=== PATIENT | male | born 1965 | race African-American/Black ===

== ENCOUNTER 2016-06-08 13:14 | Emergency (ER) | payer MEDICARE, MEDICAID ==
[~2016-06-08] VITALS: Ht 172.7 cm; Wt 59.1 kg
[~2016-06-08 13:14] MED LIST: EQL400TA PO; HYDR10SO PO; LEVA500T PO; LISI5 PO
[2016-06-08 13:35] VITALS: BP 148/72; PULSE 86; RESP 20; TEMP 97.8; O2SAT 96
[2016-06-08 14:09] VITALS: BP 171/87; PULSE 83; RESP 16; O2SAT 98
[2016-06-08] MEDS ORDERED: SODIUM CHLOR 0.9% 1000 ML INJ 1,000 ML IV SCH (14:12)
--- NOTE | 2016-06-08 14:14 | PD ---
HPI Chief Complaint: Dizziness Time Seen by Provider: 14:14 Travel History International Travel<30 days: No Contact w/Intl Traveler<30days: No Traveled to known affect area: No History of Present Illness HPI 50-year-old male with a history of sickle cell anemia and hypertension presents to the emergency department for evaluation of lightheadedness for 2 days. Patient states that he feels lightheaded and weak and this is been worsening since yesterday. States it is aggravated with standing up and trying to walk. Denies any alleviating factors. Denies dizziness, states he doesn't feel as though the room is spinning, feels as though he is lightheaded. He denies any fever, chills, nausea, vomiting, chest pain, shortness of breath, abdominal pain , numbness or tingling, one-sided weakness, headache, blurred vision. States that he has had a mild cough recently. States he has never had these symptoms before. No other complaints. Oncologist is Dr. Quintana. [facility] Past Medical History Arthritis: Yes Asthma: No Blood Disorders: Yes (SICKLE CELL) Cardiovascular Problems: No COPD: No Diminished Hearing: No Endocrine: No Gastrointestinal Disorders: Yes Genitourinary: No Implanted Vascular Access Dvce: Yes Musculoskeletal: Yes Neurologic: No Psychiatric: No Reproductive: No Respiratory: Yes Resp. Syncytial Virus (RSV): Yes Integumentary: Yes Immunizations Current: Yes Sickle Cell Disease: Yes Ulcer: Yes Past Surgical History Cholecystectomy: Yes Joint Replacement: Yes (RT HIP SURG FEB 2013) Thoracic Surgery: Yes (INFUSAPORT REMOVED) Other Surgery: Yes (port removed) Social History Alcohol Use: No Tobacco Use: Yes (1PPD) Substance Use: No Allergies-Medications (Allergen,Severity, Reaction): Coded Allergies: Lorazepam (Verified Allergy, Severe, Shortness of Breath, 06/08/16) Reported Meds & Prescriptions Reported Meds & Active Scripts Active Reported Hydrocodone-Acetaminophen 10-325 mg Tab 1 Tab PO Q4H PRN Folic Acid 400 Mcg Tab 400 Mcg PO DAILY Review of Systems Except as stated in HPI: all other systems reviewed are Neg Physical Exam Narrative GENERAL: Well-nourished and well-developed pleasant male patient in no acute distress who is nontoxic appearing. SKIN: Warm and dry. HEAD: Normocephalic and atraumatic. EYES: No injection, drainage, or hyphema noted. PERRLA. EOMI. ENT: No nasal drainage noted. Oropharynx is clear. NECK: Supple and the trachea is midline. CARDIOVASCULAR: Regular rate and rhythm. RESPIRATORY: Breath sounds are equal bilaterally with no accessory muscle use, wheezing, rhonchi, or crackles. GASTROINTESTINAL: Abdomen is soft, non-tender, and nondistended. MUSCULOSKELETAL: No obvious deformities, swelling, cyanosis, or ecchymosis is present throughout the upper and lower extremities. Patient has full range of motion without any signs of neurovascular compromise. Right hip flexor is slightly weaker than the left, patient reporting this has been ongoing since his right hip replacement 2 months ago. NEUROLOGICAL: Awake, alert, and oriented. Normal speech and gait. Cranial nerves are grossly intact. Data Data Last Documented VS Vital Signs Date Time Temp Pulse Resp B/P Pulse Ox O2 Delivery O2 Flow Rate FiO2 06/08/16 15:41 87 16 173/77 98 Room Air 06/08/16 13:35 97.8 Orders Electrocardiogram (06/08/16 14:12) Complete Blood Count With Diff (06/08/16 14:12) Comprehensive Metabolic Panel (06/08/16 14:12) Chest, Single Ap (06/08/16 14:12) Ecg Monitoring (06/08/16 14:12) Iv Access Insert/Monitor (06/08/16 14:12) Oximetry (06/08/16 14:12) Sodium Chloride 0.9% Flush (Ns Flush) (06/08/16 14:15) Retic Count (06/08/16 14:12) Sodium Chlor 0.9% 1000 Ml Inj (Ns 1000 M (06/08/16 14:12) Ua Includes Microscopic (06/08/16 14:50) Labs Laboratory Tests Test 06/08/16 06/08/16 14:50 15:00 White Blood Count 7.7 TH/MM3 Red Blood Count 2.55 MIL/MM3 Hemoglobin 9.9 GM/DL Hematocrit 28.5 % Mean Corpuscular Volume 111.8 FL Mean Corpuscular Hemoglobin 38.7 PG Mean Corpuscular Hemoglobin 34.7 % Concent Red Cell Distribution Width 30.8 % Platelet Count 413 TH/MM3 Mean Platelet Volume 7.8 FL Neutrophils (%) (Auto) 59.2 % Lymphocytes (%) (Auto) 30.9 % Monocytes (%) (Auto) 9.3 % Eosinophils (%) (Auto) 0.1 % Basophils (%) (Auto) 0.5 % Neutrophils # (Auto) 4.6 TH/MM3 Lymphocytes # (Auto) 2.4 TH/MM3 Monocytes # (Auto) 0.7 TH/MM3 Eosinophils # (Auto) 0.0 TH/MM3 Basophils # (Auto) 0.0 TH/MM3 CBC Comment AUTO DIFF Differential Total Cells 100 Counted Neutrophils % (Manual) 65 % Band Neutrophils % 1 % Lymphocytes % 25 % Monocytes % 9 % Neutrophils # (Manual) 5.1 TH/MM3 Nucleated Red Blood Cells 2 /100 WBC Differential Comment FINAL DIFF MANUAL Platelet Estimate HIGH Platelet Morphology Comment NORMAL Sickle Cells 1+ Target Cells 2+ Ovalocytes Reticulocyte Count 5.5 % Absolute Reticulocyte Count 139.5 MIL/L Sodium Level 141 MEQ/L Potassium Level 3.9 MEQ/L Chloride Level 112 MEQ/L Carbon Dioxide Level 20.3 MEQ/L Anion Gap 9 MEQ/L Blood Urea Nitrogen 17 MG/DL Creatinine 1.72 MG/DL Estimat Glomerular Filtration 51 ML/MIN Rate Random Glucose 101 MG/DL Calcium Level 8.8 MG/DL Total Bilirubin 1.4 MG/DL Aspartate Amino Transf 41 U/L (AST/SGOT) Alanine Aminotransferase 33 U/L (ALT/SGPT) Alkaline Phosphatase 206 U/L Total Protein 7.5 GM/DL Albumin 3.4 GM/DL Urine Color YELLOW Urine Turbidity CLEAR Urine pH 6.0 Urine Specific [place] 1.008 Urine Protein 100 mg/dL Urine Glucose (UA) NEG mg/dL Urine Ketones NEG mg/dL Urine Occult Blood TRACE Urine Nitrite NEG Urine Bilirubin NEG Urine Urobilinogen LESS THAN 2.0 MG/DL Urine Leukocyte Esterase NEG Urine RBC LESS THAN 1 /hpf Urine WBC LESS THAN 1 /hpf Urine Squamous Epithelial <1 /hpf Cells MDM Medical Decision Making Medical Screen Exam Complete: Yes Emergency Medical Condition: Yes Differential Diagnosis Anemia versus dehydration versus pneumonia versus orthostatic hypotension Narrative Course 50-year-old male presents to the emergency department for evaluation of lightheadedness for 2 days. Patient is afebrile, vital signs are stable. Physical examination is unremarkable. A focal neurologic deficits. IV access is obtained, labs have been drawn and sent. Patient is administered a liter of fluid. EKG shows sinus rhythm with no acute ST elevations or depressions. CBC shows anemia with a hemoglobin of 9.9, hematocrit 28.5, this is consistent with the patient's previous lab values. CMP shows mild renal insufficiency with a creatinine of 1.72, GFR 51. This consistent with previous lab values. Urinalysis shows 100 protein and trace occult blood. Chest x-ray is negative for any acute abnormalities. Patient has remained stable while here in the emergency department. Likely secondary to mild dehydration. Advised increase oral fluids. Stable for discharge. I discussed the case with my attending physician Dr. Galicia who is aware of the patients history, physical examination findings, and treatment plan. Diagnosis Primary Impression: Lightheadedness Referrals: Primary Care Physician Patient Instructions: General Instructions, Lightheadedness (ED) Additional Instructions: Drink plenty of fluids. Follow-up with your Primary Care Physician. Return to the ED for any acute worsening of symptoms. Med/Other Pt SpecificInfo: No Change to Meds Disposition: 01 DISCHARGE HOME Condition: Stable Katina Cabrera Jun 08, 2016 14:14
[2016-06-08] MEDS ORDERED: SODIUM CHLORIDE 0.9% FLUSH 5 ML FLUSH IVF PRN (14:15)
--- NOTE | 2016-06-08 14:47 | RADRPT ---
EXAM DATE/TIME: 06/08/2016 14:14 [facility] COMPARISON: CHEST SINGLE AP, December 01, 2015, 13:36. INDICATIONS : Cough, dizzy MEDICAL HISTORY : None. SURGICAL HISTORY : None. ENCOUNTER: Initial ACUITY: 1 day PAIN SCORE: 0/10 LOCATION: Bilateral chest FINDINGS: A single view of the chest demonstrates the lungs to be symmetrically aerated without evidence of mas s, infiltrate or effusion. The cardiomediastinal contours are unremarkable. Heterotopic ossification of the humeral head on the left suggesting avascular necrosis. Humeral head prosthesis on the right. CONCLUSION: 1. No acute cardio pulmonary disease. 2. 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 Nomi Sexton Jr., MD on June 08, 2016 at 14:43 Board Certified Radiologist. This report was verified electronically.
[2016-06-08 15:12] LABS: AUTOMATED NEUTROPHIL # 4.6 TH/MM3 (1.8-7.7); BASOPHIL % 0.5 % (0.0-2.0); EOSINOPHIL % 0.1 % (0.0-4.0); HEMATOCRIT 28.5 % (39.0-51.0); LYMPH % 30.9 % (9.0-44.0); LYMPHOCYTE # 2.4 TH/MM3 (1.0-4.8); MEAN CELL VOLUME 111.8 FL (80.0-100.0); MEAN CORPUSCULAR HEMOGLOBIN 38.7 PG (27.0-34.0); MEAN CORPUSCULAR HGB CONC 34.7 % (32.0-36.0); MONO % 9.3 % (0.0-8.0); NEUT % 59.2 % (16.0-70.0); PLATELET COUNT 413 TH/MM3 (150-450); RED BLOOD COUNT 2.55 MIL/MM3 (4.50-5.90); RED CELL DISTRIBUTION WIDTH 30.8 % (11.6-17.2); RETIC % 5.5 % (0.4-3.0); WHITE BLOOD COUNT 7.7 TH/MM3 (4.0-11.0)
[2016-06-08 15:17] LABS: HEMO FLAGS AUTO DIFF; REVIEW FLAG AUTO DIFF
[2016-06-08 15:28] LABS: ALT (GPT) 33 U/L (12-78); ANION GAP 9 MEQ/L (5-15); AST (GOT) 41 U/L (15-37); BICARBONATE 20.3 MEQ/L (21.0-32.0); BLOOD UREA NITROGEN 17 MG/DL (7-18); CHLORIDE 112 MEQ/L (98-107); GLOMERULAR FILTRATION RATE 51 ML/MIN (>89); POTASSIUM 3.9 MEQ/L (3.5-5.1); SODIUM (NA) 141 MEQ/L (136-145)
[2016-06-08 15:30] LABS: ALKALINE PHOSPHATASE 206 U/L (45-117); TOTAL BILIRUBIN ADULT 1.4 MG/DL (0.2-1.0)
[2016-06-08 15:41] VITALS: BP 173/77; PULSE 87; RESP 16; O2SAT 98
[2016-06-08] MEDS ORDERED: FOLI400T PO (15:41)
[2016-06-08] MEDS ORDERED: HYDR-3583 PO (15:41)
[2016-06-08 15:59] LABS: BLOOD, URINE TRACE (NEG); GLUCOSE,URINE NEG (NEG); KETONE, URINE NEG (NEG); NITRITE,URINE NEG (NEG); SQUAMOUS EPITHELIAL CELL URINE <1 /hpf (0-5); URINE COLOR YELLOW (YELLW/STRAW)
[2016-06-08 16:04] LABS: BANDS 1 % (0-6); CORRECTED NUCLEATED RBC 2 /100 WBC (0-0); NEUTROPHIL # MANUAL DIFF 5.1 TH/MM3 (1.8-7.7); POLYS (SEG NEUTROPHILS) 65 % (16-70); WBC DIFF SAMPLE 100
[2016-06-08 16:05] LABS: TARGET CELLS 2+ (NORMAL)
[2016-06-08 16:06] LABS: PLATELET ESTIMATE SMEAR HIGH (NORMAL); SICKLE CELLS 1+ (NORMAL)
[2016-06-08 16:07] LABS: PLATELET MORPHOLOGY NORMAL (NORMAL); SCAN/DIFF FINAL DIFF MANUAL
--- NOTE | 2016-06-08 16:30 | PD ---
Data Data Last Documented VS Vital Signs Date Time Temp Pulse Resp B/P Pulse Ox O2 Delivery O2 Flow Rate FiO2 06/08/16 15:41 87 16 173/77 98 Room Air 06/08/16 13:35 97.8 Orders Electrocardiogram (06/08/16 14:12) Complete Blood Count With Diff (06/08/16 14:12) Comprehensive Metabolic Panel (06/08/16 14:12) Chest, Single Ap (06/08/16 14:12) Ecg Monitoring (06/08/16 14:12) Iv Access Insert/Monitor (06/08/16 14:12) Oximetry (06/08/16 14:12) Sodium Chloride 0.9% Flush (Ns Flush) (06/08/16 14:15) Retic Count (06/08/16 14:12) Sodium Chlor 0.9% 1000 Ml Inj (Ns 1000 M (06/08/16 14:12) Ua Includes Microscopic (06/08/16 14:50) Labs Laboratory Tests Test 06/08/16 06/08/16 14:50 15:00 White Blood Count 7.7 TH/MM3 Red Blood Count 2.55 MIL/MM3 Hemoglobin 9.9 GM/DL Hematocrit 28.5 % Mean Corpuscular Volume 111.8 FL Mean Corpuscular Hemoglobin 38.7 PG Mean Corpuscular Hemoglobin 34.7 % Concent Red Cell Distribution Width 30.8 % Platelet Count 413 TH/MM3 Mean Platelet Volume 7.8 FL Neutrophils (%) (Auto) 59.2 % Lymphocytes (%) (Auto) 30.9 % Monocytes (%) (Auto) 9.3 % Eosinophils (%) (Auto) 0.1 % Basophils (%) (Auto) 0.5 % Neutrophils # (Auto) 4.6 TH/MM3 Lymphocytes # (Auto) 2.4 TH/MM3 Monocytes # (Auto) 0.7 TH/MM3 Eosinophils # (Auto) 0.0 TH/MM3 Basophils # (Auto) 0.0 TH/MM3 CBC Comment AUTO DIFF Differential Total Cells 100 Counted Neutrophils % (Manual) 65 % Band Neutrophils % 1 % Lymphocytes % 25 % Monocytes % 9 % Neutrophils # (Manual) 5.1 TH/MM3 Nucleated Red Blood Cells 2 /100 WBC Differential Comment FINAL DIFF MANUAL Platelet Estimate HIGH Platelet Morphology Comment NORMAL Sickle Cells 1+ Target Cells 2+ Ovalocytes Reticulocyte Count 5.5 % Absolute Reticulocyte Count 139.5 MIL/L Sodium Level 141 MEQ/L Potassium Level 3.9 MEQ/L Chloride Level 112 MEQ/L Carbon Dioxide Level 20.3 MEQ/L Anion Gap 9 MEQ/L Blood Urea Nitrogen 17 MG/DL Creatinine 1.72 MG/DL Estimat Glomerular Filtration 51 ML/MIN Rate Random Glucose 101 MG/DL Calcium Level 8.8 MG/DL Total Bilirubin 1.4 MG/DL Aspartate Amino Transf 41 U/L (AST/SGOT) Alanine Aminotransferase 33 U/L (ALT/SGPT) Alkaline Phosphatase 206 U/L Total Protein 7.5 GM/DL Albumin 3.4 GM/DL Urine Color YELLOW Urine Turbidity CLEAR Urine pH 6.0 Urine Specific [place] 1.008 Urine Protein 100 mg/dL Urine Glucose (UA) NEG mg/dL Urine Ketones NEG mg/dL Urine Occult Blood TRACE Urine Nitrite NEG Urine Bilirubin NEG Urine Urobilinogen LESS THAN 2.0 MG/DL Urine Leukocyte Esterase NEG Urine RBC LESS THAN 1 /hpf Urine WBC LESS THAN 1 /hpf Urine Squamous Epithelial <1 /hpf Cells MDM Supervised Visit with JOSEPHINE: Yes Narrative Course The history, exam, and medical decision-making in the associated mid-level provider note were completed with my assistance. I reviewed and agree with the findings presented. I attest that I had a [id number] encounter with the patient on the same day, and personally performed and documented my assessment and findings in the medical record. *My assessment and Findings: 50-year-old man, sickle cell disease, presents with lightheadedness and dizziness with standing, and presyncope type symptoms. Looks well. Labs are unremarkable. No clear etiology is identified. Recommend outpatient follow-up , drink plenty of fluids. Diagnosis Primary Impression: Lightheadedness Referrals: Primary Care Physician Patient Instructions: General Instructions, Lightheadedness (ED) Additional Instruction: Drink plenty of fluids. Follow-up with your Primary Care Physician. Return to the ED for any acute worsening of symptoms. Disposition: 01 DISCHARGE HOME Condition: Stable Jose Galicia MD Jun 08, 2016 16:29
--- NOTE | 2016-06-08 22:53 | EKG ---
Date Performed: 06/08/2016 Time Performed: 15:42:12 PTAGE: 50 years EKG: Sinus rhythm POSSIBLE LEFT ATRIAL ENLARGEMENT POSSIBLE LEFT VENTRICULAR HYPERTROPHY POSSIBLE SEPTAL MYOCARDIAL IN FARCTION ABNORMAL ECG PREVIOUS TRACING : 09/28/2015 18.30 Compared to prior tracing no significant change DOCTOR: Ld Enriquez Interpretating Date/Time 06/08/2016 22:51:32
== END 2016-06-08 18:27 | disposition home or self-care (01) ==
LOC: NEPC 13:14
DX: R42 Dizziness and giddiness (principal); R05 Cough
CPT/HCPCS: 71010; 80053; 81001; 85007; 85027; 85044; 93005; 99284; J7030

== ENCOUNTER 2016-10-06 10:49 | Inpatient (IN) | payer MEDICARE, OTHER ==
[~2016-10-06] VITALS: Ht 172.7 cm; Wt 56.2 kg
[2016-10-06] VITALS (9 sets, daily range): BP systolic 141–180; BP diastolic 67–82; PULSE 58–67; RESP 13–20; TEMP 96.8–98.5; O2SAT 97–100
[~2016-10-06 10:49] MED LIST changes: -EQL400TA PO; +FOLI400T PO; +HYDR-3583 PO; -HYDR10SO PO; -LEVA500T PO; -LISI5 PO
[2016-10-06] MEDS ORDERED: SODIUM CHLOR 0.9% 1000 ML INJ 1,000 ML IV ONE (11:13)
[2016-10-06] MEDS ORDERED: FENT12DI T-DERMAL (11:14)
[2016-10-06] MEDS ORDERED: blood pressure med (11:14)
[2016-10-06] MEDS ORDERED: MECLIZINE HCL 25 MG TAB PO ONE (11:15)
[2016-10-06] MEDS ORDERED: SODIUM CHLORIDE 0.9% FLUSH 10 ML FLUSH IVF PRN (11:15)
--- NOTE | 2016-10-06 11:17 | PD ---
HPI Chief Complaint: Sickle Cell Time Seen by Provider: 11:17 Travel History International Travel<30 days: No Contact w/Intl Traveler<30days: No Traveled to known affect area: No History of Present Illness HPI 50-year-old male with a history of hypertension, sickle cell anemia, chronic lower back pain presents to the emergency department for evaluation of low back pain and dizziness. Patient states when he woke up this morning and lower back pain. He admits that he has lower back pain every day but some days it is worse than others. States that today he is also feeling dizzy like he might fall over. He denies any headache, nausea, vomiting, chest pain, abdominal pain , diarrhea, numbness or tingling, weakness, vision changes, fever, chills, cough or cold symptoms. States that he does have some slight shortness of breath. He has been smoking cigarettes for many years. The patient has a fentanyl patch and takes Lortab 80226 milligrams for his chronic pain. No other complaints. PFSH Past Medical History Arthritis: Yes Asthma: No Blood Disorders: Yes (SICKLE CELL) Cardiovascular Problems: Yes (HTN) COPD: No Diminished Hearing: No Endocrine: No Gastrointestinal Disorders: Yes Genitourinary: No Implanted Vascular Access Dvce: Yes Musculoskeletal: Yes Neurologic: No Psychiatric: No Reproductive: No Respiratory: Yes (SOB ) Resp. Syncytial Virus (RSV): Yes Integumentary: Yes Immunizations Current: Yes Sickle Cell Disease: Yes Ulcer: Yes Past Surgical History Cholecystectomy: Yes Joint Replacement: Yes (bilateral hip) Thoracic Surgery: Yes (INFUSAPORT REMOVED) Other Surgery: Yes (port removed) Social History Alcohol Use: No Tobacco Use: Yes (1PPD) Substance Use: No Allergies-Medications (Allergen,Severity, Reaction): Coded Allergies: Lorazepam (Verified Allergy, Severe, Shortness of Breath, 10/06/16) Reported Meds & Prescriptions Reported Meds & Active Scripts Active Reported [blood pressure med] Fentanyl Patch 72 HR (Fentanyl) 12 Mcg/Hr Patch 1 Patch T-DERMAL Q72H Remove old patch when new one placed. Hydrocodone-Acetaminophen 10-325 mg Tab 1 Tab PO Q4H PRN Folic Acid 400 Mcg Tab 400 Mcg PO DAILY Review of Systems Except as stated in HPI: all other systems reviewed are Neg Physical Exam Narrative GENERAL: Well-nourished and well-developed male patient in no acute distress who is nontoxic appearing. SKIN: Warm and dry. HEAD: Normocephalic and atraumatic. EYES: No injection, drainage, or hyphema noted. PERRLA. EOMI. ENT: No nasal drainage noted. Oropharynx is clear. NECK: Supple and the trachea is midline. CARDIOVASCULAR: Regular rate and rhythm. RESPIRATORY: Breath sounds are equal bilaterally with no accessory muscle use, wheezing, rhonchi, or crackles. GASTROINTESTINAL: Abdomen is soft, non-tender, and nondistended. MUSCULOSKELETAL: No obvious deformities, swelling, cyanosis, or ecchymosis is present throughout the upper and lower extremities. Patient has full range of motion without any signs of neurovascular compromise. Strength 5/5 upper and lower extremities and equal bilaterally. BACK: Nontender without any obvious deformities, bony point tenderness, or crepitus noted throughout the thoracic and lumbar vertebrae. NEUROLOGICAL: Awake, alert, and oriented. Normal speech and gait. Cranial nerves are grossly intact. Data Data Last Documented VS Vital Signs Date Time Temp Pulse Resp B/P Pulse Ox O2 Delivery O2 Flow Rate FiO2 10/06/16 13:33 58 17 160/71 10/06/16 13:13 98 Nasal Cannula 1.5 10/06/16 10:51 98.5 Orders Electrocardiogram (10/06/16 11:13) Complete Blood Count With Diff (10/06/16 11:13) Comprehensive Metabolic Panel (10/06/16 11:13) Urinalysis - C+S If Indicated (10/06/16 11:13) Chest, Single Ap (10/06/16 11:13) Ecg Monitoring (10/06/16 11:13) Iv Access Insert/Monitor (10/06/16 11:13) Oximetry (10/06/16 11:13) Meclizine (Antivert) (10/06/16 11:15) Sodium Chloride 0.9% Flush (Ns Flush) (10/06/16 11:15) Sodium Chlor 0.9% 1000 Ml Inj (Ns 1000 M (10/06/16 11:13) Retic Count (10/06/16 11:13) Ckmb (Isoenzyme) Profile (10/06/16 11:28) Troponin I (10/06/16 11:28) Sodium Chlor 0.9% 1000 Ml Inj (Ns 1000 M (10/06/16 12:42) Acetamin-Hydrocod 325-10 Mg (Spreckels 10-32 (10/06/16 13:15) Vital Signs (Adult) Q4H (10/06/16 13:34) Activity Oob With Assistance (10/06/16 13:34) Intake + Output BETH.QSHIFT (10/06/16 13:34) Diet Heart Healthy (10/06/16 Lunch) Sodium Chlor 0.9% 1000 Ml Inj (Ns 1000 M (10/06/16 13:34) Sodium Chloride 0.9% Flush (Ns Flush) (10/06/16 13:45) Sodium Chloride 0.9% Flush (Ns Flush) (10/06/16 21:00) Acetaminophen (Tylenol) (10/06/16 13:45) Ondansetron Inj (Zofran Inj) (10/06/16 13:45) Basic Metabolic Panel (Bmp) (10/07/16 06:00) Complete Blood Count With Diff (10/07/16 06:00) Resp Oxygen Bola C Titrat 1-4 L (10/06/16 ) Pt Request For Service (10/06/16 13:34) Case Management Consult (10/06/16 13:34) Enoxaparin Inj (Lovenox Inj) (10/06/16 13:45) Scd Bilateral/Knee High BETH.BID (10/06/16 13:34) David Bilateral/Knee High BETH.QSHIFT (10/06/16 13:34) Docusate Sodium-Senna (Clara-Colace) (10/06/16 21:00) Magnesium Hydroxide Liq (Milk Of Magnesi (10/06/16 13:45) Sennosides (Senokot) (10/06/16 13:45) Bisacodyl Supp (Dulcolax Supp) (10/06/16 13:45) Lactulose Liq (Lactulose Liq) (10/06/16 13:45) Sodium Chlor 0.9% 1000 Ml Inj (Ns 1000 M (10/06/16 13:45) Admit Order (Ed Use Only) (10/06/16 13:34) Folic Acid (Folate) (10/07/16 09:00) Acetamin-Hydrocod 325-10 Mg (Spreckels 10-32 (10/06/16 13:45) (Nf) Fentanyl Patch 72 Hr (10/06/16 13:45) Labs Laboratory Tests Test 10/06/16 10/06/16 12:00 12:16 White Blood Count 6.7 TH/MM3 Red Blood Count 2.23 MIL/MM3 Hemoglobin 9.6 GM/DL Hematocrit 27.1 % Mean Corpuscular Volume 121.3 FL Mean Corpuscular Hemoglobin 42.8 PG Mean Corpuscular Hemoglobin 35.3 % Concent Red Cell Distribution Width 16.8 % Platelet Count 325 TH/MM3 Mean Platelet Volume 8.1 FL Neutrophils (%) (Auto) 73.0 % Lymphocytes (%) (Auto) 18.6 % Monocytes (%) (Auto) 7.8 % Eosinophils (%) (Auto) 0.2 % Basophils (%) (Auto) 0.4 % Neutrophils # (Auto) 4.9 TH/MM3 Lymphocytes # (Auto) 1.2 TH/MM3 Monocytes # (Auto) 0.5 TH/MM3 Eosinophils # (Auto) 0.0 TH/MM3 Basophils # (Auto) 0.0 TH/MM3 CBC Comment AUTO DIFF Differential Total Cells 100 Counted Neutrophils % (Manual) 75 % Lymphocytes % 16 % Monocytes % 8 % Basophils % 1 % Neutrophils # (Manual) 5.0 TH/MM3 Nucleated Red Blood Cells 2 /100 WBC Differential Comment FINAL DIFF MANUAL Atypical Lymphocytes % Platelet Estimate NORMAL Platelet Morphology Comment ENLARGED Polychromasia 2.2 % Sickle Cells 1+ [place]-K[place]va Bodies PRESENT Red Cell Morphology Comment Reticulocyte Count 8.0 % Absolute Reticulocyte Count 179.5 MIL/L Sodium Level 138 MEQ/L Potassium Level 4.9 MEQ/L Chloride Level 109 MEQ/L Carbon Dioxide Level 20.0 MEQ/L Anion Gap 9 MEQ/L Blood Urea Nitrogen 44 MG/DL Creatinine 2.06 MG/DL Estimat Glomerular Filtration 41 ML/MIN Rate Random Glucose 122 MG/DL Calcium Level 9.4 MG/DL Total Bilirubin 1.7 MG/DL Aspartate Amino Transf 45 U/L (AST/SGOT) Alanine Aminotransferase 39 U/L (ALT/SGPT) Alkaline Phosphatase 218 U/L Total Creatine Kinase 45 U/L Troponin I LESS THAN 0.02 NG/ML Total Protein 7.7 GM/DL Albumin 3.2 GM/DL Urine Color YELLOW Urine Turbidity CLEAR Urine pH 5.5 Urine Specific [place] 1.010 Urine Protein 100 mg/dL Urine Glucose (UA) NEG mg/dL Urine Ketones NEG mg/dL Urine Occult Blood SMALL Urine Nitrite NEG Urine Bilirubin NEG Urine Urobilinogen LESS THAN 2.0 MG/DL Urine Leukocyte Esterase NEG Urine RBC LESS THAN 1 /hpf Urine WBC LESS THAN 1 /hpf Urine Hyaline Casts 1 /lpf Microscopic Urinalysis Comment CULT NOT INDICATED MDM Medical Decision Making Medical Screen Exam Complete: Yes Emergency Medical Condition: Yes Differential Diagnosis Sickle cell crisis versus acute kidney injury versus dehydration versus electrolyte abnormality Narrative Course 50-year-old male with a history of sickle cell anemia presents to the emergency department for evaluation of dizziness and low back pain. Patient is afebrile, vital signs are stable. Physical examination is unremarkable. IV access is obtained, labs have been drawn and sent. Patient is placed on cardiac telemetry and pulse oximetry monitoring. EKG shows nonspecific ST elevation in V2 not noted on previous EKGs. Patient is not experiencing any chest pain. We' ll do cardiac enzymes to rule out cardiac etiology. CBC shows anemia with hemoglobin 9.6, hematocrit 27.1. Consistent with previous lab values. Reticulocyte count is 8 and absolute reticulocyte count is 179.5. CMP shows acute on chronic kidney injury with a creatinine of 2.06, BUN 44, GFR 41. Troponin is less than 0.02. Creatinine kinase is 45. Urinalysis shows 100 protein and small occult blood. Chest x-ray is unremarkable. I discussed the case with my attending physician Dr. rOellana and we agree the patient should be kept in observation for gentle hydration for acute on chronic kidney injury. Physician Communication Physician Communication I spoke with Andrade Royal PA-C and Dr. Hassan [facility] who agree to admit the patient to their service under observation. Diagnosis Primary Impression: [id number] kidney injury Qualified Code: N17.9 - Acute renal failure superimposed on stage 3 chronic kidney disease, unspecified acute renal failure type Additional Impression: Sickle cell anemia Qualified Code: D57.00 - Hb-SS disease with crisis Admitting Information Admitting Physician Requests: Observation Katina Cabrera Oct 06, 2016 11:17
[2016-10-06 12:19] LABS: AUTOMATED NEUTROPHIL # 4.9 TH/MM3 (1.8-7.7); BASOPHIL % 0.4 % (0.0-2.0); EOSINOPHIL % 0.2 % (0.0-4.0); HEMATOCRIT 27.1 % (39.0-51.0); LYMPH % 18.6 % (9.0-44.0); LYMPHOCYTE # 1.2 TH/MM3 (1.0-4.8); MEAN CELL VOLUME 121.3 FL (80.0-100.0); MEAN CORPUSCULAR HEMOGLOBIN 42.8 PG (27.0-34.0); MEAN CORPUSCULAR HGB CONC 35.3 % (32.0-36.0); MONO % 7.8 % (0.0-8.0); PLATELET COUNT 325 TH/MM3 (150-450); RED BLOOD COUNT 2.23 MIL/MM3 (4.50-5.90); RED CELL DISTRIBUTION WIDTH 16.8 % (11.6-17.2); WHITE BLOOD COUNT 6.7 TH/MM3 (4.0-11.0)
[2016-10-06 12:21] LABS: HEMO FLAGS AUTO DIFF; REVIEW FLAG FINAL
[2016-10-06 12:39] LABS: ALT (GPT) 39 U/L (12-78); ANION GAP 9 MEQ/L (5-15); AST (GOT) 45 U/L (15-37); BLOOD UREA NITROGEN 44 MG/DL (7-18); CHLORIDE 109 MEQ/L (98-107); GLOMERULAR FILTRATION RATE 41 ML/MIN (>89); POTASSIUM 4.9 MEQ/L (3.5-5.1); SODIUM (NA) 138 MEQ/L (136-145)
[2016-10-06 12:41] LABS: ALKALINE PHOSPHATASE 218 U/L (45-117); TOTAL BILIRUBIN ADULT 1.7 MG/DL (0.2-1.0)
[2016-10-06] MEDS ORDERED: SODIUM CHLOR 0.9% 1000 ML INJ 1,000 ML IV SCH ×2 (12:42→13:34)
[2016-10-06 12:47] LABS: CREATINE KINASE 45 U/L (39-308)
[2016-10-06 12:50] LABS: BLOOD, URINE SMALL (NEG); GLUCOSE,URINE NEG (NEG); HYALINE CAST, URINE 1 /lpf (RARE); KETONE, URINE NEG (NEG); NITRITE,URINE NEG (NEG); PH, URINE 5.5 (5.0-8.5); URINE COLOR YELLOW (YELLW/STRAW)
[2016-10-06 12:52] LABS: COMMENT (UR) CULT NOT INDICATED; CULTURE IF INDICATED CULT NOT INDICATED
[2016-10-06 12:56] LABS: BASOPHILS 1 % (0-2); CORRECTED NUCLEATED RBC 2 /100 WBC (0-0); HOWELL-JOLLY BODIES PRESENT (NONE SEEN); POLYS (SEG NEUTROPHILS) 75 % (16-70); WBC DIFF SAMPLE 100
[2016-10-06 12:57] LABS: POLYCHROMASIA 2.2 % (0.0-1.9); SICKLE CELLS 1+ (NORMAL)
[2016-10-06 12:58] LABS: PLATELET ESTIMATE SMEAR NORMAL (NORMAL); PLATELET MORPHOLOGY ENLARGED (NORMAL); SCAN/DIFF FINAL DIFF MANUAL
--- NOTE | 2016-10-06 13:04 | RADRPT ---
EXAM DATE/TIME: 10/06/2016 12:14 [facility] COMPARISON: CHEST SINGLE AP, June 08, 2016, 14:14. INDICATIONS : Short of breath, body aches from Sickle cell. MEDICAL HISTORY : Sickle Cell disease. SURGICAL HISTORY : None. ENCOUNTER: Initial ACUITY: 1 day PAIN SCORE: 7/10 LOCATION: Bilateral chest FINDINGS: A single view of the chest demonstrates the lungs to be symmetrically aerated without evidence of mas s, infiltrate or effusion. The cardiomediastinal contours are unremarkable. Stable right shoulder a rthroplasty. Heterotopic ossification again partially imaged in the left humeral head. Osseous struct ures are intact. CONCLUSION: 1. No acute cardio pulmonary disease Frederick Calle MD on October 06, 2016 at 13:00 Board Certified Radiologist. This report was verified electronically.
[2016-10-06] MEDS ORDERED: ACETAMINOPHEN/HYDROcodone 325 MG/10 MG TAB PO ONE (13:15)
[2016-10-06] MEDS ORDERED: SODIUM CHLORIDE 0.9% FLUSH 10 ML FLUSH IV FLUSH PRN (13:45)
[2016-10-06] MEDS ORDERED: LACTULOSE SYRUP 20 GM/30 ML CUP PO PRN (13:45)
[2016-10-06] MEDS ORDERED: BISACODYL 10 MG SUPP RECTAL PRN (13:45)
[2016-10-06] MEDS ORDERED: SENNOSIDES 8.6 MG TAB PO PRN (13:45)
[2016-10-06] MEDS ORDERED: NON-FORMULARY DRUG (Fentanyl Patch 72 HR 1 PATCH) T-DERMAL SCH (13:45)
[2016-10-06] MEDS ORDERED: ACETAMINOPHEN 325 MG TAB PO PRN (13:45)
[2016-10-06] MEDS ORDERED: MAGNESIUM HYDROXIDE SUSP 30 ML CUP PO PRN (13:45)
[2016-10-06] MEDS ORDERED: ONDANSETRON HCL 4 MG/2 ML VIAL IVP PRN (13:45)
[2016-10-06] MEDS: SODIUM CHLOR 0.9% 1000 ML INJ 1,000 ML IV SCH ×2 (14:18→21:49)
[2016-10-06] MEDS: ENOXAPARIN SODIUM 40 MG/0.4 ML SYRINGE SQ SCH (14:18)
--- NOTE | 2016-10-06 14:37 | HHI.HP ---
[facility] Angel Quintana DO Admission Diagnosis Acute on Chronic Kidney Injury, Dizziness, Sickle Cell Anemia Diagnoses: Chief Complaint: Dizziness and back pain Travel History International Travel<30 Days: No Contact w/Intl Traveler <30 Da: No Traveled to Known Affected Are: No History of Present Illness Written by Andrade Royal, acting as scribe for Dr. Hassan on 10/06/16 at 14:12. This note was transcribed by scribSkylar RUFFIN. I, Dr. Perla Hassan personally performed the history, physical exam, and medical decision making; and confirmed the accuracy of the information in the transcribed note. Authenticated by Dr. Perla Hassan on 10/06/16 at 14:12. 50-year-old male with a past medical history of sickle cell, COPD, chronic back pain who presents with dizziness and back pain. The patient states that he woke up this morning with dizziness and back pain. He denies any injury to his back. He normally takes [place] as needed for his back pain. He states he is not taking fentanyl patch. He states he normally gets back pain with sickle cell crisis. He does state that the dizziness is new and unusual for him. He describes the dizziness as feeling like he is going to pass out. He reports the dizziness is worse when he sits or stands up. He reports normal intake lately. He does report he is able to ambulate with no difficulties. He is on oxygen for COPD, but he continues to smoke. He does feel like his shortness of breath is a little worse than his baseline. He denies any chest pain, diarrhea , vomiting, cough, fever, chills. Review of Systems Except as stated in HPI: all other systems reviewed are Neg Past Family Social History Past Medical History Sickle cell disease Chronic back pain COPD on home oxygen Chronic kidney disease Past Surgical History Cholecystectomy Right hip replacement Right shoulder replacement Port placement and removal Reported Medications [blood pressure med] Hydrocodone-Acetaminophen 10-325 mg Tab 1 Tab PO Q4H PRN Folic Acid 400 Mcg Tab 400 Mcg PO DAILY Allergies: Coded Allergies: Lorazepam (Verified Allergy, Severe, Shortness of Breath, 10/06/16) Active Ordered Medications Current Medications Medications (Trade) Dose Ordered Sig/Adrien Route Start Time Stop Time Status Last Admin (NS Flush) 2 ml UNSCH PRN IV FLUSH 10/06/16 13:45 (NS Flush) 2 ml BID IV FLUSH 10/06/16 21:00 (Tylenol) 650 mg Q4H PRN PO 10/06/16 13:45 (Zofran Inj) 4 mg Q6H PRN IVP 10/06/16 13:45 (Lovenox Inj) 40 mg Q24H SQ 10/06/16 15:00 10/06/16 14:18 (Clara-Colace) 1 tab BID PO 10/06/16 21:00 (Milk Of Magnesia Liq) 30 ml Q12H PRN PO 10/06/16 13:45 (Senokot) 17.2 mg Q12H PRN PO 10/06/16 13:45 (Dulcolax Supp) 10 mg DAILY PRN RECTAL 10/06/16 13:45 Lactulose 30 ml 30 ml DAILY PRN PO 10/06/16 13:45 (NS 1000 ml Inj) 1,000 ml @ 100 mls/hr Q10H IV 10/06/16 13:45 10/06/16 14:18 (Folate) 1 mg DAILY PO 10/07/16 09:00 ([place] 10-325 Mg) 1 tab Q4H PRN PO 10/06/16 13:45 (Morphine Inj) 2 mg Q4HR PRN IV PUSH 10/06/16 13:45 Family History Smokes 1 pack per day Denies any alcohol or drug use Social History Brother had sickle cell Physical Exam Vital Signs Vital Signs Date Time Temp Pulse Resp B/P Pulse Ox O2 Delivery O2 Flow Rate FiO2 10/06/16 13:33 58 17 160/71 10/06/16 13:13 65 17 180/77 98 Nasal Cannula 1.5 10/06/16 11:18 97 Nasal Cannula 2 10/06/16 11:03 57 98 Room Air 10/06/16 10:51 98.5 58 18 141/67 97 Physical Exam GENERAL: Well-developed well-nourished thin patient. In no acute distress. SKIN: Warm and dry. No lesions noted. HEENT: Normocephalic. Pupils equal and round. EOMs intact. Mucous membranes dry. CARDIOVASCULAR: Regular rate and rhythm. No murmur appreciated. RESPIRATORY: No accessory muscle use. Clear to auscultation. Breath sounds equal bilaterally. GASTROINTESTINAL: Abdomen soft, non-tender, nondistended. Bowel sounds x4. MUSCULOSKELETAL: No obvious deformities. No clubbing or cyanosis. No edema. NEUROLOGICAL: Awake and alert. No focal neurological deficits. Moves upper and lower extremities spontaneously. Normal speech. Strength 5/5. PSYCHIATRIC: Appropriate mood and affect; insight and judgment normal. Laboratory Laboratory Tests Test 10/06/16 10/06/16 12:00 12:16 White Blood Count 6.7 Red Blood Count 2.23 Hemoglobin 9.6 Hematocrit 27.1 Mean Corpuscular Volume 121.3 Mean Corpuscular Hemoglobin 42.8 Mean Corpuscular Hemoglobin 35.3 Concent Red Cell Distribution Width 16.8 Platelet Count 325 Mean Platelet Volume 8.1 Neutrophils (%) (Auto) 73.0 Lymphocytes (%) (Auto) 18.6 Monocytes (%) (Auto) 7.8 Eosinophils (%) (Auto) 0.2 Basophils (%) (Auto) 0.4 Neutrophils # (Auto) 4.9 Lymphocytes # (Auto) 1.2 Monocytes # (Auto) 0.5 Eosinophils # (Auto) 0.0 Basophils # (Auto) 0.0 CBC Comment AUTO DIFF Differential Total Cells 100 Counted Neutrophils % (Manual) 75 Lymphocytes % 16 Monocytes % 8 Basophils % 1 Neutrophils # (Manual) 5.0 Nucleated Red Blood Cells 2 Differential Comment FINAL DIFF MANUAL Atypical Lymphocytes Platelet Estimate NORMAL Platelet Morphology Comment ENLARGED Polychromasia 2.2 Sickle Cells 1+ [place] Bodies PRESENT Red Cell Morphology Comment Reticulocyte Count 8.0 Absolute Reticulocyte Count 179.5 Sodium Level 138 Potassium Level 4.9 Chloride Level 109 Carbon Dioxide Level 20.0 Anion Gap 9 Blood Urea Nitrogen 44 Creatinine 2.06 Estimat Glomerular Filtration 41 Rate Random Glucose 122 Calcium Level 9.4 Total Bilirubin 1.7 Aspartate Amino Transf 45 (AST/SGOT) Alanine Aminotransferase 39 (ALT/SGPT) Alkaline Phosphatase 218 Total Creatine Kinase 45 Troponin I LESS THAN 0.02 Total Protein 7.7 Albumin 3.2 Urine Color YELLOW Urine Turbidity CLEAR Urine pH 5.5 Urine Specific [place] 1.010 Urine Protein 100 Urine Glucose (UA) NEG Urine Ketones NEG Urine Occult Blood SMALL Urine Nitrite NEG Urine Bilirubin NEG Urine Urobilinogen LESS THAN 2.0 Urine Leukocyte Esterase NEG Urine RBC LESS THAN 1 Urine WBC LESS THAN 1 Urine Hyaline Casts 1 Microscopic Urinalysis Comment CULT NOT INDICATED Result Diagram: 10/06/16 1200 10/06/16 1200 Imaging Last Impressions Chest X-Ray 10/06/16 1113 Signed Impressions: Service Date/Time: September 12:14 - CONCLUSION: 1. No acute cardio pulmonary disease Frederick Calle MD Assessment and Plan Assessment and Plan 50-year-old male with a past medical history of sickle cell, COPD, chronic back pain who presents with dizziness and back pain Acute kidney injury on chronic kidney disease stage III: Creatinine 2.06, previously 1.72 on 06/08/16. IVF. Follow up BMP. Possible sickle cell pain crisis: Patient presented with acute worsening of chronic back pain, which he states is typical of his sickle cell pain. Hemoglobin 9.6, previously 9.9 on 06/08/16. Reticulocyte count elevated at 179.5 , previously 139.5 on 06/08/16. IVF. Continue home [place]. IV morphine for breakthrough pain. Continue folic acid. Follow-up CBC. Dizziness: Suspect secondary to dehydration and acute kidney injury as above. IVF. Check orthostatics. PT eval. COPD with chronic respiratory failure: On home oxygen. No clinical signs of exacerbation. Chest x-ray reviewed with no acute process. O2 as needed. DVT prophylaxis: Lovenox. SCDs. Discussed Condition With Patient, nurse, ED Andrade Mason Oct 06, 2016 14:37 Perla Hassan MD Oct 06, 2016 17:10
[2016-10-06] MEDS: ACETAMINOPHEN/HYDROcodone 325 MG/10 MG TAB PO PRN (17:54)
[2016-10-06] MEDS: SODIUM CHLORIDE 0.9% FLUSH 10 ML FLUSH IV FLUSH SCH (21:00)
[2016-10-06] MEDS: MORPHINE SULFATE 4 MG/ML INJ IV PUSH PRN (21:49)
[2016-10-06] MEDS: DOCUSATE SODIUM 50 MG/SENNA 8.6 MG TAB PO SCH (21:49)
[2016-10-07] VITALS (9 sets, daily range): BP systolic 116–153; BP diastolic 64–79; PULSE 59–68; RESP 16–18; TEMP 96–98.9; O2SAT 96–100
[2016-10-07] MEDS: ACETAMINOPHEN/HYDROcodone 325 MG/10 MG TAB PO PRN ×4 (06:24→20:56)
[2016-10-07] MEDS: SODIUM CHLORIDE 0.9% FLUSH 10 ML FLUSH IV FLUSH SCH ×2 (07:59→20:58)
[2016-10-07] MEDS: DOCUSATE SODIUM 50 MG/SENNA 8.6 MG TAB PO SCH ×2 (07:59→20:56)
[2016-10-07] MEDS: FOLIC ACID 1 MG TAB PO SCH (07:59)
[2016-10-07 09:28] LABS: AUTOMATED NEUTROPHIL # 5.5 TH/MM3 (1.8-7.7); BASOPHIL % 0.4 % (0.0-2.0); EOSINOPHIL % 0.2 % (0.0-4.0); HEMATOCRIT 28.7 % (39.0-51.0); HEMO FLAGS DIFF FINAL; LYMPH % 26.7 % (9.0-44.0); LYMPHOCYTE # 2.4 TH/MM3 (1.0-4.8); MEAN CELL VOLUME 121.8 FL (80.0-100.0); MEAN CORPUSCULAR HGB CONC 34.5 % (32.0-36.0); MONO % 10.5 % (0.0-8.0); NEUT % 62.2 % (16.0-70.0); PLATELET COUNT 334 TH/MM3 (150-450); RED BLOOD COUNT 2.36 MIL/MM3 (4.50-5.90); RED CELL DISTRIBUTION WIDTH 16.6 % (11.6-17.2); WHITE BLOOD COUNT 8.8 TH/MM3 (4.0-11.0)
[2016-10-07] MEDS: SODIUM CHLOR 0.9% 1000 ML INJ 1,000 ML IV SCH ×2 (09:45→18:22)
[2016-10-07] MEDS ORDERED: INFLUENZA VIRUS VACCINE (QUADRIVALENT) 0.5 ML SYR IM ONE (10:00)
[2016-10-07] MEDS ORDERED: PNEUMOCOCCAL POLYVALENT INJ 25 MCG/0.5 ML SYR IM ONE (10:00)
[2016-10-07 10:19] LABS: BICARBONATE 20.8 MEQ/L (21.0-32.0); POTASSIUM 4.4 MEQ/L (3.5-5.1)
--- NOTE | 2016-10-07 12:17 | HHI.PR ---
Subjective Remarks In bed, appear chronically ill patient. Feels weak. Says she was able to eat some no nausea at this time. Back pain fairly controlled with meds. No fever or chills. No fever or chills./ No n/v/d/c. Objective Vitals Vital Signs Date Time Temp Pulse Resp B/P Pulse Ox O2 Delivery O2 Flow Rate FiO2 10/07/16 11:44 97.7 67 18 145/ 10/07/16 10:05 98 Nasal Cannula 2.00 10/07/16 07:50 96.3 59 18 153/78 99 10/07/16 04:00 96.0 62 18 124/75 99 10/07/16 00:00 96.2 64 16 134/71 99 10/06/16 21:29 99 Nasal Cannula 2.00 10/06/16 20:00 97.3 67 18 148/72 100 10/06/16 18:14 96.8 63 20 165/79 99 10/06/16 15:03 57 13 160/78 58 18 152/82 69 20 176/81 10/06/16 15:00 64 16 160/78 99 Nasal Cannula 2.0 10/06/16 14:12 17 10/06/16 13:33 58 17 160/71 10/06/16 13:13 65 17 180/77 98 Nasal Cannula 1.5 I/O 10/06/16 10/06/16 10/06/16 10/07/16 10/07/16 10/07/16 07:00 15:00 23:00 07:00 15:00 23:00 Intake Total 1000 ml 1120 ml 480 ml Output Total 300 ml 300 ml Balance 700 ml 820 ml 480 ml Intake Oral 120 ml 480 ml IV Total 1000 ml 1000 ml Output Urine Total 300 ml 300 ml # Voids 1 1 3 Result Diagram: 10/07/16 0906 10/07/16 0906 Imaging Last Impressions Chest X-Ray 10/06/16 1113 Signed Impressions: Service Date/Time: September 12:14 - CONCLUSION: 1. No acute cardio pulmonary disease Frederick Calle MD Objective Remarks GENERAL: Skinny, chronically ill patient AA middle age male, well-developed well-nourished thin patient. In no acute distress. SKIN: Warm and dry. No lesions noted. HEENT: Normocephalic. Pupils equal and round. EOMs intact. Mucous membranes dry. Hard of hearing. No drainage form ears. CARDIOVASCULAR: Regular rate and rhythm. No murmur appreciated. RESPIRATORY: No accessory muscle use. Clear to auscultation. Breath sounds equal bilaterally. GASTROINTESTINAL: Abdomen soft, non-tender, nondistended. Bowel sounds x4. MUSCULOSKELETAL: No obvious deformities. No clubbing or cyanosis. No edema. NEUROLOGICAL: Awake and alert. No focal neurological deficits. Moves upper and lower extremities spontaneously. Normal speech. Strength 5/5. PSYCHIATRIC: Appropriate mood and affect; insight and judgment normal. A/P Assessment and Plan 50-year-old male with a past medical history of sickle cell, COPD, chronic back pain who presents with dizziness and back pain Acute kidney injury on chronic kidney disease stage III: Creatinine 2.06, previously 1.72 on 06/08/16. IVF. Follow up BMP. Possible sickle cell pain crisis: Patient presented with acute worsening of chronic back pain, which he states is typical of his sickle cell pain. Hemoglobin 9.6, previously 9.9 on 06/08/16. Reticulocyte count elevated at 179.5 , previously 139.5 on 06/08/16. IVF. Continue home [place]. IV morphine for breakthrough pain. Continue folic acid. Follow-up CBC. Dizziness: Suspect secondary to dehydration and acute kidney injury as above. IVF. Check orthostatics. PT eval. COPD with chronic respiratory failure: On home oxygen. No clinical signs of exacerbation. Chest x-ray reviewed with no acute process. O2 as needed. DVT prophylaxis: Lovenox. SCDs. Discussed Condition With Patient, nurse DC plan: Pending improvement. Poss DC tomorrow if improve. Perla Hassan MD Oct 07, 2016 12:17
[2016-10-07] MEDS: MORPHINE SULFATE 4 MG/ML INJ IV PUSH PRN (14:03)
[2016-10-07] MEDS: ENOXAPARIN SODIUM 40 MG/0.4 ML SYRINGE SQ SCH (14:03)
--- NOTE | 2016-10-07 16:44 | EKG ---
Date Performed: 10/06/2016 Time Performed: 11:27:11 PTAGE: 50 years EKG: SINUS BRADYCARDIA POSSIBLE LEFT VENTRICULAR HYPERTROPHY POSSIBLE SEPTAL MYOCARDIAL INFARCTI ON ACUTE [place] PREVIOUS TRACING : 06/08/2016 15.42 Compared to prior tracing no significant change DOCTOR: Ash Sagastume Interpretating Date/Time 10/07/2016 16:43:10
[2016-10-08] VITALS (7 sets, daily range): BP systolic 121–159; BP diastolic 66–89; PULSE 58–64; RESP 16–20; TEMP 96–98.5; O2SAT 98–100
[2016-10-08] MEDS: MORPHINE SULFATE 4 MG/ML INJ IV PUSH PRN ×4 (02:08→19:28)
[2016-10-08] MEDS: SODIUM CHLOR 0.9% 1000 ML INJ 1,000 ML IV SCH ×3 (06:12→17:25)
[2016-10-08] MEDS: FOLIC ACID 1 MG TAB PO SCH (08:01)
[2016-10-08] MEDS: ACETAMINOPHEN/HYDROcodone 325 MG/10 MG TAB PO PRN ×4 (08:01→20:53)
[2016-10-08] MEDS: DOCUSATE SODIUM 50 MG/SENNA 8.6 MG TAB PO SCH ×2 (08:01→20:50)
[2016-10-08] MEDS: SODIUM CHLORIDE 0.9% FLUSH 10 ML FLUSH IV FLUSH SCH ×2 (08:02→20:50)
--- NOTE | 2016-10-08 08:45 | HHI.PR ---
Subjective Remarks Still with back pain, doesn't feel comfortable to go home. Says he is eating better. No problems with urination .No n/v/d/c. No cp or sob .Feels tired. Objective Vitals Vital Signs Date Time Temp Pulse Resp B/P Pulse Ox O2 Delivery O2 Flow Rate FiO2 10/08/16 08:10 96.0 58 16 143/76 100 10/08/16 04:00 145/89 10/08/16 04:00 96.6 62 18 147/71 100 10/08/16 04:00 159/85 10/08/16 00:00 96.2 63 18 142/72 99 10/07/16 20:00 96.4 59 18 149/73 99 10/07/16 19:54 99 21 10/07/16 16:03 116/64 10/07/16 16:03 128/66 10/07/16 16:02 98.9 68 18 128/72 96 10/07/16 11:44 97.7 67 18 145/79 100 10/07/16 10:05 98 Nasal Cannula 2.00 I/O 10/07/16 10/07/16 10/07/16 10/08/16 10/08/16 10/08/16 07:00 15:00 23:00 07:00 15:00 23:00 Intake Total 480 ml 240 ml 725 ml Output Total 575 ml 575 ml Balance 480 ml 240 ml -575 ml 150 ml Intake Oral 480 ml 240 ml IV Total 725 ml Output Urine Total 575 ml 575 ml # Voids 3 2 4 Result Diagram: 10/07/16 0906 10/07/16 0906 Imaging Last Impressions Chest X-Ray 10/06/16 1113 Signed Impressions: Service Date/Time: September 12:14 - CONCLUSION: 1. No acute cardio pulmonary disease Frederick Calle MD Objective Remarks GENERAL: Skinny, chronically ill patient AA middle age male, well-developed well-nourished thin patient, appears tired but no in acute distress. SKIN: Warm and dry. No lesions noted. HEENT: Normocephalic. Pupils equal and round. EOMs intact. Mucous membranes dry. Hard of hearing. No drainage form ears. CARDIOVASCULAR: Regular rate and rhythm. No murmur appreciated. RESPIRATORY: No accessory muscle use. Clear to auscultation. Breath sounds equal bilaterally. GASTROINTESTINAL: Abdomen soft, non-tender, nondistended. Bowel sounds x4. MUSCULOSKELETAL: No obvious deformities. No clubbing or cyanosis. No edema. NEUROLOGICAL: Awake and alert. No focal neurological deficits. Moves upper and lower extremities spontaneously. Normal speech. Strength 5/5. PSYCHIATRIC: Appropriate mood and affect; insight and judgment normal. A/P Assessment and Plan 50-year-old male with a past medical history of sickle cell, COPD, chronic back pain who presents with dizziness and back pain Acute kidney injury on chronic kidney disease stage III: Creatinine 2.06, previously 1.72 on 06/08/16. IVF. Follow up BMP. Possible sickle cell pain crisis: Patient presented with acute worsening of chronic back pain, which he states is typical of his sickle cell pain. Hemoglobin 9.6, previously 9.9 on 06/08/16. Reticulocyte count elevated at 179.5 , previously 139.5 on 06/08/16. IVF. Continue home [place]. IV morphine for breakthrough pain. Continue folic acid. Follow-up CBC. Dizziness: Suspect secondary to dehydration and acute kidney injury as above. IVF. Check orthostatics. PT eval. COPD with chronic respiratory failure: On home oxygen. No clinical signs of exacerbation. Chest x-ray reviewed with no acute process. O2 as needed. DVT prophylaxis: Lovenox. SCDs. Discussed Condition With Patient, nurse DC plan: Pending improvement. Likely DC tomorrow. Perla Hassan MD Oct 08, 2016 08:45
[2016-10-08 09:28] LABS: BASOPHIL % 0.4 % (0.0-2.0); EOSINOPHIL # 0.2 TH/MM3 (0-0.4); EOSINOPHIL % 2.3 % (0.0-4.0); HEMATOCRIT 26.8 % (39.0-51.0); LYMPHOCYTE # 2.6 TH/MM3 (1.0-4.8); MEAN CELL VOLUME 123.3 FL (80.0-100.0); MEAN CORPUSCULAR HEMOGLOBIN 43.6 PG (27.0-34.0); MEAN CORPUSCULAR HGB CONC 35.4 % (32.0-36.0); NEUT % 55.3 % (16.0-70.0); PLATELET COUNT 278 TH/MM3 (150-450); RED BLOOD COUNT 2.17 MIL/MM3 (4.50-5.90); RED CELL DISTRIBUTION WIDTH 16.4 % (11.6-17.2); WHITE BLOOD COUNT 9.1 TH/MM3 (4.0-11.0)
[2016-10-08 09:29] LABS: HEMO FLAGS AUTO DIFF; RETIC % 6.7 % (0.4-3.0); REVIEW FLAG FINAL
[2016-10-08 09:48] LABS: ALKALINE PHOSPHATASE 174 U/L (45-117); ALT (GPT) 36 U/L (12-78); ANION GAP 9 MEQ/L (5-15); AST (GOT) 50 U/L (15-37); BICARBONATE 17.5 MEQ/L (21.0-32.0); BLOOD UREA NITROGEN 33 MG/DL (7-18); CHLORIDE 116 MEQ/L (98-107); GLOMERULAR FILTRATION RATE 53 ML/MIN (>89); LDH SERUM 321 U/L (87-241); POTASSIUM 4.9 MEQ/L (3.5-5.1); SODIUM (NA) 142 MEQ/L (136-145); TOTAL BILIRUBIN ADULT 1.8 MG/DL (0.2-1.0)
[2016-10-08 11:28] LABS: HOWELL-JOLLY BODIES PRESENT (NONE SEEN)
[2016-10-08 11:29] LABS: PLATELET ESTIMATE SMEAR NORMAL (NORMAL); PLATELET MORPHOLOGY ENLARGED (NORMAL)
[2016-10-08 11:34] LABS: SCAN/DIFF AUTO DIFF CONFIRMED
[2016-10-08] MEDS: ENOXAPARIN SODIUM 40 MG/0.4 ML SYRINGE SQ SCH (13:29)
[2016-10-09] VITALS (8 sets, daily range): BP systolic 143–169; BP diastolic 63–88; PULSE 55–70; RESP 18–20; TEMP 96.3–98.3; O2SAT 97–100
[2016-10-09] MEDS: MORPHINE SULFATE 4 MG/ML INJ IV PUSH PRN ×3 (00:22→17:04)
[2016-10-09] MEDS: SODIUM CHLOR 0.9% 1000 ML INJ 1,000 ML IV SCH ×3 (02:25→13:11)
[2016-10-09] MEDS: ACETAMINOPHEN/HYDROcodone 325 MG/10 MG TAB PO PRN ×3 (07:44→23:12)
[2016-10-09 08:10] LABS: AUTOMATED NEUTROPHIL # 5.6 TH/MM3 (1.8-7.7); BASOPHIL % 0.5 % (0.0-2.0); EOSINOPHIL # 0.2 TH/MM3 (0-0.4); EOSINOPHIL % 2.4 % (0.0-4.0); HEMATOCRIT 29.9 % (39.0-51.0); HEMO FLAGS DIFF FINAL; LYMPH % 16.7 % (9.0-44.0); LYMPHOCYTE # 1.4 TH/MM3 (1.0-4.8); MEAN CELL VOLUME 123.1 FL (80.0-100.0); MEAN CORPUSCULAR HGB CONC 34.9 % (32.0-36.0); MONO % 13.2 % (0.0-8.0); NEUT % 67.2 % (16.0-70.0); PLATELET COUNT 299 TH/MM3 (150-450); RED BLOOD COUNT 2.42 MIL/MM3 (4.50-5.90); RED CELL DISTRIBUTION WIDTH 16.5 % (11.6-17.2); WHITE BLOOD COUNT 8.4 TH/MM3 (4.0-11.0)
[2016-10-09 08:33] LABS: BICARBONATE 19.4 MEQ/L (21.0-32.0)
[2016-10-09 08:37] LABS: POTASSIUM 5.1 MEQ/L (3.5-5.1)
[2016-10-09] MEDS: DOCUSATE SODIUM 50 MG/SENNA 8.6 MG TAB PO SCH ×2 (09:10→21:26)
[2016-10-09] MEDS: FOLIC ACID 1 MG TAB PO SCH (09:10)
[2016-10-09] MEDS: SODIUM CHLORIDE 0.9% FLUSH 10 ML FLUSH IV FLUSH SCH ×2 (09:11→21:00)
--- NOTE | 2016-10-09 11:59 | HHI.DS ---
Discharge Summary Admission Date Oct 06, 2016 at 14:02 Discharge Date: Oct 10, 2016 Admitting Diagnosis Acute on Chronic Kidney Injury, Dizziness, Sickle Cell Anemia (1) Sickle cell anemia ICD Code: D57.1 Diagnosis: Principal (2) [id number] kidney injury ICD Code: N17.9 Diagnosis: Principal (3) Lightheadedness ICD Code: R42 Diagnosis: Secondary Procedures none Brief History - From Admission 50-year-old male with a past medical history of sickle cell, COPD, chronic back pain who presents with dizziness and back pain. The patient states that he woke up this morning with dizziness and back pain. He denies any injury to his back. He normally takes [place] as needed for his back pain. He states he is not taking fentanyl patch. He states he normally gets back pain with sickle cell crisis. He does state that the dizziness is new and unusual for him. He describes the dizziness as feeling like he is going to pass out. He reports the dizziness is worse when he sits or stands up. He reports normal intake lately. He does report he is able to ambulate with no difficulties. He is on oxygen for COPD, but he continues to smoke. He does feel like his shortness of breath is a little worse than his baseline. He denies any chest pain, diarrhea , vomiting, cough, fever, chills. CBC/BMP: 10/09/16 0716 10/09/16 0716 Significant Findings Laboratory Tests Test 10/06/16 10/06/16 10/07/16 10/08/16 12:00 12:16 09:06 08:26 Red Blood Count 2.23 MIL/MM3 2.36 MIL/MM3 2.17 MIL/MM3 (4.50-5.90) (4.50-5.90) (4.50-5.90) Hemoglobin 9.6 GM/DL 9.9 GM/DL 9.5 GM/DL (13.0-17.0) (13.0-17.0) (13.0-17.0) Hematocrit 27.1 % 28.7 % 26.8 % (39.0-51.0) (39.0-51.0) (39.0-51.0) Mean Corpuscular Volume 121.3 FL 121.8 FL 123.3 FL (80.0-100.0) (80.0-100.0) (80.0-100.0) Mean Corpuscular Hemoglobin 42.8 PG 42.0 PG 43.6 PG (27.0-34.0) (27.0-34.0) (27.0-34.0) Neutrophils (%) (Auto) 73.0 % (16.0-70.0) Neutrophils % (Manual) 75 % (16-70) Nucleated Red Blood Cells 2 /100 WBC (0-0) Platelet Morphology Comment ENLARGED ENLARGED (NORMAL) (NORMAL) Polychromasia 2.2 % (0.0-1.9) 2.0 % (0.0-1.9) Sickle Cells 1+ (NORMAL) Reticulocyte Count 8.0 % (0.4-3.0) 6.7 % (0.4-3.0) Absolute Reticulocyte Count 179.5 MIL/L (20.0-150.0) Chloride Level 109 MEQ/L 111 MEQ/L 116 MEQ/L (98-107) (98-107) (98-107) Carbon Dioxide Level 20.0 MEQ/L 20.8 MEQ/L 17.5 MEQ/L (21.0-32.0) (21.0-32.0) (21.0-32.0) Blood Urea Nitrogen 44 MG/DL (7-18) 37 MG/DL (7-18) 33 MG/DL (7-18) Creatinine 2.06 MG/DL 2.04 MG/DL 1.66 MG/DL (0.60-1.30) (0.60-1.30) (0.60-1.30) Estimat Glomerular Filtration 41 ML/MIN (>89) 42 ML/MIN (>89) 53 ML/MIN (>89) Rate Random Glucose 122 MG/DL 161 MG/DL (74-106) (74-106) Total Bilirubin 1.7 MG/DL 1.8 MG/DL (0.2-1.0) (0.2-1.0) Aspartate Amino Transf 45 U/L (15-37) 50 U/L (15-37) (AST/SGOT) Alkaline Phosphatase 218 U/L 174 U/L (45-117) (45-117) Troponin I LESS THAN 0.02 NG/ML (0.02-0.05) Albumin 3.2 GM/DL 2.6 GM/DL (3.4-5.0) (3.4-5.0) Urine Protein 100 mg/dL (NEG-TRACE) Urine Occult Blood SMALL (NEG) Monocytes (%) (Auto) 10.5 % 13.0 % (0.0-8.0) (0.0-8.0) Calcium Level 8.4 MG/DL (8.5-10.1) Monocytes # (Auto) 1.2 TH/MM3 (0-0.9) Basophilic Stippling FAINT (NORMAL) Lactate Dehydrogenase 321 U/L (87-241) Total Protein 6.3 GM/DL (6.4-8.2) Test 10/09/16 07:16 Red Blood Count 2.42 MIL/MM3 (4.50-5.90) Hemoglobin 10.4 GM/DL (13.0-17.0) Hematocrit 29.9 % (39.0-51.0) Mean Corpuscular Volume 123.1 FL (80.0-100.0) Mean Corpuscular Hemoglobin 43.0 PG (27.0-34.0) Monocytes (%) (Auto) 13.2 % (0.0-8.0) Monocytes # (Auto) 1.1 TH/MM3 (0-0.9) Chloride Level 116 MEQ/L (98-107) Carbon Dioxide Level 19.4 MEQ/L (21.0-32.0) Blood Urea Nitrogen 31 MG/DL (7-18) Creatinine 1.51 MG/DL (0.60-1.30) Estimat Glomerular Filtration 59 ML/MIN (>89) Rate Imaging Last Impressions Chest X-Ray 10/06/16 1113 Signed Impressions: Service Date/Time: September 12:14 - CONCLUSION: 1. No acute cardio pulmonary disease Frederick Calle MD PE at Discharge GENERAL: Skinny, chronically ill patient AA middle age male, well-developed well-nourished thin patient, appears tired but no in acute distress. SKIN: Warm and dry. No lesions noted. HEENT: Normocephalic. Pupils equal and round. EOMs intact. Mucous membranes dry. Hard of hearing. No drainage form ears. CARDIOVASCULAR: Regular rate and rhythm. No murmur appreciated. RESPIRATORY: No accessory muscle use. Clear to auscultation. Breath sounds equal bilaterally. GASTROINTESTINAL: Abdomen soft, non-tender, nondistended. Bowel sounds x4. MUSCULOSKELETAL: No obvious deformities. No clubbing or cyanosis. No edema. NEUROLOGICAL: Awake and alert. No focal neurological deficits. Moves upper and lower extremities spontaneously. Normal speech. Strength 5/5. PSYCHIATRIC: Appropriate mood and affect; insight and judgment normal. Hospital Course 50-year-old male with a past medical history of sickle cell, COPD, chronic back pain who presents with dizziness and back pain Acute kidney injury on chronic kidney disease stage III: Creatinine 2.06, previously 1.72 on 06/08/16. IVF. Follow up BMP. Possible sickle cell pain crisis: Patient presented with acute worsening of chronic back pain, which he states is typical of his sickle cell pain. Hemoglobin 9.6, previously 9.9 on 06/08/16. Reticulocyte count elevated at 179.5 , previously 139.5 on 06/08/16. IVF. Continue home [place]. IV morphine for breakthrough pain. Continue folic acid. Follow-up CBC. Dizziness: Suspect secondary to dehydration and acute kidney injury as above. IVF. Check orthostatics. PT eval. COPD with chronic respiratory failure: On home oxygen. No clinical signs of exacerbation. Chest x-ray reviewed with no acute process. O2 as needed. DVT prophylaxis: Lovenox. SCDs. Discussed Condition With Patient, nurse DC plan: Improved, DC in stable condition. to follow up as OP with PCP and consultants. Pt Condition on Discharge: Stable Discharge Disposition: Discharge to SNF Discharge Time: > 30 minutes Discharge Instructions DIET: Follow Instructions for: As Tolerated, No Restrictions Activities you can perform: Regular-No Restrictions Follow up Referrals: PCP Follow-up - 3-5 Days Continued Medications: Folic Acid (Folic Acid) 400 Mcg Tab 400 MCG PO DAILY Nutritional Supplement #30 Ref 0 TAB (This prescription has been renewed) Hydrocodone-Acetaminophen (Hydrocodone-Acetaminophen) 10-325 mg Tab 1 TAB PO Q4H PRN PAIN #30 Ref 0 TAB (This prescription has been renewed) Discontinued Medications: Fentanyl Patch 72 HR (Fentanyl Patch 72 HR) 12 Mcg/Hr Patch 1 PATCH T-DERMAL Q72H Remove old patch when new one placed. Pain Management #10 Ref 0 PATCH ([blood pressure med]) Perla Hassan MD Oct 09, 2016 11:59
--- NOTE | 2016-10-09 12:03 | HHI.PR ---
Subjective Remarks Feels improved today. Feels weak. No sob. Pain is better controlled. No n/v/d/c. Denies chest pain . No fever or chills. Objective Vitals Vital Signs Date Time Temp Pulse Resp B/P Pulse Ox O2 Delivery O2 Flow Rate FiO2 10/09/16 08:00 96.7 57 20 156/80 100 10/09/16 04:00 97.1 56 20 151/78 100 10/09/16 00:00 96.5 55 20 147/75 100 10/08/16 20:00 97.7 64 20 144/82 98 10/08/16 16:00 98.5 63 16 142/73 98 10/08/16 12:31 97.6 61 18 133/67 100 133/66 121/69 10/08/16 12:20 16 I/O 10/08/16 10/08/16 10/08/16 10/09/16 10/09/16 10/09/16 07:00 15:00 23:00 07:00 15:00 23:00 Intake Total 1445 ml 1704 ml Output Total 575 ml 1650 ml 1275 ml Balance 870 ml 54 ml -1275 ml Intake Oral 720 ml 480 ml IV Total 725 ml 1224 ml Output Urine Total 575 ml 1650 ml 1275 ml # Voids 4 Result Diagram: 10/09/16 0716 10/09/16 0716 Imaging Last Impressions Chest X-Ray 10/06/16 1113 Signed Impressions: Service Date/Time: September 12:14 - CONCLUSION: 1. No acute cardio pulmonary disease Frederick Calle MD Objective Remarks GENERAL: Skinny, chronically ill patient AA middle age male, well-developed well-nourished thin patient, appears tired but no in acute distress. SKIN: Warm and dry. No lesions noted. HEENT: Normocephalic. Pupils equal and round. EOMs intact. Mucous membranes dry. Hard of hearing. No drainage form ears. CARDIOVASCULAR: Regular rate and rhythm. No murmur appreciated. RESPIRATORY: No accessory muscle use. Clear to auscultation. Breath sounds equal bilaterally. GASTROINTESTINAL: Abdomen soft, non-tender, nondistended. Bowel sounds x4. MUSCULOSKELETAL: No obvious deformities. No clubbing or cyanosis. No edema. NEUROLOGICAL: Awake and alert. No focal neurological deficits. Moves upper and lower extremities spontaneously. Normal speech. Strength 5/5. PSYCHIATRIC: Appropriate mood and affect; insight and judgment normal. A/P Assessment and Plan 50-year-old male with a past medical history of sickle cell, COPD, chronic back pain who presents with dizziness and back pain Acute kidney injury on chronic kidney disease stage III: Creatinine 2.06, previously 1.72 on 06/08/16. IVF. Follow up BMP. Possible sickle cell pain crisis: Patient presented with acute worsening of chronic back pain, which he states is typical of his sickle cell pain. Hemoglobin 9.6, previously 9.9 on 06/08/16. Reticulocyte count elevated at 179.5 , previously 139.5 on 06/08/16. IVF. Continue home [place]. IV morphine for breakthrough pain. Continue folic acid. Follow-up CBC. Dizziness: Suspect secondary to dehydration and acute kidney injury as above. IVF. Check orthostatics. PT eval. COPD with chronic respiratory failure: On home oxygen. No clinical signs of exacerbation. Chest x-ray reviewed with no acute process. O2 as needed. DVT prophylaxis: Lovenox. SCDs. Discussed Condition With Patient, nurse DC plan: Improved, plan to DC to SNF,. CM following for DC Perla Hassan MD Oct 09, 2016 12:03
[2016-10-09] MEDS ORDERED: FOLI400T PO (12:05)
[2016-10-09] MEDS ORDERED: HYDR-3583 PO (12:05)
--- NOTE | 2016-10-09 12:06 | HHI.FF ---
Face to Face Verification Diagnosis: (1) [id number] kidney injury (2) Sickle cell anemia (3) Dehydration Physical Therapy Order: Evaluate and Treat Home Health Nursing Order: Medical education Signs/symptoms of disease process Medication education-adverse effect Nursing assessment with vital signs I have seen patient Claudio Higgins on 10/09/16. My clinical findings support the need for the requested home health care services because: Ltd mobility - disease progression Patient has SOB I certify that my clinical findings support that this patient is homebound because: Post-op weakness Unsteady gait/balance Perla Hassan MD Oct 09, 2016 12:06
[2016-10-09] MEDS: ENOXAPARIN SODIUM 40 MG/0.4 ML SYRINGE SQ SCH (15:17)
[2016-10-10] VITALS: BP 141/78; PULSE 58; RESP 18; TEMP 96; O2SAT 99
[2016-10-10] MEDS: SODIUM CHLOR 0.9% 1000 ML INJ 1,000 ML IV SCH ×2 (02:25→10:25)
[2016-10-10 04:00] VITALS: BP 131/69; PULSE 56; RESP 18; TEMP 96.8; O2SAT 98
[2016-10-10] MEDS: ACETAMINOPHEN/HYDROcodone 325 MG/10 MG TAB PO PRN ×2 (04:52→14:58)
[2016-10-10 08:00] VITALS: BP 123/66; PULSE 72; RESP 18; TEMP 97.1; O2SAT 96
[2016-10-10] MEDS: DOCUSATE SODIUM 50 MG/SENNA 8.6 MG TAB PO SCH (08:06)
[2016-10-10] MEDS: MORPHINE SULFATE 4 MG/ML INJ IV PUSH PRN (08:06)
[2016-10-10] MEDS: FOLIC ACID 1 MG TAB PO SCH (08:06)
[2016-10-10] MEDS: SODIUM CHLORIDE 0.9% FLUSH 10 ML FLUSH IV FLUSH SCH (08:08)
[2016-10-10 12:00] VITALS: BP 149/73; PULSE 65; RESP 20; TEMP 98; O2SAT 97
[2016-10-10] MEDS ORDERED: MAGNESIUM HYDROXIDE SUSP 30 ML CUP PO PRN (12:00)
--- NOTE | 2016-10-10 13:09 | HHI.PR ---
Subjective Remarks Patient doing well today. No motor deficits. No weakness. Discharge to home. Objective Vital Signs Date Time Temp Pulse Resp B/P Pulse Ox O2 Delivery O2 Flow Rate FiO2 10/10/16 08:00 97.1 72 18 123/66 96 10/10/16 04:00 96.8 56 18 131/69 98 10/10/16 00:00 96.0 58 18 141/78 99 10/09/16 20:00 98.3 70 18 150/63 99 10/09/16 18:17 97 21 10/09/16 17:39 152/80 10/09/16 16:00 97.2 62 20 169/88 100 I/O 10/09/16 10/09/16 10/09/16 10/10/16 10/10/16 10/10/16 07:00 15:00 23:00 07:00 15:00 23:00 Intake Total 1436 ml 1443 ml Output Total 1275 ml Balance -1275 ml 1436 ml 1443 ml Intake Oral 600 ml IV Total 836 ml 1443 ml Output Urine Total 1275 ml # Voids 3 3 2 # Bowel Movements 0 Result Diagram: 10/09/16 0716 10/09/16 0716 Vipin Cabrera MD Oct 10, 2016 13:09
[2016-10-10] MEDS: ENOXAPARIN SODIUM 40 MG/0.4 ML SYRINGE SQ SCH (14:59)
== END 2016-10-10 15:46 | disposition home or self-care (01) | DRG 682 ==
LOC: NEPE 10:49 → NEDA 13:39 → OBSVTOIN 14:02 → N05B 16:44
PROVIDERS: ADMIT Hospitalist; ATTEND Hospitalist
DX: N17.9 Acute kidney failure, unspecified (principal); D57.00 Hb-SS disease with crisis, unspecified; J96.10 Chronic respiratory failure, unspecified whether with hypoxia or hypercapnia; Z99.81 Dependence on supplemental oxygen; J44.9 Chronic obstructive pulmonary disease, unspecified; I12.9 Hypertensive chronic kidney disease with stage 1 through stage 4 chronic kidney disease, or unspecified chronic kidney disease; N18.3 Chronic kidney disease, stage 3 (moderate); G89.29 Other chronic pain; M54.5 Low back pain; R42 Dizziness and giddiness; F17.210 Nicotine dependence, cigarettes, uncomplicated; M19.90 Unspecified osteoarthritis, unspecified site; Z96.611 Presence of right artificial shoulder joint; Z96.641 Presence of right artificial hip joint; E86.0 Dehydration; Z23 Encounter for immunization
CPT/HCPCS: 71010; 80048; 80053; 81001; 82550; 83615; 83735; 84484; 85007; 85025; 85027; 85044; 90686; 90732; 93005; 94620; J1650; J2270; J7030; Q2038

== ENCOUNTER 2016-12-21 01:49 | Emergency (ER) | payer MEDICAID, MEDICARE, OTHER ==
[~2016-12-21] VITALS: Ht 175.3 cm; Wt 65.0 kg
[2016-12-21 01:52] VITALS: BP 174/78; PULSE 68; RESP 16; TEMP 98.9; O2SAT 100
[2016-12-21] MEDS ORDERED: METO25TA3 PO (01:57)
[2016-12-21] MEDS ORDERED: FURO1TAB62 PO (01:57)
[2016-12-21] MEDS ORDERED: HYDR-3578 (01:57)
[2016-12-21] MEDS ORDERED: SODIUM CHLOR 0.9% 1000 ML INJ 1,000 ML IV ONE (03:01)
--- NOTE | 2016-12-21 03:06 | PD ---
HPI Chief Complaint: Sickle Cell Time Seen by Provider: 02:51 Travel History International Travel<30 days: No Contact w/Intl Traveler<30days: No Traveled to known affect area: No History of Present Illness HPI 51-year-old male complains of low back pain. Patient has history of sickle cell disease and states that the back pain is typical of his sickle cell crisis. Patient denies any headache. Patient denies any chest pain or shortness of breath. Patient denies any coughing congestion. Patient denies abdominal pain. Patient denies any dysuria or frequency. Patient denies any fever chills. Patient states the pain aching pain and sharp pain localized to low back area. Patient denies any pain radiation. On a scale of 1-10 the pain is a 9. Patient has been seen by Dr. Quintana for his sickle cell disease. PFSH Past Medical History Anemia: Yes (SICKLE CELL ANEMIA) Arthritis: Yes Asthma: No Autoimmune Disease: No Blood Disorders: Yes (SICKLE CELL) Heart Rhythm Problems: No Cancer: No Cardiovascular Problems: Yes (HTN) High Cholesterol: No Chemotherapy: No Congestive Heart Failure: No COPD: No Diabetes: No Diminished Hearing: No Endocrine: No Gastrointestinal Disorders: Yes GERD: No Genitourinary: No Hiatal Hernia: Yes Hypertension: Yes Immune Disorder: No Implanted Vascular Access Dvce: Yes Kidney Stones: No Musculoskeletal: Yes Neurologic: No Psychiatric: No Reproductive: No Respiratory: Yes (SOB ) Resp. Syncytial Virus (RSV): Yes Integumentary: Yes Immunizations Current: Yes Radiation Therapy: No Renal Failure: No Sickle Cell Disease: Yes Sleep Apnea: No Thyroid Disease: No Ulcer: Yes (peptic ulcer recuring ) Tetanus Vaccination: < 5 Years Influenza Vaccination: Yes Past Surgical History Abdominal Surgery: No AICD: No Arteriovenous Shunt: No Cardiac Surgery: No Cholecystectomy: Yes Ear Surgery: No Endocrine Surgery: No Eye Surgery: No Genitourinary Surgery: No Gynecologic Surgery: No Insulin Pump: No Joint Replacement: Yes (full hip replacement bilat) Oral Surgery: No Pacemaker: No Thoracic Surgery: No Other Surgery: Yes (port removed) Social History Alcohol Use: No Tobacco Use: Yes (1PPD) Substance Use: No Allergies-Medications (Allergen,Severity, Reaction): Coded Allergies: lorazepam (Verified Allergy, Severe, Shortness of Breath, 12/21/16) Reported Meds & Prescriptions Reported Meds & Active Scripts Active Folic Acid 400 Mcg Tab 400 Mcg PO DAILY Reported Lasix (Furosemide) 20 Mg Tab 20 Mg PO DAILY Metoprolol Tartrate 25 Mg Tab 25 Mg PO BID Lorcet Hd 10-325 mg (Hydrocodone-Acetaminophen) 10 Mg-325 Mg Tab Review of Systems General / Constitutional: No: Fever Eyes: No: Visual changes HENT: No: Headaches Cardiovascular: No: Chest Pain or Discomfort Respiratory: No: Shortness of Breath Gastrointestinal: No: Abdominal Pain Genitourinary: No: Dysuria Musculoskeletal: No: Pain Skin: No Rash Neurologic: No: Weakness Psychiatric: No: Depression Endocrine: No: Polydipsia Hematologic/Lymphatic: No: Easy Bruising Physical Exam Narrative GENERAL: Well-nourished, well-developed patient. SKIN: Focused skin assessment warm/dry. HEAD: Normocephalic. EYES: No scleral icterus. No injection or drainage. NECK: Supple, trachea midline. No JVD or lymphadenopathy. CARDIOVASCULAR: Regular rate and rhythm without murmurs, gallops, or rubs. RESPIRATORY: Breath sounds equal bilaterally. No accessory muscle use. GASTROINTESTINAL: Abdomen soft, non-tender, nondistended. MUSCULOSKELETAL: No cyanosis, or edema. BACK: Mild tenderness on palpation low lumbar area, without obvious deformity. No CVA tenderness. Neurologic exam normal. Data Data Last Documented VS Vital Signs Date Time Temp Pulse Resp B/P (MAP) Pulse Ox O2 Delivery O2 Flow Rate FiO2 12/21/16 01:54 64 16 100 Room Air 12/21/16 01:52 98.9 174/78 (110) Orders Orders Basic Metabolic Panel (Bmp) (12/21/16 03:01) Complete Blood Count With Diff (12/21/16 03:01) Retic Count (12/21/16 03:01) Ecg Monitoring (12/21/16 03:01) Iv Access Insert/Monitor (12/21/16 03:01) Oximetry (12/21/16 03:01) Ketorolac Inj (Toradol Inj) (12/21/16 03:15) Ondansetron Inj (Zofran Inj) (12/21/16 03:15) Sodium Chloride 0.9% Flush (Ns Flush) (12/21/16 03:15) Sodium Chlor 0.9% 1000 Ml Inj (Ns 1000 M (12/21/16 03:01) Morphine Inj (Morphine Inj) (12/21/16 03:15) Morphine Inj (Morphine Inj) (12/21/16 03:45) Ondansetron Odt (Zofran Odt) (12/21/16 03:45) Ketorolac Inj (Toradol Inj) (12/21/16 03:45) Labs Laboratory Tests Test 12/21/16 03:30 White Blood Count 8.8 TH/MM3 Red Blood Count 2.14 MIL/MM3 Hemoglobin 9.2 GM/DL Hematocrit 26.6 % Mean Corpuscular Volume 123.9 FL Mean Corpuscular Hemoglobin 43.0 PG Mean Corpuscular Hemoglobin Concent 34.7 % Red Cell Distribution Width 16.1 % Platelet Count 331 TH/MM3 Mean Platelet Volume 7.8 FL Neutrophils (%) (Auto) 61.5 % Lymphocytes (%) (Auto) 26.2 % Monocytes (%) (Auto) 11.2 % Eosinophils (%) (Auto) 0.8 % Basophils (%) (Auto) 0.3 % Neutrophils # (Auto) 5.4 TH/MM3 Lymphocytes # (Auto) 2.3 TH/MM3 Monocytes # (Auto) 1.0 TH/MM3 Eosinophils # (Auto) 0.1 TH/MM3 Basophils # (Auto) 0.0 TH/MM3 CBC Comment DIFF FINAL Differential Comment Reticulocyte Count 6.6 % Absolute Reticulocyte Count 140.5 MIL/L Blood Urea Nitrogen 33 MG/DL Creatinine 1.89 MG/DL Random Glucose 120 MG/DL Calcium Level 8.5 MG/DL Sodium Level 138 MEQ/L Potassium Level 4.3 MEQ/L Chloride Level 108 MEQ/L Carbon Dioxide Level 22.0 MEQ/L Anion Gap 8 MEQ/L Estimat Glomerular Filtration Rate 45 ML/MIN MDM Medical Decision Making Medical Screen Exam Complete: Yes Emergency Medical Condition: Yes Interpretation(s) 4:20 AM. CBC, reticulocyte count, BMP at baseline. Differential Diagnosis Differential diagnosis including sickle cell crisis, acute on chronic pain. Narrative Course 51-year-old male with low back pain. History of sickle cell disease. The pain is typical sickle cell crisis. Normal saline solution 1 L bolus. Morphine 4 mg IV. Zofran 4 mg IV. Toradol 30 mg IV. Diagnosis Primary Impression: Sickle cell pain crisis Patient Instructions: General Instructions Additional Instructions: Advised patient to follow-up with personal physician. Encouraged by mouth fluids. Continue with all medication. Med/Other Pt SpecificInfo: No Change to Meds Disposition: 01 DISCHARGE HOME Condition: Stable Ernie Stone MD Dec 21, 2016 03:06
[2016-12-21] MEDS ORDERED: SODIUM CHLORIDE 0.9% FLUSH 10 ML FLUSH IVF PRN (03:15)
[2016-12-21] MEDS ORDERED: ONDANSETRON HCL 4 MG/2 ML VIAL IVP ONE (03:15)
[2016-12-21] MEDS ORDERED: KETOROLAC TROMETHAMINE 30 MG/ML (IVP) VIAL IVP ONE (03:15)
[2016-12-21] MEDS ORDERED: MORPHINE SULFATE 8 MG/ML INJ IV PUSH ONE (03:15)
[2016-12-21 03:45] LABS: AUTOMATED NEUTROPHIL # 5.4 TH/MM3 (1.8-7.7); BASOPHIL % 0.3 % (0.0-2.0); EOSINOPHIL # 0.1 TH/MM3 (0-0.4); EOSINOPHIL % 0.8 % (0.0-4.0); HEMATOCRIT 26.6 % (39.0-51.0); HEMO FLAGS DIFF FINAL; LYMPH % 26.2 % (9.0-44.0); LYMPHOCYTE # 2.3 TH/MM3 (1.0-4.8); MEAN CELL VOLUME 123.9 FL (80.0-100.0); MEAN CORPUSCULAR HGB CONC 34.7 % (32.0-36.0); MONO % 11.2 % (0.0-8.0); NEUT % 61.5 % (16.0-70.0); PLATELET COUNT 331 TH/MM3 (150-450); RED BLOOD COUNT 2.14 MIL/MM3 (4.50-5.90); RED CELL DISTRIBUTION WIDTH 16.1 % (11.6-17.2); RETIC % 6.6 % (0.4-3.0); REVIEW FLAG FINAL; WHITE BLOOD COUNT 8.8 TH/MM3 (4.0-11.0)
[2016-12-21] MEDS ORDERED: KETOROLAC TROMETHAMINE 60 MG/2 ML (IM) VIAL IM ONE (03:45)
[2016-12-21] MEDS ORDERED: MORPHINE SULFATE 4 MG/ML INJ IM ONE (03:45)
[2016-12-21] MEDS ORDERED: ONDANSETRON ODT 4 MG TAB PO ONE (03:45)
[2016-12-21 04:06] LABS: POTASSIUM 4.3 MEQ/L (3.5-5.1)
[2016-12-21 04:44] VITALS: O2SAT 98
== END 2016-12-21 04:51 | disposition home or self-care (01) ==
LOC: NEPC 01:49
DX: D57.00 Hb-SS disease with crisis, unspecified (principal); M13.80 Other specified arthritis, unspecified site; I10 Essential (primary) hypertension; F17.200 Nicotine dependence, unspecified, uncomplicated; Z79.899 Other long term (current) drug therapy
CPT/HCPCS: 80048; 85025; 85044; 96372; 99284; J1885; J2270

== ENCOUNTER → 2017-02-10 | Outpatient (CLI) | payer OTHER ==
[~2017-02-10] MED LIST changes: +FURO1TAB62 PO; +HYDR-3578; -HYDR-3583 PO; +METO25TA3 PO
--- NOTE | 2017-02-10 19:03 | EKG ---
Date Performed: 02/10/2017 Time Performed: 10:00:17 PTAGE: 51 years EKG: Sinus rhythm POSSIBLE LEFT ATRIAL ENLARGEMENT POSSIBLE LEFT VENTRICULAR HYPERTROPHY POSSIBLE ANTEROSEPTAL MYOCARD IAL INFARCTION , OF INDETERMINATE AGE ABNORMAL ECG PREVIOUS TRACING : 10/06/2016 11.27 Compared to prior tracing no significant change DOCTOR: Ld Enriquez Interpretating Date/Time 02/10/2017 19:01:40
== END ==
LOC: HCAV 09:49
PROVIDERS: ATTEND Internal Medicine Hematology
DX: I49.8 Other specified cardiac arrhythmias (principal)
CPT/HCPCS: 93005

== ENCOUNTER 2017-02-14 13:31 | Emergency (ER) | payer MEDICARE, MEDICAID ==
[~2017-02-14] VITALS: Ht 172.7 cm; Wt 60.0 kg
[2017-02-14 13:32] VITALS: BP 168/76; PULSE 62; RESP 16; TEMP 98.6; O2SAT 97
--- NOTE | 2017-02-14 13:35 | PD ---
Physical Exam Date Seen by Provider: Feb 14, 2017 Time Seen by Provider: 13:34 Narrative 51-year-old black male presents to emergency department with complaints of dizziness and back pain today. History of sickle cell disease. Positive upper respiratory symptoms 2 days. Data Data Last Documented VS Vital Signs Date Time Temp Pulse Resp B/P (MAP) Pulse Ox O2 Delivery O2 Flow Rate FiO2 02/14/17 13:32 98.6 62 16 168/76 (106) 97 Room Air [facility] Medical Record Reviewed: No Supervised Visit with JOSEPHINE: Guillaume Emmanuel Feb 14, 2017 13:35
[2017-02-14] MEDS ORDERED: SODIUM CHLOR 0.9% 1000 ML INJ 1,000 ML IV ONE (14:20)
[2017-02-14] MEDS ORDERED: SODIUM CHLORIDE 0.9% FLUSH 10 ML FLUSH IVF PRN (14:30)
[2017-02-14 14:36] VITALS: RESP 18; O2SAT 99
[2017-02-14] MEDS ORDERED: MORPHINE SULFATE 4 MG/ML INJ IV PUSH ONE (14:45)
[2017-02-14] MEDS ORDERED: KETOROLAC TROMETHAMINE 30 MG/ML (IVP) VIAL IV PUSH ONE (14:45)
--- NOTE | 2017-02-14 14:58 | PD ---
HPI Chief Complaint: Sickle Cell Time Seen by Provider: 14:20 Travel History International Travel<30 days: No Contact w/Intl Traveler<30days: No Traveled to known affect area: No History of Present Illness HPI Patient is a 51-year-old male with history of sickle cell disease, presents to the emergency room with complaints of sickle cell crisis. He reports that for the past 2 days, he has had increased low back pain. Reports that he has chronic back pain to his consistent with his sickle cell crisis. Reports pain to his low back with no radiation. He does follow up with Dr. Quintana for his sickle cell disease. Denies any chest pain or shortness of breath. Denies any abdominal pain. Denies any dysuria/urinary urgency/frequency. Reports that he has been feeling a little dizzy today. Denies vision changes, denies gait changes, denies ataxia. Denies fever/chills. NO other complaints at this time. Patient also reports that he has run out of his lortabs today PFS Past Medical History Anemia: Yes (SICKLE CELL ANEMIA) Arthritis: Yes Asthma: No Autoimmune Disease: No Blood Disorders: Yes (SICKLE CELL) Heart Rhythm Problems: No Cancer: No Cardiovascular Problems: Yes (HTN) High Cholesterol: No Chemotherapy: No Congestive Heart Failure: No COPD: No Diabetes: No Diminished Hearing: No Endocrine: No Gastrointestinal Disorders: Yes GERD: No Genitourinary: No Hiatal Hernia: Yes Hypertension: Yes Immune Disorder: No Implanted Vascular Access Dvce: Yes Kidney Stones: No Musculoskeletal: Yes Neurologic: No Psychiatric: No Reproductive: No Respiratory: Yes (SOB ) Resp. Syncytial Virus (RSV): Yes Integumentary: Yes Immunizations Current: Yes Radiation Therapy: No Renal Failure: No Sickle Cell Disease: Yes Sleep Apnea: No Thyroid Disease: No Ulcer: Yes (peptic ulcer recuring ) Tetanus Vaccination: > 5 Years Influenza Vaccination: Yes Past Surgical History Abdominal Surgery: No AICD: No Arteriovenous Shunt: No Cardiac Surgery: No Cholecystectomy: Yes Ear Surgery: No Endocrine Surgery: No Eye Surgery: No Genitourinary Surgery: No Gynecologic Surgery: No Insulin Pump: No Joint Replacement: Yes (full hip replacement bilat) Oral Surgery: No Pacemaker: No Thoracic Surgery: No Other Surgery: Yes (port removed) Social History Alcohol Use: No Tobacco Use: Yes (1PPD) Substance Use: No Allergies-Medications (Allergen,Severity, Reaction): Coded Allergies: lorazepam (Verified Allergy, Severe, Shortness of Breath, 02/14/17) Reported Meds & Prescriptions Reported Meds & Active Scripts Active Folic Acid 400 Mcg Tab 400 Mcg PO DAILY Reported Lasix (Furosemide) 20 Mg Tab 20 Mg PO DAILY Metoprolol Tartrate 25 Mg Tab 25 Mg PO BID Lorcet Hd 10-325 mg (Hydrocodone-Acetaminophen) 10 Mg-325 Mg Tab Review of Systems General / Constitutional: No: Fever Eyes: No: Visual changes HENT: Positive: Lightheadedness, No: Headaches Cardiovascular: No: Chest Pain or Discomfort Respiratory: No: Shortness of Breath Gastrointestinal: No: Abdominal Pain Genitourinary: No: Dysuria Musculoskeletal: Positive: Pain (low back pain) Skin: No Rash Neurologic: Positive: Dizziness, No: Weakness Psychiatric: No: Depression Endocrine: No: Polydipsia Hematologic/Lymphatic: No: Easy Bruising Physical Exam Narrative GENERAL: Mild distress SKIN: Focused skin assessment warm/dry. HEAD: Atraumatic. Normocephalic. EYES: Pupils equal and round. No scleral icterus. No injection or drainage. ENT: No nasal bleeding or discharge. Mucous membranes pink and moist. NECK: Trachea midline. No JVD. CARDIOVASCULAR: Regular rate and rhythm. No murmur appreciated. RESPIRATORY: No accessory muscle use. Clear to auscultation. Breath sounds equal bilaterally. GASTROINTESTINAL: Abdomen soft, non-tender, nondistended. Hepatic and splenic margins not palpable. MUSCULOSKELETAL: No obvious deformities. No clubbing. No cyanosis. No edema. Patient with lumbar paraspinal tenderness NEUROLOGICAL: Awake and alert. No obvious cranial nerve deficits. Motor grossly within normal limits. Normal speech. PSYCHIATRIC: Appropriate mood and affect; insight and judgment normal. Data Data Last Documented VS Vital Signs Date Time Temp Pulse Resp B/P (MAP) Pulse Ox O2 Delivery O2 Flow Rate FiO2 02/14/17 14:36 18 99 Room Air 02/14/17 14:22 65 02/14/17 13:32 98.6 Orders Orders Complete Blood Count With Diff (02/14/17 14:20) Comprehensive Metabolic Panel (02/14/17 14:20) Retic Count (02/14/17 14:20) Urinalysis - C+S If Indicated (02/14/17 14:20) Ecg Monitoring (02/14/17 14:20) Iv Access Insert/Monitor (02/14/17 14:20) Oximetry (02/14/17 14:20) Sodium Chloride 0.9% Flush (Ns Flush) (02/14/17 14:30) Sodium Chlor 0.9% 1000 Ml Inj (Ns 1000 M (02/14/17 14:20) Morphine Inj (Morphine Inj) (02/14/17 14:45) Ketorolac Inj (Toradol Inj) (02/14/17 14:45) Chest, Single Ap (02/14/17 14:45) Hydromorphone Pf Inj (Dilaudid Pf Inj) (02/14/17 16:30) Labs Laboratory Tests Test 02/14/17 14:30 White Blood Count 8.2 TH/MM3 Red Blood Count 2.14 MIL/MM3 Hemoglobin 9.5 GM/DL Hematocrit 27.4 % Mean Corpuscular Volume 127.8 FL Mean Corpuscular Hemoglobin 44.5 PG Mean Corpuscular Hemoglobin Concent 34.8 % Red Cell Distribution Width 17.4 % Platelet Count 304 TH/MM3 Mean Platelet Volume 7.9 FL Neutrophils (%) (Auto) 76.0 % Lymphocytes (%) (Auto) 16.1 % Monocytes (%) (Auto) 7.4 % Eosinophils (%) (Auto) 0.0 % Basophils (%) (Auto) 0.5 % Neutrophils # (Auto) 6.2 TH/MM3 Lymphocytes # (Auto) 1.3 TH/MM3 Monocytes # (Auto) 0.6 TH/MM3 Eosinophils # (Auto) 0.0 TH/MM3 Basophils # (Auto) 0.0 TH/MM3 CBC Comment AUTO DIFF Differential Total Cells Counted 100 Neutrophils % (Manual) 83 % Band Neutrophils % 2 % Lymphocytes % 12 % Monocytes % 3 % Neutrophils # (Manual) 7.0 TH/MM3 Nucleated Red Blood Cells 5 /100 WBC Differential Comment FINAL DIFF MANUAL Platelet Estimate NORMAL Platelet Morphology Comment NORMAL Polychromasia 4.1 % Spherocytes OCC Sickle Cells 1+ Target Cells 1+ Ovalocytes 1+ Reticulocyte Count 9.4 % Absolute Reticulocyte Count 201.6 MIL/L Blood Urea Nitrogen 28 MG/DL Creatinine 1.99 MG/DL Random Glucose 133 MG/DL Total Protein 7.3 GM/DL Albumin 3.2 GM/DL Calcium Level 9.0 MG/DL Alkaline Phosphatase 180 U/L Aspartate Amino Transf (AST/SGOT) 60 U/L Alanine Aminotransferase (ALT/SGPT) 43 U/L Total Bilirubin 2.0 MG/DL Sodium Level 140 MEQ/L Potassium Level 4.6 MEQ/L Chloride Level 110 MEQ/L Carbon Dioxide Level 20.8 MEQ/L Anion Gap 9 MEQ/L Estimat Glomerular Filtration Rate 43 ML/MIN MDM Medical Decision Making Medical Screen Exam Complete: Yes Emergency Medical Condition: Yes Medical Record Reviewed: Yes Interpretation(s) Vital Signs Date Time Temp Pulse Resp B/P (MAP) Pulse Ox O2 Delivery O2 Flow Rate FiO2 02/14/17 14:36 18 99 Room Air 02/14/17 14:22 65 20 99 Room Air 02/14/17 13:32 98.6 62 16 168/76 (106) 97 Room Air Differential Diagnosis Electrolyte abnormality, sickle cell crisis, acute on chronic pain Narrative Course 51 year old male with complaints of sickle cell crisis with dizziness. Patient with CN 2-12 grossly normal with no neurologic deficits. Patient reports acute on chronic low back pain During the course of the patients emergency department visit, the patients history, examination, and differential diagnosis were reviewed with the patient. The patient was placed on a home energy consultant supervisor with oximetry and frequent blood pressure monitoring. The patient had 20 gauge IV access obtained and blood work sent for analysis. The patient was initially provided IVF, IV morphine and IV toradol The patients laboratory studies were reviewed and remarkable for CBC & BMP Diagram 02/14/17 14:30 Total Protein 7.3, Albumin 3.2 L, Calcium Level 9.0, Alkaline Phosphatase 180 H , Aspartate Amino Transf (AST/SGOT) 60 H, Alanine Aminotransferase (ALT/SGPT) 43 , Total Bilirubin 2.0 H xray of chest: CONCLUSION: 1. Cardiomegaly. 2. No acute focal pulmonary infiltrate or pulmonary vascular congestion. 3. Degenerative changes and scoliosis of the thoracic spine. 4. Stable sclerosis involving the left humeral head. Patient feeling much better at this time, patient will follow up with epic cad[facility] specialists and will return to ER as needed. Diagnosis Primary Impression: Sickle cell anemia Qualified Codes: D57.00 - Hb-SS disease with crisis, unspecified Additional Impression: Lightheadedness Patient Instructions: General Instructions, Narcotic given in the ED, Sickle Cell Crisis (ED) Additional Instructions: Please provide patient with a copy of their lab work and studies at discharge* * Please follow up with your primary care doctor in 2-3 days Return to the ER if symptoms worsen or progress Return to the ER as needed Please follow up with your [facility] specialists and return to ER as needed Disposition: 01 DISCHARGE HOME Condition: Stable Dominique Valero DO Feb 14, 2017 14:58
[2017-02-14 15:00] LABS: AUTOMATED NEUTROPHIL # 6.2 TH/MM3 (1.8-7.7); BASOPHIL % 0.5 % (0.0-2.0); HEMATOCRIT 27.4 % (39.0-51.0); LYMPH % 16.1 % (9.0-44.0); LYMPHOCYTE # 1.3 TH/MM3 (1.0-4.8); MEAN CELL VOLUME 127.8 FL (80.0-100.0); MEAN CORPUSCULAR HEMOGLOBIN 44.5 PG (27.0-34.0); MEAN CORPUSCULAR HGB CONC 34.8 % (32.0-36.0); MONO % 7.4 % (0.0-8.0); PLATELET COUNT 304 TH/MM3 (150-450); RED BLOOD COUNT 2.14 MIL/MM3 (4.50-5.90); RED CELL DISTRIBUTION WIDTH 17.4 % (11.6-17.2); RETIC % 9.4 % (0.4-3.0); WHITE BLOOD COUNT 8.2 TH/MM3 (4.0-11.0)
[2017-02-14 15:01] LABS: HEMO FLAGS AUTO DIFF; REVIEW FLAG FINAL
--- NOTE | 2017-02-14 15:26 | RADRPT ---
EXAM DATE/TIME: 02/14/2017 14:50 [facility] COMPARISON: CHEST SINGLE AP, October 06, 2016, 12:14. INDICATIONS : Short of breath, pain and body aches MEDICAL HISTORY : Sickle Cell disease. SURGICAL HISTORY : right shoulder replaced ENCOUNTER: Initial ACUITY: 1 day PAIN SCORE: 10/10 LOCATION: Bilateral chest FINDINGS: The heart is mildly prominent. The pulmonary vascular pattern is normal. The lungs are clear. Degen erative changes and scoliosis of the thoracolumbar spine are noted. Sclerosis involving the left hum eral head is stable. Right shoulder prosthesis is again noted. CONCLUSION: 1. Cardiomegaly. 2. No acute focal pulmonary infiltrate or pulmonary vascular congestion. 3. Degenerative changes and scoliosis of the thoracic spine. 4. Stable sclerosis involving the left humeral head. Loyd Zhang MD on February 14, 2017 at 15:20 Board Certified Radiologist. This report was verified electronically.
[2017-02-14 15:30] LABS: ALT (GPT) 43 U/L (12-78); ANION GAP 9 MEQ/L (5-15); BICARBONATE 20.8 MEQ/L (21.0-32.0); BLOOD UREA NITROGEN 28 MG/DL (7-18); CHLORIDE 110 MEQ/L (98-107); GLOMERULAR FILTRATION RATE 43 ML/MIN (>89); POTASSIUM 4.6 MEQ/L (3.5-5.1); SODIUM (NA) 140 MEQ/L (136-145)
[2017-02-14 15:33] LABS: ALKALINE PHOSPHATASE 180 U/L (45-117); AST (GOT) 60 U/L (15-37)
[2017-02-14 15:40] LABS: BANDS 2 % (0-6); CORRECTED NUCLEATED RBC 5 /100 WBC (0-0); POLYS (SEG NEUTROPHILS) 83 % (16-70); WBC DIFF SAMPLE 100
[2017-02-14 15:43] LABS: PLATELET ESTIMATE SMEAR NORMAL (NORMAL); PLATELET MORPHOLOGY NORMAL (NORMAL); SCAN/DIFF FINAL DIFF MANUAL
[2017-02-14 15:47] LABS: OVALOCYTES 1+ (NORMAL); POLYCHROMASIA 4.1 % (0.0-1.9); SICKLE CELLS 1+ (NORMAL); TARGET CELLS 1+ (NORMAL)
[2017-02-14 15:50] LABS: SPHEROCYTES OCC (NORMAL)
[2017-02-14] MEDS ORDERED: HYDROmorphone HCL PF 1 MG/ML VIAL IVS ONE (16:30)
== END 2017-02-14 19:10 | disposition home or self-care (01) ==
LOC: NEPD 13:31
DX: D57.00 Hb-SS disease with crisis, unspecified (principal); R42 Dizziness and giddiness; M54.5 Low back pain; I10 Essential (primary) hypertension; Z72.0 Tobacco use
CPT/HCPCS: 71010; 80053; 85007; 85027; 85044; 96361; 96374; 96375; 99284; J1170; J1885; J2270; J7030

== ENCOUNTER 2017-03-29 09:02 | Emergency (ER) | payer MEDICARE, MEDICAID ==
[~2017-03-29] VITALS: Ht 172.7 cm; Wt 57.0 kg
[2017-03-29 09:05] VITALS: BP 175/85; PULSE 91; RESP 14; TEMP 97.6; O2SAT 98
[2017-03-29 09:30] VITALS: BP 181/99; PULSE 81; RESP 20; O2SAT 99
[2017-03-29] MEDS ORDERED: SODIUM CHLOR 0.9% 1000 ML INJ 1,000 ML IV ONE (09:46)
--- NOTE | 2017-03-29 09:49 | PD ---
HPI Chief Complaint: Sickle Cell Time Seen by Provider: 09:39 Travel History International Travel<30 days: No Contact w/Intl Traveler<30days: No History of Present Illness HPI 51yo M with PMH of sickle cell disease presents to the ED with c/o back pain for a day. Said it feels like his sickle cell flare up. Said he has had this all his life and follows with aerial photographer Dr. Quintana. Denies any fever, chest pain, sob, n/v, abdominal pain, focal weakness or numbness, trauma, or urinary complaints. PFSH Past Medical History Anemia: Yes (SICKLE CELL ANEMIA) Arthritis: Yes Asthma: No Autoimmune Disease: No Blood Disorders: Yes (SICKLE CELL) Heart Rhythm Problems: No Cancer: No Cardiovascular Problems: Yes (HTN) High Cholesterol: No Chemotherapy: No Congestive Heart Failure: No COPD: No Diabetes: No Diminished Hearing: No Endocrine: No Gastrointestinal Disorders: Yes GERD: No Genitourinary: No Hiatal Hernia: Yes Hypertension: Yes Immune Disorder: No Implanted Vascular Access Dvce: Yes Kidney Stones: No Musculoskeletal: Yes Neurologic: No Psychiatric: No Reproductive: No Respiratory: Yes (SOB ) Resp. Syncytial Virus (RSV): Yes Integumentary: Yes Immunizations Current: Yes Radiation Therapy: No Renal Failure: No Sickle Cell Disease: Yes Sleep Apnea: No Thyroid Disease: No Ulcer: Yes (peptic ulcer recuring ) Past Surgical History Abdominal Surgery: No AICD: No Arteriovenous Shunt: No Cardiac Surgery: No Cholecystectomy: Yes Ear Surgery: No Endocrine Surgery: No Eye Surgery: No Genitourinary Surgery: No Gynecologic Surgery: No Insulin Pump: No Joint Replacement: Yes (full hip replacement bilat) Oral Surgery: No Pacemaker: No Thoracic Surgery: No Other Surgery: Yes (port removed) Social History Alcohol Use: No Tobacco Use: Yes (1PPD) Substance Use: No Allergies-Medications (Allergen,Severity, Reaction): Coded Allergies: lorazepam (Verified Allergy, Severe, Shortness of Breath, 03/29/17) Reported Meds & Prescriptions Reported Meds & Active Scripts Active Folic Acid 400 Mcg Tab 400 Mcg PO DAILY Reported Lasix (Furosemide) 20 Mg Tab 20 Mg PO DAILY Metoprolol Tartrate 25 Mg Tab 25 Mg PO BID Lorcet Hd 10-325 mg (Hydrocodone-Acetaminophen) 10 Mg-325 Mg Tab Review of Systems Except as stated in HPI: all other systems reviewed are Neg Physical Exam Narrative GENERAL: 51yo M in mild distress. SKIN: Focused skin assessment warm/dry. HEAD: Atraumatic. Normocephalic. EYES: Pupils equal and round. No scleral icterus. No injection or drainage. ENT: No nasal bleeding or discharge. Mucous membranes pink and moist. NECK: Trachea midline. No JVD. CARDIOVASCULAR: Regular rate and rhythm. No murmur appreciated. RESPIRATORY: No accessory muscle use. Clear to auscultation. Breath sounds equal bilaterally. GASTROINTESTINAL: Abdomen soft, non-tender, nondistended. MUSCULOSKELETAL: No obvious deformities. No clubbing. No cyanosis. No edema. NEUROLOGICAL: Awake and alert. No obvious cranial nerve deficits. Motor grossly within normal limits. Normal speech. Sensation equal bilaterally. PSYCHIATRIC: Appropriate mood and affect; insight and judgment normal. Data Data Last Documented VS Vital Signs Date Time Temp Pulse Resp B/P (MAP) Pulse Ox O2 Delivery O2 Flow Rate FiO2 03/29/17 09:30 81 20 99 Room Air 03/29/17 09:30 181/99 (126) 03/29/17 09:05 97.6 Orders Orders Basic Metabolic Panel (Bmp) (03/29/17 09:46) Complete Blood Count With Diff (03/29/17 09:46) Retic Count (03/29/17 09:46) Urinalysis - C+S If Indicated (03/29/17 09:46) Sodium Chlor 0.9% 1000 Ml Inj (Ns 1000 M (03/29/17 09:46) Morphine Inj (Morphine Inj) (03/29/17 10:00) Vascular Access Team Consult/P PRN (03/29/17 11:05) Vascular Poc Ultrasound (03/29/17 ) Labs Laboratory Tests Test 03/29/17 11:00 03/29/17 12:20 03/29/17 12:45 Blood Urea Nitrogen 31 MG/DL Creatinine 2.25 MG/DL Random Glucose 124 MG/DL Calcium Level 9.3 MG/DL Sodium Level 135 MEQ/L Potassium Level 4.2 MEQ/L Chloride Level 107 MEQ/L Carbon Dioxide Level 18.1 MEQ/L Anion Gap 10 MEQ/L Estimat Glomerular Filtration Rate 37 ML/MIN White Blood Count 11.6 TH/MM3 Red Blood Count 2.14 MIL/MM3 Hemoglobin 8.9 GM/DL Hematocrit 25.9 % Mean Corpuscular Volume 121.3 FL Mean Corpuscular Hemoglobin 41.5 PG Mean Corpuscular Hemoglobin Concent 34.2 % Red Cell Distribution Width 15.8 % Platelet Count 504 TH/MM3 Mean Platelet Volume 7.5 FL Neutrophils (%) (Auto) 76.1 % Lymphocytes (%) (Auto) 12.8 % Monocytes (%) (Auto) 10.6 % Eosinophils (%) (Auto) 0.1 % Basophils (%) (Auto) 0.4 % Neutrophils # (Auto) 8.8 TH/MM3 Lymphocytes # (Auto) 1.5 TH/MM3 Monocytes # (Auto) 1.2 TH/MM3 Eosinophils # (Auto) 0.0 TH/MM3 Basophils # (Auto) 0.1 TH/MM3 CBC Comment DIFF FINAL Differential Comment Reticulocyte Count 5.5 % Absolute Reticulocyte Count 118.1 MIL/L Urine Color YELLOW Urine Turbidity CLEAR Urine pH 6.0 Urine Specific [place] 1.008 Urine Protein 100 mg/dL Urine Glucose (UA) NEG mg/dL Urine Ketones NEG mg/dL Urine Occult Blood SMALL Urine Nitrite NEG Urine Bilirubin NEG Urine Urobilinogen LESS THAN 2.0 MG/DL Urine Leukocyte Esterase NEG Urine WBC LESS THAN 1 /hpf Urine Squamous Epithelial Cells <1 /hpf Microscopic Urinalysis Comment CULT NOT INDICATED MDM Medical Decision Making Medical Screen Exam Complete: Yes Emergency Medical Condition: Yes Differential Diagnosis Vasoocclusive crisis vs. chronic pain Narrative Course 51yo M with sickle cell disease here with lower back pain. No red flags. No focal neurologic deficits. Feels like his crisis. Labs reviewed, WBC 11.6. H/ H low at 8.9/25.9. Retic count mildly increased at 5.5. Creatinine elevated at 2.25, last creatinine was 1.99 so this is a mild increase. Pt given NS IVF and morphine IV. Said pain has resolved. Will have pt follow up with primary care physician regarding elevated creatinine. UA showed small blood. No leukocyte. Culture not indicated. Pt is well appearing and tolerating PO. Return precautions given. Diagnosis Primary Impression: Vasoocclusive sickle cell crisis Patient Instructions: General Instructions Departure Forms: Tests/Procedures Additional Instructions: Please follow up with your primary care physician regarding your worsening kidney function. Creatinine is 2.25 today. Return to the ED if symptoms worsen. Med/Other Pt SpecificInfo: Prescription(s) given Scripts Acetaminophen (Tylenol) 325 Mg Tab 650 MG PO Q6H Y for PAIN SCALE 1 TO 4, #20 TAB 0 Refills Prov: Adelaide Renner DO 03/29/17 Disposition: 01 DISCHARGE HOME Condition: Stable Adelaide Renner DO Mar 29, 2017 09:49
[2017-03-29] MEDS ORDERED: MORPHINE SULFATE 8 MG/ML INJ IV PUSH ONE (10:00)
[2017-03-29 11:38] LABS: BICARBONATE 18.1 MEQ/L (21.0-32.0); POTASSIUM 4.2 MEQ/L (3.5-5.1)
[2017-03-29 12:37] LABS: AUTOMATED NEUTROPHIL # 8.8 TH/MM3 (1.8-7.7); BASOPHIL # 0.1 TH/MM3 (0-0.2); BASOPHIL % 0.4 % (0.0-2.0); EOSINOPHIL % 0.1 % (0.0-4.0); HEMATOCRIT 25.9 % (39.0-51.0); HEMO FLAGS DIFF FINAL; LYMPH % 12.8 % (9.0-44.0); LYMPHOCYTE # 1.5 TH/MM3 (1.0-4.8); MEAN CELL VOLUME 121.3 FL (80.0-100.0); MEAN CORPUSCULAR HEMOGLOBIN 41.5 PG (27.0-34.0); MEAN CORPUSCULAR HGB CONC 34.2 % (32.0-36.0); MONO % 10.6 % (0.0-8.0); NEUT % 76.1 % (16.0-70.0); PLATELET COUNT 504 TH/MM3 (150-450); RED BLOOD COUNT 2.14 MIL/MM3 (4.50-5.90); RED CELL DISTRIBUTION WIDTH 15.8 % (11.6-17.2); RETIC % 5.5 % (0.4-3.0); REVIEW FLAG FINAL; WHITE BLOOD COUNT 11.6 TH/MM3 (4.0-11.0)
[2017-03-29 13:15] LABS: BLOOD, URINE SMALL (NEG); COMMENT (UR) CULT NOT INDICATED; CULTURE IF INDICATED CULT NOT INDICATED; GLUCOSE,URINE NEG (NEG); KETONE, URINE NEG (NEG); NITRITE,URINE NEG (NEG); SQUAMOUS EPITHELIAL CELL URINE <1 /hpf (0-5); URINE COLOR YELLOW (YELLW/STRAW)
[2017-03-29] MEDS ORDERED: TYLE325T PO (15:21)
[2017-03-29 16:35] VITALS: BP 167/88
== END 2017-03-29 16:46 | disposition home or self-care (01) ==
LOC: NEPE 09:02
DX: D57.819 Other sickle-cell disorders with crisis, unspecified (principal); M54.5 Low back pain; F17.200 Nicotine dependence, unspecified, uncomplicated; M19.90 Unspecified osteoarthritis, unspecified site; I10 Essential (primary) hypertension; Z79.899 Other long term (current) drug therapy
CPT/HCPCS: 80048; 81001; 85025; 85044; 96361; 96374; 99284; J2270; J7030

== ENCOUNTER 2017-04-26 15:47 | Inpatient (IN) | payer MEDICARE, MEDICAID ==
[~2017-04-26] VITALS: Ht 172.7 cm; Wt 49.5 kg
[2017-04-26] VITALS (7 sets, daily range): BP systolic 148–198; BP diastolic 86–100; PULSE 62–72; RESP 16–20; TEMP 97.3–98.7; O2SAT 98–100
[~2017-04-26 15:47] MED LIST changes: +TYLE325T PO
--- NOTE | 2017-04-26 16:53 | PD ---
HPI Chief Complaint: Sickle Cell Time Seen by Provider: 16:34 Travel History International Travel<30 days: No Contact w/Intl Traveler<30days: No Traveled to known affect area: No History of Present Illness HPI This patient complains of sickle cell pains. Duration one day. Severity is moderate. He is pains in his back and abdomen and he says this is his usual sickle attack. He denies fever or injury. No alleviating factors. No exacerbating factors. PFSH Past Medical History Hx Anticoagulant Therapy: No Anemia: Yes (SICKLE CELL ANEMIA) Arthritis: Yes Asthma: No Autoimmune Disease: No Blood Disorders: Yes (SICKLE CELL) Depression: No Heart Rhythm Problems: No Cancer: No Cardiovascular Problems: Yes (htn on meds) High Cholesterol: No Chemotherapy: No Congestive Heart Failure: No COPD: No Diabetes: Yes Patient Takes Glucophage: Yes Diminished Hearing: No Endocrine: No Gastrointestinal Disorders: Yes GERD: Yes Genitourinary: No Hiatal Hernia: Yes Hypertension: Yes Immune Disorder: No Implanted Vascular Access Dvce: Yes Kidney Stones: No Musculoskeletal: Yes Neurologic: No Psychiatric: No Reproductive: No Respiratory: Yes (SOB ) Resp. Syncytial Virus (RSV): Yes Integumentary: Yes Immunizations Current: Yes Radiation Therapy: No Renal Failure: No Sickle Cell Disease: Yes Sleep Apnea: No Thyroid Disease: No Ulcer: Yes (peptic ulcer recuring ) Tetanus Vaccination: < 5 Years Influenza Vaccination: Yes Past Surgical History Abdominal Surgery: No AICD: No Arteriovenous Shunt: No Cardiac Surgery: No Cholecystectomy: Yes Ear Surgery: No Endocrine Surgery: No Eye Surgery: No Genitourinary Surgery: No Gynecologic Surgery: No Insulin Pump: No Joint Replacement: Yes (full hip replacement bilat) Oral Surgery: No Pacemaker: No Thoracic Surgery: No Other Surgery: Yes (port removed) Social History Alcohol Use: No Tobacco Use: Yes (1PPD) Substance Use: No Allergies-Medications (Allergen,Severity, Reaction): Coded Allergies: lorazepam (Verified Allergy, Severe, Shortness of Breath, 04/26/17) Reported Meds & Prescriptions Reported Meds & Active Scripts Active Tylenol (Acetaminophen) 325 Mg Tab 650 Mg PO Q6H PRN Folic Acid 400 Mcg Tab 400 Mcg PO DAILY Reported Fellows (Hydrocodone-Acetaminophen) 10-325 Mg Tab 1 Tab PO Q4H PRN Metoprolol Tartrate 25 Mg Tab 25 Mg PO BID Review of Systems General / Constitutional: No: Fever Eyes: No: Visual changes HENT: No: Headaches Cardiovascular: No: Chest Pain or Discomfort Respiratory: No: Shortness of Breath Gastrointestinal: No: Abdominal Pain Genitourinary: No: Dysuria Musculoskeletal: Positive: Pain Skin: No Rash Neurologic: No: Weakness Psychiatric: No: Depression Endocrine: No: Polydipsia Hematologic/Lymphatic: No: Easy Bruising Physical Exam Narrative GENERAL: Well-nourished, well-developed patient in no apparent distress. SKIN: Focused skin assessment reveals no rash and nodules. Skin is Warm and dry. HEAD: Atraumatic. Normocephalic. EYES: Pupils equal and round. No scleral icterus. No injection or drainage. ENT: No nasal bleeding or discharge. Mucous membranes pink and moist. NECK: Trachea midline. No JVD. CARDIOVASCULAR: Regular rate and rhythm. No murmur appreciated. RESPIRATORY: No accessory muscle use. Clear to auscultation. Breath sounds equal bilaterally. GASTROINTESTINAL: Abdomen soft, non-tender, nondistended. Hepatic and splenic margins not palpable. MUSCULOSKELETAL: No obvious deformities. No clubbing. No cyanosis. No edema. NEUROLOGICAL: Awake and alert. No obvious cranial nerve deficits. Motor grossly within normal limits. Normal speech. PSYCHIATRIC: Appropriate mood and affect; insight and judgment normal. Data Data Last Documented VS Vital Signs Date Time Temp Pulse Resp B/P (MAP) Pulse Ox O2 Delivery O2 Flow Rate FiO2 04/26/17 16:25 74 16 100 Room Air 04/26/17 16:00 98.7 177/90 (119) Orders Orders Iv Access Insert/Monitor (04/26/17 16:47) Complete Blood Count With Diff (04/26/17 16:47) Ondansetron Inj (Zofran Inj) (04/26/17 17:00) Sodium Chlor 0.9% 1000 Ml Inj (Ns 1000 M (04/26/17 17:00) Morphine Inj (Morphine Inj) (04/26/17 17:00) Morphine Inj (Morphine Inj) (04/26/17 17:00) Morphine Inj (Morphine Inj) (04/26/17 17:00) Red Blood Cells (Rbc) (04/26/17 18:14) Blood Product Administration (04/26/17 18:14) Sodium Chlor 0.9% 250 Ml Inj (Ns 250 Ml (04/26/17 18:15) Admit Order (Ed Use Only) (04/26/17 18:14) Labs Laboratory Tests Test 04/26/17 16:55 White Blood Count 14.7 TH/MM3 Red Blood Count 1.62 MIL/MM3 Hemoglobin 6.3 GM/DL Hematocrit 19.1 % Mean Corpuscular Volume 117.6 FL Mean Corpuscular Hemoglobin 39.0 PG Mean Corpuscular Hemoglobin Concent 33.1 % Red Cell Distribution Width 20.9 % Platelet Count 488 TH/MM3 Mean Platelet Volume 7.4 FL CBC Comment AUTO DIFF MDM Medical Decision Making Medical Screen Exam Complete: Yes Emergency Medical Condition: Yes Medical Record Reviewed: Yes Differential Diagnosis Sickle pains, narcotic seeking behavior, malingering, sickle cell crisis Narrative Course I have reviewed the patient's electronic medical record. I reviewed his last several hemoglobins to get a sense of his baseline Patient has poor IV access I placed a right external jugular IV 20-gauge I gave him 4 mg IV morphine and IV Zofran and 1 L normal saline IV bolus CBC is hemoglobin of 6.3, significantly lower than prior Patient's examination is normal He doesn't look like he is in any pain but I feel he should get some blood at this level I reviewed with hospitalist who agrees. Patient signed consent and I am ordering 2 units of packed red cells Diagnosis Primary Impression: Sickle cell anemia with crisis Admitting Information Admitting Physician Requests: Admit Ger Dawson MD Apr 26, 2017 16:53
[2017-04-26] MEDS ORDERED: MORPHINE SULFATE 2 MG/ML INJ IV PUSH ONE ×2 (17:00)
[2017-04-26] MEDS ORDERED: MORPHINE SULFATE 4 MG/ML INJ IV PUSH ONE (17:00)
[2017-04-26] MEDS ORDERED: SODIUM CHLOR 0.9% 1000 ML INJ 1,000 ML IV ONE (17:00)
[2017-04-26] MEDS ORDERED: ONDANSETRON HCL 4 MG/2 ML VIAL IVP ONE (17:00)
[2017-04-26 17:07] LABS: MEAN CELL VOLUME 117.6 FL (80.0-100.0); MEAN CORPUSCULAR HGB CONC 33.1 % (32.0-36.0); MEAN PLATELET VOLUME 7.4 FL (7.0-11.0); PLATELET COUNT 488 TH/MM3 (150-450); RED BLOOD COUNT 1.62 MIL/MM3 (4.50-5.90); RED CELL DISTRIBUTION WIDTH 20.9 % (11.6-17.2); WHITE BLOOD COUNT 14.7 TH/MM3 (4.0-11.0)
[2017-04-26] MEDS ORDERED: HYDR-3366 PO (17:12)
[2017-04-26 17:16] LABS: HEMOGLOBIN 6.3 GM/DL (13.0-17.0)
[2017-04-26 17:17] LABS: HEMATOCRIT 19.1 % (39.0-51.0)
[2017-04-26] MEDS ORDERED: SODIUM CHLOR 0.9% 250 ML INJ 250 ML IV ONE (18:15)
[2017-04-26 18:38] LABS: BANDS 1 % (0-6); CORRECTED NUCLEATED RBC 4 /100 WBC (0-0); LYMPHOCYTES 14 % (9-44); MONOCYTES 12 % (0-8); NEUTROPHIL # MANUAL DIFF 10.9 TH/MM3 (1.8-7.7); NUCLEATED RED BLOOD CELL 4 (0-0); OVALOCYTES 1+ (NORMAL); POLYS (SEG NEUTROPHILS) 73 % (16-70); SICKLE CELLS 1+ (NORMAL); TARGET CELLS 1+ (NORMAL); TEARDROP RBCS 1+ (NORMAL)
--- NOTE | 2017-04-26 18:49 | HHI.HP ---
[facility] No Primary Care Physician Admission Diagnosis sickle cell pain with anemia Diagnoses: Chief Complaint: Belly pain and back pain Travel History International Travel<30 Days: No Contact w/Intl Traveler <30 Da: No Traveled to Known Affected Are: No History of Present Illness 51-year-old white male being admitted for sickle cell crisis with acute anemia. Patient was in his usual state of health until about a few days ago when he began experiencing what he describes is his classic pain for sickle cell crisis namely in his abdomen and his back. Says pain was not controlled by his home norco. He denies having any nausea vomiting fevers or chills. Denies any diarrhea. Came to the emergency department. In the ER his hb was around 6, 2 units lower than his baseline. Blood was ordered. Review of Systems Except as stated in HPI: all other systems reviewed are Neg Past Family Social History Past Medical History Sickle cell disease Allergies: Coded Allergies: lorazepam (Verified Allergy, Severe, Shortness of Breath, 04/26/17) Family History sickle cell Social History Does currently smoke Physical Exam Vital Signs Vital Signs Date Time Temp Pulse Resp B/P (MAP) Pulse Ox O2 Delivery O2 Flow Rate FiO2 04/26/17 18:35 72 16 99 Room Air 04/26/17 18:00 70 16 189/98 (128) 100 Room Air 04/26/17 17:00 69 16 184/98 (126) 100 Room Air 04/26/17 16:25 74 16 100 Room Air 04/26/17 16:00 98.7 69 16 177/90 (119) 98 Physical Exam VS: afebrile GENERAL: Middle-aged thin black male, lying in bed, awake, no acute distress SKIN: Warm and dry. EYES: No scleral icterus. No injection or drainage. ENT: No nasal bleeding or discharge. Mucous membranes pink and moist. CARDIOVASCULAR: Regular rate and rhythm. no murmurs RESPIRATORY: No accessory muscle use. Clear to auscultation. Breath sounds equal bilaterally. GASTROINTESTINAL: Abdomen soft, non-tender, nondistended. Extremities: No clubbing, cyanosis, or edema. No obvious deformities. MUSCULOSKELETAL: adequate muscle bulk and tone for age and habitus NEUROLOGICAL: Awake and alert. No obvious cranial nerve deficits. No facial droop nor slurred speech noted. PSYCHIATRIC: Appropriate mood and affect; insight and judgment normal. Laboratory Laboratory Tests Test 04/26/17 16:55 White Blood Count 14.7 Red Blood Count 1.62 Hemoglobin 6.3 Hematocrit 19.1 Mean Corpuscular Volume 117.6 Mean Corpuscular Hemoglobin 39.0 Mean Corpuscular Hemoglobin Concent 33.1 Red Cell Distribution Width 20.9 Platelet Count 488 Mean Platelet Volume 7.4 CBC Comment AUTO DIFF Differential Total Cells Counted 100 Neutrophils % (Manual) 73 Band Neutrophils % 1 Lymphocytes % 14 Monocytes % 12 Neutrophils # (Manual) 10.9 Nucleated Red Blood Cells 4 Differential Comment FINAL DIFF MANUAL Platelet Estimate HIGH Platelet Morphology Comment NORMAL Sickle Cells 1+ Target Cells 1+ Tear Drop Cells 1+ Ovalocytes 1+ Result Diagram: 04/26/17 9261 Caprini VTE Risk Assessment Caprini VTE Risk Assessment: No/Low Risk (score <= 1) Caprini Risk Assessment Model Point Value = 1 Point Value = 2 Point Value = 3 Point Value = 5 Age 41-60 Minor surgery BMI > 25 kg/m2 Swollen legs Varicose veins or History of unexplained or recurrent spontaneous Oral contraceptives or hormone replacement Sepsis (< 1 month) Serious lung disease, including pneumonia (< 1 month) Abnormal pulmonary function Acute myocardial infarction Congestive heart failure (< 1 month) History of inflammatory bowel disease Medical patient at bed rest Age 61-74 Arthroscopic surgery Major open surgery (> 45 min) Laparoscopic surgery (> 45 min) Malignancy Confined to bed (> 72 hours) Immobilizing plaster cast Central venous access Age >= 75 History of VTE Family history of VTE Factor V Leiden Prothrombin [id number] Lupus anticoagulant Anticardiolipin antibodies Elevated serum homocysteine Heparin-induced thrombocytopenia Other congenital or acquired thrombophilia Stroke (< 1 month) Elective arthroplasty Hip, pelvis, or leg fracture Acute spinal cord injury (< 1 month) Prophylaxis Regimen Total Risk Factor Score Risk Level Prophylaxis Regimen 0-1 Low Early ambulation 2 Moderate Order ONE of the following: *Sequential Compression Device (SCD) *Heparin 5000 units SQ BID 3-4 Higher Order ONE of the following medications: *Heparin 5000 units SQ TID *Enoxaparin/Lovenox 40 mg SQ daily (WT < 150 kg, CrCl > 30 mL/min) *Enoxaparin/Lovenox 30 mg SQ daily (WT < 150 kg, CrCl > 10-29 mL/min) *Enoxaparin/Lovenox 30 mg SQ BID (WT < 150 kg, CrCl > 30 mL/min) AND/OR *Sequential Compression Device (SCD) 5 or more Highest Order ONE of the following medications: *Heparin 5000 units SQ TID (Preferred with Epidurals) *Enoxaparin/Lovenox 40 mg SQ daily (WT < 150 kg, CrCl > 30 mL/min) *Enoxaparin/Lovenox 30 mg SQ daily (WT < 150 kg, CrCl > 10-29 mL/min) *Enoxaparin/Lovenox 30 mg SQ BID (WT < 150 kg, CrCl > 30 mL/min) AND *Sequential Compression Device (SCD) Assessment and Plan Assessment and Plan 51-year-old black male being admitted for acute anemia secondary to sickle cell crisis Acutely anemic at 6.4 likely from his sickle cell Ordered to be transfused 2 units, f/u CBC continue home norco, breakthrough Pain control with IV pain medicines, monitor respiratory status By mouth diet as tolerated Physician Certification 2 Midnight Certification Type: Admission for Inpatient Services Order for Inpatient Services The services are ordered in accordance with Medicare regulations or non- Medicare payer requirements, as applicable. In the case of services not specified as inpatient-only, they are appropriately provided as inpatient services in accordance with the 2-midnight benchmark. Estimated LOS (days): 2 2 days is the estimated time the patient will need to remain in the hospital, assuming treatment plan goals are met and no additional complications. Post-Hospital Plan: Home Cayetano Vasquez MD Apr 26, 2017 18:49
[2017-04-26] MEDS ORDERED: ENALAPRILAT 1.25 MG/ML VIAL IV PUSH PRN (19:00)
[2017-04-26] MEDS ORDERED: ACETAMINOPHEN 325 MG TAB PO PRN (19:00)
[2017-04-26] MEDS ORDERED: MORPHINE SULFATE 2 MG/ML INJ IV PUSH PRN (19:15)
[2017-04-26 19:23] LABS: BICARBONATE 19.1 MEQ/L (21.0-32.0); CALCIUM 8.4 MG/DL (8.5-10.1)
[2017-04-26] MEDS: ACETAMINOPHEN/HYDROcodone 325 MG/10 MG TAB PO PRN (19:48)
[2017-04-26] MEDS: METOPROLOL TARTRATE 25 MG TAB PO SCH (20:55)
[2017-04-27] VITALS (8 sets, daily range): BP systolic 109–186; BP diastolic 75–95; PULSE 54–75; RESP 18–20; TEMP 97.5–98.2; O2SAT 96–100
[2017-04-27] MEDS: ACETAMINOPHEN/HYDROcodone 325 MG/10 MG TAB PO PRN ×2 (00:50→11:55)
[2017-04-27] MEDS ORDERED: MORPHINE SULFATE 2 MG/ML INJ IV PUSH ONE (02:45)
[2017-04-27 06:37] LABS: WHITE BLOOD COUNT 11.8 TH/MM3 (4.0-11.0)
[2017-04-27 06:38] LABS: AUTOMATED NEUTROPHIL # 7.3 TH/MM3 (1.8-7.7); BASOPHIL % 0.4 % (0.0-2.0); EOSINOPHIL # 0.1 TH/MM3 (0-0.4); EOSINOPHIL % 0.6 % (0.0-4.0); HEMATOCRIT 27.5 % (39.0-51.0); HEMOGLOBIN 8.9 GM/DL (13.0-17.0); LYMPH % 20.9 % (9.0-44.0); LYMPHOCYTE # 2.5 TH/MM3 (1.0-4.8); MEAN CELL VOLUME 106.7 FL (80.0-100.0); MEAN CORPUSCULAR HEMOGLOBIN 34.5 PG (27.0-34.0); MEAN CORPUSCULAR HGB CONC 32.3 % (32.0-36.0); MEAN PLATELET VOLUME 7.4 FL (7.0-11.0); MONO % 16.2 % (0.0-8.0); MONOCYTE # 1.9 TH/MM3 (0-0.9); NEUT % 61.9 % (16.0-70.0); PLATELET COUNT 429 TH/MM3 (150-450); RED BLOOD COUNT 2.58 MIL/MM3 (4.50-5.90); RED CELL DISTRIBUTION WIDTH 27.7 % (11.6-17.2)
[2017-04-27 08:28] LABS: CORRECTED NUCLEATED RBC 6 /100 WBC (0-0); CORRECTED WBC 11.1 TH/MM3 (4.0-11.0); LYMPHOCYTES 33 % (9-44); MONOCYTES 8 % (0-8); NEUTROPHIL # MANUAL DIFF 6.5 TH/MM3 (1.8-7.7); NUCLEATED RED BLOOD CELL 6 (0-0); POLYS (SEG NEUTROPHILS) 59 % (16-70)
[2017-04-27] MEDS ORDERED: FOLIC ACID 1 MG TAB PO SCH (09:00)
[2017-04-27] MEDS: METOPROLOL TARTRATE 25 MG TAB PO SCH (09:05)
[2017-04-27] MEDS: NIFEdipine 10 MG CAP PO SCH ×2 (09:32→15:07)
[2017-04-27] MEDS ORDERED: INFLUENZA VIRUS VACCINE (QUADRIVALENT) 0.5 ML SYR IM ONE ×2 (10:00→17:45)
--- NOTE | 2017-04-27 11:28 | HHI.PR ---
Subjective Remarks Nursing denies any deterioration since last night. Patient states he ate without issue. States he takes Lortab tens at home. Objective Vital Signs Date Time Temp Pulse Resp B/P (MAP) Pulse Ox O2 Delivery O2 Flow Rate FiO2 04/27/17 10:52 109/75 (86) 04/27/17 09:20 99 21 04/27/17 08:00 97.8 54 18 186/95 (125) 96 04/27/17 04:00 97.5 59 20 156/86 (109) 97 04/27/17 04:00 97.5 59 20 156/86 (109) 97 04/27/17 03:10 99 Nasal Cannula 1.50 04/27/17 00:33 98.2 60 18 160/92 100 04/26/17 22:10 97.7 62 20 156/94 (114) 100 04/26/17 21:50 98.1 67 16 148/87 100 04/26/17 20:22 73 20 100 Nasal Cannula 2.00 04/26/17 20:20 97.3 73 20 176/86 (116) 100 Nasal Cannula 2.00 04/26/17 19:00 72 20 198/100 (132) 99 Nasal Cannula 2.00 04/26/17 18:35 72 16 99 Room Air 04/26/17 18:00 70 16 189/98 (128) 100 Room Air 04/26/17 17:00 69 16 184/98 (126) 100 Room Air 04/26/17 16:25 74 16 100 Room Air 04/26/17 16:00 98.7 69 16 177/90 (119) 98 I/O 04/26/17 04/26/17 04/26/17 04/27/17 04/27/17 04/27/17 07:00 15:00 23:00 07:00 15:00 23:00 Intake Total 1280 ml Output Total 400 ml Balance 880 ml Intake Oral 480 ml Packed Cells 800 ml Output Urine Total 400 ml # Bowel Movements 0 Result Diagram: 04/27/17 0613 04/26/17 1650 Objective Remarks Lying in bed, no acute distress Lung sounds are clear bilaterally Heart sounds RRR A/P Assessment and Plan Patient with improved and stable H&H posttransfusion - Has no new complaints. - Anticipate discharge today. - CKD stable Patient's pain is better controlled now with home Lortab. Patient has met maximum benefit from hospitalization and is clinically stable for discharge. Discharging today. Cayetano Vasquez MD Apr 27, 2017 11:28
--- NOTE | 2017-04-27 11:28 | HHI.DCPOC ---
Discharge Care Plan Diagnosis: (1) Sickle cell anemia with pain Goals to Promote Your Health * To prevent worsening of your condition and complications * To maintain your health at the optimal level Directions to Meet Your Goals Take your medications as prescribed Follow your dietary instruction Follow activity as directed Keep your appointments as scheduled Take your immunizations and boosters as scheduled If your symptoms worsen call your PCP, if no PCP go to Urgent Care Center or Emergency Room Smoking is Dangerous to Your Health. Avoid second hand smoke Call the 24-hour hour crisis hotline for domestic abuse at Cayetano Vasquez MD Apr 27, 2017 11:28
[2017-04-27] MEDS ORDERED: SODIUM CHLOR 0.9% 1000 ML INJ 1,000 ML IV ONE (13:15)
[2017-04-27] MEDS ORDERED: PNEUMOCOCCAL POLYVALENT INJ 25 MCG/0.5 ML SYR IM ONE (17:45)
== END 2017-04-27 18:28 | disposition home or self-care (01) | DRG 812 ==
LOC: PHED 15:47 → PHEDA 18:15 → PH3A 20:06
PROVIDERS: ADMIT Hospitalist; ATTEND Hospitalist
PROC: 30233N1 Transfusion of Nonautologous Red Blood Cells into Peripheral Vein, Percutaneous Approach (ICD-10-PCS; principal; 2017-04-26)
DX: D57.00 Hb-SS disease with crisis, unspecified (principal); I12.9 Hypertensive chronic kidney disease with stage 1 through stage 4 chronic kidney disease, or unspecified chronic kidney disease; N18.9 Chronic kidney disease, unspecified; F17.210 Nicotine dependence, cigarettes, uncomplicated; Z96.643 Presence of artificial hip joint, bilateral; Z23 Encounter for immunization
CPT/HCPCS: 36430; 80048; 85007; 85027; 86850; 86900; 86901; 86920; 90471; 90686; 90732; 94150; 96361; 96374; 96375; G0008; G0009; J2270; J2405; J7030; J7050; P9016; Q2038

== ENCOUNTER 2017-07-11 09:45 | Emergency (ER) | payer MEDICARE, MEDICAID ==
[~2017-07-11 09:45] MED LIST changes: -FURO1TAB62 PO; +HYDR-3366 PO; -HYDR-3578
[2017-07-11 09:57] VITALS: BP 147/67; PULSE 54; RESP 14; TEMP 98.1; O2SAT 100
--- NOTE | 2017-07-11 10:48 | RADRPT ---
EXAM DATE/TIME: 07/11/2017 10:29 [place] COMPARISON: No previous studies available for comparison. INDICATIONS : Chest pain and dizziness. MEDICAL HISTORY : Hypertension. Sickle Cell disease. SURGICAL HISTORY : Right shoulder replaced. ENCOUNTER: Initial ACUITY: 1 day PAIN SCORE: 0/10 LOCATION: Bilateral chest FINDINGS: PA and lateral views of the chest demonstrate no focal consolidation or effusion. Heart size upper li mits normal. Bony changes characteristic of reported history of sickle cell anemia. Previous right sh oulder joint replacement. CONCLUSION: 1. No active disease. 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 Guillaume Fraga MD on July 11, 2017 at 10:45 Board Certified Radiologist. This report was verified electronically.
--- NOTE | 2017-07-11 11:01 | PD ---
HPI Chief Complaint: Sickle Cell Time Seen by Provider: 10:50 Travel History International Travel<30 days: No Contact w/Intl Traveler<30days: No Traveled to known affect area: No History of Present Illness HPI 51-year-old male with history of sickle cell disease, presents to the emergency department with complaint of mid back pain that started this morning. Denies injury. Says this is normal pain for when he has sickle cell crisis. Denies chest pain, shortness of breath, vomiting, fevers. Denies IV drug use or cancer. Denies encopresis, incontinence, saddle anesthesias. Denies change in urine or stool. Denies dysuria. Has tried taking Loricet with some relief of pain. Pain is 8/10. It describes as shooting. Says it gets better with Dilaudid. Denies aggravating symptoms and denies that the pain is worse with movement. Primary care provider is Mariano Murguia. Allergies to Ativan. History of sickle cell, chronic kidney disease, and hypertension. Has no other medical complaints. No other modifying factors or associated signs and symptoms. PFSH Past Medical History Hx Anticoagulant Therapy: No Anemia: Yes (SICKLE CELL ANEMIA) Arthritis: Yes Asthma: No Autoimmune Disease: No Blood Disorders: Yes (SICKLE CELL) Anxiety: No Depression: No Heart Rhythm Problems: No Cancer: No Cardiovascular Problems: Yes (htn on meds) High Cholesterol: No Chemotherapy: No Chest Pain: No Congestive Heart Failure: No COPD: No Cerebrovascular Accident: No Diabetes: Yes Diminished Hearing: No Endocrine: No Gastrointestinal Disorders: Yes GERD: Yes Genitourinary: No Hiatal Hernia: Yes Hypertension: Yes Immune Disorder: No Implanted Vascular Access Dvce: Yes Kidney Stones: No Musculoskeletal: Yes Neurologic: No Psychiatric: No Reproductive: No Respiratory: Yes (SOB at rest occasionally) Resp. Syncytial Virus (RSV): Yes Integumentary: Yes Immunizations Current: Yes Migraines: No Radiation Therapy: No Renal Failure: No Seizures: No Sickle Cell Disease: Yes Sleep Apnea: No Thyroid Disease: No Ulcer: Yes (peptic ulcer recuring ) Past Surgical History Abdominal Surgery: No AICD: No Arteriovenous Shunt: No Cardiac Surgery: No Cholecystectomy: Yes Ear Surgery: No Endocrine Surgery: No Eye Surgery: No Genitourinary Surgery: No Gynecologic Surgery: No Insulin Pump: No Joint Replacement: Yes (full hip replacement bilat) Oral Surgery: No Pacemaker: No Thoracic Surgery: No Other Surgery: Yes (port removed) Social History Alcohol Use: No Tobacco Use: Yes (1PPD) Substance Use: No Allergies-Medications (Allergen,Severity, Reaction): Coded Allergies: lorazepam (Verified Allergy, Severe, Shortness of Breath, 07/11/17) Reported Meds & Prescriptions Reported Meds & Active Scripts Active Sodium Bicarbonate 650 Mg Tab 650 Mg PO BIDPC Tylenol (Acetaminophen) 325 Mg Tab 650 Mg PO Q6H PRN Folic Acid 400 Mcg Tab 400 Mcg PO DAILY Reported Metoprolol Tartrate 25 Mg Tab 25 Mg PO BID Review of Systems Except as stated in HPI: all other systems reviewed are Neg Physical Exam Narrative GENERAL: Thin black male patient, in no acute distress; afebrile, nontoxic- appearing; afebrile, nontoxic-appearing SKIN: Warm and dry. HEAD: Atraumatic. Normocephalic. EYES: Pupils equal and round. No scleral icterus. No injection or drainage. ENT: Mucosa pink and moist. Airway patent. NECK: Trachea midline. CARDIOVASCULAR: Regular rate and rhythm. No murmur appreciated. RESPIRATORY: No accessory muscle use. Breath sounds clear and equal bilaterally. No retractions or tachypnea. GASTROINTESTINAL: Abdomen soft, non-tender, nondistended. Positive bowel sounds. No hepato-splenomegaly, or palpable masses. No guarding. MUSCULOSKELETAL: Bilateral lower extremities supple and non-tense with 2+ pedal pulses and sensory intact; with full range of motion and 5/5 strength. Active dorsiflexion and extension of bilateral feet. [-] straight leg raise is [-] for low back pain. Ambulatory in room with normal gait. Sitting up in bed at 90. No obvious deformities. No clubbing. No cyanosis. No edema. BACK: No midline point tenderness on palpation of the lumbar or thoracic spine. Tenderness on palpation of bilateral thoracic musculature area of the back. No obvious deformities. NEUROLOGICAL: Awake and alert. Oriented 3. No obvious cranial nerve deficits. Motor grossly within normal limits. Normal speech. Moves all extremities. 5/5 strength to all extremities. Sensory intact. PSYCHIATRIC: Appropriate mood and affect; insight and judgment normal. Data Data Last Documented VS Vital Signs Date Time Temp Pulse Resp B/P (MAP) Pulse Ox O2 Delivery O2 Flow Rate FiO2 07/11/17 15:35 07/11/17 15:06 58 18 100 Room Air 07/11/17 09:57 98.1 Orders Orders Complete Blood Count With Diff (07/11/17 10:13) Basic Metabolic Panel (Bmp) (07/11/17 10:13) Retic Count (07/11/17 10:13) Chest, Pa & Lat (07/11/17 ) Urinalysis - C+S If Indicated (07/11/17 10:13) Hydromorphone Pf Inj (Dilaudid Pf Inj) (07/11/17 11:30) Ondansetron Inj (Zofran Inj) (07/11/17 11:30) Iv Access Insert/Monitor (07/11/17 11:25) Sodium Chlor 0.9% 1000 Ml Inj (Ns 1000 M (07/11/17 11:25) Hydromorphone Pf Inj (Dilaudid Pf Inj) (07/11/17 12:00) Arterial Blood Gas (Abg) (07/11/17 ) Sodium Chlor 0.9% 1000 Ml Inj (Ns 1000 M (07/11/17 13:15) Sodium Bicarbonate 8.4% Inj (Sodium Bica (07/11/17 15:00) Ed Discharge Order (07/11/17 14:56) Labs Laboratory Tests Test 07/11/17 11:15 07/11/17 13:30 07/11/17 13:35 White Blood Count 9.4 TH/MM3 Red Blood Count 2.36 MIL/MM3 Hemoglobin 10.2 GM/DL Hematocrit 27.8 % Mean Corpuscular Volume 117.8 FL Mean Corpuscular Hemoglobin 43.4 PG Mean Corpuscular Hemoglobin Concent 36.9 % Red Cell Distribution Width 24.7 % Platelet Count 370 TH/MM3 Mean Platelet Volume 7.1 FL Neutrophils (%) (Auto) 72.1 % Lymphocytes (%) (Auto) 20.2 % Monocytes (%) (Auto) 6.9 % Eosinophils (%) (Auto) 0.1 % Basophils (%) (Auto) 0.7 % Neutrophils # (Auto) 6.8 TH/MM3 Lymphocytes # (Auto) 1.9 TH/MM3 Monocytes # (Auto) 0.6 TH/MM3 Eosinophils # (Auto) 0.0 TH/MM3 Basophils # (Auto) 0.1 TH/MM3 CBC Comment AUTO DIFF Differential Comment AUTO DIFF CONFIRMED Platelet Estimate NORMAL Platelet Morphology Comment NORMAL Polychromasia 3.0 % Sickle Cells 1+ Target Cells 1+ Ovalocytes 1+ Reticulocyte Count 7.2 % Absolute Reticulocyte Count 180.8 MIL/L Blood Urea Nitrogen 57 MG/DL Creatinine 2.27 MG/DL Random Glucose 115 MG/DL Calcium Level 9.1 MG/DL Sodium Level 138 MEQ/L Potassium Level 4.5 MEQ/L Chloride Level 114 MEQ/L Carbon Dioxide Level 14.7 MEQ/L Anion Gap 9 MEQ/L Estimat Glomerular Filtration Rate 37 ML/MIN Urine Color YELLOW Urine Turbidity CLEAR Urine pH 6.0 Urine Specific [place] 1.008 Urine Protein 100 mg/dL Urine Glucose (UA) NEG mg/dL Urine Ketones NEG mg/dL Urine Occult Blood SMALL Urine Nitrite NEG Urine Bilirubin NEG Urine Urobilinogen LESS THAN 2.0 MG/DL Urine Leukocyte Esterase NEG Urine WBC LESS THAN 1 /hpf Microscopic Urinalysis Comment CULT NOT INDICATED Blood Gas Puncture Site RT RADIAL Blood Gas Patient Temperature 98.6 Blood Gas HCO3 12 mmol/L Blood Gas Base Excess -13.8 mmol/L Blood Gas Oxygen Saturation 93 % Arterial Blood pH 7.28 Arterial Blood Partial Pressure CO2 26 mmHg Arterial Blood Partial Pressure O2 99 mmHG Arterial Blood Oxygen Content 16.9 Vol % Arterial Blood Carboxyhemoglobin 2.8 % Arterial Blood Methemoglobin 1.3 % Blood Gas Hemoglobin 12.8 G/DL Blood Gas Inspired Oxygen 21 % MDM Medical Decision Making Medical Screen Exam Complete: Yes Emergency Medical Condition: Yes Medical Record Reviewed: Yes Differential Diagnosis Sickle cell crisis, chronic back pain, sickle cell anemia Narrative Course 51-year-old male with history of sickle cell disease complaining of mid back pain that is consistent with past sickle cell crisis pain. IV, normal saline bolus, Dilaudid, CBC, CMP, [place], Zofran, urinalysis, chest x-ray ordered. 1054: Chest x-ray concluded: no active disease. 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 1140: Hemoglobin 10.2. Otherwise CBC unremarkable and suggestive of anemia. CO2 14.7. BUN 57. Creatinine 2.27. GFR 37. BUN and creatinine are elevated when compared to past levels. Patient has history of chronic kidney disease. 1448: I spoke with Dr. Hannah and he recommended 1 ampule of IV bicarb and 650 mg sodium bicarb twice daily p.o. outpatient. Patient can follow-up with his anesthesiology medical doctor outpatient. Instructed patient to follow-up with his anesthesiology medical doctor and to call and make an appointment within 1 day. Patient verbalized understanding and agreement. Sodium bicarbonate prescribed for home. Instructed patient to follow up with primary care provider. 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 Patient verbalizes understanding and agreement with treatment plan. Patient is medically cleared and stable for discharge. Discussed reasons to return to the emergency department. Patient agrees with treatment plan. The patients vital signs are stable and the patient is stable for outpatient follow-up and treatment. Patient discharged home, stable and in no acute distress. Diagnosis Primary Impression: Sickle cell anemia with pain Additional Impressions: CKD (chronic kidney disease) stage 3, GFR 30-59 ml/min Metabolic acidosis Referrals: [facility] Technical Specialist Primary Care Physician Patient Instructions: Chronic Kidney Disease (ED), General Instructions, Metabolic Acidosis (GEN), Sickle Cell Crisis (ED), Sickle Cell Disease (DC) Additional Instructions: Sodium bicarb as prescribed Follow-up with anesthesiology medical doctor; call and make an earlier appointment to follow-up with your anesthesiology medical doctor within the next week Follow-up with primary care provider Return to the emergency department immediately with worsening of symptoms Med/Other Pt SpecificInfo: Prescription(s) given Scripts Sodium Bicarbonate (Sodium Bicarbonate) 650 Mg Tab 650 MG PO BIDPC, #60 TAB 0 Refills Prov: Katina Edward 07/11/17 Disposition: 01 DISCHARGE HOME Condition: Stable Katina Edward Jul 11, 2017 11:01
[2017-07-11] MEDS ORDERED: SODIUM CHLOR 0.9% 1000 ML INJ 1,000 ML IV SCH (11:25)
[2017-07-11 11:27] LABS: AUTOMATED NEUTROPHIL # 6.8 TH/MM3 (1.8-7.7); BASOPHIL # 0.1 TH/MM3 (0-0.2); BASOPHIL % 0.7 % (0.0-2.0); EOSINOPHIL % 0.1 % (0.0-4.0); HEMATOCRIT 27.8 % (39.0-51.0); HEMOGLOBIN 10.2 GM/DL (13.0-17.0); LYMPH % 20.2 % (9.0-44.0); LYMPHOCYTE # 1.9 TH/MM3 (1.0-4.8); MEAN CELL VOLUME 117.8 FL (80.0-100.0); MEAN CORPUSCULAR HEMOGLOBIN 43.4 PG (27.0-34.0); MEAN CORPUSCULAR HGB CONC 36.9 % (32.0-36.0); MEAN PLATELET VOLUME 7.1 FL (7.0-11.0); MONO % 6.9 % (0.0-8.0); MONOCYTE # 0.6 TH/MM3 (0-0.9); NEUT % 72.1 % (16.0-70.0); PLATELET COUNT 370 TH/MM3 (150-450); RED BLOOD COUNT 2.36 MIL/MM3 (4.50-5.90); RED CELL DISTRIBUTION WIDTH 24.7 % (11.6-17.2); WHITE BLOOD COUNT 9.4 TH/MM3 (4.0-11.0)
[2017-07-11] MEDS ORDERED: HYDROmorphone HCL PF 1 MG/ML VIAL IV PUSH ONE (11:30)
[2017-07-11] MEDS ORDERED: ONDANSETRON HCL 4 MG/2 ML VIAL IV PUSH ONE (11:30)
[2017-07-11 11:42] LABS: BICARBONATE 14.7 MEQ/L (21.0-32.0); CALCIUM 9.1 MG/DL (8.5-10.1); CREATININE 2.27 MG/DL (0.60-1.30)
[2017-07-11] MEDS ORDERED: HYDROmorphone HCL PF 2 MG/ML VIAL IV PUSH ONE (12:00)
[2017-07-11 12:03] VITALS: BP 210/93; PULSE 59; RESP 18; O2SAT 100
[2017-07-11 12:06] LABS: TARGET CELLS 1+ (NORMAL)
[2017-07-11 12:07] LABS: OVALOCYTES 1+ (NORMAL); SICKLE CELLS 1+ (NORMAL)
[2017-07-11 12:56] LABS: RETIC # 180.8 MIL/L (20.0-150.0); RETIC % 7.2 % (0.4-3.0)
[2017-07-11] MEDS ORDERED: SODIUM CHLOR 0.9% 1000 ML INJ 1,000 ML IV ONE (13:15)
[2017-07-11 13:36] VITALS: BP 165/72; PULSE 59; RESP 18; O2SAT 100
[2017-07-11 13:48] LABS: BILIRUBIN, URINE NEG (NEG); BLOOD, URINE SMALL (NEG); GLUCOSE,URINE NEG (NEG); KETONE, URINE NEG (NEG); NITRITE,URINE NEG (NEG); URINE COLOR YELLOW (YELLW/STRAW); URINE LEUKOCYTE ESTERASE NEG (NEG)
[2017-07-11] MEDS ORDERED: SODI650T PO (14:56)
[2017-07-11] MEDS ORDERED: SODIUM BICARBONATE 8.4% INJ 50 MEQ/50 ML SYR IV PUSH ONE (15:00)
[2017-07-11 15:06] VITALS: BP 190/104; PULSE 58; RESP 18; O2SAT 100
== END 2017-07-11 15:38 | disposition home or self-care (01) ==
LOC: NEPD 09:45
DX: D57.1 Sickle-cell disease without crisis (principal); E11.22 Type 2 diabetes mellitus with diabetic chronic kidney disease; I12.9 Hypertensive chronic kidney disease with stage 1 through stage 4 chronic kidney disease, or unspecified chronic kidney disease; N18.3 Chronic kidney disease, stage 3 (moderate); E87.2 Acidosis; M19.90 Unspecified osteoarthritis, unspecified site; K21.9 Gastro-esophageal reflux disease without esophagitis; F17.200 Nicotine dependence, unspecified, uncomplicated; Z79.899 Other long term (current) drug therapy
CPT/HCPCS: 36600; 71046; 80048; 81001; 82805; 85025; 85044; 96361; 96374; 96375; 99284; J1170; J2405; J7030

== ENCOUNTER 2017-08-08 18:07 | Emergency (ER) | payer MEDICARE, MEDICAID ==
[~2017-08-08 18:07] MED LIST changes: -HYDR-3366 PO; +SODI650T PO
[2017-08-08 18:13] VITALS: BP 165/80; PULSE 66; RESP 18; TEMP 97.8; O2SAT 96
--- NOTE | 2017-08-08 19:18 | PD ---
HPI Chief Complaint: Sickle Cell Time Seen by Provider: 19:03 Travel History International Travel<30 days: No Contact w/Intl Traveler<30days: No Traveled to known affect area: No History of Present Illness HPI 51yo M with PMH of sickle cell disease and CKD presents to the ED with c/o lower back pain for 1 day. Said it feels like his usual sickle cell disease. Denies any fever, fall, IVDA, chest pain, sob, n/v, abdominal pain, focal weakness or numbness. When I ask about the dizziness mentioned in triage note, he said he is always dizzy and not the reason he came in today. Said he has had that for months and his doctors said it is because of his high blood pressure. PFSH Past Medical History Hx Anticoagulant Therapy: No Anemia: Yes (SICKLE CELL ANEMIA) Arthritis: Yes Asthma: No Autoimmune Disease: No Blood Disorders: Yes (SICKLE CELL) Anxiety: No Depression: No Heart Rhythm Problems: No Cancer: No Cardiovascular Problems: Yes (htn on meds) High Cholesterol: No Chemotherapy: No Chest Pain: No Congestive Heart Failure: No COPD: No Cerebrovascular Accident: No Diabetes: Yes Diminished Hearing: No Endocrine: No Gastrointestinal Disorders: Yes GERD: Yes Glaucoma: No Genitourinary: No Headaches: No Hepatitis: No Hiatal Hernia: Yes Heparin Induced Thrombocytopen: No Hypertension: Yes Immune Disorder: No Implanted Vascular Access Dvce: Yes Kidney Stones: No Musculoskeletal: Yes Neurologic: No Psychiatric: No Reproductive: No Respiratory: Yes (SOB at rest occasionally) Resp. Syncytial Virus (RSV): Yes Integumentary: Yes Immunizations Current: Yes Migraines: No Myocardial Infarction: No Radiation Therapy: No Renal Failure: No Seizures: No Sickle Cell Disease: Yes Sleep Apnea: No Thyroid Disease: No Ulcer: Yes (peptic ulcer recuring ) Past Surgical History Abdominal Surgery: No AICD: No Appendectomy: No Arteriovenous Shunt: No Cardiac Surgery: No Cholecystectomy: Yes Ear Surgery: No Endocrine Surgery: No Eye Surgery: No Genitourinary Surgery: No Gynecologic Surgery: No Insulin Pump: No Joint Replacement: Yes (full hip replacement bilat) Oral Surgery: No Pacemaker: No Thoracic Surgery: No Other Surgery: Yes (port removed) Social History Alcohol Use: No Tobacco Use: Yes (1PPD) Substance Use: No Allergies-Medications (Allergen,Severity, Reaction): Coded Allergies: lorazepam (Verified Allergy, Severe, Shortness of Breath, 07/11/17) Reported Meds & Prescriptions Reported Meds & Active Scripts Active Tylenol (Acetaminophen) 325 Mg Tab 650 Mg PO Q6H PRN Folic Acid 400 Mcg Tab 400 Mcg PO DAILY Reported [place] (Hydrocodone-Acetaminophen) 10-325 Mg Tab 1 Tab PO Q6H PRN Metoprolol Tartrate 25 Mg Tab 25 Mg PO BID Review of Systems Except as stated in HPI: all other systems reviewed are Neg Physical Exam Narrative GENERAL: 51yo M in mild distress. SKIN: Focused skin assessment warm/dry. HEAD: Atraumatic. Normocephalic. EYES: Pupils equal and round. No scleral icterus. No injection or drainage. ENT: No nasal bleeding or discharge. Mucous membranes pink and moist. NECK: Trachea midline. No JVD. CARDIOVASCULAR: Regular rate and rhythm. No murmur appreciated. RESPIRATORY: No accessory muscle use. Clear to auscultation. Breath sounds equal bilaterally. GASTROINTESTINAL: Abdomen soft, non-tender, nondistended. BACK: No midline ttp thoracic or lumbar spine. MUSCULOSKELETAL: No obvious deformities. No clubbing. No cyanosis. +Bilateral lower extremity edema. NEUROLOGICAL: Awake and alert. No obvious cranial nerve deficits. Motor grossly within normal limits in all extremities. Sensation intact. Normal speech. PSYCHIATRIC: Appropriate mood and affect; insight and judgment normal. Data Data Last Documented VS Vital Signs Date Time Temp Pulse Resp B/P (MAP) Pulse Ox O2 Delivery O2 Flow Rate FiO2 08/08/17 21:19 55 13 165/88 (113) 100 Room Air 08/08/17 18:13 97.8 Orders Orders Complete Blood Count With Diff (08/08/17 18:17) Comprehensive Metabolic Panel (08/08/17 18:17) Retic Count (08/08/17 18:17) Urinalysis - C+S If Indicated (08/08/17 18:17) Hydromorphone Pf Inj (Dilaudid Pf Inj) (08/08/17 19:30) Electrocardiogram (08/08/17 ) Hydromorphone Pf Inj (Dilaudid Pf Inj) (08/08/17 19:45) Labs Laboratory Tests Test 08/08/17 18:40 White Blood Count 7.5 TH/MM3 Red Blood Count 2.98 MIL/MM3 Hemoglobin 11.0 GM/DL Hematocrit 32.9 % Mean Corpuscular Volume 110.1 FL Mean Corpuscular Hemoglobin 36.9 PG Mean Corpuscular Hemoglobin Concent 33.5 % Red Cell Distribution Width 28.6 % Platelet Count 385 TH/MM3 Mean Platelet Volume 8.1 FL Neutrophils (%) (Auto) 64.5 % Lymphocytes (%) (Auto) 21.5 % Monocytes (%) (Auto) 12.3 % Eosinophils (%) (Auto) 1.2 % Basophils (%) (Auto) 0.5 % Neutrophils # (Auto) 4.8 TH/MM3 Lymphocytes # (Auto) 1.6 TH/MM3 Monocytes # (Auto) 0.9 TH/MM3 Eosinophils # (Auto) 0.1 TH/MM3 Basophils # (Auto) 0.0 TH/MM3 CBC Comment AUTO DIFF Differential Comment AUTO DIFF CONFIRMED Platelet Estimate NORMAL Platelet Morphology Comment NORMAL Basophilic [place] Spherocytes OCC Sickle Cells 1+ Ovalocytes 1+ [place] Bodies Reticulocyte Count 3.8 % Absolute Reticulocyte Count 113.6 MIL/L Urine Color LIGHT-YELLOW Urine Turbidity CLEAR Urine pH 6.0 Urine Specific [place] 1.010 Urine Protein 100 mg/dL Urine Glucose (UA) NEG mg/dL Urine Ketones NEG mg/dL Urine Occult Blood TRACE Urine Nitrite NEG Urine Bilirubin NEG Urine Urobilinogen LESS THAN 2.0 MG/DL Urine Leukocyte Esterase NEG Urine WBC LESS THAN 1 /hpf Urine Bacteria RARE /hpf Urine Mucus FEW /lpf Microscopic Urinalysis Comment CULT NOT INDICATED Blood Urea Nitrogen 43 MG/DL Creatinine 2.50 MG/DL Random Glucose 146 MG/DL Total Protein 7.5 GM/DL Albumin 3.0 GM/DL Calcium Level 9.1 MG/DL Alkaline Phosphatase 198 U/L Aspartate Amino Transf (AST/SGOT) 35 U/L Alanine Aminotransferase (ALT/SGPT) 35 U/L Total Bilirubin 1.5 MG/DL Sodium Level 136 MEQ/L Potassium Level 4.4 MEQ/L Chloride Level 111 MEQ/L Carbon Dioxide Level 14.3 MEQ/L Anion Gap 11 MEQ/L Estimat Glomerular Filtration Rate 33 ML/MIN [facility] Medical Decision Making Medical Screen Exam Complete: Yes Emergency Medical Condition: Yes Interpretation(s) EKG: Sinus bradycardia at 50bpm. Normal axis. Q wave V2 that is not new. Biphasic T wave V4-V6. TWI III. Differential Diagnosis Vasoocclusive crisis vs. UTI Narrative Course 51yo M with lower back pain today that feels like his usual sickle cell crisis. Pt has no red flags for back pain. Labs reviewed, no leukocytosis. H/H 11/ 32.9 which is better than baseline. Retic count mildly elevated at 3.8. BUN/ creatinine 43/2.50 which is at baseline. UA showed negative leukocyte. Total bilirubin mildly elevated which is lower than last bilirubin. Alk phos is also at baseline. Pt given dilaudid and pain has improved. Pt has no focal neurologic deficits and wants to go home. Diagnosis Primary Impression: Back pain Qualified Codes: M54.5 - Low back pain Patient Instructions: General Instructions Departure Forms: Tests/Procedures Additional Instructions: Please follow up with your primary care physician in 2-3 days. Return to the ED if symptoms. Med/Other Pt SpecificInfo: No Change to Meds Disposition: 01 DISCHARGE HOME Condition: Stable Adelaide Renner DO Aug 08, 2017 19:18
[2017-08-08] MEDS ORDERED: HYDROmorphone HCL PF 1 MG/ML VIAL IV PUSH ONE (19:30)
[2017-08-08] MEDS ORDERED: HYDROmorphone HCL PF 2 MG/ML VIAL IV PUSH ONE (19:45)
[2017-08-08 19:46] LABS: AUTOMATED NEUTROPHIL # 4.8 TH/MM3 (1.8-7.7); BASOPHIL % 0.5 % (0.0-2.0); EOSINOPHIL # 0.1 TH/MM3 (0-0.4); EOSINOPHIL % 1.2 % (0.0-4.0); HEMATOCRIT 32.9 % (39.0-51.0); LYMPH % 21.5 % (9.0-44.0); LYMPHOCYTE # 1.6 TH/MM3 (1.0-4.8); MEAN CELL VOLUME 110.1 FL (80.0-100.0); MEAN CORPUSCULAR HEMOGLOBIN 36.9 PG (27.0-34.0); MEAN CORPUSCULAR HGB CONC 33.5 % (32.0-36.0); MEAN PLATELET VOLUME 8.1 FL (7.0-11.0); MONO % 12.3 % (0.0-8.0); MONOCYTE # 0.9 TH/MM3 (0-0.9); NEUT % 64.5 % (16.0-70.0); PLATELET COUNT 385 TH/MM3 (150-450); RED BLOOD COUNT 2.98 MIL/MM3 (4.50-5.90); RED CELL DISTRIBUTION WIDTH 28.6 % (11.6-17.2); RETIC # 113.6 MIL/L (20.0-150.0); RETIC % 3.8 % (0.4-3.0); WHITE BLOOD COUNT 7.5 TH/MM3 (4.0-11.0)
[2017-08-08 19:50] VITALS: BP 222/92; PULSE 62; RESP 20; O2SAT 100
[2017-08-08 19:50] LABS: BACTERIA, URINE RARE /hpf; BILIRUBIN, URINE NEG (NEG); BLOOD, URINE TRACE (NEG); GLUCOSE,URINE NEG (NEG); KETONE, URINE NEG (NEG); MUCUS URINE FEW /lpf (OCC); NITRITE,URINE NEG (NEG); URINE COLOR LIGHT-YELLOW (YELLW/STRAW); URINE LEUKOCYTE ESTERASE NEG (NEG)
[2017-08-08] MEDS ORDERED: HYDR-3366 PO (19:56)
[2017-08-08 20:04] LABS: AST (GOT) 35 U/L (15-37); BICARBONATE 14.3 MEQ/L (21.0-32.0); BLOOD UREA NITROGEN 43 MG/DL (7-18); CALCIUM 9.1 MG/DL (8.5-10.1); CHLORIDE 111 MEQ/L (98-107); GLOMERULAR FILTRATION RATE 33 ML/MIN (>89); GLUCOSE,RANDOM 146 MG/DL (74-106); SODIUM (NA) 136 MEQ/L (136-145)
[2017-08-08 20:05] LABS: ALT (GPT) 35 U/L (12-78)
[2017-08-08 20:16] LABS: ALKALINE PHOSPHATASE 198 U/L (45-117); TOTAL BILIRUBIN ADULT 1.5 MG/DL (0.2-1.0); TOTAL PROTEIN 7.5 GM/DL (6.4-8.2)
[2017-08-08 20:25] LABS: OVALOCYTES 1+ (NORMAL)
[2017-08-08 20:29] LABS: SICKLE CELLS 1+ (NORMAL)
[2017-08-08 20:31] LABS: SPHEROCYTES OCC (NORMAL)
[2017-08-08 21:19] VITALS: BP 165/88; PULSE 55; RESP 13; O2SAT 100
[2017-08-08 21:52] VITALS: BP 180/88
--- NOTE | 2017-08-09 09:02 | EKG ---
Date Performed: 08/08/2017 Time Performed: 19:33:17 PTAGE: 51 years EKG: SINUS BRADYCARDIA WITH SINUS ARRHYTHMIA SEPTAL MYOCARDIAL INFARCTION ABNORMAL ECG PREVIOUS TRACING : 02/10/2017 10.00 DOCTOR: Jose De La Rosa Interpretating Date/Time 08/09/2017 09:02:08
== END 2017-08-08 21:55 | disposition home or self-care (01) ==
LOC: NEPC 18:07
DX: M54.5 Low back pain (principal); F17.200 Nicotine dependence, unspecified, uncomplicated; I12.9 Hypertensive chronic kidney disease with stage 1 through stage 4 chronic kidney disease, or unspecified chronic kidney disease; N18.9 Chronic kidney disease, unspecified; D57.1 Sickle-cell disease without crisis
CPT/HCPCS: 80053; 81001; 85025; 85044; 93005; 96374; 99284; J1170

== ENCOUNTER 2017-10-04 14:47 | Emergency (ER) | payer MEDICARE, MEDICAID ==
[~2017-10-04] VITALS: Ht 170.2 cm; Wt 48.0 kg
[~2017-10-04 14:47] MED LIST changes: +HYDR-3366 PO; -SODI650T PO
[2017-10-04 14:55] VITALS: BP 138/90; PULSE 75; RESP 16; TEMP 98; O2SAT 98
--- NOTE | 2017-10-04 17:06 | PD ---
HPI Chief Complaint: Altered Mental Status Time Seen by Provider: 16:56 Travel History International Travel<30 days: No Contact w/Intl Traveler<30days: No Traveled to known affect area: No History of Present Illness HPI 51-year-old male presents emergency department with altered mental status. Patient is unable to tell me why he is here, where he lives, where he is coming from, or if he has any medical issues. Patient denies any pain, shortness of breath, fevers, chills. He denies any falls or head trauma. He actually has no complaints today. PFSH Past Medical History Hx Anticoagulant Therapy: No Anemia: Yes (SICKLE CELL ANEMIA) Arthritis: Yes Asthma: No Autoimmune Disease: No Blood Disorders: Yes (SICKLE CELL) Anxiety: No Depression: No Heart Rhythm Problems: No Cancer: No Cardiovascular Problems: Yes (htn on meds) High Cholesterol: No Chemotherapy: No Chest Pain: No Congestive Heart Failure: No COPD: No Cerebrovascular Accident: No Diabetes: Yes Diminished Hearing: No Endocrine: No Gastrointestinal Disorders: Yes GERD: Yes Glaucoma: No Genitourinary: No Headaches: No Hepatitis: No Hiatal Hernia: Yes Heparin Induced Thrombocytopen: No Hypertension: Yes Immune Disorder: No Implanted Vascular Access Dvce: Yes Kidney Stones: No Musculoskeletal: Yes Neurologic: No Psychiatric: No Reproductive: No Respiratory: Yes (SOB at rest occasionally) Resp. Syncytial Virus (RSV): Yes Integumentary: Yes Immunizations Current: Yes Migraines: No Myocardial Infarction: No Radiation Therapy: No Renal Failure: No Seizures: No Sickle Cell Disease: Yes Sleep Apnea: No Thyroid Disease: No Ulcer: Yes (peptic ulcer recuring ) Past Surgical History Abdominal Surgery: No AICD: No Appendectomy: No Arteriovenous Shunt: No Cardiac Surgery: No Cholecystectomy: Yes Ear Surgery: No Endocrine Surgery: No Eye Surgery: No Genitourinary Surgery: No Gynecologic Surgery: No Insulin Pump: No Joint Replacement: Yes (full hip replacement bilat) Oral Surgery: No Pacemaker: No Thoracic Surgery: No Other Surgery: Yes (port removed) Social History Alcohol Use: No Tobacco Use: Yes (1PPD) Substance Use: No Allergies-Medications (Allergen,Severity, Reaction): Coded Allergies: lorazepam (Verified Allergy, Severe, Shortness of Breath, 10/04/17) Reported Meds & Prescriptions Reported Meds & Active Scripts Active Tylenol (Acetaminophen) 325 Mg Tab 650 Mg PO Q6H PRN Folic Acid 400 Mcg Tab 400 Mcg PO DAILY Reported [place] (Hydrocodone-Acetaminophen) 10-325 Mg Tab 1 Tab PO Q6H PRN Metoprolol Tartrate 25 Mg Tab 25 Mg PO BID Review of Systems Except as stated in HPI: all other systems reviewed are Neg Physical Exam Narrative GENERAL: Well-developed, well-nourished in no apparent distress, alert to person SKIN: Focused skin assessment warm/dry. HEAD: Atraumatic. Normocephalic. EYES: Pupils equal and round. No scleral icterus. No injection or drainage. ENT: No nasal bleeding or discharge. Mucous membranes pink and moist. NECK: Trachea midline. No JVD. No lymphadenopathy. No midline tenderness CARDIOVASCULAR: Regular rate and rhythm. No murmur appreciated. RESPIRATORY: No accessory muscle use. Clear to auscultation. Breath sounds equal bilaterally. GASTROINTESTINAL: Abdomen soft, non-tender, nondistended. Hepatic and splenic margins not palpable. MUSCULOSKELETAL: No obvious deformities. No clubbing. No cyanosis. No edema. BACK: No CVA tenderness. No rash. No point tenderness on palpation of the spine. NEUROLOGICAL: Awake and alert. No obvious cranial nerve deficits. Motor grossly within normal limits. Normal speech. No focal neuro deficits PSYCHIATRIC: Appropriate mood and affect; insight and judgment normal. Data Data Last Documented VS Vital Signs Date Time Temp Pulse Resp B/P (MAP) Pulse Ox O2 Delivery O2 Flow Rate FiO2 10/04/17 21:14 178/89 (118) 10/04/17 20:00 70 10/04/17 14:55 98.0 16 98 Orders Orders Electrocardiogram (10/04/17 17:07) Ammonia (10/04/17 17:07) Complete Blood Count With Diff (10/04/17 17:07) Comprehensive Metabolic Panel (10/04/17 17:07) Prothrombin Time / Inr (Pt) (10/04/17 17:07) Act Partial Throm Time (Ptt) (10/04/17 17:07) Thyroid Stimulating Hormone (10/04/17 17:07) Urinalysis - C+S If Indicated (10/04/17 17:07) Blood Glucose (10/04/17 17:07) Ecg Monitoring (10/04/17 17:07) Iv Access Insert/Monitor (10/04/17 17:07) Oximetry (10/04/17 17:07) Sodium Chlor 0.9% 1000 Ml Inj (Ns 1000 M (10/04/17 17:07) Drug Screen, Random Urine (10/04/17 17:07) Ct Brain W/O Iv Contrast(Rout) (10/04/17 ) Clonidine (Catapres) (10/04/17 19:30) Ed Discharge Order (10/04/17 20:50) Labs Laboratory Tests Test 10/04/17 17:15 10/04/17 17:20 Urine Color YELLOW Urine Turbidity CLEAR Urine pH 6.0 Urine Specific [place] 1.009 Urine Protein 100 mg/dL Urine Glucose (UA) NEG mg/dL Urine Ketones NEG mg/dL Urine Occult Blood SMALL Urine Nitrite NEG Urine Bilirubin NEG Urine Urobilinogen LESS THAN 2 mg/dL Urine Leukocyte Esterase NEG Urine RBC LESS THAN 1 /hpf Urine WBC LESS THAN 1 /hpf Urine Squamous Epithelial Cells <1 /hpf Urine Hyaline Casts 1 /lpf Microscopic Urinalysis Comment CATH-CULT NOT IND White Blood Count 7.2 TH/MM3 Red Blood Count 2.46 MIL/MM3 Hemoglobin 9.9 GM/DL Hematocrit 28.6 % Mean Corpuscular Volume 116.4 FL Mean Corpuscular Hemoglobin 40.2 PG Mean Corpuscular Hemoglobin Concent 34.5 % Red Cell Distribution Width 27.0 % Platelet Count 334 TH/MM3 Mean Platelet Volume 7.9 FL Neutrophils (%) (Auto) 60.1 % Lymphocytes (%) (Auto) 26.5 % Monocytes (%) (Auto) 12.2 % Eosinophils (%) (Auto) 0.1 % Basophils (%) (Auto) 1.1 % Neutrophils # (Auto) 4.3 TH/MM3 Lymphocytes # (Auto) 1.9 TH/MM3 Monocytes # (Auto) 0.9 TH/MM3 Eosinophils # (Auto) 0.0 TH/MM3 Basophils # (Auto) 0.1 TH/MM3 CBC Comment AUTO DIFF Differential Comment AUTO DIFF CONFIRMED Platelet Estimate NORMAL Platelet Morphology Comment NORMAL Sickle Cells 1+ Target Cells 1+ [place] Bodies PRESENT [place] Cells Prothrombin Time 10.9 SEC Prothromb Time International Ratio 1.1 RATIO Activated Partial Thromboplast Time 26.1 SEC Blood Urea Nitrogen 26 MG/DL Creatinine 2.15 MG/DL Random Glucose 103 MG/DL Total Protein 7.1 GM/DL Albumin 3.1 GM/DL Calcium Level 8.6 MG/DL Alkaline Phosphatase 198 U/L Aspartate Amino Transf (AST/SGOT) 56 U/L Alanine Aminotransferase (ALT/SGPT) 41 U/L Total Bilirubin 1.5 MG/DL Sodium Level 139 MEQ/L Potassium Level 4.6 MEQ/L Chloride Level 108 MEQ/L Carbon Dioxide Level 20.7 MEQ/L Anion Gap 10 MEQ/L Estimat Glomerular Filtration Rate 39 ML/MIN Ammonia 18 MCMOL/L Thyroid Stimulating Hormone 3rd Gen 1.080 uIU/ML Urine Opiates Screen NEG Urine Barbiturates Screen NEG Urine Amphetamines Screen NEG Urine Benzodiazepines Screen NEG Urine Cocaine Screen NEG Urine Cannabinoids Screen NEG MDM Medical Decision Making Medical Screen Exam Complete: Yes Emergency Medical Condition: Yes Differential Diagnosis ICH, head trauma, metabolic acidosis, dementia, delirium Narrative Course His vital signs are stable other than elevated blood pressure. After review the EMR, it appears that patient has sickle cell anemia, chronic dizziness, chronic back pain, and CKD 3. He was last in the emergency department August 08, 2017 for low back pain and presumed to be a sickle cell crisis. Patient has been in this emergency department multiple times this year for sickle cell crisis and back pain secondary to sickle cell disease. I attempted to call "Josefa" at [phone] upon patients arrival, however, there was no answer and I was unable to leave a message. This information paper was in his right pocket of his shorts. I attempted to call 2 more times but was on successful. Labs appear stable based off of previous visits. Ammonia 18, TSH 1.080, UA noncontributory. UDS negative. NS 1L administered. Clonidine 0.2mg for elevated blood pressure. Pt normally takes metoprolol however, his HR has been 50-60 throughout his visit. Blood pressure prior to departure 178/89. I reevaluate this patient at 1900. Patient says that he came to the emergency department via his brother for low back pain. He denies significant pain or changes from his norm. He says that the number and his pocket is his friend named Josefa. He admits to having a history of low back pain and this is similar to previous episodes and is actually unchanged. Patient seems to be alert and oriented to himself, place and time. Pt requests a phone to call his brother regarding his visit today. Patient appears to be back at baseline and is alert and oriented 3. I am unsure if there was a malingering component to his visit today vs delirium. However, he has no neuro focal deficits and able to converse with me fully. He would like to go home. According to the nurse, patient was able to get a hold of Josefa. Patient will be discharged home with family in stable condition. Diagnosis Primary Impression: Dehydration Additional Impression: Elevated blood pressure reading Referrals: Primary Care Physician Additional Instructions: Follow up with your primary care physician within 2-3 days. If your symptoms persist or worsen, return to the emergency department. Ensure adequate fluid intake and proper nutrition. Take all medications as prescribed. Disposition: 01 DISCHARGE HOME Condition: Stable Anaya Singh Oct 04, 2017 17:06
[2017-10-04] MEDS ORDERED: SODIUM CHLOR 0.9% 1000 ML INJ 1,000 ML IV SCH (17:07)
[2017-10-04 17:28] LABS: AUTOMATED NEUTROPHIL # 4.3 TH/MM3 (1.8-7.7); BASOPHIL # 0.1 TH/MM3 (0-0.2); BASOPHIL % 1.1 % (0.0-2.0); EOSINOPHIL % 0.1 % (0.0-4.0); HEMATOCRIT 28.6 % (39.0-51.0); HEMOGLOBIN 9.9 GM/DL (13.0-17.0); LYMPH % 26.5 % (9.0-44.0); LYMPHOCYTE # 1.9 TH/MM3 (1.0-4.8); MEAN CELL VOLUME 116.4 FL (80.0-100.0); MEAN CORPUSCULAR HEMOGLOBIN 40.2 PG (27.0-34.0); MEAN CORPUSCULAR HGB CONC 34.5 % (32.0-36.0); MEAN PLATELET VOLUME 7.9 FL (7.0-11.0); MONO % 12.2 % (0.0-8.0); MONOCYTE # 0.9 TH/MM3 (0-0.9); NEUT % 60.1 % (16.0-70.0); PLATELET COUNT 334 TH/MM3 (150-450); RED BLOOD COUNT 2.46 MIL/MM3 (4.50-5.90); WHITE BLOOD COUNT 7.2 TH/MM3 (4.0-11.0)
[2017-10-04 17:34] VITALS: BP 188/89; PULSE 83
[2017-10-04 17:35] LABS: INTERNATIONAL NORMALIZED RATIO 1.1 RATIO; PROTHROMBIN TIME - PATIENT 10.9 SEC (9.8-11.6)
[2017-10-04 17:37] LABS: BILIRUBIN, URINE NEG (NEG); BLOOD, URINE SMALL (NEG); GLUCOSE,URINE NEG (NEG); HYALINE CAST, URINE 1 /lpf (RARE); KETONE, URINE NEG (NEG); NITRITE,URINE NEG (NEG); SQUAMOUS EPITHELIAL CELL URINE <1 /hpf (0-5); URINE COLOR YELLOW (YELLW/STRAW); URINE LEUKOCYTE ESTERASE NEG (NEG)
[2017-10-04 17:57] LABS: ALBUMIN 3.1 GM/DL (3.4-5.0); ALT (GPT) 41 U/L (12-78); AST (GOT) 56 U/L (15-37); BICARBONATE 20.7 MEQ/L (21.0-32.0); BLOOD UREA NITROGEN 26 MG/DL (7-18); CALCIUM 8.6 MG/DL (8.5-10.1); CHLORIDE 108 MEQ/L (98-107); CREATININE 2.15 MG/DL (0.60-1.30); GLOMERULAR FILTRATION RATE 39 ML/MIN (>89); GLUCOSE,RANDOM 103 MG/DL (74-106); SODIUM (NA) 139 MEQ/L (136-145)
[2017-10-04 18:06] LABS: HOWELL-JOLLY BODIES PRESENT (NONE SEEN); SICKLE CELLS 1+ (NORMAL)
[2017-10-04 18:07] LABS: ALKALINE PHOSPHATASE 198 U/L (45-117); TARGET CELLS 1+ (NORMAL); TOTAL BILIRUBIN ADULT 1.5 MG/DL (0.2-1.0); TOTAL PROTEIN 7.1 GM/DL (6.4-8.2)
--- NOTE | 2017-10-04 18:59 | RADRPT ---
EXAM DATE: 10/04/2017 6:55 PM EDT AGE/SEX: 51 years / Male INDICATIONS: Altered mental status. CLINICAL DATA: This is the patient's initial encounter. Patient reports that signs and symptoms have been present for 1 day and indicates a pain score of 0/10. MEDICAL/SURGICAL HISTORY: Sickle Cell disease. Hypertension. None. RADIATION DOSE: 56.35 CTDI (mGy) [place] [facility] [place]. . TECHNIQUE: CT of the head without contrast. Using automated exposure control and adjustment of the mA and/or kV according to patient size, radiation dose was kept as low as reasonably achievable to ob tain optimal diagnostic quality images. DICOM format image data is available electronically for revi ew and comparison. FINDINGS: Cerebrum: The ventricles are normal for age. No evidence of midline shift, mass lesion, hemorrhage or acute infarction. No extraaxial fluid collections are seen. Posterior Fossa: The cerebellum and brainstem are intact. The 4th ventricle is midline. The cerebe llopontine angle is unremarkable. Extracranial: The visualized portion of the orbits is intact. Skull: The calvaria is intact. No evidence of skull fracture. CONCLUSION: 1. No acute intracranial abnormality Electronically signed by: Porter Tena MD 10/04/2017 6:57 PM EDT
[2017-10-04] MEDS ORDERED: cloNIDine HCL 0.2 MG TAB PO ONE (19:30)
[2017-10-04 20:00] VITALS: BP 198/102; PULSE 70
[2017-10-04 21:14] VITALS: BP 178/89
--- NOTE | 2017-10-05 18:27 | EKG ---
Date Performed: 10/04/2017 Time Performed: 17:22:41 PTAGE: 51 years EKG: SINUS BRADYCARDIA LEFT ATRIAL ENLARGEMENT POSSIBLE LEFT VENTRICULAR HYPERTROPHY POSSIBLE SE PTAL MYOCARDIAL INFARCTION ABNORMAL ECG Since the PREVIOUS TRACING , no significant change noted PREVIOUS TRACIN08/08/2017 19.33 DOCTOR: Margot Sidhu Interpretating Date/Time 10/05/2017 18:25:00
== END 2017-10-04 21:30 | disposition home or self-care (01) ==
LOC: NEPC 14:47
DX: E86.0 Dehydration (principal); E11.9 Type 2 diabetes mellitus without complications; I12.9 Hypertensive chronic kidney disease with stage 1 through stage 4 chronic kidney disease, or unspecified chronic kidney disease; E11.22 Type 2 diabetes mellitus with diabetic chronic kidney disease; N18.3 Chronic kidney disease, stage 3 (moderate); R94.31 Abnormal electrocardiogram [ECG] [EKG]; D57.1 Sickle-cell disease without crisis; K21.9 Gastro-esophageal reflux disease without esophagitis; M54.5 Low back pain; F17.200 Nicotine dependence, unspecified, uncomplicated
CPT/HCPCS: 70450; 80053; 80307; 81001; 82140; 84443; 85025; 85610; 85730; 93005; 96360; 99285; J7030

== ENCOUNTER 2018-01-22 09:47 | Observation (INO) ==
--- NOTE | 2018-01-22 13:54 | ED ---
HPI General Chief complaint: Sickle Cell Stated complaint: sickle cell pain complaint Time Seen by Provider: 01/22/18 13:31 Source: patient Mode of arrival: ambulatory Limitations: no limitations History of Present Illness HPI narrative: 52-year-old male with history of sickle cell anemia presents to the emergency department for evaluation of low back pain. Upon initial evaluation, patient is alert to himself and date of however, does not know where he is in and who the president is. Patient appears actually altered as he states that he has low back pain but cannot tell me when it started or why he decided to come in today for evaluation as this is chronic. He denies worsening of back pain and points to the lower left portion of his lumbar spine. Patient denies numbness or tingling. Denies fevers, loss of bowel or bladder function, saddle anesthesia, IV drug use, direct trauma. Patient says he does feel confused as he is only able to tell me his name and date of . Patient denies medical history or medication use although quick review of the EMR shows that he has history of sickle cell anemia and CKD 3. He is unable to tell me anything else about his back pain but does state this is similar to his previous episodes. He denies fever, chills, chest pain, shortness of breath, abdominal pain, leg pain. Onset (ago): unknown Radiation: non-radiation Severity: mild Pain Consistency: constant Related Data Home Medications Medication Instructions Recorded Confirmed hydrocodone-acetaminophen 1 tab PO Q4H PRN 01/25/18 01/25/18 hydrocodone-acetaminophen 2 tab PO Q4HR PRN 01/25/18 01/25/18 lisinopril 20 mg PO DAILY 01/25/18 01/25/18 Allergies Allergy/AdvReac Type Severity Reaction Status Date / Time lorazepam Allergy Severe Shortness Verified 01/08/18 21:31 of Breath Review of Systems ROS: all other systems reviewed are negative PMFSH History History Provided By: Patient Medical History Medical History Diabetes (Acute) Sickle cell anemia (Acute) Family History Family History Other Family history unknown Social History Social History Substance History: No History of Abuse Second Hand Smoke Exposure: No Smoking Status: Cognitive impairment Tobacco Type: Cigarettes Cigarettes Per Day: 10 How Often Do You Have a Drink Containing Alcohol: Never Recent Travel in [place] within the Last 8 Weeks: No Recent Out of Country Travel within the Last 8 Weeks: No Exam Narrative Exam Narrative: GENERAL: Well-developed, cachectic appearing 52-year-old male in no acute distress. Patient is alert and oriented to self but not place or time. Difficulty following instructions. SKIN: Focused skin assessment warm/dry. HEAD: Atraumatic. Normocephalic. EYES: Pupils equal and round. No scleral icterus. No injection or drainage. ENT: No nasal bleeding or discharge. Mucous membranes pink and moist. NECK: Trachea midline. No JVD. CARDIOVASCULAR: Regular rate and rhythm. No murmur appreciated. RESPIRATORY: No accessory muscle use. Clear to auscultation. Breath sounds equal bilaterally. GASTROINTESTINAL: Abdomen soft, non-tender, nondistended. Hepatic and splenic margins not palpable. MUSCULOSKELETAL: No obvious deformities. No clubbing. No cyanosis. No edema. BACK: No CVA tenderness. No rash. No point tenderness on palpation of the spine. NEUROLOGICAL: Awake and alert. Cranial nerves II through XII intact. Motor and sensory grossly within normal limits. Five out of 5 muscle strength in all muscle groups. Normal speech. No obvious pronator drift PSYCHIATRIC: Appropriate mood and affect; insight and judgment normal. Course Initial Documented Vital Signs Temperature 98.2 F 01/22/18 10:15 Pulse Rate 84 01/22/18 10:15 Respiratory Rate 18 01/22/18 10:15 Blood Pressure 188/95 H 01/22/18 10:15 Pulse Oximetry 98 01/22/18 10:15 Last Documented Vital Signs Temperature 98.2 F 01/25/18 12:00 Pulse Rate 66 01/25/18 12:00 Respiratory Rate 17 01/25/18 12:00 Blood Pressure 138/64 01/25/18 12:00 Pulse Oximetry 96 01/25/18 12:00 Medical Decision Making JOSEPHINE Attestation JOSEPHINE supervised visit: Yes Attestation: I, Dr. Enriquez, have reviewed the advance practice practitioner's documentation and am in agreement, met with the patient face to face, made the diagnosis, and the medical decision making was done by me. *My assessment and Findings: The patient is 52 years old and has a history of sickle cell disease as well as diabetes. He arrives to the ED with a complaint primarily of low back pain, patient's typical sickle cell crisis complaint. Unusual for today's presentation is altered mental status more than is considered typical or I have seen on prior records. 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 Quintana). Patient states he lives with his family however is not sure of his street address or the names of the family members that he lives with. Patient is unsure what month it is. Workup thus far reveals no obvious cause for altered mental status. Patient is not in severe distress. He is not suffering from acute on chronic anemia at the moment however we do see sickle cells on the smear. Stable chronic renal sufficiency is observed. There is no fever. Call the hospitalist service was made at 8 PM. MDM Narrative Medical decision making narrative: 52-year-old male presents to the emergency department for evaluation of low back pain. Upon initial evaluation, patient states that he has low back pain but cannot give me any other meaningful information. Patient actually appears altered but is able to tell me that his back pain is the same as it always been for the last several years. He denies trauma to the head, neck or back. His vital signs demonstrate blood pressure 188/95, heart rate 84. I spoke with registration briefly and he did not appear altered to her but did not ask the same questions as me. I briefly review the EMR. Patient has been to this emergency department approximately 5 times this year for similar back pain. I saw him 10/04/2017 and at that time, patient was more altered than he is currently however, we will work this patient up for altered mental status. @1800 Reevaluated patient. Pt appears more alert but still unable to give me date or who the president is. This is different than when I saw him earlier this year. UA pending. Labs pending as of transfer of care to Dr. Enriquez. Medical Screen Exam Complete: Yes Emergency Medical Condition: Yes Differential Diagnosis Differential Diagnosis: Dehydration, altered mental status, metabolic encephalopathy Medical Records Medical records reviewed: Yes I reviewed the patient's medical records. Lab Data Lab results reviewed: Yes I reviewed the patient's lab results. Result diagrams: 01/23/18 14:45 01/23/18 14:45 Lab Results 01/22/18 01/22/18 01/22/18 Range/Units 15:35 15:35 15:35 CBC w Diff WBC 6.6 (4.0-11.0) th/mm3 RBC 2.32 L (4.50-5.90) mil/mm3 Hgb 10.5 L (13.0-17.0) gm/dL Hct 29.2 L (39.0-51.0) % MCV 125.6 H (80.0-100.0) fL MCH 45.1 H (27.0-34.0) pg MCHC 35.9 (32.0-36.0) % RDW 17.8 H (11.6-17.2) % Plt Count 317 D (150-450) th/mm3 MPV 7.5 (7.0-11.0) fL Prelim Diff (Auto) Manual diff required Neut % (Auto) (16.0-70.0) % Lymph % (Auto) (9.0-44.0) % [place] % (Auto) (0.0-8.0) % Eos % (Auto) (0.0-4.0) % Baso % (Auto) (0.0-2.0) % Neut # (Auto) (1.8-7.7) th/mm3 Lymph # (Auto) (1.0-4.8) th/mm3 [place] # (Auto) (0.0-0.9) th/mm3 Eos # (Auto) (0.0-0.4) th/mm3 Baso # (Auto) (0.0-0.2) th/mm3 WBC Differential . Diff Scan Auto diff confirmed Differential Comment . Platelet Estimate Normal (Normal) Platelet Morphology Normal (Normal) Spherocytes 1+ H (None) Sickle Cells 1+ H (None) Target Cells (None) Ovalocytes 1+ H (None) Keratocytes Occ H (None) ESR (0-20) mm/hr PT 10.5 (9.8-11.6) sec INR 1.0 Ratio APTT 24.7 (24.3-30.1) sec Sodium 142 (136-145) meq/L Potassium 4.7 (3.5-5.1) meq/L Chloride 107 (98-107) meq/L Carbon Dioxide 24.1 (21.0-32.0) meq/L Anion Gap 11 (5-15) meq/L BUN 43 H (7-18) mg/dL Creatinine 2.79 H (0.60-1.30) mg/dL Estimated GFR 29 L (>89) mL/min POC Glucose (68-110) mg/dl Random Glucose 122 H (74-106) mg/dL Calcium 9.0 (8.5-10.1) mg/dL Total Bilirubin 1.6 H (0.2-1.0) mg/dL AST 59 H (15-37) U/L ALT 56 (12-78) U/L Alkaline Phosphatase 195 H (45-117) U/L Ammonia (11-32) mcmol/L Total Creatine Kinase (39-308) U/L Troponin I Less than 0.02 L (0.02-0.05) ng/mL Total Protein 7.4 (6.4-8.2) g/dL Albumin 2.9 L (3.4-5.0) g/dL Vitamin B12 (193-986) pg/mL Folate (3.1-17.5) ng/mL TSH 0.675 (0.358-3.740) uIU/mL Urine Color (Yellw/Straw) Urine Clarity (Clear) Urine pH (5.0-8.5) Ur Specific [place] (1.002-1.035) Urine Protein (Neg-Trace) mg/dL Urine Glucose (UA) (Negative) mg/dL Urine Ketones (Negative) mg/dL Urine Occult Blood (Negative) Urine Nitrate (Negative) Urine Bilirubin (Negative) Urine Urobilinogen (Less than 2) mg/dL Ur Leukocyte Esterase (Negative) Urine RBC (0-3) /hpf Urine WBC (0-5) /hpf Ur Squamous Epith Cells (0-5) /hpf Urine Bacteria (None) /hpf Micro UA Comment Ur Microscopic Review Urine Culture Comments Urine Opiates Screen (Neg) Ur Barbiturates Screen (Neg) Ur Amphetamines Screen (Neg) U Benzodiazepines Scrn (Neg) Urine Cocaine Screen (Neg) U Cannabinoids Screen (Neg) RPR (Nonreactive) 01/22/18 01/22/18 01/22/18 Range/Units 15:35 15:35 18:50 CBC w Diff WBC (4.0-11.0) th/mm3 RBC (4.50-5.90) mil/mm3 Hgb (13.0-17.0) gm/dL Hct (39.0-51.0) % MCV (80.0-100.0) fL MCH (27.0-34.0) pg MCHC (32.0-36.0) % RDW (11.6-17.2) % Plt Count (150-450) th/mm3 MPV (7.0-11.0) fL Prelim Diff (Auto) Neut % (Auto) (16.0-70.0) % Lymph % (Auto) (9.0-44.0) % [place] % (Auto) (0.0-8.0) % Eos % (Auto) (0.0-4.0) % Baso % (Auto) (0.0-2.0) % Neut # (Auto) (1.8-7.7) th/mm3 Lymph # (Auto) (1.0-4.8) th/mm3 [place] # (Auto) (0.0-0.9) th/mm3 Eos # (Auto) (0.0-0.4) th/mm3 Baso # (Auto) (0.0-0.2) th/mm3 WBC Differential Diff Scan Differential Comment Platelet Estimate (Normal) Platelet Morphology (Normal) Spherocytes (None) Sickle Cells (None) Target Cells (None) Ovalocytes (None) Keratocytes (None) ESR (0-20) mm/hr PT (9.8-11.6) sec INR Ratio APTT (24.3-30.1) sec Sodium (136-145) meq/L Potassium (3.5-5.1) meq/L Chloride (98-107) meq/L Carbon Dioxide (21.0-32.0) meq/L Anion Gap (5-15) meq/L BUN (7-18) mg/dL Creatinine (0.60-1.30) mg/dL Estimated GFR (>89) mL/min POC Glucose (68-110) mg/dl Random Glucose (74-106) mg/dL Calcium (8.5-10.1) mg/dL Total Bilirubin (0.2-1.0) mg/dL AST (15-37) U/L ALT (12-78) U/L Alkaline Phosphatase (45-117) U/L Ammonia 15 (11-32) mcmol/L Total Creatine Kinase 66 (39-308) U/L Troponin I (0.02-0.05) ng/mL Total Protein (6.4-8.2) g/dL Albumin (3.4-5.0) g/dL Vitamin B12 (193-986) pg/mL Folate (3.1-17.5) ng/mL TSH (0.358-3.740) uIU/mL Urine Color (Yellw/Straw) Urine Clarity (Clear) Urine pH (5.0-8.5) Ur Specific [place] (1.002-1.035) Urine Protein (Neg-Trace) mg/dL Urine Glucose (UA) (Negative) mg/dL Urine Ketones (Negative) mg/dL Urine Occult Blood (Negative) Urine Nitrate (Negative) Urine Bilirubin (Negative) Urine Urobilinogen (Less than 2) mg/dL Ur Leukocyte Esterase (Negative) Urine RBC (0-3) /hpf Urine WBC (0-5) /hpf Ur Squamous Epith Cells (0-5) /hpf Urine Bacteria (None) /hpf Micro UA Comment Ur Microscopic Review Urine Culture Comments Urine Opiates Screen Neg (Neg) Ur Barbiturates Screen Neg (Neg) Ur Amphetamines Screen Neg (Neg) U Benzodiazepines Scrn Neg (Neg) Urine Cocaine Screen Neg (Neg) U Cannabinoids Screen Neg (Neg) RPR (Nonreactive) 01/22/18 01/23/18 01/23/18 Range/Units 18:50 03:30 14:45 CBC w Diff Slide review pending WBC 6.9 (4.0-11.0) th/mm3 RBC 2.16 L (4.50-5.90) mil/mm3 Hgb 9.5 L (13.0-17.0) gm/dL Hct 27.2 L (39.0-51.0) % MCV 125.8 H (80.0-100.0) fL MCH 44.0 H (27.0-34.0) pg MCHC 35.0 (32.0-36.0) % RDW 19.3 H (11.6-17.2) % Plt Count 327 (150-450) th/mm3 MPV 7.8 (7.0-11.0) fL Prelim Diff (Auto) Neut % (Auto) 62.9 (16.0-70.0) % Lymph % (Auto) 22.1 (9.0-44.0) % [place] % (Auto) 13.1 H (0.0-8.0) % Eos % (Auto) 0.1 (0.0-4.0) % Baso % (Auto) 1.8 (0.0-2.0) % Neut # (Auto) 4.4 (1.8-7.7) th/mm3 Lymph # (Auto) 1.5 (1.0-4.8) th/mm3 [place] # (Auto) 0.9 (0.0-0.9) th/mm3 Eos # (Auto) 0.0 (0.0-0.4) th/mm3 Baso # (Auto) 0.1 (0.0-0.2) th/mm3 WBC Differential . Diff Scan Auto diff confirmed Differential Comment . Platelet Estimate (Normal) Platelet Morphology (Normal) Spherocytes (None) Sickle Cells (None) Target Cells 1+ H (None) Ovalocytes 1+ H (None) Keratocytes (None) ESR (0-20) mm/hr PT (9.8-11.6) sec INR Ratio APTT (24.3-30.1) sec Sodium (136-145) meq/L Potassium (3.5-5.1) meq/L Chloride (98-107) meq/L Carbon Dioxide (21.0-32.0) meq/L Anion Gap (5-15) meq/L BUN (7-18) mg/dL Creatinine (0.60-1.30) mg/dL Estimated GFR (>89) mL/min POC Glucose 118 H (68-110) mg/dl Random Glucose (74-106) mg/dL Calcium (8.5-10.1) mg/dL Total Bilirubin (0.2-1.0) mg/dL AST (15-37) U/L ALT (12-78) U/L Alkaline Phosphatase (45-117) U/L Ammonia (11-32) mcmol/L Total Creatine Kinase (39-308) U/L Troponin I (0.02-0.05) ng/mL Total Protein (6.4-8.2) g/dL Albumin (3.4-5.0) g/dL Vitamin B12 (193-986) pg/mL Folate (3.1-17.5) ng/mL TSH (0.358-3.740) uIU/mL Urine Color Yellow (Yellw/Straw) Urine Clarity Clear (Clear) Urine pH 6.0 (5.0-8.5) Ur Specific [place] 1.009 (1.002-1.035) Urine Protein 100 H (Neg-Trace) mg/dL Urine Glucose (UA) 50 (Negative) mg/dL Urine Ketones Negative (Negative) mg/dL Urine Occult Blood Moderate H (Negative) Urine Nitrate Negative (Negative) Urine Bilirubin Negative (Negative) Urine Urobilinogen Less than 2 (Less than 2) mg/dL Ur Leukocyte Esterase Negative (Negative) Urine RBC Less than 1 (0-3) /hpf Urine WBC Less than 1 (0-5) /hpf Ur Squamous Epith Cells <1 (0-5) /hpf Urine Bacteria Rare H (None) /hpf Micro UA Comment Culture not ind Ur Microscopic Review Not Reportable Urine Culture Comments Culture not ind Urine Opiates Screen (Neg) Ur Barbiturates Screen (Neg) Ur Amphetamines Screen (Neg) U Benzodiazepines Scrn (Neg) Urine Cocaine Screen (Neg) U Cannabinoids Screen (Neg) RPR (Nonreactive) 01/23/18 01/23/18 01/23/18 Range/Units 14:45 16:25 21:09 CBC w Diff WBC (4.0-11.0) th/mm3 RBC (4.50-5.90) mil/mm3 Hgb (13.0-17.0) gm/dL Hct (39.0-51.0) % MCV (80.0-100.0) fL MCH (27.0-34.0) pg MCHC (32.0-36.0) % RDW (11.6-17.2) % Plt Count (150-450) th/mm3 MPV (7.0-11.0) fL Prelim Diff (Auto) Neut % (Auto) (16.0-70.0) % Lymph % (Auto) (9.0-44.0) % [place] % (Auto) (0.0-8.0) % Eos % (Auto) (0.0-4.0) % Baso % (Auto) (0.0-2.0) % Neut # (Auto) (1.8-7.7) th/mm3 Lymph # (Auto) (1.0-4.8) th/mm3 [place] # (Auto) (0.0-0.9) th/mm3 Eos # (Auto) (0.0-0.4) th/mm3 Baso # (Auto) (0.0-0.2) th/mm3 WBC Differential Diff Scan Differential Comment Platelet Estimate (Normal) Platelet Morphology (Normal) Spherocytes (None) Sickle Cells (None) Target Cells (None) Ovalocytes (None) Keratocytes (None) ESR (0-20) mm/hr PT (9.8-11.6) sec INR Ratio APTT (24.3-30.1) sec Sodium 144 (136-145) meq/L Potassium 3.9 D (3.5-5.1) meq/L Chloride 112 H (98-107) meq/L Carbon Dioxide 19.3 L (21.0-32.0) meq/L Anion Gap 13 (5-15) meq/L BUN 36 H (7-18) mg/dL Creatinine 2.30 H (0.60-1.30) mg/dL Estimated GFR 36 L (>89) mL/min POC Glucose 98 85 (68-110) mg/dl Random Glucose 76 (74-106) mg/dL Calcium 8.3 L (8.5-10.1) mg/dL Total Bilirubin 1.6 H (0.2-1.0) mg/dL AST 58 H (15-37) U/L ALT 53 (12-78) U/L Alkaline Phosphatase 179 H (45-117) U/L Ammonia (11-32) mcmol/L Total Creatine Kinase (39-308) U/L Troponin I (0.02-0.05) ng/mL Total Protein 7.0 (6.4-8.2) g/dL Albumin 2.8 L (3.4-5.0) g/dL Vitamin B12 (193-986) pg/mL Folate (3.1-17.5) ng/mL TSH (0.358-3.740) uIU/mL Urine Color ([place]/Straw) Urine Clarity (Clear) Urine pH (5.0-8.5) Ur Specific [place] (1.002-1.035) Urine Protein (Neg-Trace) mg/dL Urine Glucose (UA) (Negative) mg/dL Urine Ketones (Negative) mg/dL Urine Occult Blood (Negative) Urine Nitrate (Negative) Urine Bilirubin (Negative) Urine Urobilinogen (Less than 2) mg/dL Ur Leukocyte Esterase (Negative) Urine RBC (0-3) /hpf Urine WBC (0-5) /hpf Ur Squamous Epith Cells (0-5) /hpf Urine Bacteria (None) /hpf Micro UA Comment Ur Microscopic Review Urine Culture Comments Urine Opiates Screen (Neg) Ur Barbiturates Screen (Neg) Ur Amphetamines Screen (Neg) U Benzodiazepines Scrn (Neg) Urine Cocaine Screen (Neg) U Cannabinoids Screen (Neg) RPR (Nonreactive) 01/24/18 01/24/18 01/24/18 Range/Units 05:37 11:34 15:20 CBC w Diff WBC (4.0-11.0) th/mm3 RBC (4.50-5.90) mil/mm3 Hgb (13.0-17.0) gm/dL Hct (39.0-51.0) % MCV (80.0-100.0) fL MCH (27.0-34.0) pg MCHC (32.0-36.0) % RDW (11.6-17.2) % Plt Count (150-450) th/mm3 MPV (7.0-11.0) fL Prelim Diff (Auto) Neut % (Auto) (16.0-70.0) % Lymph % (Auto) (9.0-44.0) % [place] % (Auto) (0.0-8.0) % Eos % (Auto) (0.0-4.0) % Baso % (Auto) (0.0-2.0) % Neut # (Auto) (1.8-7.7) th/mm3 Lymph # (Auto) (1.0-4.8) th/mm3 [place] # (Auto) (0.0-0.9) th/mm3 Eos # (Auto) (0.0-0.4) th/mm3 Baso # (Auto) (0.0-0.2) th/mm3 WBC Differential Diff Scan Differential Comment Platelet Estimate (Normal) Platelet Morphology (Normal) Spherocytes (None) Sickle Cells (None) Target Cells (None) Ovalocytes (None) Keratocytes (None) ESR 7 (0-20) mm/hr PT (9.8-11.6) sec INR Ratio APTT (24.3-30.1) sec Sodium (136-145) meq/L Potassium (3.5-5.1) meq/L Chloride (98-107) meq/L Carbon Dioxide (21.0-32.0) meq/L Anion Gap (5-15) meq/L BUN (7-18) mg/dL Creatinine (0.60-1.30) mg/dL Estimated GFR (>89) mL/min POC Glucose 105 121 H (68-110) mg/dl Random Glucose (74-106) mg/dL Calcium (8.5-10.1) mg/dL Total Bilirubin (0.2-1.0) mg/dL AST (15-37) U/L ALT (12-78) U/L Alkaline Phosphatase (45-117) U/L Ammonia (11-32) mcmol/L Total Creatine Kinase (39-308) U/L Troponin I (0.02-0.05) ng/mL Total Protein (6.4-8.2) g/dL Albumin (3.4-5.0) g/dL Vitamin B12 (193-986) pg/mL Folate (3.1-17.5) ng/mL TSH (0.358-3.740) uIU/mL Urine Color ([place]/Straw) Urine Clarity (Clear) Urine pH (5.0-8.5) Ur Specific [place] (1.002-1.035) Urine Protein (Neg-Trace) mg/dL Urine Glucose (UA) (Negative) mg/dL Urine Ketones (Negative) mg/dL Urine Occult Blood (Negative) Urine Nitrate (Negative) Urine Bilirubin (Negative) Urine Urobilinogen (Less than 2) mg/dL Ur Leukocyte Esterase (Negative) Urine RBC (0-3) /hpf Urine WBC (0-5) /hpf Ur Squamous Epith Cells (0-5) /hpf Urine Bacteria (None) /hpf Micro UA Comment Ur Microscopic Review Urine Culture Comments Urine Opiates Screen (Neg) Ur Barbiturates Screen (Neg) Ur Amphetamines Screen (Neg) U Benzodiazepines Scrn (Neg) Urine Cocaine Screen (Neg) U Cannabinoids Screen (Neg) RPR (Nonreactive) 01/24/18 01/24/18 01/24/18 Range/Units 15:20 15:20 15:48 CBC w Diff WBC (4.0-11.0) th/mm3 RBC (4.50-5.90) mil/mm3 Hgb (13.0-17.0) gm/dL Hct (39.0-51.0) % MCV (80.0-100.0) fL MCH (27.0-34.0) pg MCHC (32.0-36.0) % RDW (11.6-17.2) % Plt Count (150-450) th/mm3 MPV (7.0-11.0) fL Prelim Diff (Auto) Neut % (Auto) (16.0-70.0) % Lymph % (Auto) (9.0-44.0) % [place] % (Auto) (0.0-8.0) % Eos % (Auto) (0.0-4.0) % Baso % (Auto) (0.0-2.0) % Neut # (Auto) (1.8-7.7) th/mm3 Lymph # (Auto) (1.0-4.8) th/mm3 [place] # (Auto) (0.0-0.9) th/mm3 Eos # (Auto) (0.0-0.4) th/mm3 Baso # (Auto) (0.0-0.2) th/mm3 WBC Differential Diff Scan Differential Comment Platelet Estimate (Normal) Platelet Morphology (Normal) Spherocytes (None) Sickle Cells (None) Target Cells (None) Ovalocytes (None) Keratocytes (None) ESR (0-20) mm/hr PT (9.8-11.6) sec INR Ratio APTT (24.3-30.1) sec Sodium (136-145) meq/L Potassium (3.5-5.1) meq/L Chloride (98-107) meq/L Carbon Dioxide (21.0-32.0) meq/L Anion Gap (5-15) meq/L BUN (7-18) mg/dL Creatinine (0.60-1.30) mg/dL Estimated GFR (>89) mL/min POC Glucose 104 (68-110) mg/dl Random Glucose (74-106) mg/dL Calcium (8.5-10.1) mg/dL Total Bilirubin (0.2-1.0) mg/dL AST (15-37) U/L ALT (12-78) U/L Alkaline Phosphatase (45-117) U/L Ammonia (11-32) mcmol/L Total Creatine Kinase (39-308) U/L Troponin I (0.02-0.05) ng/mL Total Protein (6.4-8.2) g/dL Albumin (3.4-5.0) g/dL Vitamin B12 1837 H (193-986) pg/mL Folate 14.8 (3.1-17.5) ng/mL TSH (0.358-3.740) uIU/mL Urine Color ([place]/Straw) Urine Clarity (Clear) Urine pH (5.0-8.5) Ur Specific [place] (1.002-1.035) Urine Protein (Neg-Trace) mg/dL Urine Glucose (UA) (Negative) mg/dL Urine Ketones (Negative) mg/dL Urine Occult Blood (Negative) Urine Nitrate (Negative) Urine Bilirubin (Negative) Urine Urobilinogen (Less than 2) mg/dL Ur Leukocyte Esterase (Negative) Urine RBC (0-3) /hpf Urine WBC (0-5) /hpf Ur Squamous Epith Cells (0-5) /hpf Urine Bacteria (None) /hpf Micro UA Comment Ur Microscopic Review Urine Culture Comments Urine Opiates Screen (Neg) Ur Barbiturates Screen (Neg) Ur Amphetamines Screen (Neg) U Benzodiazepines Scrn (Neg) Urine Cocaine Screen (Neg) U Cannabinoids Screen (Neg) RPR Nonreactive (Nonreactive) 01/24/18 01/25/18 01/25/18 Range/Units 19:46 02:09 07:48 CBC w Diff WBC (4.0-11.0) th/mm3 RBC (4.50-5.90) mil/mm3 Hgb (13.0-17.0) gm/dL Hct (39.0-51.0) % MCV (80.0-100.0) fL MCH (27.0-34.0) pg MCHC (32.0-36.0) % RDW (11.6-17.2) % Plt Count (150-450) th/mm3 MPV (7.0-11.0) fL Prelim Diff (Auto) Neut % (Auto) (16.0-70.0) % Lymph % (Auto) (9.0-44.0) % [place] % (Auto) (0.0-8.0) % Eos % (Auto) (0.0-4.0) % Baso % (Auto) (0.0-2.0) % Neut # (Auto) (1.8-7.7) th/mm3 Lymph # (Auto) (1.0-4.8) th/mm3 [place] # (Auto) (0.0-0.9) th/mm3 Eos # (Auto) (0.0-0.4) th/mm3 Baso # (Auto) (0.0-0.2) th/mm3 WBC Differential Diff Scan Differential Comment Platelet Estimate (Normal) Platelet Morphology (Normal) Spherocytes (None) Sickle Cells (None) Target Cells (None) Ovalocytes (None) Keratocytes (None) ESR (0-20) mm/hr PT (9.8-11.6) sec INR Ratio APTT (24.3-30.1) sec Sodium (136-145) meq/L Potassium (3.5-5.1) meq/L Chloride (98-107) meq/L Carbon Dioxide (21.0-32.0) meq/L Anion Gap (5-15) meq/L BUN (7-18) mg/dL Creatinine (0.60-1.30) mg/dL Estimated GFR (>89) mL/min POC Glucose 103 175 H 109 (68-110) mg/dl Random Glucose (74-106) mg/dL Calcium (8.5-10.1) mg/dL Total Bilirubin (0.2-1.0) mg/dL AST (15-37) U/L ALT (12-78) U/L Alkaline Phosphatase (45-117) U/L Ammonia (11-32) mcmol/L Total Creatine Kinase (39-308) U/L Troponin I (0.02-0.05) ng/mL Total Protein (6.4-8.2) g/dL Albumin (3.4-5.0) g/dL Vitamin B12 (193-986) pg/mL Folate (3.1-17.5) ng/mL TSH (0.358-3.740) uIU/mL Urine Color (Yellw/Straw) Urine Clarity (Clear) Urine pH (5.0-8.5) Ur Specific [place] (1.002-1.035) Urine Protein (Neg-Trace) mg/dL Urine Glucose (UA) (Negative) mg/dL Urine Ketones (Negative) mg/dL Urine Occult Blood (Negative) Urine Nitrate (Negative) Urine Bilirubin (Negative) Urine Urobilinogen (Less than 2) mg/dL Ur Leukocyte Esterase (Negative) Urine RBC (0-3) /hpf Urine WBC (0-5) /hpf Ur Squamous Epith Cells (0-5) /hpf Urine Bacteria (None) /hpf Micro UA Comment Ur Microscopic Review Urine Culture Comments Urine Opiates Screen (Neg) Ur Barbiturates Screen (Neg) Ur Amphetamines Screen (Neg) U Benzodiazepines Scrn (Neg) Urine Cocaine Screen (Neg) U Cannabinoids Screen (Neg) RPR (Nonreactive) 01/25/18 Range/Units 12:14 CBC w Diff WBC (4.0-11.0) th/mm3 RBC (4.50-5.90) mil/mm3 Hgb (13.0-17.0) gm/dL Hct (39.0-51.0) % MCV (80.0-100.0) fL MCH (27.0-34.0) pg MCHC (32.0-36.0) % RDW (11.6-17.2) % Plt Count (150-450) th/mm3 MPV (7.0-11.0) fL Prelim Diff (Auto) Neut % (Auto) (16.0-70.0) % Lymph % (Auto) (9.0-44.0) % [place] % (Auto) (0.0-8.0) % Eos % (Auto) (0.0-4.0) % Baso % (Auto) (0.0-2.0) % Neut # (Auto) (1.8-7.7) th/mm3 Lymph # (Auto) (1.0-4.8) th/mm3 [place] # (Auto) (0.0-0.9) th/mm3 Eos # (Auto) (0.0-0.4) th/mm3 Baso # (Auto) (0.0-0.2) th/mm3 WBC Differential Diff Scan Differential Comment Platelet Estimate (Normal) Platelet Morphology (Normal) Spherocytes (None) Sickle Cells (None) Target Cells (None) Ovalocytes (None) Keratocytes (None) ESR (0-20) mm/hr PT (9.8-11.6) sec INR Ratio APTT (24.3-30.1) sec Sodium (136-145) meq/L Potassium (3.5-5.1) meq/L Chloride (98-107) meq/L Carbon Dioxide (21.0-32.0) meq/L Anion Gap (5-15) meq/L BUN (7-18) mg/dL Creatinine (0.60-1.30) mg/dL Estimated GFR (>89) mL/min POC Glucose 77 (68-110) mg/dl Random Glucose (74-106) mg/dL Calcium (8.5-10.1) mg/dL Total Bilirubin (0.2-1.0) mg/dL AST (15-37) U/L ALT (12-78) U/L Alkaline Phosphatase (45-117) U/L Ammonia (11-32) mcmol/L Total Creatine Kinase (39-308) U/L Troponin I (0.02-0.05) ng/mL Total Protein (6.4-8.2) g/dL Albumin (3.4-5.0) g/dL Vitamin B12 (193-986) pg/mL Folate (3.1-17.5) ng/mL TSH (0.358-3.740) uIU/mL Urine Color (Yellw/Straw) Urine Clarity (Clear) Urine pH (5.0-8.5) Ur Specific [place] (1.002-1.035) Urine Protein (Neg-Trace) mg/dL Urine Glucose (UA) (Negative) mg/dL Urine Ketones (Negative) mg/dL Urine Occult Blood (Negative) Urine Nitrate (Negative) Urine Bilirubin (Negative) Urine Urobilinogen (Less than 2) mg/dL Ur Leukocyte Esterase (Negative) Urine RBC (0-3) /hpf Urine WBC (0-5) /hpf Ur Squamous Epith Cells (0-5) /hpf Urine Bacteria (None) /hpf Micro UA Comment Ur Microscopic Review Urine Culture Comments Urine Opiates Screen (Neg) Ur Barbiturates Screen (Neg) Ur Amphetamines Screen (Neg) U Benzodiazepines Scrn (Neg) Urine Cocaine Screen (Neg) U Cannabinoids Screen (Neg) RPR (Nonreactive) Imaging Data Radiologist's impression: Head CT 01/22/18 13:42 CONCLUSION: 1. No acute intracranial abnormality Head MRI 01/23/18 07:04 CONCLUSION: 1. Unremarkable MRI of the brain for patient's age. Discharge Plan Discharge Disposition Patient Disposition: 30 Still Patient Discharge Condition Condition: Stable Discharge Details Diagnosis: Altered mental status Physicians Team ED Provider: Vipin Enriquez ED Midlevel Provider: Anaya Singh Primary Care Provider: Primary Care Mariely Romeo Attending Provider: Porter Julio Status ED Status: Left Department Discharge Information Discharge Date/Time: 01/23/18 12:55
--- NOTE | 2018-01-22 14:18 | CT ---
EXAM DATE: 01/22/2018 1:54 PM EDT AGE/SEX: 52 years / Male INDICATIONS: Altered mental status CLINICAL DATA: This is the patient's initial encounter. Patient reports that signs and symptoms have been present for 1 day and indicates a pain score of 6/10. MEDICAL/SURGICAL HISTORY: Diabetes. Sickle Cell disease. Cholecystectomy. RADIATION DOSE: 56.35 CTDI (mGy) COMPARISON: [facility] [place], CT BRAIN W/O CONTRAST, 10/04/2017. . TECHNIQUE: CT of the head without contrast. Using automated exposure control and adjustment of the mA and/or kV according to patient size, radiation dose was kept as low as reasonably achievable to ob tain optimal diagnostic quality images. DICOM format image data is available electronically for revi ew and comparison. FINDINGS: Cerebrum: The ventricles are normal for age. No evidence of midline shift, mass lesion, hemorrhage or acute infarction. No extraaxial fluid collections are seen. Posterior Fossa: The cerebellum and brainstem are intact. The 4th ventricle is midline. The cerebe llopontine angle is unremarkable. Extracranial: The visualized portion of the orbits is intact. Skull: The calvaria is intact. No evidence of skull fracture. CONCLUSION: 1. No acute intracranial abnormality Electronically signed by: Porter Tena MD 01/22/2018 2:17 PM EDT
[2018-01-22] MEDS ORDERED: Sod Chloride 0.9% Inj 1,000 ML IV.SIG SCH (16:00)
[2018-01-22 16:09] LABS: Hematocrit 29.2 % (39.0-51.0); Hemoglobin 10.5 gm/dL (13.0-17.0); Mean Corpuscular HGB Conc 35.9 % (32.0-36.0); Mean Corpuscular Hemoglobin 45.1 pg (27.0-34.0); Mean Corpuscular Volume 125.6 fL (80.0-100.0); Mean Platelet Volume 7.5 fL (7.0-11.0); Platelet Count 317 th/mm3 (150-450); Red Blood Count 2.32 mil/mm3 (4.50-5.90); Red Cell Distribution Width 17.8 % (11.6-17.2); White Blood Count 6.6 th/mm3 (4.0-11.0)
[2018-01-22 16:16] LABS: Activated Partial Thrombo Time 24.7 sec (24.3-30.1); Prothrombin Time 10.5 sec (9.8-11.6)
[2018-01-22 16:36] LABS: Alkaline Phosphatase 195 U/L (45-117); Thyroid Stimulating Hormone 0.675 uIU/mL (0.358-3.740); Total Protein 7.4 g/dL (6.4-8.2)
[2018-01-22 16:51] LABS: Alanine Aminotransferase 56 U/L (12-78); Albumin 2.9 g/dL (3.4-5.0); Anion Gap 11 meq/L (5-15); Aspartate Aminotransferase 59 U/L (15-37); Blood Urea Nitrogen 43 mg/dL (7-18); Carbon Dioxide 24.1 meq/L (21.0-32.0); Chloride 107 meq/L (98-107); Glomerular Filtration Rate 29 mL/min (>89); Glucose,Random 122 mg/dL (74-106); Potassium 4.7 meq/L (3.5-5.1); Sodium 142 meq/L (136-145)
[2018-01-22 17:00] LABS: Ovalocytes 1+; Sickle Cells 1+; Spherocytes 1+
[2018-01-22 17:01] LABS: Platelet Estimate Normal (Normal); Platelet Morphology Normal (Normal)
[2018-01-22 19:21] LABS: Bacteria,Urine Rare /hpf; Bilirubin,Urine Negative (Negative); Clarity,Urine Clear (Clear); Color,Urine Yellow (Yellw/Straw); Glucose,Urine (UA) 50 mg/dL (Negative); Leukocyte Esterase,Urine Negative (Negative); Nitrite,Urine Negative (Negative); Specific Gravity,Urine 1.009 (1.002-1.035); Squamous Epithelial Cell,Urine <1 /hpf (0-5)
[2018-01-22 19:26] LABS: Amphetamine Screen,Urine Neg (Neg); Barbiturate Screen,Urine Neg (Neg); Cannabinoid Screen,Urine Neg (Neg); Cocaine Screen,Urine Neg (Neg)
[2018-01-22 19:27] LABS: Opiate Screen,Urine Neg (Neg)
[2018-01-22] MEDS ORDERED: Bisacodyl 10 MG Supp RECTAL PRN (21:35)
[2018-01-22] MEDS ORDERED: Dextrose 50% in Water 50 ML Vial IV.PUSH PRN (21:38)
--- NOTE | 2018-01-22 21:43 | P.HP ---
History of Present Illness Service: [facility] Primary Care Physician: No Primary Care Physician History of Present Illness: 52-year-old male with a past medical history significant for sickle cell disease and diabetes mellitus presents to the emergency department for evaluation of lower back pain. Per emergency department documentation, the patient was alert to himself and date of however otherwise confused. He does not know the year, location or time. During our evaluation the patient was oriented only to himself and could not tell me why he was in the hospital. He did not know his birthday. He endorses a headache. Denies all other pain. Does not complain of low back pain. No chest pain or shortness of breath. No abdominal pain. No nausea/vomiting/diarrhea. No lateralizing signs/symptoms. No fever/chills. Review of Systems All other systems reviewed negative except as stated in HPI PMFSH - History History Provided By: Patient - Medical History Medical History: Medical History (Last Reviewed 01/22/18 @ 21:40 by Dominique Webb MD) Diabetes (Acute) Sickle cell anemia (Acute) - Surgical History Surgical History: Surgical History (Last Reviewed 01/22/18 @ 21:40 by Dominique Webb MD) H/O shoulder surgery (Acute) Hx of cholecystectomy (Acute) No history of previous surgery (Acute) - Family History Family History: Family History (Last Updated 01/22/18 @ 21:40 by Dominique Webb MD) Other Family history unknown - Tobacco History Second Hand Smoke Exposure: No Smoking Status: Never smoker Tobacco Type: Cigarettes Cigarettes Per Day: 10 - Alcohol History How Often Do You Have a Drink Containing Alcohol: Never - Substance Use History Substance History: No History of Abuse - Travel History Recent Travel in the [facility] Within the Last 8 Weeks: No Recent Travel Out of the Country Within the Last 8 Weeks: No - Immunization History Tetanus Immunization: <5 Years Medications and Allergies Active Medications: Active Medications Sodium Chloride (Ns Inj) 1,000 mls @ 0 mls/hr IV.SIG BOLUS [place] Last Infusion: 01/22/18 17:14 Dose: Infused Sodium Chloride (Ns Flush) 2 ml IV.FLUSH PRN PRN PRN Reason: FLUSH AFTER USING IV ACCESS Allergies Allergy/AdvReac Type Severity Reaction Status Date / Time lorazepam Allergy Severe Shortness Verified 01/08/18 21:31 of Breath Home Medications Medication Instructions Recorded Confirmed Type folic acid-B complex,C no.17 1 tab PO BID 10/24/17 01/08/18 History losartan 50 mg PO DAILY 12/19/17 01/08/18 History Exam Vital signs: Vital Signs 01/22/18 10:15 01/22/18 15:19 01/22/18 18:10 Temperature 98.2 F Pulse Rate 84 69 51 L Respiratory Rate 18 20 16 Blood Pressure 188/95 H 205/93 H 202/120 H Pulse Oximetry 98 99 100 01/22/18 19:15 Temperature Pulse Rate 52 L Respiratory Rate 17 Blood Pressure 182/96 H Pulse Oximetry Intake & Output 01/22/18 01/22/18 01/23/18 06:59 18:59 06:59 Intake Total 1000 / 1000 Balance 1000 / 1000 Weight 54.431 kg Intake: IV 1000 / 1000 NS Inj 1,000 ML @ Wide Open IV. 1000 / 1000 SIG BOLUS [place] Rx#:[id number] Narrative: Gen.: No acute distress Head: Normocephalic. Atraumatic. EENT: Pupils equal round and reactive to light. Nose without drainage. Airway intact. Throat without injection. Cardiovascular: Regular rate and rhythm. No murmurs, rubs or gallops. Respiratory: Lungs clear to auscultation bilaterally. No wheezes or rhonchi. Abdomen: Soft, nontender, nondistended. No peritoneal signs. Musculoskeletal: No gross deformities. No edema. Skin: No obvious rashes or erythema. Neuro: Sensory and motor grossly intact. Cranial nerves II through XII grossly intact. Alert only to self. Results - Labs CBC & Chem 7: 01/22/18 15:35 01/22/18 15:35 Labs: Laboratory Results - last 24 hr 01/22/18 01/22/18 01/22/18 15:35 15:35 15:35 WBC 6.6 RBC 2.32 L Hgb 10.5 L Hct 29.2 L MCV 125.6 H MCH 45.1 H MCHC 35.9 RDW 17.8 H Plt Count 317 D MPV 7.5 Prelim Diff (Auto) Manual diff required WBC Differential . Diff Scan Auto diff confirmed Differential Comment . Platelet Estimate Normal Platelet Morphology Normal Spherocytes 1+ H Sickle Cells 1+ H Ovalocytes 1+ H Keratocytes Occ H PT 10.5 INR 1.0 APTT 24.7 Sodium 142 Potassium 4.7 Chloride 107 Carbon Dioxide 24.1 Anion Gap 11 BUN 43 H Creatinine 2.79 H Estimated GFR 29 L Random Glucose 122 H Calcium 9.0 Total Bilirubin 1.6 H AST 59 H ALT 56 Alkaline Phosphatase 195 H Ammonia Total Creatine Kinase Troponin I Less than 0.02 L Total Protein 7.4 Albumin 2.9 L TSH 0.675 Urine Color Urine Clarity Urine pH Ur Specific [place] Urine Protein Urine Glucose (UA) Urine Ketones Urine Occult Blood Urine Nitrate Urine Bilirubin Urine Urobilinogen Ur Leukocyte Esterase Urine RBC Urine WBC Ur Squamous Epith Cells Urine Bacteria Micro UA Comment Ur Microscopic Review Urine Culture Comments Urine Opiates Screen Ur Barbiturates Screen Ur Amphetamines Screen U Benzodiazepines Scrn Urine Cocaine Screen U Cannabinoids Screen 01/22/18 01/22/18 01/22/18 15:35 15:35 18:50 WBC RBC Hgb Hct MCV MCH MCHC RDW Plt Count MPV Prelim Diff (Auto) WBC Differential Diff Scan Differential Comment Platelet Estimate Platelet Morphology Spherocytes Sickle Cells Ovalocytes Keratocytes PT INR APTT Sodium Potassium Chloride Carbon Dioxide Anion Gap BUN Creatinine Estimated GFR Random Glucose Calcium Total Bilirubin AST ALT Alkaline Phosphatase Ammonia 15 Total Creatine Kinase 66 Troponin I Total Protein Albumin TSH Urine Color Urine Clarity Urine pH Ur Specific [place] Urine Protein Urine Glucose (UA) Urine Ketones Urine Occult Blood Urine Nitrate Urine Bilirubin Urine Urobilinogen Ur Leukocyte Esterase Urine RBC Urine WBC Ur Squamous Epith Cells Urine Bacteria Micro UA Comment Ur Microscopic Review Urine Culture Comments Urine Opiates Screen Neg Ur Barbiturates Screen Neg Ur Amphetamines Screen Neg U Benzodiazepines Scrn Neg Urine Cocaine Screen Neg U Cannabinoids Screen Neg 01/22/18 18:50 WBC RBC Hgb Hct MCV MCH MCHC RDW Plt Count MPV Prelim Diff (Auto) WBC Differential Diff Scan Differential Comment Platelet Estimate Platelet Morphology Spherocytes Sickle Cells Ovalocytes Keratocytes PT INR APTT Sodium Potassium Chloride Carbon Dioxide Anion Gap BUN Creatinine Estimated GFR Random Glucose Calcium Total Bilirubin AST ALT Alkaline Phosphatase Ammonia Total Creatine Kinase Troponin I Total Protein Albumin TSH Urine Color Yellow Urine Clarity Clear Urine pH 6.0 Ur Specific [place] 1.009 Urine Protein 100 H Urine Glucose (UA) 50 Urine Ketones Negative Urine Occult Blood Moderate H Urine Nitrate Negative Urine Bilirubin Negative Urine Urobilinogen Less than 2 Ur Leukocyte Esterase Negative Urine RBC Less than 1 Urine WBC Less than 1 Ur Squamous Epith Cells <1 Urine Bacteria Rare H Micro UA Comment Culture not ind Ur Microscopic Review Not Reportable Urine Culture Comments Culture not ind Urine Opiates Screen Ur Barbiturates Screen Ur Amphetamines Screen U Benzodiazepines Scrn Urine Cocaine Screen U Cannabinoids Screen - Imaging Impressions Head CT 01/22/18 13:42 CONCLUSION: 1. No acute intracranial abnormality Caprini VTE Risk Assessment Caprini VTE Risk Assessment: No/Low Risk (score <= 1) Caprini Risk Assessment Model: Point Value = 1 Point Value = 2 Point Value = 3 Point Value = 5 Age 41-60 Minor surgery BMI > 25 kg/m2 Swollen legs Varicose veins or History of unexplained or recurrent spontaneous Oral contraceptives or hormone replacement Sepsis (< 1 month) Serious lung disease, including pneumonia (< 1 month) Abnormal pulmonary function Acute myocardial infarction Congestive heart failure (< 1 month) History of inflammatory bowel disease Medical patient at bed rest Age 61-74 Arthroscopic surgery Major open surgery (> 45 min) Laparoscopic surgery (> 45 min) Malignancy Confined to bed (> 72 hours) Immobilizing plaster cast Central venous access Age >= 75 History of VTE Family history of VTE Factor V Leiden Prothrombin [id number] Lupus anticoagulant Anticardiolipin antibodies Elevated serum homocysteine Heparin-induced thrombocytopenia Other congenital or acquired thrombophilia Stroke (< 1 month) Elective arthroplasty Hip, pelvis, or leg fracture Acute spinal cord injury (< 1 month) Prophylaxis Regimen: Total Risk Factor Score Risk Level Prophylaxis Regimen 0-1 Low Early ambulation 2 Moderate Order ONE of the following: *Sequential Compression Device (SCD) *Heparin 5000 units SQ BID 3-4 Higher Order ONE of the following medications: *Heparin 5000 units SQ TID *Enoxaparin/Lovenox 40 mg SQ daily (WT < 150 kg, CrCl > 30 mL/min) *Enoxaparin/Lovenox 30 mg SQ daily (WT < 150 kg, CrCl > 10-29 mL/min) *Enoxaparin/Lovenox 30 mg SQ BID (WT < 150 kg, CrCl > 30 mL/min) AND/OR *Sequential Compression Device (SCD) 5 or more Highest Order ONE of the following medications: *Heparin 5000 units SQ TID (Preferred with Epidurals) *Enoxaparin/Lovenox 40 mg SQ daily (WT < 150 kg, CrCl > 30 mL/min) *Enoxaparin/Lovenox 30 mg SQ daily (WT < 150 kg, CrCl > 10-29 mL/min) *Enoxaparin/Lovenox 30 mg SQ BID (WT < 150 kg, CrCl > 30 mL/min) AND *Sequential Compression Device (SCD) Assessment and Plan - Plan Assessment/plan: 1. Altered mental status Etiology unknown CT negative for acute process MRI pending Urine drug screen negative No significant electrolyte abnormalities 2. Chronic kidney disease Creatinine 2.79, mildly elevated from baseline IV fluid hydration Monitor renal function 3. Diabetes mellitus Sliding scale insulin Monitor blood glucose 4. Sickle cell disease Currently without pain crisis FEN Regular diet NS at 70 cc/hour Electrolytes: Monitor and replete as needed
[2018-01-22] MEDS: Sod Chloride 0.9% Inj 1,000 ML IV.CONT SCH (22:09)
[2018-01-22] MEDS ORDERED: hydrALAZINE HCl Inj 20 MG/ML Vial IV.PUSH ONE (22:19)
[2018-01-23] MEDS: Insulin NovoLOG Aspart Correctional Sugar Inj SQ SCH ×5 (03:33→21:11)
[2018-01-23] MEDS ORDERED: hydrALAZINE HCl Inj 20 MG/ML Vial IV.PUSH STA (06:56)
[2018-01-23] MEDS: Senna/Docusate Sodium 8.6/50 MG Tablet PO SCH ×2 (08:28→21:07)
--- NOTE | 2018-01-23 09:00 | P.PN ---
Subjective Interval history: Patient is seen sitting up on the end of the bed. He responds to his name but cannot tell me where he is or the date. He does not know where he lives and cannot tell me the names of any of his friends or family. Nursing reports no adverse events. Patient denies any pain or problems other than being cold. Physical Exam Vital signs: Vital Signs 01/22/18 10:15 01/22/18 15:19 01/22/18 18:10 Temperature 98.2 F Pulse Rate 84 69 51 L Respiratory Rate 18 20 16 Blood Pressure 188/95 H 205/93 H 202/120 H Pulse Oximetry 98 99 100 01/22/18 19:15 01/22/18 22:08 01/22/18 23:05 Temperature Pulse Rate 52 L 66 50 L Respiratory Rate 17 16 15 Blood Pressure 182/96 H 196/89 H 182/84 H Pulse Oximetry 99 99 01/22/18 23:15 01/23/18 00:00 01/23/18 03:16 Temperature Pulse Rate 50 L 61 80 Respiratory Rate 17 16 16 Blood Pressure 173/92 H 171/81 H 163/85 H Pulse Oximetry 99 100 100 01/23/18 06:19 01/23/18 07:35 Temperature Pulse Rate 50 L 68 Respiratory Rate 18 20 Blood Pressure 187/79 H 168/106 H Pulse Oximetry 99 99 Intake & Output 01/22/18 01/23/18 01/23/18 18:59 06:59 18:59 Intake Total 1000 / 1000 Balance 1000 / 1000 Weight 54.431 kg Intake: IV 1000 / 1000 NS Inj 1,000 ML @ Wide Open IV. 1000 / 1000 SIG [facility]US [facility] Rx#:[id number] Narrative: Gen.: Thin, well-developed adult male in no acute distress Head: Normocephalic. Atraumatic. EENT: Pupils equal round and reactive to light. Nose without drainage. Airway intact. Throat without injection. Cardiovascular: Regular rate and rhythm. Respiratory: Lungs clear to auscultation bilaterally. No wheezes or rhonchi. Abdomen: Soft, nontender, nondistended. No peritoneal signs. Musculoskeletal: No gross deformities. No edema. Skin: No obvious rashes or erythema. Neuro: Sensory and motor grossly intact. Cranial nerves II through XII grossly intact. Alert only to self. Results - Labs CBC & Chem 7: 01/22/18 15:35 01/22/18 15:35 Laboratory Results - last 24 hr 01/22/18 01/22/18 01/22/18 15:35 15:35 15:35 WBC 6.6 RBC 2.32 L Hgb 10.5 L Hct 29.2 L MCV 125.6 H MCH 45.1 H MCHC 35.9 RDW 17.8 H Plt Count 317 D MPV 7.5 Prelim Diff (Auto) Manual diff required WBC Differential . Diff Scan Auto diff confirmed Differential Comment . Platelet Estimate Normal Platelet Morphology Normal Spherocytes 1+ H Sickle Cells 1+ H Ovalocytes 1+ H Keratocytes Occ H PT 10.5 INR 1.0 APTT 24.7 Sodium 142 Potassium 4.7 Chloride 107 Carbon Dioxide 24.1 Anion Gap 11 BUN 43 H Creatinine 2.79 H Estimated GFR 29 L POC Glucose Random Glucose 122 H Calcium 9.0 Total Bilirubin 1.6 H AST 59 H ALT 56 Alkaline Phosphatase 195 H Ammonia Total Creatine Kinase Troponin I Less than 0.02 L Total Protein 7.4 Albumin 2.9 L TSH 0.675 Urine Color Urine Clarity Urine pH Ur Specific [place] Urine Protein Urine Glucose (UA) Urine Ketones Urine Occult Blood Urine Nitrate Urine Bilirubin Urine Urobilinogen Ur Leukocyte Esterase Urine RBC Urine WBC Ur Squamous Epith Cells Urine Bacteria Micro UA Comment Ur Microscopic Review Urine Culture Comments Urine Opiates Screen Ur Barbiturates Screen Ur Amphetamines Screen U Benzodiazepines Scrn Urine Cocaine Screen U Cannabinoids Screen 01/22/18 01/22/18 01/22/18 15:35 15:35 18:50 WBC RBC Hgb Hct MCV MCH MCHC RDW Plt Count MPV Prelim Diff (Auto) WBC Differential Diff Scan Differential Comment Platelet Estimate Platelet Morphology Spherocytes Sickle Cells Ovalocytes Keratocytes PT INR APTT Sodium Potassium Chloride Carbon Dioxide Anion Gap BUN Creatinine Estimated GFR POC Glucose Random Glucose Calcium Total Bilirubin AST ALT Alkaline Phosphatase Ammonia 15 Total Creatine Kinase 66 Troponin I Total Protein Albumin TSH Urine Color Urine Clarity Urine pH Ur Specific [place] Urine Protein Urine Glucose (UA) Urine Ketones Urine Occult Blood Urine Nitrate Urine Bilirubin Urine Urobilinogen Ur Leukocyte Esterase Urine RBC Urine WBC Ur Squamous Epith Cells Urine Bacteria Micro UA Comment Ur Microscopic Review Urine Culture Comments Urine Opiates Screen Neg Ur Barbiturates Screen Neg Ur Amphetamines Screen Neg U Benzodiazepines Scrn Neg Urine Cocaine Screen Neg U Cannabinoids Screen Neg 01/22/18 01/23/18 18:50 03:30 WBC RBC Hgb Hct MCV MCH MCHC RDW Plt Count MPV Prelim Diff (Auto) WBC Differential Diff Scan Differential Comment Platelet Estimate Platelet Morphology Spherocytes Sickle Cells Ovalocytes Keratocytes PT INR APTT Sodium Potassium Chloride Carbon Dioxide Anion Gap BUN Creatinine Estimated GFR POC Glucose 118 H Random Glucose Calcium Total Bilirubin AST ALT Alkaline Phosphatase Ammonia Total Creatine Kinase Troponin I Total Protein Albumin TSH Urine Color Yellow Urine Clarity Clear Urine pH 6.0 Ur Specific [place] 1.009 Urine Protein 100 H Urine Glucose (UA) 50 Urine Ketones Negative Urine Occult Blood Moderate H Urine Nitrate Negative Urine Bilirubin Negative Urine Urobilinogen Less than 2 Ur Leukocyte Esterase Negative Urine RBC Less than 1 Urine WBC Less than 1 Ur Squamous Epith Cells <1 Urine Bacteria Rare H Micro UA Comment Culture not ind Ur Microscopic Review Not Reportable Urine Culture Comments Culture not ind Urine Opiates Screen Ur Barbiturates Screen Ur Amphetamines Screen U Benzodiazepines Scrn Urine Cocaine Screen U Cannabinoids Screen - Imaging Impressions Head CT 01/22/18 13:42 CONCLUSION: 1. No acute intracranial abnormality Assessment and Plan - Plan Assessment/plan: 1. Altered mental status Etiology unknown CT negative for acute process MRI pending Urine drug screen negative No significant electrolyte abnormalities -Patient has had previous similar episodes per our records most recently being September 2017. 2. Chronic kidney disease Creatinine 2.79, mildly elevated from baseline IV fluid hydration Monitor renal function 3. Diabetes mellitus Sliding scale insulin Monitor blood glucose 4. Sickle cell disease Currently without pain crisis FEN Regular diet NS at 70 cc/hour Electrolytes: Monitor and replete as needed Discharge planning: Will be cleared for discharge once creatinine at baseline. We will need to identify competent caregiver prior to discharge as patient does not appear able to care for himself.
--- NOTE | 2018-01-23 11:36 | MR ---
EXAM DATE: 01/23/2018 7:04 AM EDT AGE/SEX: 52 years / Male INDICATIONS: CVA. CLINICAL DATA: This is the patient's initial encounter. Patient reports that signs and symptoms have been present for 1 day and indicates a pain score of 0/10. MEDICAL/SURGICAL HISTORY: Diabetes mellitus type II. Sickle Cell disease. None. COMPARISON: [facility] [place], CT HEAD W/O CONTRAST, 01/22/2018. . TECHNIQUE: Multiplanar, multisequence examination of the brain was performed without contrast. FINDINGS: Cerebrum: The ventricles are normal for age. No evidence of midline shift, mass lesion, hemorrhage or acute infarction. No extraaxial fluid collections are seen. The pituitary gland and suprasellar cistern are normal in configuration. White Matter: No significant signal abnormalities are seen in the white matter. There are some mild chronic white matter changes in the white matter tracts bilaterally characteristic for patient's age. Posterior Fossa: The cerebellum and brainstem are intact. The 4th ventricle is midline. The cerebel lopontine angle is unremarkable. The cerebellar tonsils are normal in position. Diffusion Imaging: No focal areas of restricted diffusion are seen. No evidence of acute infarction . Extracranial: The visualized portions of the orbits and paranasal sinuses are unremarkable. No significant change compared to the recent prior CT scan of the brain. CONCLUSION: 1. Unremarkable MRI of the brain for patient's age. Electronically signed by: Josue Friend MD 01/23/2018 11:35 AM EDT
[2018-01-23 15:04] LABS: Baso # (Auto) 0.1 th/mm3 (0.0-0.2); Baso % (Auto) 1.8 % (0.0-2.0); Eos % (Auto) 0.1 % (0.0-4.0); Hematocrit 27.2 % (39.0-51.0); Hemoglobin 9.5 gm/dL (13.0-17.0); Lymph # (Auto) 1.5 th/mm3 (1.0-4.8); Lymph % (Auto) 22.1 % (9.0-44.0); Mean Corpuscular Volume 125.8 fL (80.0-100.0); Mean Platelet Volume 7.8 fL (7.0-11.0); Mono # (Auto) 0.9 th/mm3 (0.0-0.9); Mono % (Auto) 13.1 % (0.0-8.0); Neut # (Auto) 4.4 th/mm3 (1.8-7.7); Neut % (Auto) 62.9 % (16.0-70.0); Platelet Count 327 th/mm3 (150-450); Red Blood Count 2.16 mil/mm3 (4.50-5.90); Red Cell Distribution Width 19.3 % (11.6-17.2); White Blood Count 6.9 th/mm3 (4.0-11.0)
--- NOTE | 2018-01-23 15:19 | ECG ---
Date Performed: 01/22/2018 Time Performed: 16:09:28 PTAGE: 52 years EKG: Sinus rhythm WITH OCCASIONAL VENTRICULAR PREMATURE COMPLEXES LEFT ATRIAL ENLARGEMENT POSSIBLE LEFT VENTRICULAR HY PERTROPHY POSSIBLE SEPTAL MYOCARDIAL INFARCTION ABNORMAL ECG PREVIOUS TRACING : 10/24/2017 06.02 Since the previous tracing, no significant change noted DOCTOR: Hernando Chamberlain Interpretating Date/Time 01/23/2018 15:17:54
[2018-01-23 15:28] LABS: Chloride 112 meq/L (98-107); Potassium 3.9 meq/L (3.5-5.1); Sodium 144 meq/L (136-145)
[2018-01-23 15:32] LABS: Calcium 8.3 mg/dL (8.5-10.1)
[2018-01-23 15:33] LABS: Albumin 2.8 g/dL (3.4-5.0); Anion Gap 13 meq/L (5-15); Blood Urea Nitrogen 36 mg/dL (7-18); Carbon Dioxide 19.3 meq/L (21.0-32.0); Glucose,Random 76 mg/dL (74-106)
[2018-01-23 15:35] LABS: Aspartate Aminotransferase 58 U/L (15-37); Ovalocytes 1+; Target Cells 1+
[2018-01-23 15:36] LABS: Alanine Aminotransferase 53 U/L (12-78); Glomerular Filtration Rate 36 mL/min (>89)
[2018-01-23 15:38] LABS: Alkaline Phosphatase 179 U/L (45-117)
[2018-01-23] MEDS: Sod Chloride 0.9% Inj 1,000 ML IV.CONT SCH (17:05)
[2018-01-24] MEDS: Sod Chloride 0.9% Inj 1,000 ML IV.CONT SCH ×3 (04:47→17:26)
[2018-01-24] MEDS: Insulin NovoLOG Aspart Correctional Sugar Inj SQ SCH ×5 (05:39→22:20)
[2018-01-24] MEDS: Senna/Docusate Sodium 8.6/50 MG Tablet PO SCH ×3 (08:08→22:20)
--- NOTE | 2018-01-24 12:39 | P.PN ---
Subjective Interval history: 52-year-old male who is seen and examined today for follow-up on altered mental status. Patient appears to be improving. He does know his name, date of , city, state. Does not know day of the week, month. Patient states that he does live at home by himself and needs. Vital signs appear to be stable. Patient is afebrile. Physical Exam Vital signs: Vital Signs 01/23/18 12:49 01/23/18 16:00 01/23/18 20:00 Temperature 98.2 F 98.7 F Pulse Rate 80 79 84 Respiratory Rate 21 16 20 Blood Pressure 155/76 H 160/81 H 180/83 H Pulse Oximetry 98 99 98 01/24/18 00:00 01/24/18 04:00 01/24/18 08:00 Temperature 98.1 F 97.5 F L 98.9 F Pulse Rate 72 62 60 Respiratory Rate 20 20 18 Blood Pressure 177/80 H 184/84 H 186/88 H Pulse Oximetry 99 98 99 01/24/18 12:00 Temperature 98.3 F Pulse Rate 72 Respiratory Rate 18 Blood Pressure 179/81 H Pulse Oximetry 99 Intake & Output 01/23/18 01/24/18 01/24/18 18:59 06:59 18:59 Intake Total 480 / 480 1240 / 1240 Balance 480 / 480 1240 / 1240 Weight 54 kg Intake: IV 1000 / 1000 NS Inj 1,000 ML @ 70 mls/hr IV. 1000 / 1000 CONT .[id number] [facility] Rx#:[id number] Oral 480 / 480 240 / 240 Other: # Voids 4 1 # Bowel Movements 0 Narrative: GENERAL: Well-developed, well-nourished, in no acute distress. alert and orientated to person, place not to time HEENT: Head is normocephalic without any lesions or masses noted. Facial features are symmetric. Eyes: Extraocular muscles are intact. Conjunctivae were clear. NECK: Supple without any masses. Trachea midline no deviation. No JVD, CARDIAC: Regular rhythm, regular rate. S1/S2 are heard. No murmurs gallops or rubs. LUNGS: Clear to auscultation bilaterally. No wheeze, rhonchi or rales. No use of accessory muscles on inspiration or expiration. ABDOMEN: Soft, nontender. Nondistended. Bowel sounds heard in all 4 quadrants. No organomegaly or masses. Negative rebound, negative guarding EXTREMITIES: No edema, pulses are equal bilaterally. No cyanosis or clubbing NEUROLOGY: Mood and affect appear appropriate. Cranial nerves II through XII grossly intact. Moving all extremities, speech is clear Results - Labs CBC & Chem 7: 01/23/18 14:45 01/23/18 14:45 Laboratory Results - last 24 hr 01/23/18 01/23/18 01/23/18 14:45 14:45 16:25 CBC w Diff Slide review pending WBC 6.9 RBC 2.16 L Hgb 9.5 L Hct 27.2 L MCV 125.8 H MCH 44.0 H MCHC 35.0 RDW 19.3 H Plt Count 327 MPV 7.8 Neut % (Auto) 62.9 Lymph % (Auto) 22.1 [place] % (Auto) 13.1 H Eos % (Auto) 0.1 Baso % (Auto) 1.8 Neut # (Auto) 4.4 Lymph # (Auto) 1.5 [place] # (Auto) 0.9 Eos # (Auto) 0.0 Baso # (Auto) 0.1 WBC Differential . Diff Scan Auto diff confirmed Differential Comment . Target Cells 1+ H Ovalocytes 1+ H Sodium 144 Potassium 3.9 D Chloride 112 H Carbon Dioxide 19.3 L Anion Gap 13 BUN 36 H Creatinine 2.30 H Estimated GFR 36 L POC Glucose 98 Random Glucose 76 Calcium 8.3 L Total Bilirubin 1.6 H AST 58 H ALT 53 Alkaline Phosphatase 179 H Total Protein 7.0 Albumin 2.8 L 01/23/18 01/24/18 01/24/18 21:09 05:37 11:34 CBC w Diff WBC RBC Hgb Hct MCV MCH MCHC RDW Plt Count MPV Neut % (Auto) Lymph % (Auto) [place] % (Auto) Eos % (Auto) Baso % (Auto) Neut # (Auto) Lymph # (Auto) [place] # (Auto) Eos # (Auto) Baso # (Auto) WBC Differential Diff Scan Differential Comment Target Cells Ovalocytes Sodium Potassium Chloride Carbon Dioxide Anion Gap BUN Creatinine Estimated GFR POC Glucose 85 105 121 H Random Glucose Calcium Total Bilirubin AST ALT Alkaline Phosphatase Total Protein Albumin Assessment and Plan - Plan Altered mental status -Etiology is unknown at this time -CT/MRI of the brain did not indicate any acute abnormality -Ammonia level was normal, urine drug screen was negative -Medical records to indicate that the patient has had similar episodes in the most recent being September 2017 -Speech therapy for cognition evaluation, Sickle cell anemia -Patient is not in crisis at this time -Hemoglobin appears to be stable Diabetes -Accu-Cheks with sliding scale insulin -Diabetic diet Acute renal failure superimposed on chronic kidney disease stage III -Continue monitor renal function -Avoid nephrotoxins DVT prevention -Sequential compression devices Discharge Planning: Discharge planning, speech therapy has been consulted for cognition evaluation. If patient is cognitively stable plan discharge home care
[2018-01-24 18:07] LABS: Folate 14.8 ng/mL (3.1-17.5)
[2018-01-25] MEDS: Insulin NovoLOG Aspart Correctional Sugar Inj SQ SCH ×5 (02:14→22:48)
[2018-01-25] MEDS: Sod Chloride 0.9% Inj 1,000 ML IV.CONT SCH (06:25)
[2018-01-25] MEDS: Senna/Docusate Sodium 8.6/50 MG Tablet PO SCH ×2 (09:28→22:43)
--- NOTE | 2018-01-25 09:58 | P.PN ---
Subjective Interval history: 52-year-old male who is seen and examined today for follow-up on altered mental status. Patient is improving rather significantly. He is orientated to person , date of , city, state, month, year. He does recall his primary doctor's name as well as his pharmacy. Patient still with elevated blood pressure. Awaiting home medication list in order to resume his home medications. Patient remains afebrile. Physical Exam Vital signs: Vital Signs 01/24/18 12:00 01/24/18 15:19 01/24/18 22:00 Temperature 98.3 F 98.2 F 98.3 F Pulse Rate 72 60 65 Respiratory Rate 18 18 18 Blood Pressure 179/81 H 169/77 H 164/79 H Pulse Oximetry 99 99 65 L 01/25/18 00:00 01/25/18 04:00 01/25/18 08:00 Temperature 97.3 F L 96.1 F L 98.2 F Pulse Rate 51 L 53 L 59 L Respiratory Rate 18 18 16 Blood Pressure 171/81 H 150/78 H 153/76 H Pulse Oximetry 99 94 L 94 L Intake & Output 01/24/18 01/25/18 01/25/18 18:59 06:59 18:59 Intake Total 1000 / 1000 0 / 0 Output Total 200 / 200 Balance 1000 / 1000 -200 / -200 Weight 59.1 kg Intake: IV 1000 / 1000 NS Inj 1,000 ML @ 70 mls/hr IV. 1000 / 1000 CONT .[id number] [facility] Rx#:[id number] Oral 0 / 0 Oral Supplement 0 / 0 Output: Urine 200 / 200 Other: Post Void Residual 200 # Voids 3 Narrative: GENERAL: Well-developed, well-nourished, in no acute distress. alert and orientated to person, date of , city, state, month, year HEENT: Head is normocephalic without any lesions or masses noted. Facial features are symmetric. Eyes: Extraocular muscles are intact. Conjunctivae were clear. NECK: Supple without any masses. Trachea midline no deviation. No JVD, CARDIAC: Regular rhythm, regular rate. S1/S2 are heard. No murmurs gallops or rubs. LUNGS: Clear to auscultation bilaterally. No wheeze, rhonchi or rales. No use of accessory muscles on inspiration or expiration. ABDOMEN: Soft, nontender. Nondistended. Bowel sounds heard in all 4 quadrants. No organomegaly or masses. Negative rebound, negative guarding EXTREMITIES: No edema, pulses are equal bilaterally. No cyanosis or clubbing NEUROLOGY: Mood and affect appear appropriate. Cranial nerves II through XII grossly intact. Moving all extremities, speech is clear Results - Labs CBC & Chem 7: 01/23/18 14:45 01/23/18 14:45 Laboratory Results - last 24 hr 01/24/18 01/24/18 01/24/18 11:34 15:20 15:20 ESR 7 POC Glucose 121 H Vitamin B12 1837 H Folate 14.8 RPR 01/24/18 01/24/18 01/24/18 15:20 15:48 19:46 ESR POC Glucose 104 103 Vitamin B12 Folate RPR Nonreactive 01/25/18 01/25/18 02:09 07:48 ESR POC Glucose 175 H 109 Vitamin B12 Folate RPR Assessment and Plan - Plan Altered mental status -Etiology is unknown at this time -CT/MRI of the brain did not indicate any acute abnormality -Ammonia level was normal, urine drug screen was negative -Medical records to indicate that the patient has had similar episodes in the most recent being September 2017 -Speech therapy for cognition evaluation, continue evaluation until approved for discharge Hypertension -Nursing staff to obtain patient's home medications and update medication reconciliation -Vasotec/clonidine as needed Sickle cell anemia -Patient is not in crisis at this time -Hemoglobin appears to be stable Diabetes -Accu-Cheks with sliding scale insulin -Diabetic diet Acute renal failure superimposed on chronic kidney disease stage III -Continue monitor renal function -Avoid nephrotoxins DVT prevention -Sequential compression devices Discharge Planning: Discharge planning when patient's cognition improved.
[2018-01-25] MEDS: Lisinopril 20 MG Tablet PO SCH (13:03)
[2018-01-26] MEDS: Insulin NovoLOG Aspart Correctional Sugar Inj SQ SCH ×4 (04:08→16:53)
[2018-01-26] MEDS: Senna/Docusate Sodium 8.6/50 MG Tablet PO SCH (08:09)
[2018-01-26] MEDS: Lisinopril 20 MG Tablet PO SCH (08:09)
[2018-01-26 09:02] VITALS: RESP 18
--- NOTE | 2018-01-26 11:09 | P.PN ---
Subjective Interval history: 52-year-old male who is seen and examined today for follow-up on altered mentation. Patient resting in bed comfortably. He is complaining of back pain today. Patient is improving on a daily basis, however speech therapy still indicating that he requires supervision upon discharge. Patient does live by his self and there is no one available 24 hours a day. Vital signs are stable. Patient remains afebrile. Physical Exam Vital signs: Vital Signs 01/25/18 12:00 01/25/18 16:00 01/25/18 20:00 Temperature 98.2 F 97.6 F 98.5 F Pulse Rate 66 68 63 Respiratory Rate 17 17 21 Blood Pressure 138/64 136/68 151/71 H Pulse Oximetry 96 96 99 01/26/18 00:00 01/26/18 08:00 Temperature 98.8 F 98.1 F Pulse Rate 76 68 Respiratory Rate 20 18 Blood Pressure 140/70 158/74 H Pulse Oximetry 99 99 Intake & Output 01/25/18 01/26/18 01/26/18 18:59 06:59 18:59 Intake Total 960 / 960 Balance 960 / 960 Weight 58.4 kg Intake: Oral 960 / 960 Other: # Voids 6 3 Date of Last Bowel Movement 01/24/18 01/24/18 # Bowel Movements 0 Narrative: GENERAL: Well-developed, well-nourished, in no acute distress. alert and orientated to person, date of , city, state, month, year, day of the week HEENT: Head is normocephalic without any lesions or masses noted. Facial features are symmetric. Eyes: Extraocular muscles are intact. Conjunctivae were clear. NECK: Supple without any masses. Trachea midline no deviation. No JVD, CARDIAC: Regular rhythm, regular rate. S1/S2 are heard. No murmurs gallops or rubs. LUNGS: Clear to auscultation bilaterally. No wheeze, rhonchi or rales. No use of accessory muscles on inspiration or expiration. ABDOMEN: Soft, nontender. Nondistended. Bowel sounds heard in all 4 quadrants. No organomegaly or masses. Negative rebound, negative guarding EXTREMITIES: No edema, pulses are equal bilaterally. No cyanosis or clubbing NEUROLOGY: Mood and affect appear appropriate. Cranial nerves II through XII grossly intact. Moving all extremities, speech is clear LUMBAR SPINE: No palpable tenderness noted, paraspinal muscle are pliable without any pain on palpation Results - Labs CBC & Chem 7: 01/23/18 14:45 01/23/18 14:45 Laboratory Results - last 24 hr 01/25/18 01/25/18 01/25/18 12:14 16:21 22:47 POC Glucose 77 81 140 H 01/26/18 07:33 POC Glucose 185 H Assessment and Plan - Plan Altered mental status, improving daily -Etiology is unknown at this time -CT/MRI of the brain did not indicate any acute abnormality -Ammonia level was normal, urine drug screen was negative -Medical records to indicate that the patient has had similar episodes in the most recent being September 2017 -Speech therapy for cognition evaluation, there indicating that the patient still requires supervision upon discharge. Continue evaluation until approved for discharge Hypertension -Lisinopril 20 mg daily, -Add Norvasc 5 mg daily -Vasotec/clonidine as needed Sickle cell anemia -Patient is not in crisis at this time -Hemoglobin appears to be stable Diabetes -Accu-Cheks with sliding scale insulin -Diabetic diet Acute renal failure superimposed on chronic kidney disease stage III -Continue monitor renal function -Avoid nephrotoxins DVT prevention -Sequential compression devices Discharge Planning: Discharge planning when patient's cognition improved, speech therapy indicating patient still requires supervision upon discharge. Patient may require fdc placement if he does not improve.
[2018-01-26] MEDS ORDERED: amLODIPine 5 MG Tablet PO SCH (12:00)
--- NOTE | 2018-01-26 15:25 | P.DS ---
Date of admission: 01/22/18 20:20 Primary care physician: No Primary Care Physician Attending physician on discharge: Porter Julio Anticipated date of discharge: 01/26/18 Brief History from admission: 52-year-old male with a past medical history significant for sickle cell disease and diabetes mellitus presents to the emergency department for evaluation of lower back pain. Per emergency department documentation, the patient was alert to himself and date of however otherwise confused. He does not know the year, location or time. During our evaluation the patient was oriented only to himself and could not tell me why he was in the hospital. He did not know his birthday. He endorses a headache. Denies all other pain. Does not complain of low back pain. No chest pain or shortness of breath. No abdominal pain. No nausea/vomiting/diarrhea. No lateralizing signs/symptoms. No fever/chills. DS: Medications - Discharge Medications Prescriptions: amlodipine [Norvasc] 5 mg PO DAILY #30 tab DS: Summary Hospital Course: 52-year-old male with known history of sickle retention who presented to the hospital for evaluation of low back pain. Patient apparently was unable to give any information is self on initial presentation due to significant confusion. It would appear as if the information was taken from medical records and ER documentation." Indicated the patient was only orientated to himself and cannot give any reason why he was at the hospital. Patient was admitted to the hospital for altered mentation. Full workup was ascertained with CT of the brain which was unremarkable, MRA of the brain which did not indicate any acute abnormality, metabolic abnormalities were ruled out with laboratory studies which were normal. There is no infection process that was noted. Patient does have history of chronic opiate use due to his sickle cell anemia. It was indicated that patient was on hospice in the past with pain control, however there is notified that patient no longer on hospice. Pharmacy was contacted to obtain home medication list and they indicate that he was only on one blood pressure medication but he did come in there approximately weekly to turkey picker pain medication. Patient's pain medication was held during his stay in the hospital and on a daily basis he progressively improved. Patient did have cognition evaluation performed which did indicate a [place] cognition assessment scoring of 7/30. Speech therapy did follow patient on a regular basis with improvement of his mentation. No follow-up [place] cognition assessment score was performed. Speech therapy indicated initially the patient needed total help and full supervision. I discussed with speech therapy today who performed another evaluation and at this time they are indicating that patient does not require any supervision upon discharge. Patient is clinically stable for discharge at this time. Would recommend that the patient discontinue any pain medication or sedating medication. - Time Spent with Patient Total time spent providing and/or coordinating discharge services: Greater than 30 minutes Exam Vital signs: Vital Signs 01/25/18 16:00 01/25/18 20:00 01/26/18 00:00 Temperature 97.6 F 98.5 F 98.8 F Pulse Rate 68 63 76 Respiratory Rate 17 21 20 Blood Pressure 136/68 151/71 H 140/70 Pulse Oximetry 96 99 99 01/26/18 08:00 01/26/18 12:00 Temperature 98.1 F 98.4 F Pulse Rate 68 62 Respiratory Rate 18 18 Blood Pressure 158/74 H 173/80 H Pulse Oximetry 99 96 Intake & Output 01/25/18 01/26/18 01/26/18 18:59 06:59 18:59 Intake Total 960 / 960 Balance 960 / 960 Weight 58.4 kg Intake: Oral 960 / 960 Other: # Voids 6 3 Date of Last Bowel Movement 01/24/18 01/24/18 # Bowel Movements 0 Narrative: GENERAL: Well-developed, well-nourished, in no acute distress. alert and orientated to person, date of , city, state, month, year, day of the week HEENT: Head is normocephalic without any lesions or masses noted. Facial features are symmetric. Eyes: Extraocular muscles are intact. Conjunctivae were clear. NECK: Supple without any masses. Trachea midline no deviation. No JVD, CARDIAC: Regular rhythm, regular rate. S1/S2 are heard. No murmurs gallops or rubs. LUNGS: Clear to auscultation bilaterally. No wheeze, rhonchi or rales. No use of accessory muscles on inspiration or expiration. ABDOMEN: Soft, nontender. Nondistended. Bowel sounds heard in all 4 quadrants. No organomegaly or masses. Negative rebound, negative guarding EXTREMITIES: No edema, pulses are equal bilaterally. No cyanosis or clubbing NEUROLOGY: Mood and affect appear appropriate. Cranial nerves II through XII grossly intact. Moving all extremities, speech is clear LUMBAR SPINE: No palpable tenderness noted, paraspinal muscle are pliable without any pain on palpation Results Procedures completed during hospitalization: None Labs on day of discharge: Labs from last 24 hours 01/26/18 01/26/18 01/25/18 11:36 07:33 22:47 POC Glucose 128 H 185 H 140 H 01/25/18 01/23/18 01/23/18 16:21 12:35 07:35 POC Glucose 81 188 H 128 H - Impressions ITS Impressions Head CT 01/22/18 13:42 CONCLUSION: 1. No acute intracranial abnormality Head MRI 01/23/18 07:04 CONCLUSION: 1. Unremarkable MRI of the brain for patient's age. Discharge Plan - Discharge Disposition Patient Disposition: 01 Discharge Home - Discharge Condition Condition: Stable - Discharge Order Discharge Orders: Discharge Order (Routine); Ordered 01/26/18 Ordered By: Ger Ferguson - Discharge Details Anticipated Discharge Date: 01/26/18 Discharge Comment: Discharge home if speech therapy indicates that cognition is improved enough to not require 24 hours of supervision - Physicians Team Primary Care Provider: Primary Care Agueda,Mariely Attending Provider: Porter Julio
[2018-01-26 16:00] VITALS: BP 178/87; PULSE 68; TEMP 98.1; O2SAT 98
== END 2018-01-26 17:00 | disposition home or self-care (01) ==
LOC: NEDA 09:47 → NEPD 09:47 → NEDH 01-23 02:03 → PH3 01-23 13:26
PROVIDERS: ADMIT Hospitalist; ATTEND Hospitalist

== ENCOUNTER 2018-04-17 20:32 | Inpatient (IN) ==
[2018-04-18] MEDS ORDERED: HYDROmorphone PF Inj 1 MG/ML Ampul IV.PUSH ONE (00:33)
--- NOTE | 2018-04-18 00:42 | ED ---
HPI General Chief Complaint: Sickle Cell Stated Complaint: Sickle cell episode Time Seen by Provider: 04/18/18 00:33 Source: patient Mode of arrival: ambulatory Limitations: no limitations History of Present Illness MD Complaint: Reports back pain; Denies back injury and fall Onset (ago): day(s) Duration: Reports constant Similar Symptoms Previously: Yes Location: Reports lumbar spine Severity: moderate Quality: Reports dull and aching; Denies tingling, spasming and throbbing Radiation: Reports none Severity scale (1-10): 7 Relieving factors: none Exacerbating factors: none and coughing/sneezing Context: Reports other (Typical of his sickle cell pain) Associated symptoms: Denies weakness, fatigue, syncope, numbness, difficulty walking, loss of sensation in lower extremities, increased urinary urgency, increased urinary frequency, urinary incontinence, fecal incontinence, a change in bowel habits, fever, chills, abdominal pain, dysuria, hematuria, parasthesias , arthralgias and myalgias Treatments prior to arrival: Reports prescription analgesics (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); Denies cold therapy, heat therapy, NSAIDS, acetaminophen, ASA and other medications Related Data Home Medications Medication Instructions Recorded Confirmed lisinopril 20 mg PO DAILY 01/25/18 04/17/18 Previous Rx's Medication Instructions Recorded amlodipine [Norvasc] 5 mg PO DAILY #30 tab 01/26/18 Allergies Allergy/AdvReac Type Severity Reaction Status Date / Time lorazepam Allergy Severe Shortness Verified 04/17/18 20:55 of Breath Review of Systems ROS: all other systems reviewed are negative [facility] Medical History Medical History Diabetes (Acute) Sickle cell anemia (Acute) Arthritis (Acute) Hypertension (Acute) Surgical History Surgical History H/O shoulder surgery (Acute) Hx of cholecystectomy (Acute) Family History Family History Other Family history unknown Social History Social History Substance History: No History of Abuse Second Hand Smoke Exposure: No Smoking Status: Current every day smoker Tobacco Type: Cigarettes Cigarettes Per Day: 10 How Often Do You Have a Drink Containing Alcohol: Never Recent Travel in [facility] within the Last 8 Weeks: No Recent Out of Country Travel within the Last 8 Weeks: No Immunization History Tetanus Immunization: Unsure Exam Narrative Exam Narrative: GENERAL: Well-nourished, well-developed patient. SKIN: Focused skin assessment warm/dry. HEAD: Normocephalic. EYES: No scleral icterus. No injection or drainage. NECK: Supple, trachea midline. No JVD or lymphadenopathy. CARDIOVASCULAR: Regular rate and rhythm without murmurs, gallops, or rubs. RESPIRATORY: Breath sounds equal bilaterally. No accessory muscle use. GASTROINTESTINAL: Abdomen soft, non-tender, nondistended. MUSCULOSKELETAL: No cyanosis, or edema. BACK: Nontender without obvious deformity. No CVA tenderness. Course Initial Documented Vital Signs Temperature 98.1 F 04/17/18 20:56 Pulse Rate 101 H 04/17/18 20:56 Respiratory Rate 18 04/17/18 20:56 Blood Pressure 138/61 04/17/18 20:56 Pulse Oximetry 100 04/17/18 20:56 Last Documented Vital Signs Temperature 98.1 F 04/17/18 20:56 Pulse Rate 96 H 04/18/18 00:00 Respiratory Rate 18 04/17/18 20:56 Blood Pressure 186/96 H 04/18/18 00:00 Pulse Oximetry 100 04/18/18 00:00 Medical Decision Making MDM Narrative Medical decision making narrative: Patient recently hospitalized as an observation for sickle cell exacerbation vaso-occlusive crisis.52-year-old male with history of sickle cell disease and diabetes presents for recurrent low back pain typical of his sickle cell disease. Patient also has nonproductive cough. No shortness of breath no chest pain no pleuritic chest pain no abdominal pain no nausea no vomiting no diarrhea; blood sugars have reportedly been well controlled; patient returns as ongoing recurrent pain. No injury. Patient placed on monitor IV access obtained specimens collections of resulting patient treated with IV fluids Dilaudid 1 mg IV along with Benadryl 25 mg and Zofran 4 mg IV Increase fluid hydration; patient will be admitted to the hospital for acutely worsening renal failure patient is currently continued on lisinopril bicarb has decreased to 15.6 with creatinine of 4.2 to this is acutely worsened since admission 04/02/18. Glucose controlled. Patient in mild sickle cell crisis with stable hemoglobin of 7.9. Patient's pain controlled after Dilaudid 1 mg and Benadryl 25 mg IV. Patient case discussed with [facility] for admission Medical Screen Exam Complete: Yes Emergency Medical Condition: Yes Differential Diagnosis Differential Diagnosis: Back pain, vaso-occlusive crisis, sickle cell anemia exacerbation, UTI, electrolyte disturbance, renal failure, dehydration Medical Records Medical records reviewed: Yes I reviewed the patient's medical records. Lab Data Lab results reviewed: Yes I reviewed the patient's lab results. Result diagrams: 04/18/18 00:55 04/18/18 00:55 Lab Results 04/18/18 04/18/18 04/18/18 Range/Units 00:55 00:55 02:15 WBC 10.8 (4.0-11.0) th/mm3 RBC 1.79 L (4.50-5.90) mil/mm3 Hgb 7.9 L (13.0-17.0) gm/dL Hct 21.8 L (39.0-51.0) % MCV 122.1 H (80.0-100.0) fL MCH 43.9 H (27.0-34.0) pg MCHC 36.0 (32.0-36.0) % RDW 18.6 H (11.6-17.2) % Plt Count 295 (150-450) th/mm3 MPV 7.6 (7.0-11.0) fL Prelim Diff (Auto) Manual diff required WBC Differential Manual diff final Seg Neuts % (Manual) 64 (16-70) % Lymphocytes % (Manual) 25 (9-44) % Monocytes % (Manual) 8 (0-8) % Eosinophils % (Manual) 3 (0-4) % Abs Neuts (Manual) 6.9 (1.8-7.7) th/mm3 Nucleated RBCs/100 WBC 2 H (0-0) /100 WBC Differential Comment . Platelet Estimate Normal (Normal) Platelet Morphology Normal (Normal) Polychromasia 4.4 H (0.0-1.9) % Pappenheimer Bodies Present H (None) Sickle Cells 1+ H (None) [place] Bodies Present H (None) Keratocytes Occ H (None) Retic Count 7.0 H (0.4-3.0) % Absolute Retic 125.0 (20.0-150.0) mil/L Sodium 141 (136-145) meq/L Potassium 4.0 (3.5-5.1) meq/L Chloride 115 H (98-107) meq/L Carbon Dioxide 15.6 L (21.0-32.0) meq/L Anion Gap 10 (5-15) meq/L BUN 72 H (7-18) mg/dL Creatinine 4.22 H (0.60-1.30) mg/dL Estimated GFR 18 L (>89) mL/min Random Glucose 119 H (74-106) mg/dL Calcium 8.7 (8.5-10.1) mg/dL Total Bilirubin 1.8 H (0.2-1.0) mg/dL AST 46 H (15-37) U/L ALT 52 (12-78) U/L Alkaline Phosphatase 199 H (45-117) U/L Total Protein 8.2 (6.4-8.2) g/dL Albumin 3.1 L (3.4-5.0) g/dL Urine Color Yellow (Yellw/Straw) Urine Clarity Clear (Clear) Urine pH 5.0 (5.0-8.5) Ur Specific [place] 1.010 (1.002-1.035) Urine Protein 500 or greater (Neg-Trace) mg/dL Urine Glucose (UA) Negative (Negative) mg/dL Urine Ketones Negative (Negative) mg/dL Urine Occult Blood Small H (Negative) Urine Nitrate Negative (Negative) Urine Bilirubin Negative (Negative) Urine Urobilinogen Less than 2 (Less than 2) mg/dL Ur Leukocyte Esterase Negative (Negative) Urine WBC Less than 1 (0-5) /hpf Urine Mucus Few H (Occasional) /lpf Micro UA Comment Culture not ind Ur Microscopic Review Not Reportable Urine Culture Comments Culture not ind Imaging Data Radiologist's impression: Chest X-Ray 04/18/18 00:33 CONCLUSION: No definite acute cardiopulmonary process. 2.7 cm metallic density projecting at the left upper quadrant. Discharge Plan Discharge Disposition Patient Disposition: ED Admit(ED Internal Use Only) Discharge Condition Condition: Stable Discharge Details Diagnosis: Acute renal failure (ARF), Sickle cell anemia with pain Physicians Team ED Provider: Ananya Boateng Primary Care Provider: Primary Care Physici,No Rxs /Orders / Referrals /Forms Prescriptions: No Action lisinopril 20 mg Tablet 20 mg PO DAILY RF: 0 amlodipine [Norvasc] 5 mg Tablet 5 mg PO DAILY Qty: 30 RF: 0 Discharge Interventions Interventions: Vital Signs Last Done: 04/18/18 00:00 Status ED Status: With Doctor
[2018-04-18] MEDS: Sod Chloride 0.9% Inj 1,000 ML IV.SIG SCH ×2 (00:59→02:12)
[2018-04-18 01:28] LABS: Hematocrit 21.8 % (39.0-51.0); Hemoglobin 7.9 gm/dL (13.0-17.0); Mean Corpuscular Hemoglobin 43.9 pg (27.0-34.0); Mean Corpuscular Volume 122.1 fL (80.0-100.0); Mean Platelet Volume 7.6 fL (7.0-11.0); Platelet Count 295 th/mm3 (150-450); Red Blood Count 1.79 mil/mm3 (4.50-5.90); Red Cell Distribution Width 18.6 % (11.6-17.2); White Blood Count 10.8 th/mm3 (4.0-11.0)
[2018-04-18 01:53] LABS: Alanine Aminotransferase 52 U/L (12-78); Albumin 3.1 g/dL (3.4-5.0); Anion Gap 10 meq/L (5-15); Aspartate Aminotransferase 46 U/L (15-37); Blood Urea Nitrogen 72 mg/dL (7-18); Calcium 8.7 mg/dL (8.5-10.1); Carbon Dioxide 15.6 meq/L (21.0-32.0); Chloride 115 meq/L (98-107); Glomerular Filtration Rate 18 mL/min (>89); Glucose,Random 119 mg/dL (74-106); Sodium 141 meq/L (136-145)
[2018-04-18 01:55] LABS: Alkaline Phosphatase 199 U/L (45-117); Total Protein 8.2 g/dL (6.4-8.2)
[2018-04-18 02:15] LABS: Eosinophils 3 % (0-4); Lymphocytes 25 % (9-44); Monocytes 8 % (0-8); Tallied Nucleated RBC 2 (0-0)
[2018-04-18 02:16] LABS: Platelet Estimate Normal (Normal); Platelet Morphology Normal (Normal)
[2018-04-18 02:17] LABS: Sickle Cells 1+
[2018-04-18 02:18] LABS: Howell-Jolly Bodies Present; Pappenheimer Bodies Present; Polychromasia 4.4 % (0.0-1.9)
[2018-04-18] MEDS ORDERED: Sod Chloride 0.9% Inj 1,000 ML IV.SIG SCH (02:30)
--- NOTE | 2018-04-18 02:42 | XR ---
EXAM DATE: 04/18/2018 1:14 AM EST AGE/SEX: 52 years / Male INDICATIONS: Cough. Patient states he is having a "sickle cell episode." CLINICAL DATA: This is the patient's initial encounter. Patient reports that signs and symptoms have been present for 1 day and indicates a pain score of 5/10. MEDICAL/SURGICAL HISTORY: . Diabetes. Sickle Cell disease. . Cholecystectomy. COMPARISON: [facility] [place]ST 1V SINGLE AP, 12/19/2017. . FINDINGS: The heart size is normal. The lungs are grossly clear. No effusion is seen. There is an oval 2.7 cm m etallic density seen in the left upper quadrant. This can be correlated to something on the patient w orked the patient swallowed a metallic density. There is sclerosis at the left proximal humerus. Ther e appears to be a possible right shoulder prosthesis seen on the edge of the image. CONCLUSION: No definite acute cardiopulmonary process. 2.7 cm metallic density projecting at the left upper quadrant. Electronically signed by: Saulo Curry MD Board Certified Radiologist 04/18/2018 2:40 AM EST
[2018-04-18 02:47] LABS: Bilirubin,Urine Negative (Negative); Clarity,Urine Clear (Clear); Color,Urine Yellow (Yellw/Straw); Glucose,Urine (UA) Negative (Negative); Leukocyte Esterase,Urine Negative (Negative); Mucus,Urine Few /lpf (Occasional); Nitrite,Urine Negative (Negative)
[2018-04-18] MEDS ORDERED: Acetaminophen 325 MG Tablet PO PRN (03:21)
[2018-04-18] MEDS ORDERED: Bisacodyl 10 MG Supp RECTAL PRN (03:21)
[2018-04-18] MEDS ORDERED: Dextrose 50% in Water 50 ML Vial IV.PUSH PRN (03:21)
--- NOTE | 2018-04-18 03:29 | P.HP ---
History of Present Illness Service: [facility] Primary Care Physician: No Primary Care Physician History of Present Illness: 52-year-old male with a past medical history significant for sickle cell disease , diabetes mellitus, chronic kidney disease and hypertension presents to the emergency department for evaluation of lower back pain. The patient reports that he started having lower back pain that is consistent with his typical sickle cell pain crisis and came to the emergency department for further evaluation. His pain is much improved with 1 dose of IV Dilaudid. Routine lab work in the emergency department showed acutely worsening renal function. The patient reports no decrease in p.o. intake and no urinary changes. He denies any chest pain or shortness of breath. No abdominal pain. No nausea/vomiting/ diarrhea. No focal neurologic deficits. No fever/chills. Inpatient Certification: I certify that the inpatient services were ordered in accordance with Medicare regulations governing the order. This includes certification that hospital inpatient services are reasonable and necessary and in the case of services not specified as inpatient-only under 42 CFR 419.22(n), that they are appropriately provided as inpatient services in accordance to with the 2-midnight benchmark under 43 CFR 412.3(e) Estimated Total Length of Stay (Days): 2 Plans for Post Hospital Care: Not yet determined Review of Systems All other systems reviewed negative except as stated in HPI [facility] - History History Provided By: Patient - Medical History Medical History: Medical History (Last Reviewed 04/18/18 @ 03:26 by Dominique Webb MD) Diabetes (Acute) Sickle cell anemia (Acute) Arthritis Hypertension - Surgical History Surgical History: Surgical History (Last Reviewed 04/18/18 @ 03:26 by Dominique Webb MD) H/O shoulder surgery (Acute) Hx of cholecystectomy (Acute) - Family History Family History: Family History (Last Reviewed 04/18/18 @ 03:26 by Dominique Webb MD) Other Family history unknown - Social History I have reviewed the patient's Social History: Yes - Tobacco History Second Hand Smoke Exposure: No Tobacco Use In Past 30 Days: Yes Smoking Status: Current every day smoker Tobacco Type: Cigarettes Cigarettes Per Day: 10 - Alcohol History How Often Do You Have a Drink Containing Alcohol: Never - Substance Use History Substance History: No History of Abuse - Travel History Recent Travel in the [place] Within the Last 8 Weeks: No Recent Travel Out of the Country Within the Last 8 Weeks: No - Immunization History Tetanus Immunization: Unsure Medications and Allergies Active Medications: Active Medications Acetaminophen (Tylenol) 650 mg PO Q4H PRN PRN Reason: Temp > 100.4 Al Hydroxide/Mg Hydroxide (Milk Of [place] Liq) 30 ml PO Q12H PRN PRN Reason: Mild Constipation Amlodipine Besylate (Norvasc) 5 mg PO DAILY [place] Bisacodyl (Dulcolax Supp) 10 mg RECTAL DAILY PRN PRN Reason: SEVERE CONSITIPATION Dextrose (D50w Vial) 50 ml IV.PUSH UNSCH PRN PRN Reason: PER HYPOGLYCEMIA PROTOCOL Glucagon (Glucagon Inj) 1 mg OTHER PRN PRN PRN Reason: for Hypoglycemia Protocol Hydromorphone HCl (Dilaudid Pf Inj) 1 mg IV.PUSH Q4H PRN PRN Reason: pain 6-10 Sodium Chloride (Ns Inj) 1,000 mls @ 1,000 mls/hr IV.SIG BOLUS NOLA Stop: 04/18/18 03:29 Sodium Chloride (Ns Inj) 1,000 mls @ 70 mls/hr IV.CONT .[id number] NOL[place] Insulin Aspart (Novolog Insulin Correctional Sugar Inj) 0 unit SQ ACHS AND 3AM NOLA; Protocol Ondansetron HCl (Zofran Inj) 4 mg IV.PUSH Q6H PRN PRN Reason: NAUSEA OR VOMITING Senna/Docusate Sodium (Clara-Colace) 1 tab PO BID NOLA Sodium Chloride (Ns Flush) 2 ml IV.FLUSH PRN PRN PRN Reason: FLUSH AFTER USING IV ACCESS Allergies Allergy/AdvReac Type Severity Reaction Status Date / Time lorazepam Allergy Severe Shortness Verified 04/17/18 20:55 of Breath Home Medications Medication Instructions Recorded Confirmed Type lisinopril 20 mg PO DAILY 01/25/18 04/17/18 History Exam Vital signs: Vital Signs 04/17/18 20:56 04/18/18 00:00 Temperature 98.1 F Pulse Rate 101 H 96 H Respiratory Rate 18 Blood Pressure 138/61 186/96 H Pulse Oximetry 100 100 Intake & Output 04/17/18 04/17/18 04/18/18 06:59 18:59 06:59 Intake Total 1000 / 1000 Balance 1000 / 1000 Weight 56.699 kg Intake: IV 1000 / 1000 NS Inj 1,000 ML @ 2000 mls/hr 1000 / 1000 IV.SIG Q30M [facility] Rx#:[id number] Narrative: Gen.: No acute distress Head: Normocephalic. Atraumatic. EENT: Pupils equal round and reactive to light. Nose without drainage. Airway intact. Throat without injection. Cardiovascular: Regular rate and rhythm. No murmurs, rubs or gallops. Respiratory: Lungs clear to auscultation bilaterally. No wheezes or rhonchi. Abdomen: Soft, nontender, nondistended. No peritoneal signs. Musculoskeletal: No gross deformities. No edema. Skin: No obvious rashes or erythema. Neuro: Sensory and motor grossly intact. Cranial nerves II through XII grossly intact. Results - Labs CBC & Chem 7: 04/18/18 00:55 04/18/18 00:55 Labs: Laboratory Results - last 24 hr 04/18/18 04/18/18 04/18/18 00:55 00:55 02:15 WBC 10.8 RBC 1.79 L Hgb 7.9 L Hct 21.8 L MCV 122.1 H MCH 43.9 H MCHC 36.0 RDW 18.6 H Plt Count 295 MPV 7.6 Prelim Diff (Auto) Manual diff required WBC Differential Manual diff final Seg Neuts % (Manual) 64 Lymphocytes % (Manual) 25 Monocytes % (Manual) 8 Eosinophils % (Manual) 3 Abs Neuts (Manual) 6.9 Nucleated RBCs/100 WBC 2 H Differential Comment . Platelet Estimate Normal Platelet Morphology Normal Polychromasia 4.4 H Pappenheimer Bodies Present H Sickle Cells 1+ H [place] Bodies Present H Keratocytes Occ H Retic Count 7.0 H Absolute Retic 125.0 Sodium 141 Potassium 4.0 Chloride 115 H Carbon Dioxide 15.6 L Anion Gap 10 BUN 72 H Creatinine 4.22 H Estimated GFR 18 L Random Glucose 119 H Calcium 8.7 Total Bilirubin 1.8 H AST 46 H ALT 52 Alkaline Phosphatase 199 H Total Protein 8.2 Albumin 3.1 L Urine Color Yellow Urine Clarity Clear Urine pH 5.0 Ur Specific [place] 1.010 Urine Protein 500 or greater Urine Glucose (UA) Negative Urine Ketones Negative Urine Occult Blood Small H Urine Nitrate Negative Urine Bilirubin Negative Urine Urobilinogen Less than 2 Ur Leukocyte Esterase Negative Urine WBC Less than 1 Urine Mucus Few H Micro UA Comment Culture not ind Ur Microscopic Review Not Reportable Urine Culture Comments Culture not ind - Imaging Impressions Chest X-Ray 04/18/18 00:33 CONCLUSION: No definite acute cardiopulmonary process. 2.7 cm metallic density projecting at the left upper quadrant. Caprini VTE Risk Assessment Caprini VTE Risk Assessment: No/Low Risk (score <= 1) Caprini Risk Assessment Model: Point Value = 1 Point Value = 2 Point Value = 3 Point Value = 5 Age 41-60 Minor surgery BMI > 25 kg/m2 Swollen legs Varicose veins or History of unexplained or recurrent spontaneous Oral contraceptives or hormone replacement Sepsis (< 1 month) Serious lung disease, including pneumonia (< 1 month) Abnormal pulmonary function Acute myocardial infarction Congestive heart failure (< 1 month) History of inflammatory bowel disease Medical patient at bed rest Age 61-74 Arthroscopic surgery Major open surgery (> 45 min) Laparoscopic surgery (> 45 min) Malignancy Confined to bed (> 72 hours) Immobilizing plaster cast Central venous access Age >= 75 History of VTE Family history of VTE Factor V Leiden Prothrombin [id number] Lupus anticoagulant Anticardiolipin antibodies Elevated serum homocysteine Heparin-induced thrombocytopenia Other congenital or acquired thrombophilia Stroke (< 1 month) Elective arthroplasty Hip, pelvis, or leg fracture Acute spinal cord injury (< 1 month) Prophylaxis Regimen: Total Risk Factor Score Risk Level Prophylaxis Regimen 0-1 Low Early ambulation 2 Moderate Order ONE of the following: *Sequential Compression Device (SCD) *Heparin 5000 units SQ BID 3-4 Higher Order ONE of the following medications: *Heparin 5000 units SQ TID *Enoxaparin/Lovenox 40 mg SQ daily (WT < 150 kg, CrCl > 30 mL/min) *Enoxaparin/Lovenox 30 mg SQ daily (WT < 150 kg, CrCl > 10-29 mL/min) *Enoxaparin/Lovenox 30 mg SQ BID (WT < 150 kg, CrCl > 30 mL/min) AND/OR *Sequential Compression Device (SCD) 5 or more Highest Order ONE of the following medications: *Heparin 5000 units SQ TID (Preferred with Epidurals) *Enoxaparin/Lovenox 40 mg SQ daily (WT < 150 kg, CrCl > 30 mL/min) *Enoxaparin/Lovenox 30 mg SQ daily (WT < 150 kg, CrCl > 10-29 mL/min) *Enoxaparin/Lovenox 30 mg SQ BID (WT < 150 kg, CrCl > 30 mL/min) AND *Sequential Compression Device (SCD) Assessment and Plan - Plan Assessment/plan: 1. Acute renal failure in the setting of chronic kidney disease BUN/creatinine 72/4.22, baseline approximately 2.5 Renal ultrasound pending Nephrology consulted, appreciate assistance IV fluid hydration 2. Sickle cell disease/pain crisis IV Dilaudid as needed IV fluid hydration 3. Hypertension Holding home lisinopril second renal failure Continue amlodipine 4. Diabetes mellitus Sliding scale insulin Monitor blood glucose FEN Renal diet Electrolytes: Monitor and replete as needed NS at 70 cc/hour
[2018-04-18 04:35] LABS: Amphetamine Screen,Urine Neg (Neg); Barbiturate Screen,Urine Neg (Neg); Cannabinoid Screen,Urine Neg (Neg); Cocaine Screen,Urine Neg (Neg)
[2018-04-18 04:36] LABS: Opiate Screen,Urine Neg (Neg)
[2018-04-18] MEDS: Sod Chloride 0.9% Inj 1,000 ML IV.CONT SCH ×2 (06:23→08:18)
[2018-04-18] MEDS: Senna/Docusate Sodium 8.6/50 MG Tablet PO SCH ×2 (08:19→22:01)
[2018-04-18] MEDS: amLODIPine 5 MG Tablet PO SCH (08:19)
--- NOTE | 2018-04-18 10:39 | P.CONNP ---
<Renea Resendez - Last Filed: 04/18/18 15:07> History of Present Illness Service: Nephrology Consult date: 04/18/18 Requesting Physician: Dominique Webb Reason for Consult: Acute on chronic kidney injury Primary Care Provider: No Primary Care Physician History of Present Illness: Patient is a 52-year-old male with a past medical history significant for sickle cell disease, diabetes mellitus, chronic kidney disease and hypertension. Presents to the emergency department for evaluation of lower back pain. The patient reports that he started having lower back pain that is consistent with his typical sickle cell pain crisis and came to the emergency department for further evaluation. Nephrology is consulted for acute kidney injury with a creatinine of 4.22, potassium level of 4.0, and HCO3 at 15.6. Good urinary output. Baseline creatinine in the 2's, not followed by [facility] outpatient. Large amount of protein noted in urine. Patient denies any shortness of breath, chest pain, nausea, or vomiting. Review of Systems All other systems reviewed negative except as stated in HPI PMFSH - History History Provided By: Patient - Medical History Medical History: Medical History (Last Reviewed 04/18/18 @ 03:26 by Dominique Webb MD) Diabetes (Acute) Sickle cell anemia (Acute) Arthritis Hypertension - Surgical History Surgical History: Surgical History (Last Reviewed 04/18/18 @ 03:26 by Dominique Webb MD) H/O shoulder surgery (Acute) Hx of cholecystectomy (Acute) - Family History Family History: Family History (Last Reviewed 04/18/18 @ 03:26 by Dominique Webb MD) Other Family history unknown - Tobacco History Second Hand Smoke Exposure: Yes Tobacco Use In Past 30 Days: Yes Smoking Status: Current every day smoker Tobacco Type: Cigarettes Cigarettes Per Day: 10 - Alcohol History How Often Do You Have a Drink Containing Alcohol: Never - Substance Use History Substance History: No History of Abuse - Travel History Recent Travel in the [place] Within the Last 8 Weeks: No Recent Travel Out of the Country Within the Last 8 Weeks: No - Immunization History Tetanus Immunization: Unsure Hx Influenza Vaccine This Season: No Medications and Allergies Allergies Allergy/AdvReac Type Severity Reaction Status Date / Time lorazepam Allergy Severe Shortness Verified 04/17/18 20:55 of Breath Home Medications Medication Instructions Recorded Confirmed Type lisinopril 20 mg PO DAILY 01/25/18 04/17/18 History Active Medications: Active Medications Acetaminophen (Tylenol) 650 mg PO Q4H PRN PRN Reason: Temp > 100.4 Al Hydroxide/Mg Hydroxide (Milk Of Magnesia Liq) 30 ml PO Q12H PRN PRN Reason: Mild Constipation Amlodipine Besylate (Norvasc) 5 mg PO DAILY [facility] Last Admin: 04/18/18 08:19 Dose: 5 mg Bisacodyl (Dulcolax Supp) 10 mg RECTAL DAILY PRN PRN Reason: SEVERE CONSITIPATION Dextrose (D50w Vial) 50 ml IV.PUSH UNSCH PRN PRN Reason: PER HYPOGLYCEMIA PROTOCOL Glucagon (Glucagon Inj) 1 mg OTHER PRN PRN PRN Reason: for Hypoglycemia Protocol Hydromorphone HCl (Dilaudid Pf Inj) 1 mg IV.PUSH Q4H PRN PRN Reason: pain 6-10 Sodium Chloride (Ns Inj) 1,000 mls @ 70 mls/hr IV.CONT .[id number] [facility] Last Admin: 04/18/18 08:18 Dose: 70 mls/hr Insulin Aspart (Novolog Insulin Correctional Sugar Inj) 0 unit SQ ACHS AND 3AM [facility]; Protocol Lactulose (Lactulose Liq) 30 ml PO DAILY PRN PRN Reason: SEVERE CONSITIPATION Ondansetron HCl (Zofran Inj) 4 mg IV.PUSH Q6H PRN PRN Reason: NAUSEA OR VOMITING Senna/Docusate Sodium (Clara-Colace) 1 tab PO BID [facility] Last Admin: 04/18/18 08:19 Dose: 1 tab Sennosides (Senokot) 17.2 mg PO Q12H PRN PRN Reason: Moderate Constipation Sodium Chloride (Ns Flush) 2 ml IV.FLUSH BID [facility] Last Admin: 04/18/18 08:19 Dose: 2 ml Sodium Chloride (Ns Flush) 2 ml IV.FLUSH PRN PRN PRN Reason: FLUSH AFTER USING IV ACCESS Exam Vital signs: Vital Signs 04/17/18 20:56 04/18/18 00:00 04/18/18 04:00 Temperature 98.1 F 97.9 F Pulse Rate 101 H 96 H 67 Respiratory Rate 18 16 Blood Pressure 138/61 186/96 H 166/77 H Pulse Oximetry 100 100 97 04/18/18 07:33 Temperature 98.8 F Pulse Rate 75 Respiratory Rate 19 Blood Pressure 140/71 Pulse Oximetry 99 Intake & Output 04/17/18 04/18/18 04/18/18 18:59 06:59 18:59 Intake Total 1000 / 1000 1000 / 1000 Balance 1000 / 1000 1000 / 1000 Weight 56.699 kg Intake: IV 1000 / 1000 1000 / 1000 NS Inj 1,000 ML @ 2000 mls/hr 1000 / 1000 1000 / 1000 IV.SIG Q30M [facility] Rx#:[id number] Other: Date of Last Bowel Movement 04/17/18 Results - Lab Results 04/18/18 00:55 04/18/18 00:55 Most recent lab results Calcium 8.7 mg/dL (8.5-10.1) 04/18/18 00:55 - Image Kidney/bladder ultrasound: pending Assessment and Plan - Assessment (1) Acute renal failure (ARF) Code(s): N17.9 - Acute kidney failure, unspecified Status: Resolved Plan: Acute kidney injury with a creatinine of 4.22, potassium level of 4.0, and HCO3 at 15.6. Good urinary output. Baseline creatinine approximately at 2.5, not followed by [facility] Room Att[facility] outpatient. Large amount of protein noted in urine. Chronic kidney disease possibly from Diabetes or HTN/ renovascular disease LESA under investigation possibly intrinsic with FeNA of 7.6% Renal ultrasound with complex mass above bladder, echogenic kidneys. Avoid nephrotoxins including NSAIDS and IV contrast. Recommend to continue IVF' s will add sodium bicarbonate with HCO3 at 15.6. Continue to maintain strict I+ O's. With large amount of protein in urine will order 24 hour urine for protein and serology. Continue to hold RUDI can be restarted at later date. Urology consulted for mass above bladder. Will monitor urinary output and BMP. (2) Diabetes Code(s): E11.9 - Type 2 diabetes mellitus without complications Status: Acute Plan: Maintain blood sugars between 140 mg/dl to 180 mg/dl. (3) Sickle cell anemia Code(s): D57.1 - Sickle-cell disease without crisis Status: Acute Plan: Pain medication as needed. IVF's/. (4) Hypertension Code(s): I10 - Essential (primary) hypertension Status: Acute Plan: Blood pressure elevated could partially be related to pain. On amlodipine, lisinopril on hold, will add hydralazine. <Fer Hannah Q - Last Filed: 04/18/18 20:40> History of Present Illness Primary Care Provider: No Primary Care Physician [facility] - Medical History Medical History: Medical History (Last Reviewed 04/18/18 @ 03:26 by Dominique Webb MD) Diabetes (Acute) Sickle cell anemia (Acute) Arthritis Hypertension - Surgical History Surgical History: Surgical History (Last Reviewed 04/18/18 @ 03:26 by Dominique Webb MD) H/O shoulder surgery (Acute) Hx of cholecystectomy (Acute) - Family History Family History: Family History (Last Reviewed 04/18/18 @ 03:26 by Dominique Webb MD) Other Family history unknown Medications and Allergies Active Medications: Active Medications Acetaminophen (Tylenol) 650 mg PO Q4H PRN PRN Reason: Temp > 100.4 Al Hydroxide/Mg Hydroxide (Milk Of Magnesia Liq) 30 ml PO Q12H PRN PRN Reason: Mild Constipation Amlodipine Besylate (Norvasc) 5 mg PO DAILY [facility] Last Admin: 04/18/18 08:19 Dose: 5 mg Bisacodyl (Dulcolax Supp) 10 mg RECTAL DAILY PRN PRN Reason: SEVERE CONSITIPATION Dextrose (D50w Vial) 50 ml IV.PUSH UNSCH PRN PRN Reason: PER HYPOGLYCEMIA PROTOCOL Glucagon (Glucagon Inj) 1 mg OTHER PRN PRN PRN Reason: for Hypoglycemia Protocol Heparin Sodium (Porcine) (Heparin Inj) 5,000 units SQ Q12HR [facility] Hydromorphone HCl (Dilaudid Pf Inj) 1 mg IV.PUSH Q4H PRN PRN Reason: pain 6-10 Sodium Bicarbonate 75 meq/ (Sodium Chloride) 1,000 mls @ 100 mls/hr IV.CONT .Q10H [facility] Last Admin: 04/18/18 17:19 Dose: 100 mls/hr Insulin Aspart (Novolog Insulin Correctional Sugar Inj) 0 unit SQ ACHS AND 3AM [facility]; Protocol Last Admin: 04/18/18 19:56 Dose: 1 unit Lactulose (Lactulose Liq) 30 ml PO DAILY PRN PRN Reason: SEVERE CONSITIPATION Ondansetron HCl (Zofran Inj) 4 mg IV.PUSH Q6H PRN PRN Reason: NAUSEA OR VOMITING Senna/Docusate Sodium (Clara-Colace) 1 tab PO BID [facility] Last Admin: 04/18/18 08:19 Dose: 1 tab Sennosides (Senokot) 17.2 mg PO Q12H PRN PRN Reason: Moderate Constipation Sodium Chloride (Ns Flush) 2 ml IV.FLUSH BID [facility] Last Admin: 04/18/18 08:19 Dose: 2 ml Sodium Chloride (Ns Flush) 2 ml IV.FLUSH PRN PRN PRN Reason: FLUSH AFTER USING IV ACCESS Exam Vital signs: Vital Signs 04/17/18 20:56 04/18/18 00:00 04/18/18 04:00 Temperature 98.1 F 97.9 F Pulse Rate 101 H 96 H 67 Respiratory Rate 18 16 Blood Pressure 138/61 186/96 H 166/77 H Pulse Oximetry 100 100 97 04/18/18 07:33 04/18/18 09:00 04/18/18 10:53 Temperature 98.8 F 97.6 F Pulse Rate 75 58 L 72 Respiratory Rate 19 16 Blood Pressure 140/71 162/73 H Pulse Oximetry 99 97 04/18/18 14:56 04/18/18 19:59 Temperature 98.5 F 98.8 F Pulse Rate 79 76 Respiratory Rate 17 20 Blood Pressure 167/79 H 157/84 H Pulse Oximetry 99 100 Intake & Output 04/18/18 04/18/18 04/19/18 06:59 18:59 06:59 Intake Total 1000 / 1000 2371 / 2371 Output Total 800 / 800 Balance 1000 / 1000 1571 / 1571 Weight 56.699 kg Intake: IV 1000 / 1000 1300 / 1300 NS Inj 1,000 ML @ 70 mls/hr IV. 300 / 300 CONT .[id number] [facility] Rx#:[id number] NS Inj 1,000 ML @ 2000 mls/hr 1000 / 1000 1000 / 1000 IV.SIG Q30M [facility] Rx#:[id number] Oral 1071 / 1071 Output: Urine 800 / 800 Other: Date of Last Bowel Movement 04/17/18 Results - Lab Results 04/18/18 00:55 04/18/18 00:55 Most recent lab results Calcium 8.7 mg/dL (8.5-10.1) 04/18/18 00:55 Assessment and Plan - Assessment (1) Acute renal failure (ARF) Code(s): N17.9 - Acute kidney failure, unspecified Status: Resolved Plan: Patient seen and examine, agree with above. Patient with chronic kidney disease and develop LESA. Urology consult noted, need CT of kidneys. Continue IVF and follow the BMP. (2) Diabetes Code(s): E11.9 - Type 2 diabetes mellitus without complications Status: Acute (3) Sickle cell anemia Code(s): D57.1 - Sickle-cell disease without crisis Status: Acute (4) Hypertension Code(s): I10 - Essential (primary) hypertension Status: Acute <Renea Resendez - Last Filed: 04/18/18 15:07> (3) Sickle cell anemia Qualifiers: Sickle-cell associated disorders: without crisis Qualified Code(s): D57.1 - Sickle-cell disease without crisis <Danielle Hannah - Last Filed: 04/18/18 20:40> (3) Sickle cell anemia Qualifiers: Sickle-cell associated disorders: without crisis Qualified Code(s): D57.1 - Sickle-cell disease without crisis
--- NOTE | 2018-04-18 10:43 | US ---
EXAM DATE: 04/18/2018 10:39 AM EST AGE/SEX: 52 years / Male INDICATIONS: Increased Bun and Creatinine. CLINICAL DATA: This is the patient's initial encounter. Patient reports that signs and symptoms have been present for 1 day and indicates a pain score of 0/10. MEDICAL/SURGICAL HISTORY: . Diabetes mellitus type II. Sickle Cell disease. None. COMPARISON: No prior exams available for comparison. Difficult exam because of body habitus. MEASUREMENTS: Right Kidney:__7.8 x 4.1 x 4.7 cm Left Kidney:__9.2 x 4.2 x 3.8 cm FINDINGS: Right Kidney: Increased echogenicity. No mass or hydronephrosis. Left Kidney: Increased echogenicity. No mass or hydronephrosis. Bladder: Complex mass sitting above the bladder of uncertain significance. CT without IV contrast sca n suggested CONCLUSION: 1. Complex mass sitting above the bladder pertinent significance. 2. Limited exam because of body habitus. Small echogenic kidneys without hydronephrosis Electronically signed by: Yunire Morris MD Board Certified Radiologist 04/18/2018 10:42 AM EST
--- NOTE | 2018-04-18 10:48 | P.PNIM ---
Subjective Interval history: Follow-up for lower back pain in a patient with sickle cell disease, acute kidney injury. Patient is currently doing well. Denies any chest pain, shortness of breath, fever or chills. Physical Exam Vital signs: Last Vital Signs Temp 98.8 F 04/18/18 07:33 Pulse 75 04/18/18 07:33 Resp 19 04/18/18 07:33 BP 140/71 04/18/18 07:33 Pulse Ox 99 04/18/18 07:33 Intake & Output 04/16/18 04/17/18 04/18/18 04/19/18 06:59 06:59 06:59 06:59 Intake Total 1000 / 1000 1000 / 1000 Balance 1000 / 1000 1000 / 1000 Weight 56.699 kg Narrative: GENERAL: Alert, NAD. SKIN: Warm and dry. HEAD: Normocephalic. EYES: No scleral icterus. No injection or drainage. NECK: Supple, trachea midline. No JVD or lymphadenopathy. CARDIOVASCULAR: Regular rate and rhythm without murmurs, gallops, or rubs. RESPIRATORY: Breath sounds equal bilaterally. No accessory muscle use. GASTROINTESTINAL: Abdomen soft, non-tender, nondistended. MUSCULOSKELETAL: No cyanosis, or edema. BACK: Nontender without obvious deformity. No CVA tenderness. Results Labs CBC & Chem 7: 04/18/18 00:55 04/18/18 00:55 Imaging Imaging: Impressions Abdomen/Bladder Ultrasound 04/18/18 00:00 CONCLUSION: 1. Complex mass sitting above the bladder pertinent significance. 2. Limited exam because of body habitus. Small echogenic kidneys without hydronephrosis Chest X-Ray 04/18/18 00:33 CONCLUSION: No definite acute cardiopulmonary process. 2.7 cm metallic density projecting at the left upper quadrant. Assessment and Plan Plan Mr. Higgins is a pleasant 52-year-old -[place] male with a history of sickle cell disease, diabetes mellitus, chronic kidney disease and hypertension who presented to the emergency department on 04/18/2018 due to lower back pain. He stated that his lower back pain is consistent with his typical sickle cell pain crisis. Lab work indicated on chronic kidney disease. His creatinine was 4.22 on 04/18/2018. Subsequently, nephrology was consulted. Acute kidney injury Chronic kidney disease Renal ultrasound shows, a complex mass sitting on top of the bladder. Discussed with artist woodblock. Will consult urology for an evaluation. Sickle cell pain crisis Continue IV hydration as well as IV Dilaudid as needed. Diabetes mellitus Hypertension Continue amlodipine 5 mg daily, sliding scale insulin. Goal blood glucose [id number]. Will use low dose Levemir 5 units QHS. Full code. Heparin SQ Progress Note: Quality VTE Deep Vein Thrombosis/Pulmonary Embolism Present on Admission: No
[2018-04-18 12:48] LABS: Creatinine,Urine Random 33 mg/dL (27-300); Sodium,Urine Random 79 meq/L
[2018-04-18] MEDS: Insulin NovoLOG Aspart Correctional Sugar Inj SQ SCH ×4 (15:06→22:05)
[2018-04-18] MEDS: Sodium Bicarbonate 8.4% Inj 75 MEQ in Sodium Chloride 0.45 % Inj 925 ML IV.CONT SCH ×2 (16:00→17:19)
--- NOTE | 2018-04-18 17:16 | P.CONURO ---
History of Present Illness Service: Tracey Consult date: 04/18/18 Requesting Physician: Dominique Webb Reason for Consult: Pelvic mass behind bladder Primary Care Provider: No Primary Care Physician Chief Complaint: back pain History of Present Illness: 52-year-old black male with sickle cell disease and abnormal renal function presented because of back pain He was seen by nephrology. Kidney and bladder ultrasound ordered. Ultrasound images reviewed and shows a significant sized round mass posterior to the bladder. This mass is unknown etiology. It appears to be a cavity with a small amount of fluid of some type inside. The fluid has a slight density to it in contrast to the urine in the bladder. In addition there appears to be small wisps of fluid originating from the posterior wall of the bladder adjacent to the mass. Again this is of undetermined etiology. Patient denies any voiding problems. He claims to have a good flow without restriction. He does have an occasional gross hematuria. He does not know why he has the hematuria and he does not know if it has been evaluated or not. A CT scan of the abdomen and pelvis will be required in order to visualize this pelvic mass better. Discussed with Nephrology, who will order. Review of Systems Constitutional: Reports lack of energy Genitourinary: Reports blood in urine (Occ. gross hematuria.), Reports other ( See HPI. Denies voiding problems.) Hematologic/Lymphatic: Reports other (Sickle cell disease.) PMFSH - History History Provided By: Patient - Medical History Medical History: Medical History (Last Reviewed 04/18/18 @ 03:26 by Dominique Webb MD) Diabetes (Acute) Sickle cell anemia (Acute) Arthritis Hypertension - Surgical History Surgical History: Surgical History (Last Reviewed 04/18/18 @ 03:26 by Dominique Webb MD) H/O shoulder surgery (Acute) Hx of cholecystectomy (Acute) - Family History Family History: Family History (Last Reviewed 04/18/18 @ 03:26 by Dominique Webb MD) Other Family history unknown - Tobacco History Second Hand Smoke Exposure: Yes Tobacco Use In Past 30 Days: Yes Smoking Status: Current every day smoker Tobacco Type: Cigarettes Cigarettes Per Day: 10 - Alcohol History How Often Do You Have a Drink Containing Alcohol: Never - Substance Use History Substance History: No History of Abuse - Travel History Recent Travel in the [facility] Within the Last 8 Weeks: No Recent Travel Out of the Country Within the Last 8 Weeks: No - Immunization History Tetanus Immunization: Unsure Hx Influenza Vaccine This Season: No Medications and Allergies Active Medications: Active Medications Acetaminophen (Tylenol) 650 mg PO Q4H PRN PRN Reason: Temp > 100.4 Al Hydroxide/Mg Hydroxide (Milk Of Magnesia Liq) 30 ml PO Q12H PRN PRN Reason: Mild Constipation Amlodipine Besylate (Norvasc) 5 mg PO DAILY [facility] Last Admin: 04/18/18 08:19 Dose: 5 mg Bisacodyl (Dulcolax Supp) 10 mg RECTAL DAILY PRN PRN Reason: SEVERE CONSITIPATION Dextrose (D50w Vial) 50 ml IV.PUSH UNSCH PRN PRN Reason: PER HYPOGLYCEMIA PROTOCOL Glucagon (Glucagon Inj) 1 mg OTHER PRN PRN PRN Reason: for Hypoglycemia Protocol Heparin Sodium (Porcine) (Heparin Inj) 5,000 units SQ Q12HR [facility] Hydromorphone HCl (Dilaudid Pf Inj) 1 mg IV.PUSH Q4H PRN PRN Reason: pain 6-10 Sodium Bicarbonate 75 meq/ (Sodium Chloride) 1,000 mls @ 100 mls/hr IV.CONT .Q10H [facility] Insulin Aspart (Novolog Insulin Correctional Sugar Inj) 0 unit SQ ACHS AND 3AM [facility]; Protocol Last Admin: 04/18/18 15:12 Dose: Not Given Lactulose (Lactulose Liq) 30 ml PO DAILY PRN PRN Reason: SEVERE CONSITIPATION Ondansetron HCl (Zofran Inj) 4 mg IV.PUSH Q6H PRN PRN Reason: NAUSEA OR VOMITING Senna/Docusate Sodium (Clara-Colace) 1 tab PO BID [facility] Last Admin: 04/18/18 08:19 Dose: 1 tab Sennosides (Senokot) 17.2 mg PO Q12H PRN PRN Reason: Moderate Constipation Sodium Chloride (Ns Flush) 2 ml IV.FLUSH BID [facility] Last Admin: 04/18/18 08:19 Dose: 2 ml Sodium Chloride (Ns Flush) 2 ml IV.FLUSH PRN PRN PRN Reason: FLUSH AFTER USING IV ACCESS Allergies Allergy/AdvReac Type Severity Reaction Status Date / Time lorazepam Allergy Severe Shortness Verified 04/17/18 20:55 of Breath Home Medications Medication Instructions Recorded Confirmed Type lisinopril 20 mg PO DAILY 10/11/18 01/01/19 History Physical Exam Vital Signs - 24 hr 04/17/18 20:56 04/18/18 00:00 04/18/18 04:00 Temperature 98.1 F 97.9 F Pulse Rate 101 H 96 H 67 Respiratory Rate 18 16 Blood Pressure 138/61 186/96 H 166/77 H Pulse Oximetry 100 100 97 04/18/18 07:33 04/18/18 10:53 04/18/18 14:56 Temperature 98.8 F 97.6 F 98.5 F Pulse Rate 75 72 79 Respiratory Rate 19 16 17 Blood Pressure 140/71 162/73 H 167/79 H Pulse Oximetry 99 97 99 Physical Exam: GENERAL: This is a well-nourished, well-developed patient, in no apparent distress. SKIN: No rashes, ecchymoses or lesions. Cool and dry. HEAD: Atraumatic. Normocephalic. No temporal or scalp tenderness. EYES: Pupils equal round and reactive. Extraocular motions intact. No scleral icterus. No injection or drainage. ENT: Nose without bleeding, purulent drainage or septal hematoma. Throat without erythema, tonsillar hypertrophy or exudate. Uvula midline. Airway patent. NECK: Trachea midline. No JVD or lymphadenopathy. Supple, nontender, no meningeal signs. CARDIOVASCULAR: Regular rate and rhythm without murmurs, gallops, or rubs. RESPIRATORY: Clear to auscultation. Breath sounds equal bilaterally. No wheezes , rales, or rhonchi. GASTROINTESTINAL: Abdomen soft, non-tender, nondistended. RUQ firm, non-tender, smooth mass presumably liver. No guarding. GENITOURINARY: BLADDER: Not palpable. RECTUM: NO masses felt. PROSTATE: normal size, shape, consistency, not enlarged, not-tender. MUSCULOSKELETAL: Extremities without clubbing, cyanosis, or edema. No joint tenderness, effusion, or edema noted. No calf tenderness. Negative Homans sign bilaterally. NEUROLOGICAL: Awake and alert. Cranial nerves II through XII intact. Motor and sensory grossly within normal limits. Five out of 5 muscle strength in all muscle groups. Normal speech. Laboratory Results - last 24 hr 04/18/18 04/18/18 04/18/18 00:55 00:55 02:15 WBC 10.8 RBC 1.79 L Hgb 7.9 L Hct 21.8 L MCV 122.1 H MCH 43.9 H MCHC 36.0 RDW 18.6 H Plt Count 295 MPV 7.6 Prelim Diff (Auto) Manual diff required WBC Differential Manual diff final Seg Neuts % (Manual) 64 Lymphocytes % (Manual) 25 Monocytes % (Manual) 8 Eosinophils % (Manual) 3 Abs Neuts (Manual) 6.9 Nucleated RBCs/100 WBC 2 H Differential Comment . Platelet Estimate Normal Platelet Morphology Normal Polychromasia 4.4 H Pappenheimer Bodies Present H Sickle Cells 1+ H [place] Bodies Present H Keratocytes Occ H Retic Count 7.0 H Absolute Retic 125.0 Sodium 141 Potassium 4.0 Chloride 115 H Carbon Dioxide 15.6 L Anion Gap 10 BUN 72 H Creatinine 4.22 H Estimated GFR 18 L POC Glucose Random Glucose 119 H Calcium 8.7 Total Bilirubin 1.8 H AST 46 H ALT 52 Alkaline Phosphatase 199 H Total Protein 8.2 Albumin 3.1 L Urine Color Yellow Urine Clarity Clear Urine pH 5.0 Ur Specific [place] 1.010 Urine Protein 500 or greater Urine Glucose (UA) Negative Urine Ketones Negative Urine Occult Blood Small H Urine Nitrate Negative Urine Bilirubin Negative Urine Urobilinogen Less than 2 Ur Leukocyte Esterase Negative Urine WBC Less than 1 Urine Mucus Few H Micro UA Comment Culture not ind Ur Microscopic Review Not Reportable Urine Culture Comments Culture not ind Urine Osmolality Ur Random Creatinine Ur Random Sodium Urine Opiates Screen Ur Barbiturates Screen Ur Amphetamines Screen U Benzodiazepines Scrn Urine Cocaine Screen U Cannabinoids Screen 04/18/18 04/18/18 04/18/18 02:15 08:29 11:49 WBC RBC Hgb Hct MCV MCH MCHC RDW Plt Count MPV Prelim Diff (Auto) WBC Differential Seg Neuts % (Manual) Lymphocytes % (Manual) Monocytes % (Manual) Eosinophils % (Manual) Abs Neuts (Manual) Nucleated RBCs/100 WBC Differential Comment Platelet Estimate Platelet Morphology Polychromasia Pappenheimer Bodies Sickle Cells [place] Bodies Keratocytes Retic Count Absolute Retic Sodium Potassium Chloride Carbon Dioxide Anion Gap BUN Creatinine Estimated GFR POC Glucose 179 H Random Glucose Calcium Total Bilirubin AST ALT Alkaline Phosphatase Total Protein Albumin Urine Color Urine Clarity Urine pH Ur Specific [place] Urine Protein Urine Glucose (UA) Urine Ketones Urine Occult Blood Urine Nitrate Urine Bilirubin Urine Urobilinogen Ur Leukocyte Esterase Urine WBC Urine Mucus Micro UA Comment Ur Microscopic Review Urine Culture Comments Urine Osmolality Ur Random Creatinine 33 Ur Random Sodium 79 Urine Opiates Screen Neg Ur Barbiturates Screen Neg Ur Amphetamines Screen Neg U Benzodiazepines Scrn Neg Urine Cocaine Screen Neg U Cannabinoids Screen Neg 04/18/18 11:49 WBC RBC Hgb Hct MCV MCH MCHC RDW Plt Count MPV Prelim Diff (Auto) WBC Differential Seg Neuts % (Manual) Lymphocytes % (Manual) Monocytes % (Manual) Eosinophils % (Manual) Abs Neuts (Manual) Nucleated RBCs/100 WBC Differential Comment Platelet Estimate Platelet Morphology Polychromasia Pappenheimer Bodies Sickle Cells [place] Bodies Keratocytes Retic Count Absolute Retic Sodium Potassium Chloride Carbon Dioxide Anion Gap BUN Creatinine Estimated GFR POC Glucose Random Glucose Calcium Total Bilirubin AST ALT Alkaline Phosphatase Total Protein Albumin Urine Color Urine Clarity Urine pH Ur Specific [place] Urine Protein Urine Glucose (UA) Urine Ketones Urine Occult Blood Urine Nitrate Urine Bilirubin Urine Urobilinogen Ur Leukocyte Esterase Urine WBC Urine Mucus Micro UA Comment Ur Microscopic Review Urine Culture Comments Urine Osmolality 307 Ur Random Creatinine Ur Random Sodium Urine Opiates Screen Ur Barbiturates Screen Ur Amphetamines Screen U Benzodiazepines Scrn Urine Cocaine Screen U Cannabinoids Screen Result Diagrams: 04/18/18 00:55 04/18/18 00:55 Imaging: ITS Impressions Abdomen/Bladder Ultrasound 04/18/18 00:00 CONCLUSION: 1. Complex mass sitting above the bladder pertinent significance. 2. Limited exam because of body habitus. Small echogenic kidneys without hydronephrosis Chest X-Ray 04/18/18 00:33 CONCLUSION: No definite acute cardiopulmonary process. 2.7 cm metallic density projecting at the left upper quadrant. Assessment and Plan - Assessment (1) Pelvic mass in male Code(s): R19.00 - Intra-abdominal and pelvic swelling, mass and lump, unspecified site Status: Acute - Plan Rec: CT scan of abd/pelvis. Discussed with Nephrology, who will order. Discussed Condition With: Patient, Nephrology,nurse.
[2018-04-18] MEDS: Heparin - SQ 10,000 UNITS/ML Vial SQ SCH (21:52)
[2018-04-18] MEDS: HYDROmorphone PF Inj 2 MG/ML Vial IV.PUSH PRN (21:53)
[2018-04-19] MEDS: Sodium Bicarbonate 8.4% Inj 75 MEQ in Sodium Chloride 0.45 % Inj 925 ML IV.CONT SCH ×4 (01:45→21:10)
[2018-04-19] MEDS: Insulin NovoLOG Aspart Correctional Sugar Inj SQ SCH ×5 (03:25→21:47)
[2018-04-19 06:16] LABS: Baso # (Auto) 0.1 th/mm3 (0.0-0.2); Baso % (Auto) 1.6 % (0.0-2.0); Eos # (Auto) 0.2 th/mm3 (0.0-0.4); Eos % (Auto) 2.3 % (0.0-4.0); Lymph # (Auto) 2.2 th/mm3 (1.0-4.8); Lymph % (Auto) 23.4 % (9.0-44.0); Mean Corpuscular HGB Conc 34.3 % (32.0-36.0); Mean Corpuscular Hemoglobin 42.3 pg (27.0-34.0); Mean Corpuscular Volume 123.2 fL (80.0-100.0); Mean Platelet Volume 7.9 fL (7.0-11.0); Mono # (Auto) 1.2 th/mm3 (0.0-0.9); Mono % (Auto) 13.3 % (0.0-8.0); Neut # (Auto) 5.5 th/mm3 (1.8-7.7); Neut % (Auto) 59.4 % (16.0-70.0); Platelet Count 236 th/mm3 (150-450); Red Blood Count 1.45 mil/mm3 (4.50-5.90); Red Cell Distribution Width 17.4 % (11.6-17.2); White Blood Count 9.3 th/mm3 (4.0-11.0)
[2018-04-19 06:23] LABS: Albumin 2.3 g/dL (3.4-5.0); Carbon Dioxide 17.2 meq/L (21.0-32.0); Phosphorus 3.7 mg/dL (2.5-4.9); Potassium 4.5 meq/L (3.5-5.1)
[2018-04-19 06:31] LABS: Hematocrit 17.9 % (39.0-51.0); Hemoglobin 6.1 gm/dL (13.0-17.0)
[2018-04-19] MEDS ORDERED: Sodium Chlor 0.9% Inj 250 ML IV.SIG SCH (07:00)
[2018-04-19 07:35] LABS: Eosinophils 1 % (0-4); Lymphocytes 26 % (9-44); Monocytes 8 % (0-8); Pappenheimer Bodies Present; Platelet Estimate Normal (Normal); Platelet Morphology Normal (Normal); Polychromasia 2.6 % (0.0-1.9); Sickle Cells 1+; Tallied Nucleated RBC 1 (0-0); Target Cells 1+
--- NOTE | 2018-04-19 09:42 | P.PNNP ---
Subjective Interval history: Denies any shortness of breath, nausea, or vomiting. Back pain improving. Creatinine improved at 3 today. <Renea Resendez - Last Filed: 04/19/18 09:34> Physical Exam Vital signs: Vital Signs 04/18/18 10:53 04/18/18 14:56 04/18/18 19:59 Temperature 97.6 F 98.5 F 98.8 F Pulse Rate 72 79 76 Respiratory Rate 16 17 20 Blood Pressure 162/73 H 167/79 H 157/84 H Pulse Oximetry 97 99 100 04/18/18 23:27 04/19/18 04:00 04/19/18 07:55 Temperature 98.0 F 98.2 F 97.9 F Pulse Rate 74 65 64 Respiratory Rate 16 16 16 Blood Pressure 160/77 H 159/73 H 145/69 H Pulse Oximetry 100 98 98 Intake & Output 04/18/18 04/19/18 04/19/18 18:59 06:59 18:59 Intake Total 2371 / 2371 1455 / 1455 Output Total 800 / 800 550 / 550 Balance 1571 / 1571 905 / 905 Weight 56.699 kg Intake: IV 1300 / 1300 1000 / 1000 NS Inj 1,000 ML @ 70 mls/hr IV. 300 / 300 CONT .[id number] [facility] Rx#:[id number] Sodium Bicarbonate 8.4% Inj 75 1000 / 1000 MEQ In 1/2 Normal Saline Inj 925 ML @ 100 mls/hr IV.CONT . Q10H [facility] Rx#:[id number] NS Inj 1,000 ML @ 2000 mls/hr 1000 / 1000 IV.SIG Q30M [facility] Rx#:[id number] Oral 1071 / 1071 455 / 455 Output: Urine 800 / 800 550 / 550 Other: Post Void Residual 0 Date of Last Bowel Movement 04/17/18 Narrative: GENERAL: Alert and oriented. NAD. SKIN: Warm and dry. NECK: Supple, trachea midline. No JVD CARDIOVASCULAR: Regular rate and rhythm without murmurs, gallops, or rubs. RESPIRATORY: Breath sounds equal bilaterally. No accessory muscle use. GASTROINTESTINAL: Abdomen soft, non-tender, nondistended. +BS MUSCULOSKELETAL: No cyanosis, or edema. BACK: No CVA tenderness. <Renea Resendez - Last Filed: 04/19/18 09:34> Vital signs: Vital Signs 04/18/18 23:27 04/19/18 04:00 04/19/18 07:55 Temperature 98.0 F 98.2 F 97.9 F Pulse Rate 74 65 64 Respiratory Rate 16 16 16 Blood Pressure 160/77 H 159/73 H 145/69 H Pulse Oximetry 100 98 98 04/19/18 08:00 04/19/18 11:14 04/19/18 11:32 Temperature 98.1 F 98.3 F Pulse Rate 72 73 Respiratory Rate 22 18 22 Blood Pressure 162/75 H 170/81 H Pulse Oximetry 99 99 04/19/18 16:00 04/19/18 18:59 04/19/18 20:00 Temperature 98.5 F 97.8 F Pulse Rate 85 74 Respiratory Rate 18 20 Blood Pressure 175/81 H 152/80 H 154/79 H Pulse Oximetry 96 96 Intake & Output 04/19/18 04/19/18 04/20/18 06:59 18:59 06:59 Intake Total 1455 / 1455 3550 / 3550 Output Total 550 / 550 950 / 950 Balance 905 / 905 2600 / 2600 Weight 56.699 kg Intake: IV 1000 / 1000 2000 / 2000 Sodium Bicarbonate 8.4% Inj 75 1000 / 1000 2000 / 2000 MEQ In 1/2 Normal Saline Inj 925 ML @ 100 mls/hr IV.CONT . Q10H [facility] Rx#:[id number] Oral 455 / 455 750 / 750 Other 400 / 400 Rbc As-3 Leukoreduced Unit 400 / 400 [id number] Intake (Blood Product) Amt 400 / 400 Rbc As-3 Leukoreduced Unit 400 / 400 [id number] Output: Urine 550 / 550 950 / 950 Other: Post Void Residual 0 Date of Last Bowel Movement 04/17/18 04/17/18 <Danielle Hannah - Last Filed: 04/19/18 21:15> Assessment and Plan - Assessment (1) Acute renal failure (ARF) Code(s): N17.9 - Acute kidney failure, unspecified Status: Resolved Plan: Acute kidney injury with a creatinine of 4.22, potassium level of 4.0, and HCO3 at 15.6 on day of consult. Baseline creatinine approximately at 2.5, not followed by [facility] outpatient. Large amount of protein noted in urine. Chronic kidney disease possibly from Diabetes or HTN/ renovascular disease LESA under investigation possibly intrinsic with FeNA of 7.6%. Complements normal. Renal ultrasound with complex mass above bladder, echogenic kidneys. Avoid nephrotoxins including NSAIDS and IV contrast. Recommend to continue IVF' s, creatinine improving. Continue to maintain strict I+O's. 24 hour urine for protein in process. Continue to hold RUDI can be restarted at later date. Urology consulted for mass above bladder. CT ordered abdomen and pelvis for further evaluation of mass. Will monitor urinary output and BMP. Labs in AM (2) Diabetes Code(s): E11.9 - Type 2 diabetes mellitus without complications Status: Acute Plan: Maintain blood sugars between 140 mg/dl to 180 mg/dl. Well controlled. (3) Sickle cell anemia Code(s): D57.1 - Sickle-cell disease without crisis Status: Acute Qualifiers: Sickle-cell associated disorders: without crisis Qualified Code(s): D57.1 - Sickle-cell disease without crisis Plan: Pain medication as needed. IVF's/. HGB dropped at 6.1 today. Blood transfusion has been ordered. (4) Hypertension Code(s): I10 - Essential (primary) hypertension Status: Acute Plan: Elevated. On amlodipine dose increased. <Renea Resendez - Last Filed: 04/19/18 09:34> - Assessment (1) Acute renal failure (ARF) Code(s): N17.9 - Acute kidney failure, unspecified Status: Resolved Plan: Patient seen and examined, agree with above. Creatinine is improving, Continue IVF, Urology follow, for CT of pelvis. (2) Diabetes Code(s): E11.9 - Type 2 diabetes mellitus without complications Status: Acute (3) Sickle cell anemia Code(s): D57.1 - Sickle-cell disease without crisis Status: Acute Qualifiers: Sickle-cell associated disorders: without crisis Qualified Code(s): D57.1 - Sickle-cell disease without crisis (4) Hypertension Code(s): I10 - Essential (primary) hypertension Status: Acute <Danielle Hannah - Last Filed: 04/19/18 21:15>
[2018-04-19] MEDS: Heparin - SQ 10,000 UNITS/ML Vial SQ SCH ×2 (10:09→21:47)
[2018-04-19] MEDS: Senna/Docusate Sodium 8.6/50 MG Tablet PO SCH ×2 (10:13→21:51)
[2018-04-19] MEDS: amLODIPine 5 MG Tablet PO SCH (11:27)
--- NOTE | 2018-04-19 13:14 | P.PNURO ---
Subjective Patient symptoms today: Pain adequately controlled Objective Vital Signs: Vital Signs 04/18/18 14:56 04/18/18 19:59 04/18/18 23:27 Temperature 98.5 F 98.8 F 98.0 F Pulse Rate 79 76 74 Respiratory Rate 17 20 16 Blood Pressure 167/79 H 157/84 H 160/77 H Pulse Oximetry 99 100 100 04/19/18 04:00 04/19/18 07:55 04/19/18 08:00 Temperature 98.2 F 97.9 F Pulse Rate 65 64 Respiratory Rate 16 16 22 Blood Pressure 159/73 H 145/69 H Pulse Oximetry 98 98 04/19/18 11:14 04/19/18 11:32 Temperature 98.1 F 98.3 F Pulse Rate 72 73 Respiratory Rate 18 22 Blood Pressure 162/75 H 170/81 H Pulse Oximetry 99 99 Intake & Output 04/18/18 04/19/18 04/19/18 18:59 06:59 18:59 Intake Total 2371 / 2371 1455 / 1455 1999 Output Total 800 / 800 550 / 550 Balance 1571 / 1571 905 / 905 1999 Weight 56.699 kg Intake: IV 1300 / 1300 1000 / 1000 1999 / 1999 NS Inj 1,000 ML @ 70 mls/hr IV. 300 / 300 CONT .[id number] [facility] Rx#:[id number] Sodium Bicarbonate 8.4% Inj 75 1000 / 1000 1999 / 1999 MEQ In 1/2 Normal Saline Inj 925 ML @ 100 mls/hr IV.CONT . Q10H [facility] Rx#:[id number] NS Inj 1,000 ML @ 2000 mls/hr 1000 / 1000 IV.SIG Q30M [facility] Rx#:[id number] Oral 1071 / 1071 455 / 455 Intake (Blood Product) Amt 0 / 0 Rbc As-3 Leukoreduced Unit 0 / 0 [id number] Output: Urine 800 / 800 550 / 550 Other: Post Void Residual 0 Date of Last Bowel Movement 04/17/18 04/17/18 Result Diagrams: 04/19/18 04:41 04/19/18 04:41 Other Results: Abdomen soft, nondistended, nontender Extremities adequately perfused Medications and IVs: Active Medications Generic Name Dose Route Start Last Admin Trade Name Freq PRN Reason Stop Dose Admin Acetaminophen 650 mg 04/18/18 03:21 Tylenol PO Q4H PRN Temp > 100.4 Al Hydroxide/Mg Hydroxide 30 ml 04/18/18 03:21 Milk Of Magnesia Liq PO Q12H PRN Mild Constipation Amlodipine Besylate 10 mg 04/19/18 09:42 Norvasc PO DAILY [facility] Bisacodyl 10 mg 04/18/18 03:21 Dulcolax Supp RECTAL DAILY PRN SEVERE CONSITIPATION Dextrose 50 ml 04/18/18 03:21 D50w Vial IV.PUSH UNSCH PRN PER HYPOGLYCEMIA PROTOCOL Glucagon 1 mg 04/18/18 03:21 Glucagon Inj OTHER PRN PRN for Hypoglycemia Protocol Heparin Sodium (Porcine) 5,000 units 04/18/18 21:00 04/19/18 10:09 Heparin Inj SQ 5,000 units Q12HR [facility] Administration Hydromorphone HCl 1 mg 04/18/18 03:20 04/18/18 21:53 Dilaudid Pf Inj IV.PUSH 1 mg Q4H PRN Administration pain 6-10 Sodium Bicarbonate 75 meq/ 1,000 mls @ 100 mls/hr 04/18/18 12:30 04/19/18 10: 12 Sodium Chloride IV.CONT 100 mls/hr .Q10H [facility] Administration Sodium Chloride 250 mls @ 15 mls/hr 04/19/18 07:00 04/19/18 11:18 Ns Inj IV.SIG 04/19/18 23:39 15 mls/hr ONCE [facility] Administration Insulin Aspart 0 unit 04/18/18 08:00 04/19/18 09:42 Novolog Insulin Correctional Sugar Inj SQ Not Given ACHS AND 3AM [facility] Protocol Lactulose 30 ml 04/18/18 03:21 Lactulose Liq PO DAILY PRN SEVERE CONSITIPATION Ondansetron HCl 4 mg 04/18/18 03:21 Zofran Inj IV.PUSH Q6H PRN NAUSEA OR VOMITING Senna/Docusate Sodium 1 tab 04/18/18 09:00 04/19/18 10:13 Clara-Colace PO Not Given BID [facility] Sennosides 17.2 mg 04/18/18 03:21 Senokot PO Q12H PRN Moderate Constipation Sodium Chloride 2 ml 04/18/18 09:00 04/19/18 10:12 Ns Flush IV.FLUSH 2 ml BID [facility] Administration Sodium Chloride 2 ml 04/18/18 03:21 Ns Flush IV.FLUSH PRN PRN FLUSH AFTER USING IV ACCESS Assessment and Plan - Assessment (1) Pelvic mass in male Code(s): R19.00 - Intra-abdominal and pelvic swelling, mass and lump, unspecified site Status: Acute - Plan Urologic impression: Pelvic mass superior to urinary bladder of indeterminate etiology Recommendations: 1. CT scan of the abdomen and pelvis 2. Further recommendations pending CT scan results
[2018-04-19] MEDS: HYDROmorphone PF Inj 2 MG/ML Vial IV.PUSH PRN ×2 (15:23→21:47)
--- NOTE | 2018-04-19 17:26 | CT ---
EXAM DATE: 04/19/2018 5:14 PM EST AGE/SEX: 52 years / Male INDICATIONS: Pain in posterior pelvis. CLINICAL DATA: This is the patient's initial encounter. Patient reports that signs and symptoms have been present for 1 day and indicates a pain score of 8/10. MEDICAL/SURGICAL HISTORY: Sickle Cell disease. Diabetes. Cholecystectomy. RADIATION DOSE: 7.76 CTDI (mGy) COMPARISON: No prior exams available for comparison. TECHNIQUE: Multiple contiguous axial images were obtained through the pelvis without contrast. Imag es were obtained using multiple row detector helical technique. . Using automated exposure control an d adjustment of the mA and/or kV according to patient size, radiation dose was kept as low as reasona nay achievable to obtain optimal diagnostic quality images. DICOM format image data is available pamela ctronically for review and comparison. FINDINGS: Bowel/Mesentery: The bowel loops are grossly unremarkable. The sigmoid colon has a normal configura tion. Bladder: Partially obscured by bilateral hip prostheses. Retroperitoneum: No evidence of deep pelvic adenopathy. Reproductive Organs: Prostate is not visualized. Inguinal: The inguinal region is unremarkable without evidence of adenopathy. Bony Structures: Chronic bony changes related to sickle cell disease are noted. There is extensive s clerosis throughout the lower lumbar spine and bony pelvis. The fourth and fifth lumbar vertebral bodies are partially fused. There is a lytic area centrally in the L5 vertebral body which extends from the L5-S1 disc superiorly into the endplate of L4. The L5-S1 disc demonstrates irregular sclerotic endplates there is no significant perivertebral inflammation o r fluid collection. CONCLUSION: 1. Chronic appearing sclerotic changes throughout the osseous structures characteristic of chronic s ickle cell disease and bone infarcts. 2. 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 3. Central destructive process in the L5 vertebral body involving the L5-S1 intervertebral disc. It is uncertain whether this represents a chronic process or acute inflammatory disease. Ceretec WBC sca n should be considered for further evaluation. Electronically signed by: Zoltan Nieto MD Board Certified Radiologist 04/19/2018 5:24 PM EST
[2018-04-19] MEDS ORDERED: amLODIPine 5 MG Tablet PO ONE (17:30)
[2018-04-20] MEDS: Insulin NovoLOG Aspart Correctional Sugar Inj SQ SCH ×5 (03:05→21:45)
[2018-04-20] MEDS: HYDROmorphone PF Inj 2 MG/ML Vial IV.PUSH PRN ×4 (03:16→22:03)
[2018-04-20] MEDS: Sodium Bicarbonate 8.4% Inj 75 MEQ in Sodium Chloride 0.45 % Inj 925 ML IV.CONT SCH ×2 (04:17→18:24)
[2018-04-20] MEDS: Heparin - SQ 10,000 UNITS/ML Vial SQ SCH ×2 (08:39→21:38)
[2018-04-20] MEDS: amLODIPine 10 MG Tablet PO SCH (08:40)
[2018-04-20] MEDS: Senna/Docusate Sodium 8.6/50 MG Tablet PO SCH ×2 (08:40→21:39)
[2018-04-20 09:17] LABS: Hematocrit 24.9 % (39.0-51.0)
[2018-04-20 09:56] LABS: Phosphorus 3.5 mg/dL (2.5-4.9)
[2018-04-20 10:00] LABS: Albumin 2.5 g/dL (3.4-5.0); Calcium 8.4 mg/dL (8.5-10.1); Carbon Dioxide 21.7 meq/L (21.0-32.0); Potassium 4.7 meq/L (3.5-5.1)
--- NOTE | 2018-04-20 11:18 | P.PNNP ---
Subjective Interval history: Resting comfortably with no complaints. Back pain is well controlled. Creatinine continues to improve at 2.54 today. <Renea Resendez - Last Filed: 04/20/18 11:13> Physical Exam Vital signs: Vital Signs 04/19/18 11:14 04/19/18 11:32 04/19/18 16:00 Temperature 98.1 F 98.3 F 98.5 F Pulse Rate 72 73 85 Respiratory Rate 18 22 18 Blood Pressure 162/75 H 170/81 H 175/81 H Pulse Oximetry 99 99 96 04/19/18 18:59 04/19/18 20:00 04/20/18 00:00 Temperature 97.8 F 97.8 F Pulse Rate 74 71 Respiratory Rate 20 20 Blood Pressure 152/80 H 154/79 H 134/76 Pulse Oximetry 96 96 04/20/18 04:00 04/20/18 07:55 Temperature 96.6 F L 97.6 F Pulse Rate 66 61 Respiratory Rate 20 16 Blood Pressure 142/82 H 172/84 H Pulse Oximetry 97 92 L Intake & Output 04/19/18 04/20/18 04/20/18 18:59 06:59 18:59 Intake Total 3550 / 3550 1380 / 1380 Output Total 950 / 950 300 / 300 Balance 2600 / 2600 1080 / 1080 Weight 56.6 kg Intake: IV 1999 1000 / 1000 Sodium Bicarbonate 8.4% Inj 75 1999 1000 / 1000 MEQ In 1/2 Normal Saline Inj 925 ML @ 100 mls/hr IV.CONT . Q10H [facility] Rx#:[id number] Oral 750 / 750 380 / 380 Other 400 / 400 Rbc As-3 Leukoreduced Unit 400 / 400 [id number] Intake (Blood Product) Amt 400 / 400 Rbc As-3 Leukoreduced Unit 400 / 400 [id number] Output: Urine 950 / 950 300 / 300 Other: Date of Last Bowel Movement 04/17/18 Narrative: GENERAL: Alert and oriented. NAD. SKIN: Warm and dry. NECK: Supple, trachea midline. No JVD CARDIOVASCULAR: Regular rate and rhythm without murmurs, gallops, or rubs. RESPIRATORY: Breath sounds equal bilaterally. No accessory muscle use. GASTROINTESTINAL: Abdomen soft, non-tender, nondistended. +BS MUSCULOSKELETAL: No cyanosis, or edema. BACK: No CVA tenderness. <Renea Resendez - Last Filed: 04/20/18 11:13> Vital signs: Vital Signs 04/20/18 00:00 04/20/18 04:00 04/20/18 07:55 Temperature 97.8 F 96.6 F L 97.6 F Pulse Rate 71 66 61 Respiratory Rate 20 20 16 Blood Pressure 134/76 142/82 H 172/84 H Pulse Oximetry 96 97 92 L 04/20/18 11:20 04/20/18 16:12 Temperature 97.7 F 98.0 F Pulse Rate 72 60 Respiratory Rate 20 20 Blood Pressure 143/89 H 150/79 H Pulse Oximetry 95 98 Intake & Output 04/20/18 04/20/18 04/21/18 06:59 18:59 06:59 Intake Total 1380 / 1380 1000 / 1000 Output Total 300 / 300 Balance 1080 / 1080 1000 / 1000 Weight 56.6 kg Intake: IV 1000 / 1000 1000 / 1000 Sodium Bicarbonate 8.4% Inj 75 1000 / 1000 1000 / 1000 MEQ In 1/2 Normal Saline Inj 925 ML @ 100 mls/hr IV.CONT . Q10H [facility] Rx#:[id number] Oral 380 / 380 Output: Urine 300 / 300 Other: Date of Last Bowel Movement 04/17/18 <Danielle Hannah - Last Filed: 04/20/18 20:26> Assessment and Plan - Assessment (1) Acute renal failure (ARF) Code(s): N17.9 - Acute kidney failure, unspecified Status: Resolved Plan: Acute kidney injury with a creatinine of 4.22, potassium level of 4.0, and HCO3 at 15.6 on day of consult. Baseline creatinine approximately at 2.5, not followed by Ip Attorney outpatient. Large amount of protein noted in urine. 24 hour urine with 4.6 grams of protein. Chronic kidney disease possibly from Diabetes or HTN/ renovascular disease LESA under investigation possibly intrinsic with FeNA of 7.6%. Complements normal. Renal ultrasound with complex mass above bladder, echogenic kidneys. Avoid nephrotoxins including NSAIDS and IV contrast. Recommend to continue IVF's, oral fluids encouraged. If taking adequate oral intake recommend to discontinue IVF's. Continue to maintain strict I+O's. Continue to hold RUDI can be restarted at later date. Urology consulted for mass above bladder. CT of pelvis reviewed Will monitor urinary output and BMP. Labs in AM (2) Diabetes Code(s): E11.9 - Type 2 diabetes mellitus without complications Status: Acute Plan: Maintain blood sugars between 140 mg/dl to 180 mg/dl. Well controlled. (3) Sickle cell anemia Code(s): D57.1 - Sickle-cell disease without crisis Status: Acute Qualifiers: Sickle-cell associated disorders: without crisis Qualified Code(s): D57.1 - Sickle-cell disease without crisis Plan: Pain medication as needed. IVF's/. HGB at 9.1. Has been transfused (4) Hypertension Code(s): I10 - Essential (primary) hypertension Status: Acute Plan: Well controlled will monitor. <Renea Resendez - Last Filed: 04/20/18 11:13> - Assessment (1) Acute renal failure (ARF) Code(s): N17.9 - Acute kidney failure, unspecified Status: Resolved Plan: Patient seen and examined, agree with above. Creatinine improving, continue IVF and encourage oral intake. (2) Diabetes Code(s): E11.9 - Type 2 diabetes mellitus without complications Status: Acute (3) Sickle cell anemia Code(s): D57.1 - Sickle-cell disease without crisis Status: Acute Qualifiers: Sickle-cell associated disorders: without crisis Qualified Code(s): D57.1 - Sickle-cell disease without crisis (4) Hypertension Code(s): I10 - Essential (primary) hypertension Status: Acute <Danielle Hannah - Last Filed: 04/20/18 20:26>
--- NOTE | 2018-04-20 11:44 | P.PNIM ---
Subjective Interval history: Late entry for 04/19/2018 Follow-up for lower back pain in a patient with sickle cell disease, acute kidney injury. Patient is doing well. No acute concerns. No fever, chills. Physical Exam Vital signs: Last Vital Signs Temp 97.6 F 04/20/18 07:55 Pulse 61 04/20/18 07:55 Resp 16 04/20/18 07:55 BP 172/84 H 04/20/18 07:55 Pulse Ox 92 L 04/20/18 07:55 Intake & Output 04/18/18 04/19/18 04/20/18 04/21/18 06:59 06:59 06:59 06:59 Intake Total 1000 / 1000 3826 / 3826 4930 / 4930 Output Total 1350 / 1350 1250 / 1250 Balance 1000 / 1000 2476 / 2476 3680 / 3680 Weight 56.699 kg 56.699 kg 56.6 kg Narrative: GENERAL: Alert and oriented. NAD. SKIN: Warm and dry. NECK: Supple, trachea midline. No JVD CARDIOVASCULAR: Regular rate and rhythm without murmurs, gallops, or rubs. RESPIRATORY: Breath sounds equal bilaterally. No accessory muscle use. GASTROINTESTINAL: Abdomen soft, non-tender, nondistended. +BS MUSCULOSKELETAL: No cyanosis, or edema. BACK: No CVA tenderness. Results Labs CBC & Chem 7: 04/20/18 09:05 04/20/18 09:23 Imaging Imaging: Impressions Pelvis CT 04/19/18 00:00 CONCLUSION: 1. 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 2. 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 3. Central destructive process in the L5 vertebral body involving the L5-S1 intervertebral disc. It is uncertain whether this represents a chronic process or acute inflammatory disease. [facility] be [facility] for further evaluation. Assessment and Plan (1) Pelvic mass in male: Code(s): R19.00 - Intra-abdominal and pelvic swelling, mass and lump, unspecified site Status: Acute Onset Date: Unknown Plan Mr. Higgins is a pleasant 52-year-old -[place] male with a history of sickle cell disease, diabetes mellitus, chronic kidney disease and hypertension who presented to the emergency department on 04/18/2018 due to lower back pain. He stated that his lower back pain is consistent with his typical sickle cell pain crisis. Lab work indicated on chronic kidney disease. His creatinine was 4.22 on 04/18/2018. Subsequently, nephrology was consulted. Acute kidney injury Chronic kidney disease Renal ultrasound shows, a complex mass sitting on top of the bladder. Discussed with architectural drafter. Urology consulted, CT pelvis ordered. -Creatinine 4.22 --> 3.01 today. Sickle cell pain crisis Continue IV hydration as well as IV Dilaudid as needed. Diabetes mellitus Hypertension Continue amlodipine 5 mg daily, sliding scale insulin. Goal blood glucose [id number]. Continue Levemir 5 units QHS. Full code. Heparin SQ Progress Note: Quality VTE Deep Vein Thrombosis/Pulmonary Embolism Present on Admission: No
--- NOTE | 2018-04-20 11:47 | P.PNIM ---
Subjective Interval history: Follow-up for lower back pain in a patient with sickle cell disease, acute kidney injury. Patient is doing well. Received 2 units of PRBCs. No acute concerns. Creatinine is improving. Urology evaluated today as well and believes the supra-bladder mass identified was likely a bowel loop. Physical Exam Vital signs: Last Vital Signs Temp 97.6 F 04/20/18 07:55 Pulse 61 04/20/18 07:55 Resp 16 04/20/18 07:55 BP 172/84 H 04/20/18 07:55 Pulse Ox 92 L 04/20/18 07:55 Intake & Output 04/18/18 04/19/18 04/20/18 04/21/18 06:59 06:59 06:59 06:59 Intake Total 1000 / 1000 3826 / 3826 4930 / 4930 Output Total 1350 / 1350 1250 / 1250 Balance 1000 / 1000 2476 / 2476 3680 / 3680 Weight 56.699 kg 56.699 kg 56.6 kg Narrative: GENERAL: Alert and oriented. NAD. SKIN: Warm and dry. NECK: Supple, trachea midline. No JVD CARDIOVASCULAR: Regular rate and rhythm without murmurs, gallops, or rubs. RESPIRATORY: Breath sounds equal bilaterally. No accessory muscle use. GASTROINTESTINAL: Abdomen soft, non-tender, nondistended. +BS MUSCULOSKELETAL: No cyanosis, or edema. BACK: No CVA tenderness. Results Labs CBC & Chem 7: 04/20/18 09:05 04/20/18 09:23 Imaging Imaging: Impressions Pelvis CT 04/19/18 00:00 CONCLUSION: 1. 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 2. 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 3. Central destructive process in the L5 vertebral body involving the L5-S1 intervertebral disc. It is uncertain whether this represents a chronic process or acute inflammatory disease. [facility]. Assessment and Plan (1) Pelvic mass in male: Code(s): R19.00 - Intra-abdominal and pelvic swelling, mass and lump, unspecified site Status: Acute Onset Date: Unknown Plan Mr. Higgins is a pleasant 52-year-old -[place] male with a history of sickle cell disease, diabetes mellitus, chronic kidney disease and hypertension who presented to the emergency department on 04/18/2018 due to lower back pain. He stated that his lower back pain is consistent with his typical sickle cell pain crisis. Lab work indicated on chronic kidney disease. His creatinine was 4.22 on 04/18/2018. Subsequently, nephrology was consulted. Acute kidney injury Chronic kidney disease Renal ultrasound shows, a complex mass sitting on top of the bladder. Discussed with kicking machine operator. Urology consulted, CT pelvis shows no supra- bladder mass. -Creatinine 4.22 --> 3.01 --> 2.54 today. Sickle cell pain crisis Continue IV hydration as well as IV Dilaudid as needed. -CT pelvis showed some L5 destruction and WBC scan was recommended. -WBC scan will be completed tomorrow AM (04/21/2018). -Hgb is 9.0 today after transfusion. Diabetes mellitus Hypertension Continue amlodipine 10 mg daily, sliding scale insulin. Goal blood glucose [id number]. Continue Levemir 5 units QHS. Full code. Heparin SQ Discharge Plan: Probable discharge home tomorrow AM (04/21/2018). Progress Note: Quality VTE Deep Vein Thrombosis/Pulmonary Embolism Present on Admission: No
--- NOTE | 2018-04-20 12:40 | P.PNURO ---
Subjective Patient symptoms today: Feels better today Objective Vital Signs: Vital Signs 04/19/18 16:00 04/19/18 18:59 04/19/18 20:00 Temperature 98.5 F 97.8 F Pulse Rate 85 74 Respiratory Rate 18 20 Blood Pressure 175/81 H 152/80 H 154/79 H Pulse Oximetry 96 96 04/20/18 00:00 04/20/18 04:00 04/20/18 07:55 Temperature 97.8 F 96.6 F L 97.6 F Pulse Rate 71 66 61 Respiratory Rate 20 20 16 Blood Pressure 134/76 142/82 H 172/84 H Pulse Oximetry 96 97 92 L 04/20/18 11:20 Temperature 97.7 F Pulse Rate 72 Respiratory Rate 20 Blood Pressure 143/89 H Pulse Oximetry 95 Intake & Output 04/19/18 04/20/18 04/20/18 18:59 06:59 18:59 Intake Total 3550 / 3550 1380 / 1380 Output Total 950 / 950 300 / 300 Balance 2600 / 2600 1080 / 1080 Weight 56.6 kg Intake: IV 1999 1000 / 1000 Sodium Bicarbonate 8.4% Inj 75 1999 1000 / 1000 MEQ In 1/2 Normal Saline Inj 925 ML @ 100 mls/hr IV.CONT . Q10H [facility] Rx#:[id number] Oral 750 / 750 380 / 380 Other 400 / 400 Rbc As-3 Leukoreduced Unit 400 / 400 [id number] Intake (Blood Product) Amt 400 / 400 Rbc As-3 Leukoreduced Unit 400 / 400 [id number] Output: Urine 950 / 950 300 / 300 Other: Date of Last Bowel Movement 04/17/18 Result Diagrams: 04/20/18 09:05 04/20/18 09:23 Other Results: Abdomen soft, nondistended, nontender Extremities adequately perfused Imaging: Impressions Pelvis CT 04/19/18 00:00 CONCLUSION: 1. 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 2. 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 3. Central destructive process in the L5 vertebral body involving the L5-S1 intervertebral disc. It is uncertain whether this represents a chronic process or acute inflammatory disease. [facility] WBC scan should be considered for further evaluation. Reviewed actual CT scan images and concur with the radiologist impression. No discrete mass lesion noted within the pelvic or lower abdomen. Medications and IVs: Active Medications Generic Name Dose Route Start Last Admin Trade Name Freq PRN Reason Stop Dose Admin Acetaminophen 650 mg 04/18/18 03:21 Tylenol PO Q4H PRN Temp > 100.4 Al Hydroxide/Mg Hydroxide 30 ml 04/18/18 03:21 Milk Of Magnesia Liq PO Q12H PRN Mild Constipation Amlodipine Besylate 10 mg 04/19/18 09:42 04/20/18 08:40 Norvasc PO 10 mg DAILY NOLA Administration Bisacodyl 10 mg 04/18/18 03:21 Dulcolax Supp RECTAL DAILY PRN SEVERE CONSITIPATION Dextrose 50 ml 04/18/18 03:21 D50w Vial IV.PUSH UNSCH PRN PER HYPOGLYCEMIA PROTOCOL Glucagon 1 mg 04/18/18 03:21 Glucagon Inj OTHER PRN PRN for Hypoglycemia Protocol Heparin Sodium (Porcine) 5,000 units 04/18/18 21:00 04/20/18 08:39 Heparin Inj SQ 5,000 units Q12HR NOLA Administration Hydromorphone HCl 1 mg 04/18/18 03:20 04/20/18 08:40 Dilaudid Pf Inj IV.PUSH 1 mg Q4H PRN Administration pain 6-10 Sodium Bicarbonate 75 meq/ 1,000 mls @ 100 mls/hr 04/18/18 12:30 04/20/18 04: 17 Sodium Chloride IV.CONT 100 mls/hr .Q10H NOLA Administration Insulin Aspart 0 unit 04/18/18 08:00 04/20/18 08:39 Novolog Insulin Correctional Sugar Inj SQ Not Given ACHS AND 3AM NOLA Protocol Lactulose 30 ml 04/18/18 03:21 Lactulose Liq PO DAILY PRN SEVERE CONSITIPATION Ondansetron HCl 4 mg 04/18/18 03:21 Zofran Inj IV.PUSH Q6H PRN NAUSEA OR VOMITING Senna/Docusate Sodium 1 tab 04/18/18 09:00 04/20/18 08:40 Clara-Colace PO 1 tab BID NOLA Administration Sennosides 17.2 mg 04/18/18 03:21 Senokot PO Q12H PRN Moderate Constipation Sodium Chloride 2 ml 04/18/18 09:00 04/20/18 08:40 Ns Flush IV.FLUSH 2 ml BID NOLA Administration Sodium Chloride 2 ml 04/18/18 03:21 Ns Flush IV.FLUSH PRN PRN FLUSH AFTER USING IV ACCESS Assessment and Plan - Assessment (1) Pelvic mass in male Code(s): R19.00 - Intra-abdominal and pelvic swelling, mass and lump, unspecified site Status: Acute - Plan Urologic impression: Pelvic mass lesion noted on recent ultrasound not reproduced on CT scanning and may have been a dilated bowel loop. Recommendations: 1. No further recommendations 2. Will be available as needed
[2018-04-21] MEDS: HYDROmorphone PF Inj 2 MG/ML Vial IV.PUSH PRN ×4 (02:11→17:09)
[2018-04-21] MEDS: Sodium Bicarbonate 8.4% Inj 75 MEQ in Sodium Chloride 0.45 % Inj 925 ML IV.CONT SCH ×2 (02:16→13:15)
[2018-04-21] MEDS: Insulin NovoLOG Aspart Correctional Sugar Inj SQ SCH ×4 (03:19→18:24)
--- NOTE | 2018-04-21 08:41 | NM ---
EXAM DATE: 04/21/2018 8:30 AM EST AGE/SEX: 52 years / Male INDICATIONS: Abnormal CT scan. Lumbar sacral infection. CLINICAL DATA: This is the patient's initial encounter. Patient reports that signs and symptoms have been present for 1 day and indicates a pain score of 6/10. MEDICAL/SURGICAL HISTORY: Diabetes mellitus type II. Hypertension. Sickle cell anemia. Cholec ystectomy. Shoulder surgery. COMPARISON: [facility], CT PELVIS W/O CONTRAST, 04/19/2018. . DOSE: 21 mCi Tc99m Ceretec labeled white blood cells IV PLANAR IMAGIN min 3 hr , 24 hrs SPECT IMAGIN hr , 24 hrs IMAGING: SPECT/CT imaging with fusion was performed. RADIATION DOSE: 3.29 CTDIvol(mGy) TECHNIQUE: Following the in vitro labeling of autologous white cells and reinjection, whole body sca n was performed at the specified times. Imaging was performed at specified times in sagittal, axial and coronal planes. Attenuation correction was performed with computed tomography and both the atten uation correction and non-attenuation corrected data sets were reviewed. FINDINGS: There is moderate uptake involving the left SI joint towards the midportion. There is no abnormal upt wu involving the L5-S1 space and vertebral bodies to correspond to the area of lucency identified in the patient's prior CT examination. There is abnormal sclerosis of the bony structures characteristi c of sickle cell disease. There is focal uptake involving the left mid thigh could be bony structures or muscular structures at this site. CONCLUSION: 1. There is no abnormal uptake involving L5-S1 level to correspond to the area of lucencies in the p atient's CT examination is chronic and therefore infectious process is not excluded at this site. 2. There is however moderate uptake seen on whole-body scan involving the left SI joint posteriorly possibly infectious process at this site inflammatory change. 3. Focal uptake involving the left mid thigh could be a intramuscular structures or possibly within the femur and infectious processes at this site is difficult to exclude. Electronically signed by: Marguerite Tafoya MD Board Certified Radiologist 04/21/2018 8:40 AM EST
[2018-04-21] MEDS: amLODIPine 10 MG Tablet PO SCH (11:11)
[2018-04-21] MEDS: Heparin - SQ 10,000 UNITS/ML Vial SQ SCH (11:11)
[2018-04-21] MEDS: Senna/Docusate Sodium 8.6/50 MG Tablet PO SCH (11:12)
[2018-04-21 13:26] VITALS: RESP 17; O2SAT 98
[2018-04-21 14:46] LABS: Calcium 8.4 mg/dL (8.5-10.1); Carbon Dioxide 25.6 meq/L (21.0-32.0); Potassium 4.4 meq/L (3.5-5.1)
--- NOTE | 2018-04-21 16:07 | P.DS ---
DS: Providers Date of admission: 04/18/18 03:18 Primary care physician: No Primary Care Physician Consults: 04/18/18 03:19 Consult to Nephrology Routine Consulting Provider: Danielle Hannah Does the patient have a Manager Packaging who follows them?: No Preferred Nephrology City Supervisor:: Hvac Technician Physician Reason for Consultation: acute renal failure Notified:: Service Spoke with:: Rahel Date Notified:: 04/18/18 Time Notified:: 03:28 Ordering Provider: LINDA 04/18/18 11:55 Consult to Urology Routine Consulting Provider: Saulo Melo Reason for Consultation: Sickle cell pt with LESA. Renal ultrasound shows complex mass sitting above the bladder. Notified:: Service Spoke with:: Dominique Date Notified:: 04/18/18 Time Notified:: 12:00 Ordering Provider: ARELIS Brief History from admission: 52-year-old male with a past medical history significant for sickle cell disease , diabetes mellitus, chronic kidney disease and hypertension presents to the emergency department for evaluation of lower back pain. The patient reports that he started having lower back pain that is consistent with his typical sickle cell pain crisis and came to the emergency department for further evaluation. His pain is much improved with 1 dose of IV Dilaudid. Routine lab work in the emergency department showed acutely worsening renal function. The patient reports no decrease in p.o. intake and no urinary changes. He denies any chest pain or shortness of breath. No abdominal pain. No nausea/vomiting/ diarrhea. No focal neurologic deficits. No fever/chills. DS: Diagnosis Discharge Diagnosis (1) Pelvic mass in male: Status: Acute DS: Summary Mr. Higgins is a pleasant 52-year-old -[place] male with a history of sickle cell disease, diabetes mellitus, chronic kidney disease and hypertension who presented to the emergency department on 04/18/2018 due to lower back pain. He stated that his lower back pain is consistent with his typical sickle cell pain crisis. Lab work indicated on chronic kidney disease. His creatinine was 4.22 on 04/18/2018. Subsequently, nephrology was consulted. Acute kidney injury Chronic kidney disease Renal ultrasound shows, a complex mass sitting on top of the bladder. Discussed with director of catering sales. Urology consulted, CT pelvis shows no supra- bladder mass. -Creatinine 4.22 --> 3.01 --> 2.54 --> 2.51 today. Sickle cell pain crisis Continued IV hydration as well as IV Dilaudid as needed. -CT pelvis showed some L5 destruction and WBC scan was recommended. -WBC scan shows no L5 abnormalities. However, SI joint uptake was noted. Patient has no complains, no clinical evidence of infection. -Hgb is 9.0 on 04/20/2018 after transfusion. Diabetes mellitus Hypertension Continue amlodipine 10 mg daily, sliding scale insulin. -Patient may benefit from low dose Glimepiride - he can discuss with his PCP to start any diabetic meds. -Metformin would be relatively contraindicated given eGFR 33. Full code. Heparin SQ while in the hospital. Time Spent with Patient Total time spent providing and/or coordinating discharge services: Quality: VTE Deep Vein Thrombosis/Pulmonary Embolism Present on Admission: No Results Labs on day of discharge: Labs from last 24 hours 04/21/18 04/21/18 04/21/18 14:14 12:13 08:02 Sodium 143 Potassium 4.4 Chloride 111 H Carbon Dioxide 25.6 Anion Gap 6 BUN 43 H Creatinine 2.51 H Estimated GFR 33 L POC Glucose 150 H 89 Random Glucose 113 H Calcium 8.4 L 04/21/18 04/20/18 04/20/18 03:17 21:37 17:56 Sodium Potassium Chloride Carbon Dioxide Anion Gap BUN Creatinine Estimated GFR POC Glucose 162 H 195 H 302 H Random Glucose Calcium Impressions ITS Impressions Abdomen/Bladder Ultrasound 04/18/18 00:00 CONCLUSION: 1. Complex mass sitting above the bladder pertinent significance. 2. Limited exam because of body habitus. Small echogenic kidneys without hydronephrosis Chest X-Ray 04/18/18 00:33 CONCLUSION: No definite acute cardiopulmonary process. 2.7 cm metallic density projecting at the left upper quadrant. Pelvis CT 04/19/18 00:00 CONCLUSION: 1. 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 2. 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 3. Central destructive process in the L5 vertebral body involving the L5-S1 intervertebral disc. It is uncertain whether this represents a chronic process or acute inflammatory disease[facility]. WBC Scan Nuclear Medicine 04/20/18 00:00 CONCLUSION: 1. There is no abnormal uptake involving L5-S1 level to correspond to the area of lucencies in the patient's CT examination is chronic and therefore infectious process is not excluded at this site. 2. There is however moderate uptake seen on whole-body scan involving the left SI joint posteriorly possibly infectious process at this site inflammatory change. 3. Focal uptake involving the left mid thigh could be a intramuscular structures or possibly within the femur and infectious processes at this site is difficult to exclude. Discharge Plan Discharge Disposition Patient Disposition: 01 Discharge Home Discharge Condition Condition: Good Discharge Order Discharge Orders: Discharge Order (Routine); Ordered 04/21/18 Ordered By: Nhung Tang Discharge Details Anticipated Discharge Date: 04/21/18 Discharge Comment: Patient's last pain med was filled on 04/11/2018. No new pain medication prescription. Physicians Team Primary Care Provider: Primary Care Mariely Romeo Attending Provider: Nhung Tang Other Providers: Danielle Hannah John Rxs /Orders / Referrals /Forms Prescriptions: New amlodipine 10 mg tablet 10 mg PO DAILY Qty: 30 RF: 5 Discontinued lisinopril 20 mg Tablet 20 mg PO DAILY RF: 0 amlodipine [Norvasc] 5 mg Tablet 5 mg PO DAILY Qty: 30 RF: 0 Referrals: Primary Care Mariely Romeo [Primary Care Provider] - See Instructions (Follow up with PCP within 1-2 weeks. ) Discharge Instructions Patient Printed Instructions: Amlodipine (By mouth), Sickle Cell Disease (DC), Hypertension (DC) Post Discharge Care Plan Care Plan Goals: Your Health Problems: Goals to Promote Your Health: * To prevent worsening of your condition * To maintain your health at the optimal level Directions to Meet Your Goals: * Take your medications as prescribed * Follow your dietary instruction * Follow activity as directed * Keep your appointments as scheduled * Take your immunizations and boosters as scheduled * If your symptoms worsen call your PCP * If no PCP go to Urgent Care or Emergency Room Smoking is dangerous to your health. Avoid second hand smoke. You may reach the 24-hour crisis hotline for domestic abuse at . Status ED Status: Left Department
--- NOTE | 2018-04-21 17:02 | P.PNNP ---
Subjective Interval history: no acute complaints Physical Exam Vital signs: Vital Signs 04/21/18 00:00 04/21/18 04:00 04/21/18 08:00 Temperature 97.9 F 97.2 F L 97.9 F Pulse Rate 63 56 L 60 Respiratory Rate 17 17 18 Blood Pressure 175/81 H 174/83 H 161/75 H Pulse Oximetry 97 96 97 04/21/18 12:00 Temperature 97.4 F L Pulse Rate 64 Respiratory Rate 17 Blood Pressure 137/66 Pulse Oximetry 98 Intake & Output 04/20/18 04/21/18 04/21/18 18:59 06:59 18:59 Intake Total 1675 / 1675 2140 / 2140 1000 / 1000 Output Total 1300 / 1300 950 / 950 Balance 375 / 375 1190 / 1190 1000 / 1000 Weight 55.2 kg Intake: IV 1025 / 1025 1900 / 1900 1000 / 1000 Sodium Bicarbonate 8.4% Inj 75 1025 / 1025 1900 / 1900 1000 / 1000 MEQ In 1/2 Normal Saline Inj 925 ML @ 100 mls/hr IV.CONT . Q10H [place] Rx#:[id number] Oral 650 / 650 240 / 240 Output: Urine 1300 / 1300 950 / 950 Other: Date of Last Bowel Movement 04/17/18 04/19/18 # Bowel Movements 0 - Constitutional no acute distress - Routine HEENT Exam Head: Present: normocephalic Eye: Present: EOMI ENT: Present: mucous membranes moist - Routine Neck Exam Present: supple - Routine Respiratory Exam Present: CTA bilaterally - Routine Cardiovascular Exam Present: RRR - Routine Abdominal Exam Present: soft - Routine Skin Exam Present: intact - Routine Neurological Exam Present: alert, oriented X3 - Detailed Neurological Exam: Coma Scale Eye Opening: Spontaneous - Routine Psychiatric Exam Present: normal affect Assessment and Plan - Assessment (1) Acute renal failure (ARF) Code(s): N17.9 - Acute kidney failure, unspecified Status: Resolved Plan: Acute kidney injury with a creatinine of 4.22, potassium level of 4.0, and HCO3 at 15.6 on day of consult. Baseline creatinine approximately at 2.5, not followed by [employer] outpatient. Large amount of protein noted in urine. 24 hour urine with 4.6 grams of protein. Chronic kidney disease possibly from Diabetes or HTN/ renovascular disease LESA under investigation possibly intrinsic with FeNA of 7.6%. Complements normal. Renal ultrasound with complex mass above bladder, echogenic kidneys. However CT negative for any mass, reviewed per . Creatinine improved: 2.5 today, at baseline status. OK for d/c from renal standpoint. (2) Diabetes Code(s): E11.9 - Type 2 diabetes mellitus without complications Status: Acute Plan: Maintain blood sugars between 140 mg/dl to 180 mg/dl. Well controlled. (3) Sickle cell anemia Code(s): D57.1 - Sickle-cell disease without crisis Status: Acute Qualifiers: Sickle-cell associated disorders: without crisis Qualified Code(s): D57.1 - Sickle-cell disease without crisis Plan: Pain medication as needed. IVF's/. HGB at 9.1. Has been transfused (4) Hypertension Code(s): I10 - Essential (primary) hypertension Status: Acute Plan: Well controlled will monitor.
[2018-04-21 17:47] VITALS: BP 147/72; PULSE 71; TEMP 97.5
== END 2018-04-21 20:05 | disposition home or self-care (01) | DRG 812 ==
LOC: NEPE 20:32 → NEDA 04-18 03:18 → NEPFCDU 04-18 04:16 → N04 04-20 21:48
PROVIDERS: ADMIT Hospitalist; ATTEND Hospitalist
CPT/HCPCS: 36430; 71010; 71045; 72192; 76775; 76937; 78807; 78999; 80048; 80053; 80069; 80307; 81001; 82570; 82948; 82962; 83935; 84156; 84300; 85014; 85018; 85025; 85044; 86021; 86038; 86160; 86850; 86900; 86901; 86923; 90761; 90774; 90775; 90784; 96361; 96374; 96375; 99285; A9569; C8952; J1170; J1200; J1644; J1815; J2405; J7030; J7050; P9016

== ENCOUNTER 2018-05-31 17:10 | Inpatient (IN) ==
--- NOTE | 2018-05-31 18:45 | XR ---
EXAM DATE: 05/31/2018 6:36 PM EST AGE/SEX: 52 years / Male INDICATIONS: Short of breath. Sickle cell pain. CLINICAL DATA: This is the patient's initial encounter. Patient reports that signs and symptoms have been present for 1 day and indicates a pain score of Nonresponsive. MEDICAL/SURGICAL HISTORY: . Sickle Cell disease. Diabetes. . Cholecystectomy COMPARISON: C, CHEST 1V SINGLE AP, 04/18/2018. . FINDINGS: No significant new focal pleural or parenchymal opacities. The cardiomediastinal contours are unrema rkable. Degenerative changes of the left shoulder with apparent right shoulder prosthesis. Osseous st ructures are intact. CONCLUSION: 1. No acute abnormality or significant interval change. Electronically signed by: Frederick Calle MD Board Certified Radiologist 05/31/2018 6:44 PM EST
--- NOTE | 2018-05-31 18:50 | ED ---
HPI General Chief complaint: Respiratory Symptoms Stated complaint: sickle cell pain Time Seen by Provider: 05/31/18 18:29 Source: patient Mode of arrival: EMS Limitations: no limitations History of Present Illness HPI narrative: 52yo M with PMH of sickle cell disease, DM, CKD, HTN presents to the ED with c/o generalized weakness since yesterday. Pt went to see his pelletizer today for routine check up and felt nauseous with some sob. + Cough. Pt denies any chest pain, vomiting, abdominal pain, visual changes, focal weakness or numbness. Pt has chronic back pain and is on lortab for it. Related Data Home Medications Medication Instructions Recorded Confirmed folic acid 1 mg PO DAILY 05/31/18 05/31/18 Previous Rx's Medication Instructions Recorded amlodipine 10 mg PO DAILY #30 tab 04/21/18 Allergies Allergy/AdvReac Type Severity Reaction Status Date / Time lorazepam Allergy Severe Shortness Verified 04/17/18 20:55 of Breath Review of Systems ROS: all other systems reviewed are negative FOR[facility]LY [facility] Social History Social History Substance History: No History of Abuse Second Hand Smoke Exposure: Yes Smoking Status: Current every day smoker Tobacco Type: Cigarettes Cigarettes Per Day: 10 How Often Do You Have a Drink Containing Alcohol: Never Recent Travel in [facility] within the Last 8 Weeks: No Recent Out of Country Travel within the Last 8 Weeks: No Immunization History Tetanus Immunization: Unsure Exam Narrative Exam Narrative: GENERAL: 52yo M in mild distress. SKIN: Focused skin assessment warm/dry. HEAD: Atraumatic. Normocephalic. EYES: Pupils equal and round at 4mm bilaterally. EOMI. ENT: No nasal bleeding or discharge. Mucous membranes pink and moist. NECK: Trachea midline. No JVD. CARDIOVASCULAR: Regular rate and rhythm. No murmur appreciated. RESPIRATORY: No accessory muscle use. Clear to auscultation. Breath sounds equal bilaterally. GASTROINTESTINAL: Abdomen soft, non-tender, nondistended. +Umbilical hernia, easily reducible and has no tenderness. BACK: No midline thoracic or lumbar ttp. MUSCULOSKELETAL: No obvious deformities. No clubbing. No cyanosis. No edema. NEUROLOGICAL: Awake and alert. No obvious cranial nerve deficits. Motor grossly within normal limits in all extremities. Sensation equal bilaterally. Normal speech. PSYCHIATRIC: Appropriate mood and affect; insight and judgment normal. Course Initial Documented Vital Signs Temperature 98.7 F 05/31/18 17:35 Pulse Rate 76 05/31/18 17:35 Blood Pressure 200/90 H 05/31/18 17:35 Pulse Oximetry 94 L 05/31/18 17:35 Last Documented Vital Signs Temperature 97.3 F L 06/01/18 12:00 Pulse Rate 71 06/01/18 12:00 Respiratory Rate 18 06/01/18 12:00 Blood Pressure 148/82 H 06/01/18 12:00 Pulse Oximetry 99 06/01/18 12:00 Medical Decision Making MDM Narrative Medical decision making narrative: 52yo M with c/o generalized weakness, nausea and sob. O2 sat is 98% on RA. Pt seems drowsy but easily arousable and answers all my questions. Pt is AAOx3. BP is elevated so give hydralazine. Denies any headache, visual changes, slurred speech, focal weakness or numbness. Pt was just admitted for LESA and found to have a bladder mass 2018. Labs reviewed, no leukocytosis. H/H low at 8.4/24.8. This is baseline. BUN/creatinine is elevated at 61/4.80 which is significant increased from 43/ 2.51 when he was discharged last admission on 04/21/18. CO2 is low at 13.6. Will add a VBG, CT a/p without contrast to r/o post renal cause of acute on chronic kidney failure. CXR showed acute abnormality. BP was 200/90 and BP improved to 137/78 after hydralazine. Upon review of nephrology note by Dr. Maradiaga in April, pt's baseline creatinine is about 2.5. Had renal ultrasound that showed complex mass above bladder, but it is not seen on CT. Pt is arousable but seems lethargic. Unknown baseline. Feel that it may be from his chronic lortab. Ammonia is normal. Pt has not urinated and said he does not need to. Catheter placed and 800cc of urine returned. UA showed negative leukocyte and nitrite. VBG showed metabolic acidosis with respiratory compensation. pH 7.28, HCO3 low at 13, PCO2 29. CT a/p showed no hydronephrosis or renal stones. 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 Discussed with Dr. Webb's PA Mena and accepted to her service. Medical Screen Exam Complete: Yes Emergency Medical Condition: Yes Differential Diagnosis Differential Diagnosis: Symptomatic anemia vs. Acute chest syndrome vs. Pneumonia vs. UTI vs. dehydration vs. electrolyte abnormality Lab Data Result diagrams: 06/01/18 05:20 06/01/18 05:20 Lab Results 05/31/18 05/31/18 05/31/18 Range/Units 18:30 18:30 19:20 CBC w Diff Slide review pending WBC 8.0 (4.0-11.0) th/mm3 RBC 2.16 L (4.50-5.90) mil/mm3 Hgb 8.4 L (13.0-17.0) gm/dL Hct 24.8 L (39.0-51.0) % MCV 114.6 H (80.0-100.0) fL MCH 38.6 H (27.0-34.0) pg MCHC 33.7 (32.0-36.0) % RDW 25.1 H (11.6-17.2) % Plt Count 362 (150-450) th/mm3 MPV 7.6 (7.0-11.0) fL WBC Differential Manual diff final Seg Neuts % (Manual) 64 (16-70) % Lymphocytes % (Manual) 29 (9-44) % Monocytes % (Manual) 5 (0-8) % Eosinophils % (Manual) 1 (0-4) % Basophils % (Manual) 1 (0-2) % Abs Neuts (Manual) 5.1 (1.8-7.7) th/mm3 Nucleated RBCs/100 WBC 1 H (0-0) /100 WBC Differential Comment . Platelet Estimate Normal (Normal) Platelet Morphology Clumped H (Normal) Dimorphic RBCs Present H (None) Sickle Cells 1+ H (None) Tear Drop Cells 1+ H (None) Ovalocytes 1+ H (None) Stomatocytes 1+ H (None) Keratocytes 1+ H (None) Puncture Site Patient Temperature VBG pH (7.360-7.400) VBG pCO2 (44-48) mmHG VBG pO2 (35-40) mmHG VBG HCO3 (22-26) mmol/L VBG O2 Saturation (70-76) % VBG O2 Content (9.0-17.0) Vol % VBG Base Excess (-2-2) mmol/L VBG Carboxyhemoglobin (0-4) % VBG Methemoglobin (0-2) % Hemoglobin (12.0-16.0) G/DL Inspired O2 % Critical Value Sodium 138 (136-145) meq/L Potassium 4.7 (3.5-5.1) meq/L Chloride 114 H (98-107) meq/L Carbon Dioxide 13.6 L (21.0-32.0) meq/L Anion Gap 10 (5-15) meq/L BUN 61 H (7-18) mg/dL Creatinine 4.80 H (0.60-1.30) mg/dL Estimated GFR 15 L (>89) mL/min Random Glucose 106 (74-106) mg/dL Calcium 8.2 L (8.5-10.1) mg/dL Ammonia (11-32) mcmol/L Troponin I 0.02 (0.02-0.05) ng/mL Urine Color (Yellw/Straw) Urine Clarity (Clear) Urine pH (5.0-8.5) Ur Specific [place] (1.002-1.035) Urine Protein (Neg-Trace) mg/dL Urine Glucose (UA) (Negative) mg/dL Urine Ketones (Negative) mg/dL Urine Occult Blood (Negative) Urine Nitrate (Negative) Urine Bilirubin (Negative) Urine Urobilinogen (Less than 2) mg/dL Ur Leukocyte Esterase (Negative) Amorphous Sediment (None) /hpf Micro UA Comment Ur Microscopic Review Urine Culture Comments 05/31/18 05/31/18 05/31/18 Range/Units 19:46 19:55 20:35 CBC w Diff WBC (4.0-11.0) th/mm3 RBC (4.50-5.90) mil/mm3 Hgb (13.0-17.0) gm/dL Hct (39.0-51.0) % MCV (80.0-100.0) fL MCH (27.0-34.0) pg MCHC (32.0-36.0) % RDW (11.6-17.2) % Plt Count (150-450) th/mm3 MPV (7.0-11.0) fL WBC Differential Seg Neuts % (Manual) (16-70) % Lymphocytes % (Manual) (9-44) % Monocytes % (Manual) (0-8) % Eosinophils % (Manual) (0-4) % Basophils % (Manual) (0-2) % Abs Neuts (Manual) (1.8-7.7) th/mm3 Nucleated RBCs/100 WBC (0-0) /100 WBC Differential Comment Platelet Estimate (Normal) Platelet Morphology (Normal) Dimorphic RBCs (None) Sickle Cells (None) Tear Drop Cells (None) Ovalocytes (None) Stomatocytes (None) Keratocytes (None) Puncture Site Rac Patient Temperature 98.6 VBG pH 7.28 L* (7.360-7.400) VBG pCO2 29 L (44-48) mmHG VBG pO2 34 L (35-40) mmHG VBG HCO3 13 L* (22-26) mmol/L VBG O2 Saturation 53 L (70-76) % VBG O2 Content 5.9 L (9.0-17.0) Vol % VBG Base Excess -12.6 L (-2-2) mmol/L VBG Carboxyhemoglobin 1.1 (0-4) % VBG Methemoglobin 2.3 H (0-2) % Hemoglobin 7.7 L (12.0-16.0) G/DL Inspired O2 21 % Critical Value Yes Sodium (136-145) meq/L Potassium (3.5-5.1) meq/L Chloride (98-107) meq/L Carbon Dioxide (21.0-32.0) meq/L Anion Gap (5-15) meq/L BUN (7-18) mg/dL Creatinine (0.60-1.30) mg/dL Estimated GFR (>89) mL/min Random Glucose (74-106) mg/dL Calcium (8.5-10.1) mg/dL Ammonia 28 (11-32) mcmol/L Troponin I (0.02-0.05) ng/mL Urine Color Yellow (Yellw/Straw) Urine Clarity Clear (Clear) Urine pH 5.5 (5.0-8.5) Ur Specific [place] 1.015 (1.002-1.035) Urine Protein 100 H (Neg-Trace) mg/dL Urine Glucose (UA) Negative (Negative) mg/dL Urine Ketones Negative (Negative) mg/dL Urine Occult Blood Trace (Negative) Urine Nitrate Negative (Negative) Urine Bilirubin Negative (Negative) Urine Urobilinogen 0.2 (Less than 2) mg/dL Ur Leukocyte Esterase Negative (Negative) Amorphous Sediment Few H (None) /hpf Micro UA Comment Cath-culture not ind Ur Microscopic Review Microscopic reviewed Urine Culture Comments Cath-cult not ind 06/01/18 06/01/18 Range/Units 05:20 05:20 CBC w Diff Slide review pending WBC 8.5 (4.0-11.0) th/mm3 RBC 2.15 L (4.50-5.90) mil/mm3 Hgb 8.1 L (13.0-17.0) gm/dL Hct 24.7 L (39.0-51.0) % MCV 114.9 H (80.0-100.0) fL MCH 37.4 H (27.0-34.0) pg MCHC 32.6 (32.0-36.0) % RDW 25.0 H (11.6-17.2) % Plt Count 350 (150-450) th/mm3 MPV 8.0 (7.0-11.0) fL WBC Differential Manual diff final Seg Neuts % (Manual) 56 (16-70) % Lymphocytes % (Manual) 36 (9-44) % Monocytes % (Manual) 3 (0-8) % Eosinophils % (Manual) 4 (0-4) % Basophils % (Manual) 1 (0-2) % Abs Neuts (Manual) 4.8 (1.8-7.7) th/mm3 Nucleated RBCs/100 WBC 2 H (0-0) /100 WBC Differential Comment . Platelet Estimate Normal (Normal) Platelet Morphology Normal (Normal) Dimorphic RBCs Present H (None) Sickle Cells (None) Tear Drop Cells (None) Ovalocytes 1+ H (None) Stomatocytes (None) Keratocytes (None) Puncture Site Patient Temperature VBG pH (7.360-7.400) VBG pCO2 (44-48) mmHG VBG pO2 (35-40) mmHG VBG HCO3 (22-26) mmol/L VBG O2 Saturation (70-76) % VBG O2 Content (9.0-17.0) Vol % VBG Base Excess (-2-2) mmol/L VBG Carboxyhemoglobin (0-4) % VBG Methemoglobin (0-2) % Hemoglobin (12.0-16.0) G/DL Inspired O2 % Critical Value Sodium 141 (136-145) meq/L Potassium 4.1 (3.5-5.1) meq/L Chloride 117 H (98-107) meq/L Carbon Dioxide 13.5 L (21.0-32.0) meq/L Anion Gap 11 (5-15) meq/L BUN 65 H (7-18) mg/dL Creatinine 4.10 H (0.60-1.30) mg/dL Estimated GFR 19 L (>89) mL/min Random Glucose 89 (74-106) mg/dL Calcium 8.2 L (8.5-10.1) mg/dL Ammonia (11-32) mcmol/L Troponin I (0.02-0.05) ng/mL Urine Color (Yellw/Straw) Urine Clarity (Clear) Urine pH (5.0-8.5) Ur Specific [place] (1.002-1.035) Urine Protein (Neg-Trace) mg/dL Urine Glucose (UA) (Negative) mg/dL Urine Ketones (Negative) mg/dL Urine Occult Blood (Negative) Urine Nitrate (Negative) Urine Bilirubin (Negative) Urine Urobilinogen (Less than 2) mg/dL Ur Leukocyte Esterase (Negative) Amorphous Sediment (None) /hpf Micro UA Comment Ur Microscopic Review Urine Culture Comments Imaging Data Radiologist's impression: Chest X-Ray 05/31/18 00:00 CONCLUSION: 1. No acute abnormality or significant interval change. Abdomen/Pelvis CT 05/31/18 19:26 CONCLUSION: 1. No evidence of hydronephrosis or renal stones. 2. 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 3. No pelvic mass seen. ECG Data EKG Prior to Arrival: No Attestation: I personally reviewed and interpreted this ECG as follows: Interpretation: NSR 69bpm. PACs. Normal axis. LVH. TWI III, aVF. No significant ST elevation or depression. Discharge Plan Discharge Disposition Patient Disposition: ED Admit(ED Internal Use Only) Discharge Order Discharge Orders: ED Use Only Admit Order (Routine); Ordered 05/31/18 Ordered By: Adelaide Renner Discharge Details Diagnosis: Acute on chronic kidney failure Physicians Team ED Provider: Adelaide Renner Primary Care Provider: Primary Care Mariely Romeo Attending Provider: Vipin Cabrera Other Providers: Danielle Hannah Status ED Status: Left Department Discharge Information Discharge Date/Time: 05/31/18 23:12
[2018-05-31] MEDS ORDERED: hydrALAZINE HCl Inj 20 MG/ML Vial IV.PUSH ONE (18:51)
[2018-05-31 18:56] LABS: Hematocrit 24.8 % (39.0-51.0); Hemoglobin 8.4 gm/dL (13.0-17.0); Mean Corpuscular HGB Conc 33.7 % (32.0-36.0); Mean Corpuscular Hemoglobin 38.6 pg (27.0-34.0); Mean Corpuscular Volume 114.6 fL (80.0-100.0); Mean Platelet Volume 7.6 fL (7.0-11.0); Platelet Count 362 th/mm3 (150-450); Red Blood Count 2.16 mil/mm3 (4.50-5.90); Red Cell Distribution Width 25.1 % (11.6-17.2)
[2018-05-31 19:03] LABS: Potassium 4.7 meq/L (3.5-5.1)
[2018-05-31 19:06] LABS: Calcium 8.2 mg/dL (8.5-10.1); Carbon Dioxide 13.6 meq/L (21.0-32.0)
[2018-05-31 19:41] LABS: Eosinophils 1 % (0-4); Lymphocytes 29 % (9-44); Monocytes 5 % (0-8); Ovalocytes 1+; Sickle Cells 1+; Stomatocytes 1+; Tallied Nucleated RBC 1 (0-0); Tear Drop Cells 1+
[2018-05-31 19:42] LABS: Dimorphic RBC Present; Platelet Estimate Normal (Normal); Platelet Morphology Clumped (Normal)
[2018-05-31 19:56] LABS: VBG Base Excess -12.6 mmol/L (-2-2); VBG Blood Gas Oxygen Content 5.9 Vol % (9.0-17.0); VBG PCO2 29 mmHG (44-48); VBG PH 7.28 (7.360-7.400); VBG PO2 34 mmHG (35-40)
[2018-05-31] MEDS ORDERED: Sodium Chlor 0.9% Inj 500 ML IV.SIG SCH (20:00)
[2018-05-31 20:15] LABS: Bilirubin,Urine Negative (Negative); Clarity,Urine Clear (Clear); Color,Urine Yellow (Yellw/Straw); Glucose,Urine (UA) Negative (Negative); Leukocyte Esterase,Urine Negative (Negative); Nitrite,Urine Negative (Negative); PH,Urine 5.5 (5.0-8.5); Specific Gravity,Urine 1.015 (1.002-1.035); Urobilinogen,Urine 0.2 mg/dL (Less than 2)
--- NOTE | 2018-05-31 20:32 | CT ---
EXAM DATE: 05/31/2018 8:21 PM EST AGE/SEX: 52 years / Male INDICATIONS: Renal failure. Rule out obstructive cause. CLINICAL DATA: This is the patient's initial encounter. Patient reports that signs and symptoms have been present for 1 day and indicates a pain score of 8/10. MEDICAL/SURGICAL HISTORY: Sickle Cell disease. Diabetes. Hypertension. Chronic kidney diseas e. Cholecystectomy. Shoulder surgery. RADIATION DOSE: 6.11 CTDI (mGy) COMPARISON: C, CT PELVIS W/O CONTRAST, 04/19/2018. POI, MR LUMBAR SPINE W/O CONTRAST, 9. C, US KIDNEY/RENAL/BLADDER, 04/18/2018. POI, XR HIP AP AND LAT, RIGHT, 01/06/2016. . TECHNIQUE: Multiple contiguous axial images were obtained through the abdomen. Images were obtained using multiple row detector helical technique. Using automated exposure control and adjustment of the mA and/or kV according to patient size, radiation dose was kept as low as reasonably achievable to o btain optimal diagnostic quality images. DICOM format image data is available electronically for rev iew and comparison. FINDINGS: Lower Lungs: The visualized lower lungs are clear. Liver: There is a 1.8 cm cyst in the upper right lobe. No biliary ductal dilatation. Cholecystectomy. Spleen: Homogeneous density without enlargement. Pancreas: Unremarkable without mass or calcification. Kidneys: Normal in size and shape. No evidence of mass or hydronephrosis. No calcified stones seen. Adrenal Glands: Unremarkable. Aorta: The aorta and proximal iliac vessels are grossly unremarkable without aneurysmal dilation. Bowel/Mesentery: No dilated loops of small or large bowel. Scattered stool throughout the colon. Abdominal Wall: Intact. Retroperitoneum: No evidence of adenopathy in the retrocrural, para-aortic, or deep pelvic regions. Bladder: The visualized portion of the urinary bladder is smooth margins. There is obscuration of ce ntral portion of the pelvis due to bilateral streak artifact from bilateral total hip arthroplasty Reproductive Organs: No abnormal masses or calcifications seen. Inguinal: The inguinal region is unremarkable without evidence of adenopathy. 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 Stable central destructive process of the L5 vertebral body fusion at L4-5.. Bilateral total hip arthroplasty. Moderate curvature of the lumbar sp ine convex towards the left. CONCLUSION: 1. No evidence of hydronephrosis or renal stones. 2. 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 3. No pelvic mass seen. Electronically signed by: Nomi Rivero MD Board Certified Radiologist 05/31/2018 8:31 PM EST
[2018-05-31 20:46] LABS: Amorphous Sediment,Urine Few /hpf
[2018-05-31] MEDS ORDERED: Acetaminophen 325 MG Tablet PO PRN (21:18)
[2018-05-31] MEDS ORDERED: Sodium Bicarbonate 8.4% Inj 50 MEQ/50 ML Syringe IV.PUSH ONE (21:24)
[2018-05-31] MEDS: Heparin - SQ 10,000 UNITS/ML Vial SQ SCH (22:20)
[2018-06-01] MEDS: Heparin - SQ 10,000 UNITS/ML Vial SQ SCH ×3 (05:06→20:30)
[2018-06-01 06:23] LABS: Hematocrit 24.7 % (39.0-51.0); Hemoglobin 8.1 gm/dL (13.0-17.0); Mean Corpuscular HGB Conc 32.6 % (32.0-36.0); Mean Corpuscular Hemoglobin 37.4 pg (27.0-34.0); Mean Corpuscular Volume 114.9 fL (80.0-100.0); Platelet Count 350 th/mm3 (150-450); Red Blood Count 2.15 mil/mm3 (4.50-5.90); White Blood Count 8.5 th/mm3 (4.0-11.0)
[2018-06-01 06:31] LABS: Potassium 4.1 meq/L (3.5-5.1)
[2018-06-01 06:34] LABS: Calcium 8.2 mg/dL (8.5-10.1)
[2018-06-01 06:35] LABS: Carbon Dioxide 13.5 meq/L (21.0-32.0)
[2018-06-01 07:21] LABS: Eosinophils 4 % (0-4); Lymphocytes 36 % (9-44); Monocytes 3 % (0-8); Ovalocytes 1+; Platelet Estimate Normal (Normal); Platelet Morphology Normal (Normal); Tallied Nucleated RBC 2 (0-0)
[2018-06-01 07:22] LABS: Dimorphic RBC Present
--- NOTE | 2018-06-01 12:11 | P.HPIM ---
History of Present Illness Primary Care Physician: No Primary Care Physician Chief Complaint: SOB, Nausea History of Present Illness: Mr. Higgins is a 52-year-old male. He has a past medical history of chronic kidney disease. Other underlying medical conditions or sickle cell disease, hypertension, and diabetes. He came to the hospital secondary to shortness of breath and some reports of nausea. He appears to have reentered acute renal failure with a creatinine of 4.8. He has been in renal failure before and responded well before to hydration. Etiology is uncertain but if nausea was pre-existing this could lead to some dehydration. Nausea could be secondary to renal failure itself, however. When patient is seen this morning he started to feel better. Creatinine has improved to 4.1. His baseline creatinine is about 2.5-3.0. No acute complaints when seen. Patient does not recall being on dialysis previously, dialysis has been discussed in the past however. Inpatient Certification Inpatient Certification: I certify that the inpatient services were ordered in accordance with Medicare regulations governing the order. This includes certification that hospital inpatient services are reasonable and necessary and in the case of services not specified as inpatient-only under 42 CFR 419.22(n), that they are appropriately provided as inpatient services in accordance to with the 2-midnight benchmark under 43 CFR 412.3(e) Estimated Total Length of Stay (Days): 2 Plans for Post Hospital Care: Home Review of Systems Constitutional: No fevers, no chills no night sweats, no fatigue, no weakness Eyes: No eye pain, no blurry vision, no loss of vision ENT: No sore throat, no ear pain, no rhinorrhea Cardiovascular: No chest pain, no tachycardia, no palpitations, no syncope Respiratory: No wheezing, no cough, shortness of breath Gastrointestinal: No abdominal pain, no black tarry stools, no bright red blood per rectum, no vomiting, no diarrhea, nausea Musculoskeletal: No joint pain, no muscle cramps, no stiffness Integumentary: No rash, no ulcers, no drainage Neurologic: No sensory loss, no loss of motor function, no dizziness Psychiatric: No behavioral changes, no hallucinations, no suicidal ideations [facility] Family History Family History Other Family history unknown Osteoarthritis Social History Social History Substance History: No History of Abuse Second Hand Smoke Exposure: Yes Smoking Status: Current every day smoker Tobacco Type: Cigarettes Cigarettes Per Day: 10 How Often Do You Have a Drink Containing Alcohol: Never Recent Travel in [facility] within the Last 8 Weeks: No Recent Out of Country Travel within the Last 8 Weeks: No Immunization History Tetanus Immunization: Unsure Hx Influenza Vaccine This Season: No Medications and Allergies Allergies Allergy/AdvReac Type Severity Reaction Status Date / Time lorazepam Allergy Severe Shortness Verified 04/17/18 20:55 of Breath Home Medications Medication Instructions Recorded Confirmed Type folic acid 1 mg PO DAILY 05/31/18 05/31/18 History Active Medications: Active Medications Acetaminophen (Tylenol) 650 mg PO Q4H PRN PRN Reason: Temp > 100.4 Heparin Sodium (Porcine) (Heparin Inj) 5,000 units SQ Q8H [facility] Last Admin: 06/01/18 05:06 Dose: 5,000 units Sodium Chloride (Ns Inj) 1,000 mls @ 75 mls/hr IV.CONT .[id number] [facility] Ondansetron HCl (Zofran Inj) 4 mg IV.PUSH Q6H PRN PRN Reason: NAUSEA OR VOMITING Sodium Chloride (Ns Flush) 2 ml IV.FLUSH BID [facility] Last Admin: 06/01/18 09:38 Dose: Not Given Sodium Chloride (Ns Flush) 2 ml IV.FLUSH PRN PRN PRN Reason: FLUSH AFTER USING IV ACCESS Physical Exam Vital signs: Vital Signs 05/31/18 17:35 05/31/18 19:15 05/31/18 19:37 Temperature 98.7 F Pulse Rate 76 69 73 Respiratory Rate 16 16 Blood Pressure 200/90 H 181/88 H 137/78 Pulse Oximetry 94 L 99 99 05/31/18 20:33 05/31/18 22:25 05/31/18 22:34 Temperature 98.7 F Pulse Rate 80 76 Respiratory Rate 20 16 Blood Pressure 127/76 152/73 H Pulse Oximetry 98 98 98 05/31/18 23:27 06/01/18 00:00 06/01/18 04:00 Temperature 97.0 F L 98.6 F 96.8 F L Pulse Rate 78 77 69 Respiratory Rate 16 16 16 Blood Pressure 156/88 H 149/67 H 146/87 H Pulse Oximetry 99 96 98 06/01/18 08:00 Temperature 96.8 F L Pulse Rate 70 Respiratory Rate 20 Blood Pressure 154/85 H Pulse Oximetry 100 Intake & Output 05/31/18 06/01/18 06/01/18 18:59 06:59 18:59 Intake Total 980 / 980 Output Total 2650 / 2650 1000 / 1000 Balance -1670 / -1670 -1000 / -1000 Weight 52.5 kg 55.6 kg Intake: IV 500 / 500 NS Inj 500 ML @ 1000 mls/hr IV. 500 / 500 SIG BOLUS [facility] Rx#:[id number] Oral Supplement 480 / 480 Output: Urine 1800 / 1800 1000 / 1000 Urine Amount (Catheter) 850 / 850 Straight 850 / 850 Narrative: GENERAL: NAD, A&Ox3 HEAD: Normocephalic. NECK: Supple, trachea midline. No lymphadenopathy. EYES: No scleral icterus. No injection or drainage. CARDIOVASCULAR: Regular rate and rhythm without murmurs, gallops, or rubs. RESPIRATORY: Breath sounds equal bilaterally. No accessory muscle use. GASTROINTESTINAL: Abdomen soft, non-tender, nondistended. MUSCULOSKELETAL: No cyanosis, or edema. SKIN: Warm and dry. NEURO: No focal neurological deficits. Urinary Catheter Management Straight: Cath placed during this visit: yes, but has since been removed by the nurse Reason for continuing: Not indwelling catheter Insertion date: 05/31/18 Insertion time: 19:50 Removal date: 05/31/18 Removal time: 19:55 Results Labs CBC & Chem 7: 06/01/18 05:20 06/01/18 05:20 Imaging Impressions Chest X-Ray 05/31/18 00:00 CONCLUSION: 1. No acute abnormality or significant interval change. Abdomen/Pelvis CT 05/31/18 19:26 CONCLUSION: 1. No evidence of hydronephrosis or renal stones. 2. 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 3. No pelvic mass seen. Caprini VTE Risk Assessment Caprini VTE Risk Assessment: No/Low Risk (score <= 1) Caprini Risk Assessment Model: Point Value = 1 Point Value = 2 Point Value = 3 Point Value = 5 Age 41-60 Minor surgery BMI > 25 kg/m2 Swollen legs Varicose veins or History of unexplained or recurrent spontaneous Oral contraceptives or hormone replacement Sepsis (< 1 month) Serious lung disease, including pneumonia (< 1 month) Abnormal pulmonary function Acute myocardial infarction Congestive heart failure (< 1 month) History of inflammatory bowel disease Medical patient at bed rest Age 61-74 Arthroscopic surgery Major open surgery (> 45 min) Laparoscopic surgery (> 45 min) Malignancy Confined to bed (> 72 hours) Immobilizing plaster cast Central venous access Age >= 75 History of VTE Family history of VTE Factor V Leiden Prothrombin [id number] Lupus anticoagulant Anticardiolipin antibodies Elevated serum homocysteine Heparin-induced thrombocytopenia Other congenital or acquired thrombophilia Stroke (< 1 month) Elective arthroplasty Hip, pelvis, or leg fracture Acute spinal cord injury (< 1 month) Prophylaxis Regimen: Total Risk Factor Score Risk Level Prophylaxis Regimen 0-1 Low Early ambulation 2 Moderate Order ONE of the following: *Sequential Compression Device (SCD) *Heparin 5000 units SQ BID 3-4 Higher Order ONE of the following medications: *Heparin 5000 units SQ TID *Enoxaparin/Lovenox 40 mg SQ daily (WT < 150 kg, CrCl > 30 mL/min) *Enoxaparin/Lovenox 30 mg SQ daily (WT < 150 kg, CrCl > 10-29 mL/min) *Enoxaparin/Lovenox 30 mg SQ BID (WT < 150 kg, CrCl > 30 mL/min) AND/OR *Sequential Compression Device (SCD) 5 or more Highest Order ONE of the following medications: *Heparin 5000 units SQ TID (Preferred with Epidurals) *Enoxaparin/Lovenox 40 mg SQ daily (WT < 150 kg, CrCl > 30 mL/min) *Enoxaparin/Lovenox 30 mg SQ daily (WT < 150 kg, CrCl > 10-29 mL/min) *Enoxaparin/Lovenox 30 mg SQ BID (WT < 150 kg, CrCl > 30 mL/min) AND *Sequential Compression Device (SCD) Assessment and Plan Plan 52-year-old male admitted secondary to acute renal failure on chronic kidney disease Acute renal failure Chronic kidney disease Light IV hydration Follow renal function Avoid nephrotoxins Nephrology consult Hypertension Continue baseline treatment Follow blood pressures Adjust treatments as needed Diabetes mellitus type 2 Follow blood sugars Insulin sliding scale Diabetic diet Sickle cell disease No acute exacerbation Chronic anemia to be expected Follow CBC Follow clinically DVT prophylaxis SCDs H&P: Quality VTE Deep Vein Thrombosis/Pulmonary Embolism Present on Admission: No
[2018-06-01] MEDS ORDERED: Dextrose 50% in Water 50 ML Vial IV.PUSH PRN (12:22)
--- NOTE | 2018-06-01 14:48 | ECG ---
Date Performed: 05/31/2018 Time Performed: 17:56:55 PTAGE: 52 years EKG: Sinus rhythm WITH OCCASIONAL VENTRICULAR PREMATURE COMPLEXES POSSIBLE LEFT ATRIAL ENLARGEMENT POSSIBLE LEFT VENTR ICULAR HYPERTROPHY POSSIBLE SEPTAL MYOCARDIAL INFARCTION ABNORMAL ECG Since the PREVIOUS TRACING , no significant change noted PREVIOUS TRACIN01/22/2018 16.09 DOCTOR: Susan Zacarias Interpretating Date/Time 06/01/2018 14:41:39
[2018-06-01] MEDS: Folic Acid 1 MG Tablet PO SCH (15:44)
[2018-06-01] MEDS: amLODIPine 10 MG Tablet PO SCH (15:44)
[2018-06-01] MEDS: Sod Chloride 0.9% Inj 1,000 ML IV.CONT SCH (15:45)
[2018-06-01] MEDS ORDERED: Aluminum/Magnesium/Simethacone Susp 30 ML UDC PO PRN (17:26)
--- NOTE | 2018-06-01 17:28 | MB ---
cc: Danielle Hannah MD DATE: 06/01/2018 REASON FOR CONSULTATION: Elevated BUN and creatinine, for evaluation. HISTORY OF PRESENT ILLNESS: This is a 52-year-old male with a past medical history of hypertension, diabetes mellitus, sickle cell disease, chronic kidney disease, came to the hospital with complaint of shortness of breath and nausea. I was called to see the patient because of elevated BUN and creatinine. The patient has known history of chronic kidney disease, and patient was seen by me when he was here in April. At that time, the creatinine was in the range of 2.5-3.0. The patient has not been following with any pocket assembler. The patient has nausea. No abdominal pain. The patient has also worsening shortness of breath, more with exertion. The patient is not eating well. PAST MEDICAL HISTORY: Hypertension, diabetes mellitus, chronic kidney disease, history of sickle cell. REVIEW OF SYSTEMS: The patient has no history of fever. No headache, dizziness or blurring of vision. The patient is not eating well. He has nausea and decreased appetite. No abdominal pain. No history of diarrhea. No dysuria or hematuria. Not taking nonsteroidal anti-inflammatory drugs. Has been taking narcotics for pain. Has shortness of breath, more with exertion. Occasionally has dry cough. No chest pain. SOCIAL HISTORY: The patient is an active smoker. There is no history of heavy alcoholism. FAMILY HISTORY: Noncontributory. ALLERGIES: LORAZEPAM. MEDICATIONS: Currently he is on following medications: 1. Tylenol as needed. 2. Norvasc 10 mg once a day. 3. Folic acid 1 mg daily. 4. Insulin aspart sliding scale. 5. Zofran as needed. 6. IV fluid normal saline at 75 an hour. PHYSICAL EXAMINATION: GENERAL: The patient is awake, alert, sitting in the chair, not in acute distress. VITAL SIGNS: Blood pressure is 82. His blood pressure has been slightly on the higher side, but is better than before. Temperature is 97.3, oxygen saturation 99-100%. HEENT: Pupils are mid constricted, nonicteric sclerae, conjunctivae pale. NECK: Supple. JVD is not elevated. LUNGS: The patient has bilateral good air entry with occasional wheezing. HEART: S1, S2. Regular rate and rhythm. ABDOMEN: Distended, soft, lax. There is no tenderness. Bowel sounds positive. EXTREMITIES: There is no pedal edema. LABORATORY DATA: WBC count is 8.5, hemoglobin 8.1, platelet count of 350. Arterial blood gas showing pH of 7.28, pCO2 of 29, bicarbonate of 13, base excess of 12.6. Sodium 141, potassium 4.1, chloride 117, bicarbonate 13.5, anion gap is 11, BUN 65, creatinine 4.1, calcium is 8.2. Ammonia 28. Troponin 0.02. Urinalysis showing protein of 100. IMAGING STUDIES: The patient had CT scan of the abdomen and pelvis done, which shows no evidence of hydronephrosis or renal stone, chronic atherosclerotic disease with stable fusion at L4-L5. No pelvic mass. Kidneys are reported as normal size and shape. Chest x-ray was also done, which shows no acute abnormality. ASSESSMENT AND PLAN: 1. Chronic kidney disease, acute kidney injury. 2. Metabolic acidosis. 3. Anemia with history of sickle cell. 4. Hypertension, uncontrolled. 5. Diabetes mellitus. 6. Dehydration. The patient has chronic kidney disease with minimal proteinuria, normal size kidneys, most likely has hypertensive or diabetic renal disease with advanced renal failure and the patient has acute kidney injury, most likely because of dehydration. The creatinine is improving now from 4.8-4.1. His baseline is 2.5-3.0. I agree with giving the IV fluid. I will add sodium bicarbonate. The patient also has anemia. I will send the iron study and follow the hemoglobin and transfuse as needed. Thank you for the consultation. I will follow the patient while he is in the hospital. MD LETI Green/joseph , 04:20 PM , 04:30 PM
[2018-06-01] MEDS: Insulin NovoLOG Aspart Correctional Sugar Inj SQ SCH ×2 (18:17→20:23)
[2018-06-02] MEDS: Sod Chloride 0.9% Inj 1,000 ML IV.CONT SCH ×2 (05:16→15:54)
[2018-06-02] MEDS: Heparin - SQ 10,000 UNITS/ML Vial SQ SCH ×3 (06:40→21:58)
[2018-06-02 06:48] LABS: Hematocrit 26.1 % (39.0-51.0); Mean Corpuscular HGB Conc 34.3 % (32.0-36.0); Mean Corpuscular Hemoglobin 41.3 pg (27.0-34.0); Mean Corpuscular Volume 120.3 fL (80.0-100.0); Mean Platelet Volume 8.3 fL (7.0-11.0); Platelet Count 354 th/mm3 (150-450); Red Blood Count 2.17 mil/mm3 (4.50-5.90); Red Cell Distribution Width 23.6 % (11.6-17.2); White Blood Count 9.3 th/mm3 (4.0-11.0)
[2018-06-02 07:00] LABS: Chloride 113 meq/L (98-107); Potassium 4.1 meq/L (3.5-5.1); Sodium 138 meq/L (136-145)
[2018-06-02 07:03] LABS: Anion Gap 8 meq/L (5-15); Calcium 8.7 mg/dL (8.5-10.1); Carbon Dioxide 16.7 meq/L (21.0-32.0); Glucose,Random 105 mg/dL (74-106)
[2018-06-02 07:04] LABS: Blood Urea Nitrogen 56 mg/dL (7-18)
[2018-06-02 07:06] LABS: Alanine Aminotransferase 39 U/L (12-78); Aspartate Aminotransferase 40 U/L (15-37)
[2018-06-02 07:07] LABS: Glomerular Filtration Rate 28 mL/min (>89); Phosphorus 2.6 mg/dL (2.5-4.9)
[2018-06-02 07:41] LABS: Alkaline Phosphatase 185 U/L (45-117)
[2018-06-02 07:48] LABS: Corrected White Blood Count 8.6 th/mm3 (4.0-11.0); Eosinophils 1 % (0-4); Lymphocytes 22 % (9-44); Monocytes 7 % (0-8); Ovalocytes 1+; Platelet Estimate Normal (Normal); Platelet Morphology Normal (Normal); Tallied Nucleated RBC 8 (0-0); Target Cells 1+
[2018-06-02 07:49] LABS: Dimorphic RBC Present
[2018-06-02 07:51] LABS: Total Protein 7.3 g/dL (6.4-8.2)
[2018-06-02] MEDS: Insulin NovoLOG Aspart Correctional Sugar Inj SQ SCH ×4 (08:08→21:58)
[2018-06-02] MEDS: Folic Acid 1 MG Tablet PO SCH (08:44)
[2018-06-02] MEDS: amLODIPine 10 MG Tablet PO SCH (08:44)
[2018-06-02 10:44] LABS: % Iron Saturation 96.8 % (20-50); Iron 286 mcg/dL (65-175); Total Iron Binding Capacity 295 mcg/dL (250-450)
--- NOTE | 2018-06-02 11:43 | P.PNIM ---
Subjective Interval history: Renal function continues to improve. Current numbers 2.90. Etiology could be related to dehydration. The importance of good fluid intake discussed with the patient. Physical Exam Vital signs: Vital Signs 06/01/18 12:00 06/01/18 16:00 06/01/18 18:18 Temperature 97.3 F L 96.8 F L Pulse Rate 71 80 Respiratory Rate 18 20 20 Blood Pressure 148/82 H 173/90 H Pulse Oximetry 99 98 06/01/18 20:00 06/01/18 20:05 06/02/18 00:00 Temperature 97.9 F 98.4 F Pulse Rate 63 64 Respiratory Rate 16 18 Blood Pressure 156/74 H 163/86 H Pulse Oximetry 96 97 96 06/02/18 04:00 06/02/18 07:44 Temperature 98.2 F Pulse Rate 60 Respiratory Rate 16 Blood Pressure 166/86 H Pulse Oximetry 97 98 Intake & Output 06/01/18 06/02/18 06/02/18 18:59 06:59 18:59 Intake Total 460 / 460 Output Total 1000 / 1000 400 / 400 Balance -540 / -540 -400 / -400 Weight 54.6 kg Intake: Oral 460 / 460 Output: Urine 1000 / 1000 400 / 400 Narrative: GENERAL: NAD, A&Ox3 HEAD: Normocephalic. NECK: Supple, trachea midline. No lymphadenopathy. EYES: No scleral icterus. No injection or drainage. CARDIOVASCULAR: Regular rate and rhythm without murmurs, gallops, or rubs. RESPIRATORY: Breath sounds equal bilaterally. No accessory muscle use. GASTROINTESTINAL: Abdomen soft, non-tender, nondistended. MUSCULOSKELETAL: No cyanosis, or edema. SKIN: Warm and dry. NEURO: No focal neurological deficits. Urinary Catheter Management Straight: Cath placed during this visit: yes, but has since been removed by the nurse Reason for continuing: Not indwelling catheter Insertion date: 05/31/18 Insertion time: 19:50 Removal date: 05/31/18 Removal time: 19:55 Results Labs CBC & Chem 7: 06/02/18 05:50 06/02/18 05:50 Assessment and Plan Plan 52-year-old male admitted secondary to acute renal failure on chronic kidney disease Gradual improvement with light IV hydration. Continue monitoring renal function. If improvement trends continue he will be medically stable for discharge by tomorrow, pending nephrology clearance. Acute renal failure Chronic kidney disease Light IV hydration Follow renal function Avoid nephrotoxins Nephrology consult Hypertension Continue baseline treatment Follow blood pressures Adjust treatments as needed Diabetes mellitus type 2 Follow blood sugars Insulin sliding scale Diabetic diet Sickle cell disease No acute exacerbation Chronic anemia to be expected Follow CBC Follow clinically DVT prophylaxis SCDs Progress Note: Quality VTE Deep Vein Thrombosis/Pulmonary Embolism Present on Admission: No
--- NOTE | 2018-06-02 22:12 | P.PNNP ---
Subjective Interval history: Patient seen in the afternoon, still not eating well, no SOB. Physical Exam Vital signs: Vital Signs 06/02/18 00:00 06/02/18 04:00 06/02/18 07:44 Temperature 98.4 F 98.2 F Pulse Rate 64 60 Respiratory Rate 18 16 Blood Pressure 163/86 H 166/86 H Pulse Oximetry 96 97 98 06/02/18 08:00 06/02/18 12:00 06/02/18 16:00 Temperature 96.6 F L 97 F L 96 F L Pulse Rate 65 89 82 Respiratory Rate 20 16 18 Blood Pressure 173/76 H 159/76 H 149/80 H Pulse Oximetry 98 98 99 06/02/18 19:32 06/02/18 20:00 Temperature 97.3 F L Pulse Rate 83 Respiratory Rate 16 Blood Pressure 160/96 H Pulse Oximetry 97 97 Intake & Output 06/02/18 06/02/18 06/03/18 06:59 18:59 06:59 Intake Total 1120 / 1120 Output Total 400 / 400 275 / 275 Balance -400 / -400 845 / 845 Weight 54.6 kg Intake: IV 1000 / 1000 NS Inj 1,000 ML @ 75 mls/hr IV. 1000 / 1000 CONT .[id number] [facility] Rx#: [id number] Oral 120 / 120 Output: Urine 400 / 400 275 / 275 Other: # Voids 1 # Urine Diapers 625 Narrative: GENERAL: NAD, A&Ox3 HEAD: Normocephalic. NECK: Supple, trachea midline. No lymphadenopathy. EYES: No scleral icterus. No injection or drainage. CARDIOVASCULAR: Regular rate and rhythm without murmurs, gallops, or rubs. RESPIRATORY: Breath sounds equal bilaterally. No accessory muscle use. GASTROINTESTINAL: Abdomen soft, non-tender, nondistended. MUSCULOSKELETAL: No cyanosis, or edema. SKIN: Warm and dry. NEURO: No focal neurological deficits. - Urinary Catheter Management Straight Cath placed during this visit: yes, but has since been removed by the nurse Reason for continuing: Not indwelling catheter Insertion date: 05/31/18 Insertion time: 19:50 Removal date: 05/31/18 Removal time: 19:55 Assessment and Plan - Assessment (1) Acute on chronic kidney failure Code(s): N17.9 - Acute kidney failure, unspecified; N18.9 - Chronic kidney disease, unspecified Status: Acute (2) Diabetes Code(s): E11.9 - Type 2 diabetes mellitus without complications Status: Acute (3) Hypertension Code(s): I10 - Essential (primary) hypertension Status: Acute (4) Sickle cell anemia with pain Code(s): D57.00 - Hb-SS disease with crisis, unspecified Status: Acute Plan: Patient with chronic kidney disease, and develop LESA.' Patient has metabolic acidosis. Has an element of dehydration. Continue IVF and NaHco3. Creatinine is improving and now 2.9, Hco3 also improving. Avoid Nephrotoxins, and follow the urine out put and BMP.
[2018-06-03] MEDS: Heparin - SQ 10,000 UNITS/ML Vial SQ SCH (05:12)
[2018-06-03] MEDS: Sod Chloride 0.9% Inj 1,000 ML IV.CONT SCH (05:12)
[2018-06-03 07:07] LABS: Hematocrit 24.7 % (39.0-51.0); Hemoglobin 8.4 gm/dL (13.0-17.0); Mean Corpuscular HGB Conc 33.8 % (32.0-36.0); Mean Corpuscular Hemoglobin 39.6 pg (27.0-34.0); Mean Corpuscular Volume 116.9 fL (80.0-100.0); Mean Platelet Volume 8.1 fL (7.0-11.0); Platelet Count 334 th/mm3 (150-450); Red Blood Count 2.11 mil/mm3 (4.50-5.90); Red Cell Distribution Width 24.1 % (11.6-17.2); White Blood Count 9.5 th/mm3 (4.0-11.0)
[2018-06-03 07:08] LABS: Chloride 113 meq/L (98-107); Sodium 139 meq/L (136-145)
[2018-06-03 07:13] LABS: Albumin 2.9 g/dL (3.4-5.0); Anion Gap 9 meq/L (5-15); Blood Urea Nitrogen 46 mg/dL (7-18); Calcium 8.3 mg/dL (8.5-10.1); Carbon Dioxide 17.4 meq/L (21.0-32.0); Glucose,Random 109 mg/dL (74-106)
[2018-06-03 07:16] LABS: Alanine Aminotransferase 39 U/L (12-78); Aspartate Aminotransferase 38 U/L (15-37)
[2018-06-03 07:17] LABS: Glomerular Filtration Rate 33 mL/min (>89)
[2018-06-03 07:18] LABS: Total Protein 6.8 g/dL (6.4-8.2)
[2018-06-03 07:19] LABS: Alkaline Phosphatase 174 U/L (45-117)
[2018-06-03] MEDS: Insulin NovoLOG Aspart Correctional Sugar Inj SQ SCH (07:52)
[2018-06-03] MEDS: Folic Acid 1 MG Tablet PO SCH (08:33)
[2018-06-03] MEDS: amLODIPine 10 MG Tablet PO SCH (08:33)
[2018-06-03 08:45] LABS: Lymphocytes 31 % (9-44); Monocytes 9 % (0-8); Ovalocytes 1+; Platelet Estimate Normal (Normal); Tallied Nucleated RBC 2 (0-0); Target Cells 1+
[2018-06-03 08:46] LABS: Dimorphic RBC Present; Platelet Morphology Normal (Normal)
[2018-06-03 10:21] VITALS: O2SAT 96
--- NOTE | 2018-06-03 11:06 | US ---
EXAM DATE: 06/03/2018 10:56 AM EST AGE/SEX: 52 years / Male INDICATIONS: Left arm swelling. CLINICAL DATA: This is the patient's initial encounter. Patient reports that signs and symptoms have been present for 1 day and indicates a pain score of 8/10. MEDICAL/SURGICAL HISTORY: . Arthritis. Diabetes. HTN. Sickle cell anemia. Cholecystectomy. Shoulder surgery. COMPARISON: No prior exams available for comparison. FINDINGS: The vessels are compressible and augmentation response is documented. No filling defects a re seen. The flow is phasic with respiration. Other: None. CONCLUSION: 1. The study is negative for upper extremity deep venous thrombosis. Electronically signed by: Porter Tena MD Board Certified Radiologist 06/03/2018 11:04 AM EST
[2018-06-03 13:59] VITALS: BP 143/68; PULSE 77; RESP 22; TEMP 98.1
--- NOTE | 2018-06-03 15:16 | P.DS ---
DS: Providers Date of admission: 05/31/18 21:18 Primary care physician: No Primary Care Physician Consults: 05/31/18 21:18 Consult to Nephrology Routine Consulting Provider: Danielle Hannah Does the patient have a Internet Application Developer who follows them?: No Preferred Nephrology Kos[employer] Dietary Service Supervisor:: Dice Table Operator Physician Reason for Consultation: ARF Notified:: Service Spoke with:: haroldo Date Notified:: 05/31/18 Time Notified:: 22:05 Ordering Provider: FABBY Brief History from admission: Mr. Higgins is a 52-year-old male. He has a past medical history of chronic kidney disease. Other underlying medical conditions or sickle cell disease, hypertension, and diabetes. He came to the hospital secondary to shortness of breath and some reports of nausea. He appears to have reentered acute renal failure with a creatinine of 4.8. He has been in renal failure before and responded well before to hydration. Etiology is uncertain but if nausea was pre-existing this could lead to some dehydration. Nausea could be secondary to renal failure itself, however. When patient is seen this morning he started to feel better. Creatinine has improved to 4.1. His baseline creatinine is about 2.5-3.0. No acute complaints when seen. Patient does not recall being on dialysis previously, dialysis has been discussed in the past however. DS: Diagnosis Discharge Diagnosis (1) Acute on chronic kidney failure: Status: Acute (2) Diabetes: Status: Acute (3) Hypertension: Status: Acute (4) Sickle cell anemia with pain: Status: Acute DS: Summary Mr. Higgins is a 52-year-old male. He was admitted secondary to acute renal failure on chronic kidney disease. IV hydration is provided and his renal function has returned back to his baseline which is approximately 2.5-3.0 for his creatinine. The patient is feeling better. This may have been related to dehydration. The patient is encouraged to drink regularly and ensure that he is having approximately 3-4 episodes of urination daily. Left swelling of arm was found to be related to IV infusion overnight without evidence of DVT. He is medically stable at this point for discharge to home. Time Spent with Patient Total time spent providing and/or coordinating discharge services: Less than 30 minutes Quality: VTE Deep Vein Thrombosis/Pulmonary Embolism Present on Admission: No Results Labs on day of discharge: Labs from last 24 hours 06/03/18 06/03/18 06/03/18 07:51 06:42 06:42 CBC w Diff Slide review pending WBC 9.5 RBC 2.11 L Hgb 8.4 L Hct 24.7 L MCV 116.9 H MCH 39.6 H MCHC 33.8 RDW 24.1 H Plt Count 334 MPV 8.1 WBC Differential Manual diff final Seg Neuts % (Manual) 60 Lymphocytes % (Manual) 31 Monocytes % (Manual) 9 H Abs Neuts (Manual) 5.7 Nucleated RBCs/100 WBC 2 H Differential Comment . Platelet Estimate Normal Platelet Morphology Normal Dimorphic RBCs Present H Target Cells 1+ H Ovalocytes 1+ H Keratocytes Occ H Sodium 139 Potassium 4.0 Chloride 113 H Carbon Dioxide 17.4 L Anion Gap 9 BUN 46 H Creatinine 2.50 H Estimated GFR 33 L POC Glucose 122 Random Glucose 109 H Calcium 8.3 L Total Bilirubin 1.2 H AST 38 H ALT 39 Alkaline Phosphatase 174 H Total Protein 6.8 Albumin 2.9 L 06/02/18 06/02/18 21:46 16:30 CBC w Diff WBC RBC Hgb Hct MCV MCH MCHC RDW Plt Count MPV WBC Differential Seg Neuts % (Manual) Lymphocytes % (Manual) Monocytes % (Manual) Abs Neuts (Manual) Nucleated RBCs/100 WBC Differential Comment Platelet Estimate Platelet Morphology Dimorphic RBCs Target Cells Ovalocytes Keratocytes Sodium Potassium Chloride Carbon Dioxide Anion Gap BUN Creatinine Estimated GFR POC Glucose 164 133 Random Glucose Calcium Total Bilirubin AST ALT Alkaline Phosphatase Total Protein Albumin Impressions ITS Impressions Chest X-Ray 05/31/18 00:00 CONCLUSION: 1. No acute abnormality or significant interval change. Abdomen/Pelvis CT 05/31/18 19:26 CONCLUSION: 1. No evidence of hydronephrosis or renal stones. 2. 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 3. No pelvic mass seen. Venous Doppler Study 06/03/18 00:00 CONCLUSION: 1. The study is negative for upper extremity deep venous thrombosis. Discharge Plan Discharge Disposition Patient Disposition: 01 Discharge Home Discharge Condition Condition: Stable Discharge Order Discharge Orders: Discharge Order (Routine); Ordered 06/03/18 Ordered By: Vipin Cabrera Discharge Details Anticipated Discharge Date: 06/03/18 Discharge Comment: When cleared by Nephrology. Physicians Team Primary Care Provider: Primary Care Physici,Mariely Attending Provider: Vipin Cabrera Other Providers: Danielle Hannah Rxs /Orders / Referrals /Forms Prescriptions: Continue folic acid 1 mg Tablet 1 mg PO DAILY RF: 0 amlodipine 10 mg tablet 10 mg PO DAILY Qty: 30 RF: 5 Referrals: Primary Care Mariely Romeo [Primary Care Provider] - See Instructions ( PLEASE CALL YOUR MATERIALS MANAGEMENT MANAGER, AFTER THE WEEKEND AND HOLIDAY TO SCHEDULE YOUR FOLLOW UP APT, IF YOU DO NOT HAVE ONE CALL YOUR INSURANCE COMPANY FOR A LIST IN YOUR AREA, CALL [phone]) Discharge Instructions Patient Printed Instructions: Acute Kidney Injury (GEN) Status ED Status: Left Department Discharge Information Discharge Date/Time: 06/03/18 14:40
== END 2018-06-03 14:40 | disposition home or self-care (01) | DRG 683 ==
LOC: PHEFT 17:10 → PHEDA 21:18 → PH3 23:02
PROVIDERS: ADMIT Hospitalist; ATTEND Hospitalist
DX: D57.1 Sickle-cell disease without crisis; M54.9 Dorsalgia, unspecified; M79.89 Other specified soft tissue disorders; E87.2 Acidosis; E86.0 Dehydration; Z88.8 Allergy status to other drugs, medicaments and biological substances; G89.29 Other chronic pain; I12.9 Hypertensive chronic kidney disease with stage 1 through stage 4 chronic kidney disease, or unspecified chronic kidney disease; N17.9 Acute kidney failure, unspecified; N18.9 Chronic kidney disease, unspecified; F17.210 Nicotine dependence, cigarettes, uncomplicated; E11.22 Type 2 diabetes mellitus with diabetic chronic kidney disease; Z79.899 Other long term (current) drug therapy
CPT/HCPCS: 71010; 71045; 74176; 80048; 80053; 81001; 82140; 82803; 82805; 82948; 82962; 83540; 83550; 84100; 84484; 85025; 90774; 93005; 93971; 96374; 97162; 99285; C8952; J0360; J1644; J1815; J2405; J7030; J7040; P9612